=== PATIENT | female | born 1960 | race African-American/Black ===

== ENCOUNTER 2022-04-19 09:41 | Outpatient (CLI) | payer MEDICARE, SELFPAY ==
[2022-04-19 19:56] LABS: Basophils Absolute Auto 0.1 K/mm3 (0.0-0.1); Basophils Percent Auto 0.9 % (0.2-1.2); Eosinophils Absolute Auto 0.2 K/mm3 (0-0.3); Eosinophils Percent Auto 3.2 % (0-4.4); Hematocrit 41.5 % (37.0-47.0); Hemoglobin 13.9 g/dL (12.0-15.0); Immature Granulocyte Absolute 0.01 K/mm3 (0.00-0.031); Immature Granulocyte Percent A 0.2 % (0-0.5); Lymphocytes Absolute Auto 1.63 K/mm3 (0.9-3.2); Lymphocytes Percent Auto 30.7 % (18.3-44.2); Mean Corpuscular HGB Conc 33.5 g/dl (32-36); Mean Corpuscular Hemoglobin 30.3 pg (26-34); Mean Corpuscular Volume 90.6 fl (80-100); Mean Platelet Volume 10.7 fl (7.4-10.4); Monocytes Absolute Auto 0.4 K/mm3 (0.1-0.6); Monocytes Percent Auto 7.5 % (2.6-8.5); Neutrophils Absolute Auto 3.1 K/mm3 (1.3-6.7); Neutrophils Percent Auto 57.5 % (45.5-73.1); Platelet Count Result 276 k/mm3 (150-375); Red Blood Count 4.58 M/mm3 (4.2-5.4); White Blood Count 5.3 K/mm3 (4.5-10.0)
[2022-04-19 20:00] LABS: Alanine Aminotransferase 16 U/L (6-35); Albumin Level 4.5 g/dL (3.5-5.1); Alkaline Phosphatase 88 U/L (38-126); Anion Gap 8 mmol/L (8-16); Aspartate Amino Transferase 42 U/L (14-36); Bilirubin,Total 1.5 mg/dL (0.2-1.3); Blood Urea Nitrogen 18 mg/dL (7-17); Calcium 9.2 mg/dL (8.4-10.2); Carbon Dioxide 23 mmol/L (22-30); Chloride 105 mmol/L (98-107); Cholesterol 289 mg/dL (0-200); Estimated Glomerular Filt Rate > 60; Glucose 93 mg/dL (65-110); HDL Direct 93 mg/dL; Potassium 3.7 mmol/L (3.4-5.0); Sodium 136 mmol/L (137-145); Triglycerides 79 mg/dL (<150)
[2022-04-19 20:11] LABS: LDL Cholesterol Direct 108 mg/dL
[2022-04-29 07:49] LABS: Oxidant NEGATIVE mcg/mL (<200)
== END 2022-04-19 09:42 | disposition home or self-care (01) ==
PROVIDERS: PCP Family Medicine; Visit Provider Family Medicine
DX: E07.9 Disorder of thyroid, unspecified (principal); M32.9 Systemic lupus erythematosus, unspecified; E78.5 Hyperlipidemia, unspecified; F41.9 Anxiety disorder, unspecified; Z79.899 Other long term (current) drug therapy
CPT/HCPCS: 36415; 80053; 80061; 80299; 84443; 85025

== ENCOUNTER 2022-05-20 09:47 | Outpatient (CLI) | payer MEDICARE, SELFPAY ==
[2022-05-20 20:09] LABS: Add Urine Microscopic? YES; Appearance Urine Clear (Clear); Bilirubin Urine Negative (Negative); Blood Urine Trace-Intact (Negative); Color Urine Yellow (Yellow); Glucose Urine UA Negative (Negative); Ketones Urine Negative (Negative); Leukocyte Esterase Ur 2+ LEU/UL (NEGATIVE); Nitrate Urine Negative (Negative); Protein Urine Negative (Negative); Specific Grav Ur >= 1.030 (1.001-1.035); Urobilinogen Urine 0.2 mg/dL (<2.0); pH Urine 5.5 (5.0-9.0)
[2022-05-20 20:15] LABS: Alanine Aminotransferase 18 U/L (6-35); Albumin Level 4.7 g/dL (3.5-5.1); Alkaline Phosphatase 96 U/L (38-126); Anion Gap 4 mmol/L (8-16); Aspartate Amino Transferase 76 U/L (14-36); Bilirubin,Total 1.4 mg/dL (0.2-1.3); Blood Urea Nitrogen 14 mg/dL (7-17); Calcium 9.3 mg/dL (8.4-10.2); Carbon Dioxide 30 mmol/L (22-30); Chloride 106 mmol/L (98-107); Estimated Glomerular Filt Rate 56; Glucose 75 mg/dL (65-110); Potassium 4.1 mmol/L (3.4-5.0); Sodium 140 mmol/L (137-145)
[2022-05-20 20:17] LABS: Bacteria Urine Trace /hpf; Mucus Urine Rare /lpf; Squamous Epithelial Cell Urine Many /hpf (Few); WBC Urine 31-50 /hpf (0-3)
[2022-05-20 21:22] LABS: Hepatitis B Surface Antigen Negative (Negative)
[2022-05-20 21:27] LABS: HAV RESULT Negative (Negative); Hepatitis B Core IgM Result Negative (Negative)
[2022-05-20 21:39] LABS: Hepatitis C Virus Antibody Negative (Negative)
== END 2022-05-20 09:48 | disposition home or self-care (01) ==
PROVIDERS: PCP Family Medicine; Visit Provider Family Medicine
DX: N17.9 Acute kidney failure, unspecified (principal); R74.01 Elevation of levels of liver transaminase levels; F32.A Depression, unspecified; R35.0 Frequency of micturition
CPT/HCPCS: 36415; 80048; 80074; 80076; 81001; 84443; 87086; 87147; 87181; 87186

== ENCOUNTER 2022-06-03 09:29 | Outpatient (CLI) | payer MEDICARE, SELFPAY ==
--- NOTE | ~2022-06-03 | US_ITS ---
EXAMINATION: US abdomen limited DATE: 06/03/2022 09:50 INDICATION: Abnormal labs TECHNIQUE: Multiple grayscale and Doppler ultrasound images of the abdomen were obtained. COMPARISON: None available FINDINGS: The head and body of the pancreas are normal. The pancreatic tail is obscured by bowel gas. The liver is normal with normal echogenicity and echotexture. No surface nodularity. Normal hepatope yassine flow in the main portal vein. The gallbladder is normal with no abnormal wall thickening, pericho lecystic fluid or stones. The normal common bile duct measures 4 mm. There was no sonographic Gonzalez sign. IMPRESSION: 1. Normal sonographic study of the gallbladder. Reviewed, dictated and finalized at location L. NEERING DRAWINGS CHECKER
== END 2022-06-03 09:30 ==
LOC: GOSHIMG 09:31
PROVIDERS: PCP Family Medicine; Visit Provider Family Medicine
DX: R94.4 Abnormal results of kidney function studies (principal)
CPT/HCPCS: 76705

== ENCOUNTER 2022-07-05 12:45 | Outpatient (CLI) | payer MEDICARE, SELFPAY ==
--- NOTE | ~2022-07-05 | XR_ITS ---
Left foot Technique: AP and lateral standing views were obtained. Clinical History: Systemic lupus erythematosus Findings: No acute fracture or dislocation is seen. Osseous alignment is anatomic. Joint spaces are p reserved without erosive or degenerative change. Soft tissues are unremarkable. Impression: Unremarkable left foot radiographs. Reviewed, dictated and finalized at location . OMATIC OFFICER Impression: Unremarkable left foot radiographs.
--- NOTE | ~2022-07-05 | XR_ITS ---
Right foot Technique: AP and lateral standing views were obtained. Clinical History: Systemic lupus erythematosus Findings: No acute fracture or dislocation is seen. Osseous alignment is anatomic. Joint spaces are p reserved without erosive or degenerative change. Soft tissues are unremarkable. Impression: Unremarkable right foot radiographs. Reviewed, dictated and finalized at location . TARY CHEMIST Impression: Unremarkable right foot radiographs.
--- NOTE | ~2022-07-05 | XR_ITS ---
Lumbosacral Spine: AP and lateral views Clinical History: Pain Findings: The normal lordotic curve is maintained. The vertebral bodies and posterior elements are i ntact. The intervertebral disc spaces are preserved. Facet joint degenerative changes present from L 2 through S1. The sacroiliac joints are normally outlined. Impression: Facet joint degenerative changes, as above. Reviewed, dictated and finalized at location M. INTERPRETER Impression: Facet joint degenerative changes, as above.
--- NOTE | ~2022-07-05 | XR_ITS ---
EXAM: XR hand BI arthritis min 3V DATE: 07/05/2022 14:07 HISTORY: M19.90 - Unspecified osteoarthritis, unspecified site . COMPARISON: None available. FINDINGS: Normal mineralization. No fracture or dislocation. No lytic or blastic lesion. Mild bilate ral osteoarthritic changes in the DIP joints, metacarpal joints, several PIP joints, and several MCP joints. No erosion or periosteal change. Soft tissues within normal limits. IMPRESSION: Mild polyarticular osteoarthritis of the hands. Reviewed, dictated and finalized at location K. FORMER
[2022-07-05 13:35] LABS: Basophils Absolute Auto 0.1 K/mm3 (0.0-0.1); Eosinophils Absolute Auto 0.1 K/mm3 (0-0.3); Eosinophils Percent Auto 2.2 % (0-4.4); Hematocrit 40.1 % (37.0-47.0); Hemoglobin 13.7 g/dL (12.0-15.0); Immature Granulocyte Absolute 0.01 K/mm3 (0.00-0.031); Immature Granulocyte Percent A 0.2 % (0-0.5); Lymphocytes Absolute Auto 1.92 K/mm3 (0.9-3.2); Lymphocytes Percent Auto 38.6 % (18.3-44.2); Mean Corpuscular HGB Conc 34.2 g/dl (32-36); Mean Corpuscular Hemoglobin 30.6 pg (26-34); Mean Corpuscular Volume 89.5 fl (80-100); Mean Platelet Volume 10.2 fl (7.4-10.4); Monocytes Absolute Auto 0.4 K/mm3 (0.1-0.6); Monocytes Percent Auto 7.8 % (2.6-8.5); Neutrophils Absolute Auto 2.5 K/mm3 (1.3-6.7); Neutrophils Percent Auto 50.2 % (45.5-73.1); Platelet Count Result 281 k/mm3 (150-375); Red Blood Count 4.48 M/mm3 (4.2-5.4); Red Cell Distribution Width 11.5 % (11.5-14.5)
[2022-07-05 13:46] LABS: Anion Gap 9 mmol/L (8-16); Blood Urea Nitrogen 23 mg/dL (7-17); Calcium 9.3 mg/dL (8.4-10.2); Carbon Dioxide 26 mmol/L (22-30); Chloride 100 mmol/L (98-107); Estimated Glomerular Filt Rate 56; Glucose 74 mg/dL (65-110); Potassium 4.1 mmol/L (3.4-5.0); Sodium 135 mmol/L (137-145)
[2022-07-05 13:47] LABS: Alanine Aminotransferase 25 U/L (6-35); Albumin Level 4.7 g/dL (3.5-5.1); Alkaline Phosphatase 101 U/L (38-126); Anion Gap 5 mmol/L (8-16); Aspartate Amino Transferase 61 U/L (14-36); Bilirubin,Total 1.4 mg/dL (0.2-1.3); Blood Urea Nitrogen 22 mg/dL (7-17); CRP < 0.5 mg/dL (<1.0); Calcium 9.3 mg/dL (8.4-10.2); Carbon Dioxide 27 mmol/L (22-30); Chloride 101 mmol/L (98-107); Creatine Kinase 1152 U/L (30-135); Estimated Glomerular Filt Rate 51; Glucose 74 mg/dL (65-110); Potassium 4.1 mmol/L (3.4-5.0); Sodium 133 mmol/L (137-145); Uric Acid 4.9 mg/dL (2.5-7.5)
[2022-07-05 13:51] LABS: Complement C3 100 mg/dL (88-165)
[2022-07-08 06:11] LABS: Anti Nuclear Antibody Titer >=1:1280 (Negative)
[2022-07-08 13:54] LABS: Aldolase 5.9 U/L (<=8.1)
[2022-07-08 17:30] LABS: SM Antibody <1.0; SM/RNP Antibody <1.0
[2022-07-08 21:21] LABS: Anti Cyclic Citrullinated Pept <16 Units (<20)
[2022-07-09 21:37] LABS: Lupus dRVVT Screen 36 sec (<=45); PTT-LA Screen 22 sec (<=40)
== END 2022-07-05 12:46 | disposition home or self-care (01) ==
PROVIDERS: PCP Family Medicine; Visit Provider Internal Medicine
DX: M15.9 Polyosteoarthritis, unspecified (principal); M32.9 Systemic lupus erythematosus, unspecified; R53.83 Other fatigue; E03.9 Hypothyroidism, unspecified; Z71.89 Other specified counseling; R94.4 Abnormal results of kidney function studies; R74.8 Abnormal levels of other serum enzymes; F32.A Depression, unspecified
CPT/HCPCS: 36415; 72110; 73130; 73620; 80048; 80053; 82085; 82164; 82306; 82550; 84443; 84550; 85025; 85613; 85730; 86038; 86039; 86140; 86160; 86200; 86235

== ENCOUNTER 2022-07-13 14:26 | Outpatient (CLI) | payer MEDICARE, SELFPAY ==
--- NOTE | ~2022-07-13 | XR_ITS ---
XR lumbar spine 2-3V 07/13/2022 14:44 Indication: Low back pain Procedure: 3 views lumbar spine Comparison: 07/05/2022 Findings: There is loss of disc height at L4-5 and L5-S1. There are facet hypertrophic changes at L4- 5 and L5-S1 with grade 1 degenerative spondylolisthesis at L4-5. No acute fracture or traumatic malal ignment. There is fecal impaction of the colon. There is levoscoliosis centered at L2. Impression: 1: Moderate lumbar spondylosis with grade 1 degenerative spondylolisthesis at L4-5. Reviewed, dictated and finalized at location L. UCT SPECIALIST Impression: 1: Moderate lumbar spondylosis with grade 1 degenerative spondylolisthesis at L 4-5.
[2022-07-20 16:49] LABS: Alphahydroxymidazolam NEGATIVE ng/mL (<50); Alphahydroxytriazolam NEGATIVE ng/mL (<50); Amphetamines NEGATIVE ng/mL (<500); Barbiturates NEGATIVE ng/mL (<300); Benzodiazepines POSITIVE ng/mL (<100); Cocaine Metabolite NEGATIVE ng/mL (<100); Codeine NEGATIVE ng/mL (<50); Hydrocodone 2800 ng/mL (<50); Hydromorphone 540 ng/mL (<50); Hydroxyethylflurazepam NEGATIVE ng/mL (<50); Lorazepam NEGATIVE ng/mL (<50); Marijuana Metabolite NEGATIVE ng/mL (<20); Methadone Metabolite NEGATIVE ng/mL (<100); Morphine NEGATIVE ng/mL (<50); Norhydrocodone 3400 ng/mL (<50); Opiates POSITIVE ng/mL (<100); Oxidant NEGATIVE mcg/mL (<200); Temazepam NEGATIVE ng/mL (<50); pH 5.3 (4.5-9.0)
[2022-07-30 13:53] LABS: Creatinine Urine 179.7 mg/dL
== END 2022-07-13 14:27 | disposition home or self-care (01) ==
PROVIDERS: PCP Family Medicine; Visit Provider Family Medicine
DX: M47.816 Spondylosis without myelopathy or radiculopathy, lumbar region (principal); M43.16 Spondylolisthesis, lumbar region; M60.9 Myositis, unspecified
CPT/HCPCS: 72100; 80299

== ENCOUNTER 2022-09-03 10:03 | Outpatient (CLI) | payer MEDICARE, SELFPAY ==
[2022-09-03 10:58] LABS: Appearance Urine Turbid (Clear); Bacteria Urine 4+ /hpf; Bilirubin Urine Negative (Negative); Blood Urine Negative (Negative); Color Urine Yellow (Yellow); Glucose Urine UA Negative (Negative); Ketones Urine Negative (Negative); Leukocyte Esterase Ur 3+ LEU/UL (Negative); Nitrate Urine Negative (Negative); Protein Urine Negative (Negative); RBC Urine 0-2 /hpf (0-2); Specific Grav Ur 1.023 (1.001-1.035); Squamous Epithelial Cell Urine Many /hpf (Few); WBC Urine >100 /hpf
[2022-09-03 11:06] LABS: Creatinine Urine 162.5 mg/dL
[2022-09-03 11:07] LABS: Total Protein Urine Random < 5 mg/dL; Ur Ttl Prot Creatinine Ratio < 0.03 mg/mg (0-0.20)
[2022-09-03 11:08] LABS: Alanine Aminotransferase 18 U/L (6-35); Albumin Level 4.3 g/dL (3.5-5.1); Alkaline Phosphatase 93 U/L (38-126); Anion Gap 6 mmol/L (8-16); Aspartate Amino Transferase 28 U/L (14-36); Bilirubin,Total 1.3 mg/dL (0.2-1.3); Blood Urea Nitrogen 18 mg/dL (7-17); CRP < 0.5 mg/dL (<1.0); Calcium 9.3 mg/dL (8.4-10.2); Carbon Dioxide 27 mmol/L (22-30); Chloride 105 mmol/L (98-107); Creatine Kinase 108 U/L (30-135); Estimated Glomerular Filt Rate > 60; Glucose 85 mg/dL (65-110); Lactate Dehydrogenase 187 U/L (120-246); Potassium 4.5 mmol/L (3.4-5.0); Sodium 138 mmol/L (137-145)
[2022-09-03 11:19] LABS: Add Urine Microscopic? YES
[2022-09-03 11:46] LABS: Erythrocyte Sedimentation Rate 24 mm/hr (0-20)
[2022-09-09 05:40] LABS: Aldolase 7.2 U/L (<=8.1)
== END 2022-09-03 10:04 | disposition home or self-care (01) ==
PROVIDERS: PCP Family Medicine; Visit Provider Internal Medicine
DX: M32.9 Systemic lupus erythematosus, unspecified (principal); M19.90 Unspecified osteoarthritis, unspecified site
CPT/HCPCS: 36415; 80053; 81001; 82085; 82550; 82570; 83615; 84156; 85652; 86140; 87086; 87088

== ENCOUNTER 2022-10-27 10:08 | Outpatient (CLI) | payer MEDICARE, MEDICAID, SELFPAY ==
[2022-10-27 21:12] LABS: Iron 128 ug/dL (37-170)
[2022-10-27 21:25] LABS: Percent Iron Saturation 36 % (20-50)
== END 2022-10-27 10:09 | disposition home or self-care (01) ==
PROVIDERS: PCP Family Medicine; Visit Provider Family Medicine
DX: E03.9 Hypothyroidism, unspecified (principal); E07.9 Disorder of thyroid, unspecified; F41.9 Anxiety disorder, unspecified; I10 Essential (primary) hypertension; J45.909 Unspecified asthma, uncomplicated; M32.9 Systemic lupus erythematosus, unspecified; M54.50 Low back pain, unspecified; R53.83 Other fatigue; M25.50 Pain in unspecified joint
CPT/HCPCS: 36415; 82607; 83540; 83550; 84443

== ENCOUNTER 2023-02-07 11:28 | Outpatient (CLI) | payer MEDICARE, MEDICAID, SELFPAY ==
--- NOTE | ~2023-02-07 | XR_ITS ---
EXAMINATION: XR thoracic spine 3V DATE: 02/07/2023 11:42 INDICATION: Mid back pain TECHNIQUE: AP, lateral and lateral swimmer's views of the thoracic spine were obtained. COMPARISON: None. FINDINGS: Bone alignment is normal. There is no fracture. The vertebral body heights and intervertebr al disc spaces are maintained. Small degenerative osteophytes project from the anterior endplates of multiple vertebral bodies. IMPRESSION: 1. Mild thoracic spondylosis without acute findings. Reviewed, dictated and finalized at location B.
--- NOTE | ~2023-02-07 | XR_ITS ---
AP and lateral views of the left hip Clinical history: Pain Findings: No acute fracture or dislocation is seen. Osseous alignment is anatomic. Left hip joint and visualized left SI joint are preserved. Soft tissues are unremarkable. Impression: No significant abnormality is seen. Reviewed, dictated and finalized at [facility]. Impression: No significant abnormality is seen.
== END 2023-02-07 11:29 | disposition home or self-care (01) ==
PROVIDERS: PCP Family Medicine; Visit Provider Family Medicine
DX: M43.04 Spondylolysis, thoracic region (principal)
CPT/HCPCS: 72072; 73502

== ENCOUNTER 2023-05-30 11:07 | Outpatient (CLI) | payer MEDICARE, MEDICAID, SELFPAY ==
--- NOTE | ~2023-05-30 | XR_ITS ---
XR abdomen obstructive series DATE: 05/30/2023 11:30 INDICATION: Nausea and vomiting TECHNIQUE: Supine and upright AP views COMPARISON: 06/03/2022 limited abdominal ultrasound examination FINDINGS: There is a prominent amount of fecal material throughout the rectum and colon. No bowel obs truction is evident. The psoas shadows appear intact. No visceromegaly is noted. There is any abnorma l calcification is noted. No intraperitoneal free air is detected. The lung bases are clear. Heart size appears normal. Included skeletal structures are unremarkable. IMPRESSION: Prominent amount of fecal material throughout the rectum and colon; no bowel obstruction or free air is detected Reviewed, dictated and finalized at Location A. Reviewed, dictated and finalized at location B. TRICIAN APPRENTICE
[2023-05-30 18:45] LABS: Hematocrit 44.8 % (37.0-47.0); Hemoglobin 13.7 g/dL (12.0-15.0); Mean Corpuscular HGB Conc 30.6 g/dl (32-36); Mean Corpuscular Hemoglobin 30.2 pg (26-34); Mean Corpuscular Volume 98.7 fl (80-100); Mean Platelet Volume 11.1 fl (7.4-10.4); Platelet Count Result 302 k/mm3 (150-375); Red Blood Count 4.54 M/mm3 (4.2-5.4); Red Cell Distribution Width 12.2 % (11.5-14.5); White Blood Count 7.6 K/mm3 (4.5-10.0)
[2023-05-30 21:00] LABS: Alanine Aminotransferase 14 U/L (6-35); Albumin Level 4.3 g/dL (3.5-5.1); Alkaline Phosphatase 98 U/L (38-126); Anion Gap 8 mmol/L (8-16); Aspartate Amino Transferase 68 U/L (14-36); Bilirubin,Total 1.4 mg/dL (0.2-1.3); Blood Urea Nitrogen 19 mg/dL (7-17); Calcium 9.3 mg/dL (8.4-10.2); Carbon Dioxide 25 mmol/L (22-30); Chloride 103 mmol/L (98-107); Estimated Glomerular Filt Rate 55; Glucose 91 mg/dL (65-110); Potassium 4.1 mmol/L (3.4-5.0); Sodium 136 mmol/L (137-145)
[2023-05-30 21:28] LABS: Thyroid Stimulating Hormone 0.567 uIU/mL (0.465-4.680)
[2023-06-03 10:02] LABS: Alphahydroxymidazolam NEGATIVE ng/mL (<50); Alphahydroxytriazolam NEGATIVE ng/mL (<50); Amphetamines NEGATIVE ng/mL (<500); Barbiturates NEGATIVE ng/mL (<300); Benzodiazepines POSITIVE ng/mL (<100); Cocaine Metabolite NEGATIVE ng/mL (<100); Codeine NEGATIVE ng/mL (<50); Hydrocodone 3900 ng/mL (<50); Hydromorphone 670 ng/mL (<50); Hydroxyethylflurazepam NEGATIVE ng/mL (<50); Lorazepam NEGATIVE ng/mL (<50); Methadone Metabolite NEGATIVE ng/mL (<100); Morphine NEGATIVE ng/mL (<50); Norhydrocodone 5100 ng/mL (<50); Opiates POSITIVE ng/mL (<100); Oxidant NEGATIVE mcg/mL (<200); Temazepam NEGATIVE ng/mL (<50); pH 5.5 (4.5-9.0)
== END 2023-05-30 11:08 | disposition home or self-care (01) ==
LOC: ANHBWCLAB 11:10
PROVIDERS: PCP Family Medicine; Visit Provider Family Medicine
DX: Z86.73 Personal history of transient ischemic attack (TIA), and cerebral infarction without residual deficits (principal); R23.2 Flushing; M32.9 Systemic lupus erythematosus, unspecified; K76.0 Fatty (change of) liver, not elsewhere classified; J45.909 Unspecified asthma, uncomplicated; J30.9 Allergic rhinitis, unspecified; I10 Essential (primary) hypertension; G45.9 Transient cerebral ischemic attack, unspecified; F41.9 Anxiety disorder, unspecified; F32.A Depression, unspecified; E78.5 Hyperlipidemia, unspecified; E07.9 Disorder of thyroid, unspecified; E03.9 Hypothyroidism, unspecified; C25.9 Malignant neoplasm of pancreas, unspecified
CPT/HCPCS: 36415; 74019; 80053; 80299; 84443; 85027

== ENCOUNTER 2024-02-01 09:21 | Outpatient (CLI) | payer MEDICARE, MEDICAID, SELFPAY ==
--- NOTE | ~2024-02-01 | XR_ITS ---
EXAMINATION: XR chest 2V DATE: 02/01/2024 09:30 INDICATION: Shortness of breath, cough and chest pressure TECHNIQUE: PA and lateral views of the chest were obtained. COMPARISON: None FINDINGS: The lungs are clear with no focal airspace opacities, pulmonary edema, pleural effusion or pneumothor ax. The cardiomediastinal silhouette is normal. Visualized bones and soft tissues are unremarkable. IMPRESSION: 1. No acute cardiopulmonary disease. Reviewed, dictated and finalized at location B.
== END 2024-02-01 09:22 | disposition home or self-care (01) ==
PROVIDERS: PCP Family Medicine; Visit Provider Family Medicine
DX: R05.9 Cough, unspecified (principal); R06.02 Shortness of breath; R07.89 Other chest pain; R09.81 Nasal congestion
CPT/HCPCS: 71046

== ENCOUNTER 2024-07-26 12:44 | Outpatient (CLI) | payer MEDICARE, MEDICAID, SELFPAY ==
--- NOTE | ~2024-07-26 | XR_ITS ---
EXAMINATION: XR elbow RT min 3V DATE: 07/26/2024 12:56 INDICATION: Chronic right elbow pain and swelling. TECHNIQUE: 4 views of right elbow were obtained. COMPARISON: None. FINDINGS: Alignment is normal. No fracture. Joint spaces are normal. No elbow joint effusion. IMPRESSION: 1. No fracture. Reviewed, dictated and finalized at location A. NT MANAGEMENT MANAGER IMPRESSION: 1. No fracture.
--- OUTSIDE RECORDS SUMMARY | 2024-07-26 13:58 | XMS_ITS | Encounter Summary ---
Author Organization [facility] Address [address] [facility] [place] [address] Phone Care Team Providers Care Stained Glass Painter Name Role Phone Yashira Valencia APRN, CAR CLEANING SUPERVISOR Unavailable [phone] Julio Cesar Tracy MD Unavailable [phone] Robin Stratton MD Primary Care Provider [phone] Markel Underwood MD Primary Care Provider [phone] Catia Bolanos APRN, CAR CLEANING SUPERVISOR Unavailable Reason for Visit * Reason Comments Medication Refill Encounter Details Date Type Department Care Team (Late st Contact Info) Description 04/26/2022 Refill [facility] #2 [place] [address] Robin Stratton MD #[address] [address] Medication Refill Social History Tobacco Use Types Packs/Day Years Used Date Smoking Tobacco: Never Smokeless Tobacco: Never Alcohol Use Standard Drinks/Week Comments No 0 (1 standard drink = 0.6 oz pur e alcohol) PHQ-2 Answer Date Recorded Total Score - Questions 1-9 0 03/0 11/2021 Sexually Active Control Partners Comments Not Currently Comments No Sex and Gender Information Value Date Recorded Sex Assigned at Not on file Legal Sex Female 8:30 PM CDT Gender Identity Not on file Sexual Orientation Not on file 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 Requested Prescriptions Pending Prescriptions Disp Refills ondansetron (ZOFRAN-ODT) 4 MG TABLET DISPERSIBLE [Pharmacy Med Name: ONDANSETRON ODT 4MG TABLETS] 10 Tablet 1 Sig: DISSOLVE 1 TABLET ON THE TONGUE EVERY 8 HOURS NEEDED FOR NAUSEA Not Delegated - 5-HT3 Antagonists Protocol Failed - 04/26/2022 1:46 PM Failed - This refill cannot be delegated Passed - Visit with relevant provider in past 12 months or upcoming 90 days Recent Visits Date Type Provider Dept 02/04/22 Telemedicine Qamar Saab APRN, [facility] 11/19/21 Telemedicine Robin Stratton MD [facility] 11/16/21 Office Visit Qamar Saab APRN, [facility] 10/05/21 Telemedicine Qamar Saab APRN, [facility] 09/02/21 Telemedicine Qamar Saab APRN, [facility] 08/28/21 Office Visit Qamar Saab APRN, [facility] 07/27/21 Office Visit Qamar Saab APRN, [facility] 05/20/21 Office Visit Qamar Saab APRN, [facility] 05/05/21 Office Visit Qamar Saab APRN, [facility] 04/30/21 Telemedicine Qamar Saab APRN, CAR CLEANING SUPERVISOR [facility] Showing recent visits within past 365 days and meeting all other requirements Future Appointments No visits were found meeting these conditions. Showing future appointments within next 90 days and meeting all other requirements SMISSION TECHNICIAN documented in this encounter Plan of Treatment Upcoming Encounters Date Type Department Care Team (Late st Contact Info) Description 08/01/2024 9:00 AM CDT Appointment [facility] Mammography 1 [facility] [place] [address] Giovanny Omalley [address] [facility] [address] [place] [address] Discharge Disposition: Discharged to home or Selfcare documented as of this encounter Visit Diagnoses Diagnosis Nausea Nausea alone documented in this encounter Additional Health Concerns Infection Onset Date Last Indicated Resolved Time COVID - 19 06/13/2023 06/13/2023 06/14/2023 12:5 9 AM TRANSMISSION TECHNICIAN COVID - 19 Confirmed 06/13/2023 06/13/2023 024 12:16 AM TRANSMISSION TECHNICIAN Assessment Noted Time PHQ-9 Depression Total Score: 0 07/28/19 22 1:00 PM TRANSMISSION TECHNICIAN documented as of this encounter Care Teams Stained Glass Painter Relationship Specialty Start Date End Date Robin Stratton MD #2 [facility] [address] [place] [address] PCP - General Family Medicine 05/28/19 02/15/23 Markel Underwood MD [address] [place] [address] PCP - General Family Medicine 02/16/23 Yashira Valencia, LIBRARY SERIALS ASSISTANT, CAR CLEANING SUPERVISOR Nurse Practitioner Advanced Practice Nurse 04/03/15 Julio Cesar Tracy MD #2 [facility] [address] [place] [address] General Surgery 12/18/15 Catia Bolanos APRN, CAR CLEANING SUPERVISOR #2 [place] [address] Nurse Practitioner Advanced Practice Nurse 08/20/22 documented as of this encounter
--- OUTSIDE RECORDS SUMMARY | 2024-07-26 13:58 | XMS_ITS | Encounter Summary ---
Author Organization [facility] Address [address] [facility] [place] [address] Phone Care Team Providers Care Tank House Operator Name Role Phone Yashira Valencia APRN, SUPERVISOR TICKET SALES Unavailable Julio Cesar Tracy MD Unavailable [phone] Robin Stratton MD Primary Care Provider [phone] Markel Underwood MD Primary Care Provider [phone] Catia Bolanos APRN, SUPERVISOR TICKET SALES Unavailable Reason for Visit * Reason Onset Date Comments Medication Refill 08/31/2021 Encounter Details Date Type Department Care Team (Late st Contact Info) Description 08/31/2021 Refill [facility] #2 [place] [address] Robin Stratton MD #[address] [address] Medication Refill Social History Tobacco Use Types [...] 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 No / Unsure 08/28/2021 1:15 PM CDT documented as of this encounter Miscellaneous Notes * Telephone Encounter - Sayda Renteria RN - 09/01/2021 10:30 AM CDT Medication failed the protocol, provider to review and approve the medication order if appropriate. Requested Prescriptions Pending Prescriptions Disp Refills SUMAtriptan (IMITREX) 6 MG/0.5ML Solution Auto-injector 2 Cartridge 5 Sig: Inject 6mg at onset of headache. May repeat in one hour one time if no relief. No more than 2injections in one day! Not Delegated - Serotonin Agonists (Injectable) Protocol Failed - 09/01/2021 10:16 AM Failed - This refill cannot be delegated; check utilization no more than 9 doses per month Passed - Visit with relevant provider in past 24 months or upcoming 90 days Recent Visits Date Type Provider Dept 08/28/21 Office Visit Qamar Saab APRN, [facility] 07/27/21 Office Visit Qamar Saab APRN, [facility] 05/20/21 Office Visit Qamar Saab APRN, [facility] 05/05/21 Office Visit Qamar Saab APRN, [facility] 04/30/21 Telemedicine Qamar Saab APRN, [facility] 04/20/21 Telemedicine Qamar Saab APRN, [facility] 04/02/21 Telemedicine Qamar Saab APRN, [facility] 02/19/21 Office Visit Robin Stratton MD [facility] 02/04/21 Telemedicine Qamar Saab APRN, CNP [facility] 01/14/21 Office Visit Qamar Saab APRN, [facility] Showing recent visits within past 730 days and meeting all other requirements Future Appointments Date Type Provider Dept 09/02/21 Appointment Qamar Saab APRN, [facility] 10/05/21 Appointment [facility] Strat[facility] MD [facility] Showing future appointments within next 90 days and meeting all other requirements Passed - No documented Systolic BP > 200 within past 3 months Passed - Number of active Serotonergic medications less than 3 * Telephone Encounter - Aurea Maldonado - 09/01/2021 10:16 AM CDT Still waiting on rx of Sumatriptan. * Telephone Encounter - Tenisha Roach - 08/31/2021 8:36 AM CDT Received a faxed Rx request from pharmacy. Reordered refill medication(s) requested and pended for nurse and physician/VLAD review. Refill encounter routed to nurse Alexxrijhoana's pool for processing. documented in this encounter Plan of Treatment Upcoming Encounters Date Type Department Care Team (Late st Contact Info) Description 08/01/2024 9:00 AM CDT [facility]oint[facility] M[facility] 1 [place] [id number] Giovanny Omalley [address] [place] [address] [address] [facility] [place] [address] Discharge Disposition: Discharged to home or Selfcare documented as of this encounter Visit Diagnoses Not on filedocumented in this encounter Additional Health Concerns Infection Onset Date Last Indicated Resolved Time COVID - 19 11/16/2021 11/19/2021 11/29/2021 12:1 6 AM CDT COVID - 19 06/13/2023 06/13/2023 06/14/2023 12:5 9 AM ENDLESS TRACK VEHICLE MECHANIC COVID - 19 Confirmed 06/13/2023 06/13/2023 024 12:16 AM ENDLESS TRACK VEHICLE MECHANIC Assessment Noted Time PHQ-9 Depression Total Score: 0 07/28/19 1:00 PM ENDLESS TRACK VEHICLE MECHANIC documented as of this encounter Care Teams Tank House Operator Relationship Specialty Start Date End Date Robin Stratton MD #2 [facility] [address] [place] [address] PCP - General Family Medicine 05/28/19 02/15/23 Markel Underwood MD [address] [place] [id number] PCP - General Family Medicine 02/16/23 Yashira Valencia APRN, SUPERVISOR TICKET SALES Nurse Practitioner Advanced Practice Nurse 04/03/15 Julio Cesar Tracy MD #2 [facility] [address] [place] [address] General Surgery 12/18/15 Catia Bolanos APRN, SUPERVISOR TICKET SALES #2 [place] [address] Nurse Practitioner Advanced Practice Nurse 08/20/22 documented as of this encounter
--- OUTSIDE RECORDS SUMMARY | 2024-07-26 13:58 | XMS_ITS | Encounter Summary ---
Author Organization [facility] Address [address] [facility] [place] [address] Phone Care Team Providers Care Juice Packaging Machines Setter Name Role Phone Yashira Valencia APRN, ACCOUNT PLANNER Unavailable Julio Cesar Tracy MD Unavailable [phone] Robin Stratton MD Primary Care Provider [phone] Markel Underwood MD Primary Care Provider [phone] Catia Bolanos APRN, ACCOUNT PLANNER Unavailable Reason for Visit * Reason Comments Medication Refill Encounter Details Date Type Department Care Team (Late st Contact Info) Description 11/30/2021 Refill [facility] Family [facility] #2 [place] [address] Robin Stratton MD #[address] [address] Medication Refill Social History Tobacco Use Types [...] 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 No / Unsure 11/30/2021 9:55 AM CDT documented as of this encounter Miscellaneous Notes * Telephone Encounter - Beryl Loaiza RN - 12/01/2021 8:16 AM CDT Medication failed the protocol, provider to review and approve the medication order if appropriate. Requested Prescriptions Pending Prescriptions Disp Refills ondansetron (ZOFRAN-ODT) 4 MG TABLET DISPERSIBLE [Pharmacy Med Name: ONDANSETRON ODT 4MG TABLETS] 10 Tablet 1 Sig: DISSOLVE 1 TABLET ON THE TONGUE EVERY 8 HOURS NEEDED FOR NAUSEA Not Delegated - 5-HT3 Antagonists Protocol Failed - 11/30/2021 10:32 AM Failed - This refill cannot be delegated Passed - Visit with relevant provider in past 12 months or upcoming 90 days Recent Visits Date Type Provider Dept 11/19/21 Telemedicine Robin Stratton MD [facility] 11/16/21 Office Visit Qamar Saab APRN, [facility] 10/05/21 Telemedicine Qaamr Saab APRN, J[facility] 09/02/21 Telemedicine Qamar Saab APRN, [facility] 08/28/21 Office Visit Qamar Saab APRN, [facility] 07/27/21 Office Visit Qamar Saab APRN, [facility] 05/20/21 Office Visit Qamar Saab APRN, [facility] 05/05/21 Office Visit Qamar Saab APRN, [facility] 04/30/21 Telemedicine Qamar Saab APRN, [facility] 04/20/21 Telemedicine Qamar Saab APRN, [facility] Showing recent visits within past 365 days and meeting all other requirements Future Appointments No visits were found meeting these conditions. Showing future appointments within next 90 days and meeting all other requirements ondansetron (ZOFRAN-ODT) 4 MG TABLET DISPERSIBLE [Pharmacy Med Name: ONDANSETRON ODT 4MG TABLETS] 10 Tablet 1 Sig: DISSOLVE 1 TABLET ON THE TONGUE EVERY 8 HOURS NEEDED FOR NAUSEA Not Delegated - 5-HT3 Antagonists Protocol Failed - 11/30/2021 10:32 AM Failed - This refill cannot be delegated Passed - Visit with relevant provider in past 12 months or upcoming 90 days Recent Visits Date Type Provider Dept 11/19/21 Telemedicine Robin Stratton MD [facility] 11/16/21 Office Visit Qamar Saab APRN, [facility] 10/05/21 Telemedicine Qamar Saab APRN, [facility] 09/02/21 Telemedicine Qamar Saab APRN, [facility] 08/28/21 Office Visit Qamar Saab APRN, [facility] 07/27/21 Office Visit Qamar Saab APRN, [facility] 05/20/21 Office Visit Qamar Saab APRN, [facility] 05/05/21 Office Visit Qamar Saab APRN, [facility] 04/30/21 Telemedicine Qamar Saab APRN, [facility] 04/20/21 Telemedicine Qamar Saab APRN, ACCOUNT PLANNER [facility] Showing recent visits within past 365 days and meeting all other requirements Future Appointments No visits were found meeting these conditions. Showing future appointments within next 90 days and meeting all other requirements documented in this encounter Plan of Treatment Upcoming Encounters Date Type Department Care Team (Late st Contact Info) Description 08/01/2024 9:00 AM CDT [facility]ointment [facility] 1 [place] [address] Giovanny Omalley [address] [place] [address] [facility] [address] [place] [address] Discharge Disposition: Discharged to home or Selfcare documented as of this encounter Visit Diagnoses Diagnosis Nausea Nausea alone documented in this encounter Additional Health Concerns Infection Onset Date Last Indicated Resolved Time COVID - 19 06/13/2023 06/13/2023 06/14/2023 12:5 9 AM MACHINE BINDING FOLDER COVID - 19 Confirmed 06/13/2023 06/13/2023 024 12:16 AM MACHINE BINDING FOLDER Assessment Noted Time PHQ-9 Depression Total Score: 0 07/28/19 22 1:00 PM MACHINE BINDING FOLDER documented as of this encounter Care Teams Juice Packaging Machines Setter Relationship Specialty Start Date End Date Robin Stratton MD #2 [facility] [address] [place] [address] PCP - General Family Medicine 05/28/19 02/15/23 Markel Underwood MD [address] [place] [address] PCP - General Family Medicine 02/16/23 Yashira Valencia APRN, ACCOUNT PLANNER Nurse Practitioner Advanced Practice Nurse 04/03/15 Julio Cesar Tracy MD #2 [facility] [address] [place] [address] General Surgery 12/18/15 Catia Bolanos APRN, ACCOUNT PLANNER #2 [place] [address] Nurse Practitioner Advanced Practice Nurse 08/20/22 documented as of this encounter
--- OUTSIDE RECORDS SUMMARY | 2024-07-26 13:58 | XMS_ITS | Clinical Summary ---
Author Organization [facility] Address [address] [place] [address] Phone Care Team Providers Care Painter Foreman Name Role Phone Noe Stratton MD Primary Care Provider [phone] Allergies Active Allergy Reactions Criticality Noted Date Comments Dye Nausea and Vomiting Low 03/03/2018 Metrizamide Nausea and Vomiting Low 12/15/2015 Metronidazole Nausea and Vomiting Low Morphine Nausea and Vomiting Low 04/03/2015 Quinapril Swelling High 03/03/2018 lips Medications amLODIPine (NORVASC) 10 mg tablet Take 10 mg by mouth daily. Active spironolactone (ALDACTONE) 25 mg tablet Take 25 mg by mouth daily. Active hydroxychloroquin e (PLAQUENIL) 200 mg tablet Take 400 mg by mouth daily . Active omeprazole (PriLOSEC) 10 mg Capsule, Delayed Release(E.C.) Take 10 mg by mouth daily. Active budesonide/formot tarun fumarate (SYMBICORT INHALATION) Take by inhalation. Active ALPRAZolam (XANAX) 1 mg tablet Take 1 mg by mouth 3 times daily as needed for Anxiety. Active Clotrimazole (MYCELEX) 10 mg John Take 10 mg by mouth 5 times daily. Active estradiol (ESTRACE) 1 mg tablet Take 1 mg by mouth daily. Active fluticasone (FLONASE) 50 mcg/spray Edison, Suspension 2 Sprays daily. Active HYDROcodone-aceta minophen (NORCO) 10-325 mg Tablet Take 1 Tablet by mouth every 4 hours as needed for Pain, Moderate. Active minocycline (MINOCIN) 100 mg capsule Take 100 mg by mouth every 12 hours. Active albuterol (PROVENTIL,VENTOL IN) 2.5 mg /3 mL (0.083 %) Solution for Nebulization Take by inhalation 3 times daily as needed for Shortness of Breath. 5 Active ondansetron (ZOFRAN) 4 mg Tablet Take 1 Tablet (4 mg) by mouth every 8 hours as needed for Nausea/Emesis. 28 Tablet 1 03/14/2018 4:23 PM CDT 8 Active Active Problems Problem Noted Date Diagnosed Date Systemic lupus erythematosus 03/13/2018 Obesity (BMI 30.0-34.9) 03/13/2018 Benign hypertension 03/13/2018 Essential hypertension Depression with anxiety Immunizations Immunization Administration Dates Next Due INFLUENZA VACCINE QUADRIVALENT 3 YR UP PF IM Social History Tobacco Use Types Packs/Day Years Used Date Smoking Tobacco: Never Smokeless Tobacco: Never Alcohol Use Standard Drinks/Week Comments Yes 1 (1 standard drink = 0.6 oz pur e alcohol) rare Comments No Sex and Gender Information Value Date Recorded Sex Assigned at Not on file Legal Sex Female 1:02 PM CDT Gender Identity Not on file Sexual Orientation Not on file Last Filed Vital Signs Vital Sign Reading Time Taken Comments Blood Pressure 130/73 03/14/2018 10:00 AM CDT Pulse 95 03/14/2018 10:00 AM CDT Temperature 36.5 C (97.7 F) 03/14/2018 10:00 AM CDT Respiratory Rate 18 03/14/2018 10:00 AM CDT Oxygen Saturation 99% 03/14/2018 10:00 AM CDT Inhaled Oxygen Concentration - - Weight 99.3 kg (219 lb) 03/13/2018 8:03 AM CDT Height 171.5 cm (5' 7.5 ) 03/13/2018 8:03 AM CDT Body Mass Index 33.79 03/13/2018 8:03 AM CDT Plan of Treatment Health Maintenance Due Date Last Done Comments DTAP/TDAP/TD VACCINES (1 - Tdap) 1980 ZOSTER VACCINE (1 of 2) 1980 CERVICAL CANCER SCREENING 1991 BREAST CANCER SCREENING 2001 COLORECTAL SCREENING 2006 Colorectal Cancer Screening 2006 FIT-DNA Q 3 years 2006 FIT/FOBT Q 1 year 2006 Flex Sig/CT Colonography Q 5 years 2006 RSV VACCINE (60+ or ) (1 - Risk 60-74 years 1-dose series) 2021 INFLUENZA VACCINE (#1) 2023 03/14/2018, 2015 Medical Devices Implanted Type Area Insurance Healthcare Consultant Device Identifier Shelf Expiration Date Model / Serial / Lot Seamguard Endogia 60 Blck [id number] - [id number] Implanted:Qty : 2 on 03/13/2018 by Brown Lawrence MD at [facility] N/A: Abdomen [employer] 10/20/2020 [id number] / / [id number] Seamguard Endogia 60 Prpl [id number] - [id number] Implanted:Qty : 3 on 03/13/2018 by Brown Lawrence MD at [facility] N/A: Abdomen [employer] 10/20/2020 [id number] / / [id number] Insurance MEDICARE PART A AND B [place] [facility] Medicare Part D Advance Directives For more information, please contact: [phone] * Full Code (Latest Code Status on File) Date Activated Date Inactivated Comments 03/13/2018 4:51 PM 03/15/2018 12:43 AM Care Teams Painter Foreman Relationship Specialty Start Date End Date Noe Stratton MD [address] [place] [address] PCP - General Internal Medicine 02/28/18
--- OUTSIDE RECORDS SUMMARY | 2024-07-26 13:58 | XMS_ITS | Encounter Summary ---
Author Organization [facility] Address [address] [place] [place] [address] Phone Care Team Providers Care Professor Of Religious Studies Name Role Phone Yashira Valencia APRN, ROLL FORMING MACHINE OPERATOR Unavailable Julio Cesar Tracy MD Unavailable [phone] Robin Stratton MD Primary Care Provider [phone] Markel Underwood MD Primary Care Provider [phone] Catia Bolanos APRN, ROLL FORMING MACHINE OPERATOR Unavailable Reason for Visit * Reason Onset Date Comments Medication Refill 09/21/2021 Encounter Details Date Type Department Care Team (Late st Contact Info) Description 09/21/2021 Refill [facility] - Family Medicine [facility] [address] [place] [address] Robin Stratton MD [address] [address] Medication Refill Social History Tobacco Use Types [...] 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 No / Unsure 08/28/2021 1:15 PM CDT documented as of this encounter Miscellaneous Notes * Telephone Encounter - Beryl Loaiza RN - 09/22/2021 10:43 AM CDT Medication failed the protocol, provider to review and approve the medication order if appropriate. Requested Prescriptions Pending Prescriptions Disp Refills ondansetron (ZOFRAN-ODT) 4 MG TABLET DISPERSIBLE 10 Tablet 1 Not Delegated - 5-HT3 Antagonists Protocol Failed - 09/21/2021 11:18 AM Failed - This refill cannot be delegated Passed - Visit with relevant provider in past 12 months or upcoming 90 days Recent Visits Date Type Provider Dept 09/02/21 Telemedicine Qamar Saab APRN, [facility] 08/28/21 Office Visit Qamar Saab APRN, [facility] 07/27/21 Office Visit Qamar Saab APRN, [facility] 05/20/21 Office Visit Qamar Saab APRN, [facility] 05/05/21 Office Visit Qamar Saab APRN, [facility] 04/30/21 Telemedicine Qamar Saab APRN, [facility] 04/20/21 Telemedicine Qamar Saab APRN, [facility] 04/02/21 Telemedicine Qamar Saab APRN, [facility] 02/19/21 Office Visit Robin Stratton MD [facility] 02/04/21 Telemedicine Qamar Saab APRN, ROLL FORMING MACHINE OPERATOR [facility] Showing recent visits within past 365 days and meeting all other requirements Future Appointments Date Type Provider Dept 10/05/21 Appointment Robin Stratton MD [facility] Showing future appointments within next 90 days and meeting all other requirements * Telephone Encounter - Tenisha Roach - 09/21/2021 11:18 AM CDT Received a faxed Rx request from pharmacy. Reordered refill medication(s) requested and pended for nurse and physician/VLAD review. Refill encounter routed to nurse [facility] for processing. documented in this encounter Plan of Treatment Upcoming Encounters Date Type Department Care Team (Late st Contact Info) Description 08/01/2024 9:00 AM CDT Appointment [facility] Mammography [address] [place] [address] Giovanny Omalley [address] [facility] [address] [place] [address] Discharge Disposition: Discharged to home or Selfcare documented as of this encounter Visit Diagnoses Diagnosis Nausea Nausea alone documented in this encounter Additional Health Concerns Infection Onset Date Last Indicated Resolved Time COVID - 19 11/16/2021 11/19/2021 11/29/2021 12:1 6 AM CDT COVID - 19 06/13/2023 06/13/2023 06/14/2023 12:5 9 AM WELLNESS SPA MANAGER COVID - 19 Confirmed 06/13/2023 06/13/2023 024 12:16 AM WELLNESS SPA MANAGER Assessment Noted Time PHQ-9 Depression Total Score: 0 07/28/19 22 1:00 PM WELLNESS SPA MANAGER documented as of this encounter Care Teams Professor Of Religious Studies Relationship Specialty Start Date End Date Robin Stratton MD [address]2 [facility] [address] [place] [address] PCP - General Family Medicine 05/28/19 02/15/23 Markel Underwood MD [address] [place] [address] PCP - General Family Medicine 02/16/23 Yashira Valencia APRN, ROLL FORMING MACHINE OPERATOR Nurse Practitioner Advanced Practice Nurse 04/03/15 Julio Cesar Tracy MD #[address] [address] General Surgery 12/18/15 Catia Bolanos APRN, ROLL FORMING MACHINE OPERATOR [address] [place] [address] Nurse Practitioner Advanced Practice Nurse 08/20/22 documented as of this encounter
--- OUTSIDE RECORDS SUMMARY | 2024-07-26 13:59 | XMS_ITS | Encounter Summary ---
Author Organization [facility] Address [address] [facility] [place] [address] Phone Care Team Providers Care Finance Intern Name Role Phone Yashira Valencia APRN, SUBMARINE OPERATOR Unavailable [phone] Julio Cesar Tracy MD Unavailable [phone] Robin Stratton MD Primary Care Provider [phone] Markel Underwood MD Primary Care Provider [phone] Catia Bolanos APRN, SUBMARINE OPERATOR Unavailable Reason for Visit * Reason Comments Medication Refill Encounter Details Date Type Department Care Team (Late st Contact Info) Description 05/26/2021 Refill [facility] - Family Medicine [facility] [address] [place] [address] Robin Stratton MD [address] [address] Medication Refill Social History Tobacco Use Types Packs/Day Years Used Date Smoking Tobacco: Never Smokeless Tobacco: Never Alcohol Use Standard Drinks/Week Comments No 0 (1 standard drink = 0.6 oz pur e alcohol) PHQ-2 Answer Date Recorded Total Score - Questions 1-9 14 12/2020 Sexually Active Control Partners Comments Not Currently Comments No Sex and Gender Information Value Date Recorded Sex Assigned at Not on file Legal Sex Female 8:30 PM CDT Gender Identity Not on file Sexual Orientation Not on file 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 No / Unsure 05/20/2021 9:11 AM MANAGER FASHION documented as of this encounter Miscellaneous Notes * Telephone Encounter - Sayda Renteria RN - 05/27/2021 8:53 AM CST Medication failed the protocol, provider to review and approve the medication order if appropriate. Requested Prescriptions Pending Prescriptions Disp Refills ondansetron (ZOFRAN-ODT) 4 MG TABLET DISPERSIBLE [Pharmacy Med Name: ONDANSETRON ODT 4MG TABLETS] 10 Tablet 1 Sig: DISSOLVE 1 TABLET ON THE TONGUE EVERY 8 HOURS NEEDED FOR NAUSEA Not Delegated - 5-HT3 Antagonists Protocol Failed - 05/26/2021 1:54 PM Failed - This refill cannot be delegated Passed - Visit with relevant provider in past 12 months or upcoming 90 days Recent Visits Date Type Provider Dept 05/20/21 Office Visit Qamar Saab APRN, SUBMARINE OPERATOR [facility] 05/05/21 Office Visit Qamar Saab APRN, SUBMARINE OPERATOR [facility] 04/30/21 Telemedicine Qamar Saab APRN, SUBMARINE OPERATOR [facility] 04/20/21 Telemedicine Qamar Saab APRN, SUBMARINE OPERATOR [facility] 04/02/21 Telemedicine Qamar Saab APRN, SUBMARINE OPERATOR [facility] 02/19/21 Office Visit Robin Stratton MD [facility] [place] 02/04/21 Telemedicine Qamar Saab APRN, SUBMARINE OPERATOR [facility] 01/14/21 Office Visit Qamar Saba APRN, SUBMARINE OPERATOR [facility] 11/13/20 Office Visit Qamar Saab APRN, SUBMARINE OPERATOR [facility] 08/28/20 Office Visit Robin Stratton MD [facility] Showing recent visits within past 365 days and meeting all other requirements Future Appointments Date Type Provider Dept 07/15/21 Appointment Robin Stratton MD [facility] Showing future appointments within next 90 days and meeting all other requirements GER FASHION documented in this encounter Plan of Treatment Upcoming Encounters Date Type Department Care Team (Late st Contact Info) Description 08/01/2024 9:00 AM CDT Appointment [facility] Mammography [address] [facility] [place] [id number] [address] [place] [address] [facility] [address] [place] [address] Discharge Disposition: Discharged to home or Selfcare documented as of this encounter Visit Diagnoses Diagnosis Nausea Nausea alone documented in this encounter Additional Health Concerns Infection Onset Date Last Indicated Resolved Time Respiratory Rule-Out 08/14/2021 08/14/2021 022 3:15 PM CDT COVID - 19 11/16/2021 11/19/2021 11/29/2021 12:1 6 AM CDT COVID - 19 06/13/2023 06/13/2023 06/14/2023 12:5 9 AM MANAGER FASHION COVID - 19 Confirmed 06/13/2023 06/13/2023 024 12:16 AM MANAGER FASHION Assessment Noted Time PHQ-9 Depression Total Score: 14 021 8:50 AM CDT documented as of this encounter Care Teams Finance Intern Relationship Specialty Start Date End Date Robin Stratton MD [address]2 [facility] [address] [place] [address] PCP - General Family Medicine 05/28/19 02/15/23 Markel Underwood MD [address] [place] [id number] PCP - General Family Medicine 02/16/23 Yashira Valencia APRN, SUBMARINE OPERATOR Nurse Practitioner Advanced Practice Nurse 04/03/15 Julio Cesar Tracy MD #[address] [address] General Surgery 12/18/15 Catia Bolanos APRN, SUBMARINE OPERATOR [address] [place] [address] Nurse Practitioner Advanced Practice Nurse 08/20/22 documented as of this encounter
--- OUTSIDE RECORDS SUMMARY | 2024-07-26 13:59 | XMS_ITS | Clinical Summary ---
Author Organization [facility] Address [address] [address] Phone Care Team Providers Care Drop Wire Hanger Name Role Phone Yashira Valencia APRN, SUPERVISOR CHANNEL PROCESS Unavailable Julio Cesar Tracy MD Unavailable [phone] Markel Underwood MD Primary Care Provider [phone] Catia Bolanos APRN, SUPERVISOR CHANNEL PROCESS Unavailable Allergies Active Allergy Reactions Criticality Noted Date Comments Quinapril Hcl Swelling Metronidazole Nausea,Swelling Iodinated Contrast Media Vomiting 12/15/2015 IV CONTRAST CAUSES PROJECTIVE VOMITING IN THIS PATIENT Morphine Nausea 04/03/2015 Nausea and vomiting Benzonatate Nausea,Vomiting 08/27/2020 Ketorolac Tromethamine Nausea 03/21/2019 Medications carisoprodol (SOMA) 350 MG Tablet Take 350 mg by mouth Twice daily. 05/23/19 11 Active DULoxetine (CYMBALTA) [address] Adkins ons:Major Depressive Disorder Take 60 mg by mouth daily. Indications: Major Depressive Disorder 05/23/19 12 Active citalopram (CELEXA) 40 MG Tablet Take 40 mg by mouth daily. 0 03/05/20 15 Active gabapentin (NEURONTIN) 300 MG Capsule Take 300 mg by mouth 3 times daily. 0 03/18/20 15 Active estradiol (ESTRACE) 2 MG Tablet Take 2 mg by mouth daily. Hazardous: Medication requires special safe handling and disposal. Active polyethylene glycol (GLYCOLAX, MIRALAX) Pack Take 1 Packet by mouth 3 times daily. Dissolve in 4-8 oz of liquid. 90 Packet 3 06/06/19 19 Active Additional Information Patient taking differently:17 g Oral3 TIMES DAILY PRN, Dissolve in 4-8 oz of liquid., Reported on 10/14/2022 hydrocortisone (ANUSOL-HC) 2.5 % Cream Apply daily. Apply to rectum as directed. 1 Tube 06/06/19 Active CALCIUM-VITAMIN D PO Take 1 Tab by mouth daily. Active ferrous sulfate 325 (65 Fe) MG Tablet Take 325 mg by mouth daily. Active ALPRAZolam (XANAX) 1 MG Tablet Take 1 Tab by mouth 3 times daily as needed for Anxiety. 90 Tab 11/01/19 Active Misc. Devices (RAISED TOILET SEAT) Misc 1 Device by Does not apply route continuous. 1 Each 11/03/19 Active Incontinence Supply Disposable (DEPEND UNDERWEAR SM/MED) MiscIndications:U rge incontinence of urine 1 Device by Does not apply route continuous. 4 Each 6 11/03/19 19 Active HYDROcodone-aceta minophen (NORCO) 10-325 MG Tablet Take 1 Tab by mouth every 6 hours as needed. Active clotrimazole (MYCELEX) 10 MG John Take 1 John by mouth 3 times daily. 21 John 05/28/19 Active Additional Information Patient not taking.Reported on 08/13/2022 Probiotic Product (ALIGN) Capsule Take 1 Cap by mouth daily. 30 Cap 11 07/16/19 Active Additional Information Patient not taking.Reported on 08/13/2022 albuterol (PROVENTIL, VENTOLIN) (2.5 MG/3ML) 0.083% Nebulizer Soln 3 mL by Nebulization route every 4 hours as needed for Wheezing or Shortness of Breath. 540 Vial 1 08/28/19 Active cyanocobalamin (VITAMIN B-12) 1000 MCG/ML Solution every 30 days. 01/14/20 Active spironolactone (ALDACTONE) 25 MG Tablet TK 3 TS PO QHS 01/04/20 20 Active hydroxychloroquin e (PLAQUENIL) 200 MG TabletIndications :Systemic Lupus Erythematosus Take 200 mg by mouth daily. Patient takes 200 mg every other day, alternating with 400 mg dose Indications: Systemic Lupus Erythematosus Active hydroxychloroquin e (PLAQUENIL) 200 MG TabletIndications :Systemic Lupus Erythematosus Take 400 mg by mouth every 48 hours. Take 400 mg every other day, alternating with 200 mg dose. Indications: Systemic Lupus Erythematosus Active aluminum chloride (DRYSOL) 20 % Solution Apply nightly. Use as directed. 60 mL 3 03/27/20 Active potassium chloride CR (KLORCON) 10 MEQ Tablet Controlled Release Klor-Con 10 mEq tablet,extended release Active sodium chloride, irrigation, 0.9 % Solution sodium chloride 0.9 % irrigation solution Active aspirin EC 81 MG Tablet Delayed Response Take 1 Tablet by mouth daily. 100 Tablet 3 01/15/20 Active budesonide-formot tarun fumarate (SYMBICORT) 160-4.5 MCG/ACT Aerosol take 2 Puffs by inhalation 2 times daily. 10.2 g 11 01/15/20 Active loratadine (CLARITIN) 10 MG Tablet TAKE ONE TABLET BY MOUTH DAILY 90 Tablet 3 02/17/20 Active Additional Information Patient not taking.Reported on 02/16/2023 Multiple Vitamin (Multivitamin Adult) TabletIndications :Systemic lupus erythematosus (SLE) in adult (HCC) Take 1 Tablet by mouth daily (with breakfast). 100 Tablet 3 05/05/20 Active Additional Information Patient taking differently:1 Tablet Oral DAILY WITH BREAKFAST,Indications: verbal instruction to hold x 5 days prior to 02/16/23 colonoscopy., Reported on 01/25/2023 Respiratory Therapy Supplies (Nebulizer/Tubing /Mouthpiece) KitIndications:Mo derate persistent asthma without complication Use as directed. J45.40. 1 Each 05/05/20 Active cycloSPORINE (RESTASIS) 0.05 % Emulsion Place 1 Drop in affected eye(s). 05/07/20 Active Restasis 0.05 % Emulsion INSTILL 1 DROP IN BOTH EYES TWICE DAILY 05/07/20 Active levothyroxine (SYNTHROID) 112 MCG Tablet Take 112 mcg by mouth daily. 04/28/20 Active atorvastatin (LIPITOR) 10 MG Tablet Take 1 Tablet by mouth daily. 90 Tablet 3 05/27/19 Active albuterol (Ventolin HFA) 108 (90 Base) MCG/ACT Aerosol Solution take 2 Puffs by inhalation every 6 hours as needed for Wheezing or Cough. 18 g 3 05/27/19 Active Blood Pressure Monitoring (Blood Pressure Cuff) MiscIndications:H ypertension, essential Dispense battery-operated arm cuff. Dx: I10 1 Each 08/19/19 Active lactulose (CHRONULAC) 10 GM/15ML SolutionIndicatio ns:Chronic idiopathic constipation Take 30 mL by mouth 3 times daily as needed for Constipation - 1st line. 473 mL 08/29/19 Active Additional Information Patient not taking.Reported on 10/14/2022 promethazine-code ine (PHENERGAN with CODEINE) 6.25-10 MG/5ML SyrupIndications: Bronchitis Take 5 mL by mouth every 4 hours as needed for Cough. 120 mL 11/20/19 Active Additional Information Patient not taking.Reported on 08/13/2022 SUMAtriptan (IMITREX) 6 MG/0.5ML Solution Auto-injector 0.5 mL by Subcutaneous route once as needed for Migraine for up to 1 dose. 15 mL 1 12/01/19 Active ondansetron (ZOFRAN-ODT) 4 MG TABLET DISPERSIBLEIndica tions:Nausea DISSOLVE 1 TABLET ON THE TONGUE EVERY 8 HOURS NEEDED FOR NAUSEA 10 Tablet 1 12/02/19 Active Additional Information Patient not taking.Reported on 10/14/2022 Ergocalciferol 50 MCG (1999 UT) Capsule Take 1 Capsule by mouth daily. 30 Capsule 11 01/28/20 Active Rimegepant Sulfate (Nurtec) 75 MG TABLET DISPERSIBLEIndica tions:Chronic migraine without aura without status migrainosus, not intractable Take 1 Tablet by mouth daily as needed (migraine headache). 10 Tablet 1 02/05/20 Active atenolol (TENORMIN) 25 MG TabletIndications :Chronic migraine without aura without status migrainosus, not intractable Take 1 Tablet by mouth daily. 90 Tablet 1 02/05/20 Active Additional Information Patient not taking.Reported on 08/20/2022 fluticasone (FLONASE) 50 MCG/ACT SuspensionIndicat ions:Seasonal allergies SHAKE LIQUID AND USE 2 SPRAYS IN EACH NOSTRIL DAILY 48 g 1 03/02/20 Active ondansetron (ZOFRAN-ODT) 4 MG TABLET DISPERSIBLEIndica tions:Nausea DISSOLVE 1 TABLET ON THE TONGUE EVERY 8 HOURS NEEDED FOR NAUSEA 10 Tablet 1 04/27/20 Active omeprazole (PriLOSEC) 20 MG CAPSULE DELAYED RELEASEIndication s:GERD without esophagitis Take 1 Capsule by mouth daily. 90 Capsule 3 08/21/19 23 Active dicyclomine (BENTYL) 10 MG CapsuleIndication s:Irritable bowel syndrome with constipation Take 1 Capsule by mouth 3 times daily. 90 Capsule 3 08/21/19 23 Active Additional Information Patient not taking.Reported on 10/14/2022 hydrocortisone 2.5 % CreamIndications: Nausea Apply 2 times daily. Application Site: hemmorhoids (Description and Location) 30 g 1 02/16/20 Active Active Problems Problem Noted Date Diagnosed Date Asthma, moderate persistent 05/05/2021 Chronic cluster headache, not intractable 2020 Noncompliance 08/28/2020 Skin lesion of breast 04/10/2020 Pneumonia due to COVID-19 virus 02/09/2020 Hypokalemia 02/09/2020 Chest wall pain 02/04/2020 COVID-19 01/29/2020 Hypothyroidism 01/27/2020 Chronic pain syndrome 01/02/2020 Anxiety 01/02/2020 Serous cystadenocarcinoma of pancreas 11/09/2019 Pancreatic mass 11/02/[address] on [address] 11/01/2019 Chest pain 11/01/2019 SOB (shortness of breath) 11/01/2019 Seasonal allergies 09/25/2019 Intractable cluster headache syndrome 09/25/2019 Pancreatic lesion 08/07/2019 Right leg pain 01/09/2019 Hyperlipidemia 09/27/2018 Hypothyroidism due to acquired atrophy of thyroi d 09/27/2018 Depression with anxiety 09/27/2018 Hypertension, essential 09/27/2018 Arthritis 09/27/2018 Generalized weakness 09/14/2018 History of excision of pilonidal cyst 09/14/2018 Postoperative pain 09/14/2018 Bleeding from wound 09/14/2018 Obesity (BMI 30.0-34.9) 03/13/2018 Congenital pes cavus 12/23/2017 Intractable chronic migraine without aura and without status migrainosus 04/01/2016 Lupus (systemic lupus erythematosus) 04/01/2016 Diverticulosis large intesti ne w/o perforation or abscess w/o bleeding 12/15/2015 Lower abdominal pain 10/21/2015 Stricture of sigmoid colon 10/21/2015 Abdominal pain, bilateral lower quadrant 015 GERD without esophagitis 05/13/2015 Gastroparesis 05/13/2015 Obesity Overview (03/29/2015): Pilonidal cyst Asthma Resolved Problems Problem Noted Date Diagnosed Date Resolved Date Equinus contracture of left ankle 12/23/2017 09/27/2018 Equinus contracture of right ankle 12/23/2017 09/27/2018 Pain in both feet 12/23/2017 09/27/2018 Primary osteoarthritis of both feet 12/23/2017 09/27/2018 Immunizations Immunization Administration Dates Next Due Covid-19, Mrna, Lnp-s, Pf, 3 0 Mcg/0.3 Ml Dose ([email or web address]) 04/07/2021,08/16/2020,07/28/2020 Influenza Vaccine greater than 3 yrs ,04/07/2016,03/12/2011,2007 Influenza Vaccine, MDCK,quad rivalent, pres free 04/24/2020,04/06/2017 Influenza Vaccine, Quadrivalent, PF 04/19/2022,1 ,03/14/2018 Influenza, Seasonal, Injecta ble, Undefined 04/07/2016 Pneumococcal Vaccine - 13 Valent 04/24/2020 Family History Medical History Relation Name Comments Hypertension Father Diabetes Maternal Grandfather Hypertension Mother Relation Name Status Comments Father Alive Maternal Grandfather Mother Alive Social History Tobacco Use Types Packs/Day Years Used Date Smoking Tobacco: Never Smokeless Tobacco: Never Tobacco Cessation:Counseling Given: Not Answered Alcohol Use Standard Drinks/Week Comments No 0 (1 standard drink = 0.6 oz pur e alcohol) PHQ-2 Answer Date Recorded Total Score - Questions 1-9 0 11/2021 Sexually Active Control Partners Comments Not Currently Comments No Sex and Gender Information Value Date Recorded Sex Assigned at Not on file Legal Sex Female 8:30 PM CDT Gender Identity Not on file Sexual Orientation Not on file 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 Not on file Not on file No t on file Last Filed Vital Signs Vital Sign Reading Time Taken Comments Blood Pressure 129/68 09/21/2023 2:59 PM CDT Pulse 74 09/21/2023 2:57 PM CDT Temperature 36.7 C (98 F) 09/21/2023 2:57 PM CDT Respiratory Rate 16 09/21/2023 2:57 PM CDT Oxygen Saturation 100% 09/21/2023 2:57 PM CDT Inhaled Oxygen Concentration - - Weight 68.9 kg (152 lb) 09/21/2023 2:57 PM CDT Height 167.6 cm (5' 6 ) 09/21/2023 2:57 PM CDT Body Mass Index 24.53 09/21/2023 2:57 PM CDT Plan of Treatment Upcoming Encounters Date Type Department Care Team (Late st Contact Info) Description 08/01/2024 9:00 AM CDT Appointment [facility] [address] [place] [id number] Giovanny Omalley [address] [place] [address] [address] Discharge Disposition: Discharged to home or Selfcare Health Maintenance Due Date Last Done Comments Hepatitis C Virus (HCV) Screening 1961 TdaP Immunization 1961 Zoster Immunization (1 of 2) 1980 HPV/Cotest 1991 Cologuard 2011 Immunochemical Fecal Occult Blood 2011 Pneumococcal Immunization (50+ years) (2 of 2 - PPSV23) 06/19/2020 04/24/2020 Respiratory Syncytial Virus (RSV) Immunization (Adult) (1 - Risk 60-74 years 1-dose series) 2021 Mammogram 03/04/2023 03/04/2022, 02/20, 05/28/2020, Additional history exists SARS-COV-2 Immunization ( season) 2024 04/07/2021, 08/16/2020, 07/28/2020 Colonoscopy 02/16/2030 02/16/2023, 05/24, 10/01/2015, Additional history exists Colorectal Cancer Screening 02/16/2030 02/16/2023, 05/24, 10/01/2015, Additional history exists Pneumococcal Immunization Combined Discontinued 04/24/2020 Influenza Immunization Completed 4, 04/19/2022, 03/06/2021, Additional history exists Cervical Cancer Screening (CCS) Discontinued Hepatitis B Immunization Aged Out No longer eligible based on patient's age to complete this topic Meningococcal Immunization (ACWY) Aged Out No longer eligible based on patient's age to complete this topic Pap Smear Discontinued Rotavirus Immunization Aged Out No lo nger eligible based on patient's age to complete this topic Procedures Procedure Name Priority Date/Time Associated Diagnosis Comments MAMMOGRAM BILATERAL GENERIC 03/04/2022 12:00 AM CDT HM COLONOSCOPY Routine 07/20/2011 from Last 3 Months or Most Recently Relevant to Health Maintenance Results * MAMMOGRAM BILATERAL MISCELLANEOUS (03/04/2022 12:00 AM CDT) 03/04/2022 us Not On File Provider IMG MAMMO ORDERABLES Final Result SCAN * COLONOSCOPY (07/20/2011) us Noe Stratton MD PROCEDURE/MINOR SURGICAL ORDE RABLES Final Result from Last 3 Months or Most Recently Relevant to Health Maintenance Insurance MEDICARE MEDICAID [place] [employer] Advance Directives * Full Code (Latest Code Status on File) Date Activated Date Inactivated Comments 02/09/2020 12:52 AM 02/12/2020 4:22 PM CPR-Full Tr eatment: FULL ARREST: Attempt Resuscitation/CPR wit intubation and mechanical ventilation. PRE-ARREST: Use entire range of life support measures to stabilize the patient. * Full Code Date Activated Date Inactivated Comments 11/20/2018 12:09 PM 11/22/2018 4:10 PM * Full Code Date Activated Date Inactivated Comments 09/12/2018 5:43 AM 09/14/2018 8:00 PM CPR-Full [place] atment: FULL ARREST: Attempt Resuscitation/CPR wit intubation and mechanical ventilation. PRE-ARREST: Use entire range of life support measures to stabilize the patient. * Full Code Date Activated Date Inactivated Comments 04/19/2016 12:15 PM 04/21/2016 4:28 PM CPR-Full Treatment: FULL ARREST: Attempt Resuscitation/CPR wit intubation and mechanical ventilation. PRE-ARREST: Use entire range of life support measures to stabilize the patient. * Full Code Date Activated Date Inactivated Comments 03/17/2015 8:51 AM 04/19/2016 12:15 PM Care Teams Drop Wire Hanger Relationship Specialty Start Date End Date Markel Underwood MD [address] [place], [place] [id number] PCP - General Family Medicine 02/16/23 Yashira Valencia APRN, SUPERVISOR CHANNEL PROCESS Nurse Practitioner Advanced Practice Nurse 04/03/15 Julio Cesar Tracy MD [address] [address] General Surgery 12/18/15 Catia Bolanos APRN, SUPERVISOR CHANNEL PROCESS [address] [place] [address] Nurse Practitioner Advanced Practice Nurse 08/20/22
--- OUTSIDE RECORDS SUMMARY | 2024-07-26 13:59 | XMS_ITS | Patient Health Summary ---
Author Organization [facility] Address [address] [place] [address] Care Team Providers Care Doula Name Role Phone Unavailable Primary Care Provider Unavailabl e Note from [facility],non-owned Affiliates and Associated Physician Practices is amultiple site organization consisting of ambulatory clinics and hospital sitesin [place], [place], [place] and [place]. This disclosure is being madepursuant to the Care Everywhere program and may not contain all information available regarding this patient. Last updated 18.[facility] Allergies * Contrast-Iodinated Agents For Ct/Other(Vomiting) * Metronidazole(Swelling) * Morphine(Nausea and/or Vomiting) * Quinapril(Swelling) * Ketorolac(Unknown) Medications * Be aware that medications may not be up to date on this document. Alwaysverify current medications with the patient. * CALCIUM-VITAMIN D PO Take 1 tablet by mouth once daily * Budesonide-Formoterol Fumarate (SYMBICORT IN) * Polyethylene Glycol(Started 06/06/2018) polyethylene glycol 3350 17 gram/dose oral powder * omeprazole (PRILOSEC) 40 MG capsule(Started 06/14/2017) omeprazole 40 mg capsule,delayed release * linaCLOtide (LINZESS) 290 MCG capsule Linzess 290 mcg capsule * hydroxychloroquine (PLAQUENIL) 200 MG tablet(Started 05/23/2010) Take 200 mg by mouth 2 times daily * estradiol (ESTRACE) 2 MG tablet(Started 03/23/2017) estradiol 2 mg tablet * albuterol (PROVENTIL;VENTOLIN) (2.5 MG/3ML) 0.083% nebulizer solution(Started 02/03/2015) * ALPRAZolam (XANAX) 1 MG tablet(Started 10/31/2018) Take 1 mg by mouth 3 times daily as needed * amLODIPine (NORVASC) 10 MG tablet(Started 05/23/2011) amlodipine 10 mg tablet * carisoprodol (SOMA) 350 MG tablet(Started 05/23/2010) carisoprodol 350 mg tablet * citalopram (CELEXA) 40 MG tablet(Started 03/05/2015) citalopram 40 mg tablet * DULoxetine (CYMBALTA) 60 MG capsule(Started 05/23/2011) duloxetine 60 mg capsule,delayed release * gabapentin (NEURONTIN) 300 MG capsule(Started 03/18/2015) gabapentin 300 mg capsule Social History Tobacco Use Types Packs/Day Years Used Date Smoking Tobacco: Former Smokeless Tobacco: Never Alcohol Use Standard Drinks/Week Comments Not Currently 0 (1 standard drink = 0.6 oz pur e alcohol) Sex and Gender Information Value Date Recorded Sex Assigned at Not on file Gender Identity Not on file Sexual Orientation Not on file Last Filed Vital Signs Vital Sign Reading Time Taken Comments Blood Pressure 124/89 02/06/2019 12:40 PM CDT Pulse 73 02/06/2019 12:10 PM CDT Temperature 36.2 C (97.2 F) 02/06/2019 11:10 AM CDT Respiratory Rate 14 02/06/2019 12:10 PM CDT Oxygen Saturation 100% 02/06/2019 12:10 PM CDT Inhaled Oxygen Concentration - - Weight 61.2 kg (135 lb) 02/06/2019 10:12 AM CDT Height 152.4 cm (5') 02/06/2019 10:12 AM CDT Body Mass Index 26.37 02/06/2019 10:12 AM CDT Procedures * CYTOLOGY NON-BOTTOM IRONER PANEL (STL)(Performed 02/06/2019) Performed for Pancreatic cyst (HCC) * CEA FLUID(Performed 02/06/2019) Performed for Pancreatic cyst (HCC) * AMYLASE FLUID(Performed 02/06/2019) Performed for Pancreatic cyst (HCC) * ESOPHAGOGASTRODUODENOSCOPY (EGD) /ESOPHAGOSCOPY WITH ULTRASOUND (EUS) (Performed 02/06/2019) Performed for Pancreatic cyst (HCC) * ENDOSCOPIC ULTRASONOGRAPHY, GI(Performed 02/06/2019) Results * CYTOLOGY NON-BOTTOM IRONER PANEL (STL) (02/06/2019 11:13 AM CDT) Case Report Medical Cytology Report Case: [id number] Authorizing Provider: Adarsh Stockton MD Collected: 02/06/2019 11:13 AM Ordering Location: [facility] Received: 02/06/2019 12:33 PM Pathologist: Herrera Romero MD Specimen: Cyst Fluid, pancreatic tail cyst, 18 mm, FNA 02/07/2019 1:30 PM CDT [facility] Specimen Adequacy Adequate cellularity for evaluation. 02/07/2019 1:30 PM CDT [facility] Final Diagnosis Pancreas, cyst, FNA: - Acellular debris and rare fragments of calcium associated with chronic inflammation - see micro 02/07/2019 1:30 PM CDT [facility] Clinical History Pancreatic cyst 02/07/2019 1:30 PM CDT [facility] Gross Description 1 pap stained ThinPrep slide and 1 cell block from 10cc slightly cloudy fluid 02/07/2019 1:30 PM CDT [facility] Microscopic Description The thin prep and cell block show mostly histiocytes and fibrin. No significant epithelial component is seen. Some fragments of material consistent with calcium are seen on the cell block. The findings are consistent with a small pseudocyst. A neoplastic process is not favored. 02/07/2019 1:30 PM CDT [facility] Disclaimer The performance characteristics of all immunohistochemical and indirect immunofluorescence stains (if any) cited in this report were determined by the Histopathology Laboratory of [facility]. Some of these tests rely on the use of analyte-specific reagents and are subject to specific labeling requirements by the US Food and Drug Administration. Such tests were developed by the [facility]ology Laboratory of [facility] and have not been cleared or approved by the FDA. The FDA has determined that such clearance and approval is not necessary. These tests are used for clinical purposes and should not be regarded as investigational or for research. This laboratory is certified under the Clinical Laboratory Improvement Amendments (CLIA) as qualified to perform high complexity clinical laboratory testing. This case has been personally reviewed and interpreted by the attending (teaching) pathologist. 02/07/2019 1:30 PM CDT [facility] Embedded Images 02/07/2019 1:30 PM CDT [facility] Pathology/Cytolo gy CYST FLUID SPECIMEN / Unknown Collection / Unknown 02/06/2019 11:13 AM CDT 02/06/2019 12:33 PM CDT Adarsh Stockton MD LAB - PATHOLOGY/CYTO LOGY ORDERABLES Performing Organization Address [facility]/ZIP Co de Phone Number [facility] [address] [phone] * AMYLASE FLUID (02/06/2019 11:12 AM CDT) Amylase Fluid Source Pancreatic 02/08/2019 2:16 AM CDT [email or web address] ([facility]) Comment:Pancreatic tail. Amylase Fluid [id number] U/L 02/08/2019 2:16 AM CDT [email or web address] ([facility]) Comment: INTERPRETIVE INFORMATION: Amylase, Body Fluid For information on body fluid reference ranges and/or interpretive guidance visit [email or web address]/ Test developed and characteristics determined by [employer]. See Compliance Statement B: [employer]/CS Performed by [employer], [address] [place] [address] [email or web address], Kadeem Levi MD, Lab. Director Fluid CYST FLUID SPECIMEN / Unknown Collection / Unknown 02/06/2019 11:12 AM CDT 02/06/2019 12:58 PM CDT Adarsh Stockton MD LAB - BODY FLUID ORD ERABLES [email or web address] ([facility]) [address] * CEA FLUID (02/06/2019 11:12 AM CDT) CEA Fluid Source Pancreatic 02/09/20 1 9 2:16 AM CDT [email or web address] ([facility]) Comment:Pancreatic tail. CEA Fluid 6.8 ng/mL 9 2:16 AM CDT [email or web address] ([facility]) Comment: INTERPRETIVE INFORMATION: Carcinoembryonic Antigen, Fluid The [employer] CEA electrochemiluminescent immunoassay was used. Results obtained with different assay methods or kits cannot be used interchangeably. The CEA assay value, regardless of level, should not be interpreted as evidence for the presence or absence of malignant disease. For information on body fluid reference ranges and/or interpretive guidance visit [email or web address]/ Test developed and characteristics determined by [employer]. See Compliance Statement B: [employer]/ Performed by [facility], [address] [place] [id number] [email or web address], Kadeem Levi MD, Lab. Director Fluid PANCREATIC FLUID / Unknown Collection / Unknown 02/06/2019 11:12 AM CDT 02/06/2019 12:20 PM CDT Adarsh Stockton MD LAB - BODY FLUID ORD ERABLES [email or web address] ([facility]) [address] [place] [address], [facility] * ENDOSCOPIC ULTRASONOGRAPHY, GI (02/06/2019 10:28 AM CDT) Report Endoscopy POC Endoscopy Department Report _ Patient Name: Leticia Post Procedure Date: 02/06/2019 10:28 AM Date of : 1960 Classification: Outpatient Gender: Female Ethnicity: Not or Race: Black or _ Providers: Adarsh Stockton MD Referring MD: Angela Alfaro (Referring MD) Procedure: Upper EUS Indications: Pancreatic cyst on CT scan Medications: Monitored Anesthesia Care Description of Procedure: After obtaining informed consent, the endoscope was passed under direct vision. Throughout the procedure, the patient's blood pressure, pulse, and oxygen saturations were monitored continuously. The [id number] was introduced through the mouth, and advanced to the second part of duodenum. Findings: Endoscopic Finding : Evidence of a sleeve gastrectomy was found in the gastric fundus and in the gastric body. This was characterized by healthy appearing mucosa. Patchy mildly erythematous mucosa without bleeding was found in the gastric antrum. The area of the papilla was normal. Endosonographic Finding : The esophagus, stomach and duodenum were visualized endosonographicall y. There was no sign of significant endosonographic abnormality in the common bile duct and in the common hepatic duct. The maximum diameter of the ducts were 5 mm. No stones, no biliary sludge and ducts of normal caliber were identified. An anechoic, multicystic and septated lesion suggestive of a cyst was identified in the genu of the pancreas. It is not in obvious communication with the pancreatic duct. The lesion measured 8 mm by 7 mm in maximal cross-sectional diameter. There were a few compartments thinly septated. The outer wall of the lesion was not seen. There was no associated mass. There was internal debris within the fluid-filled cavity. ? serous cystadenoma An anechoic lesion suggestive of a cyst was identified in the pancreatic tail. It appears to communicate with the pancreatic duct. The lesion measured 18 mm by 15 mm in maximal cross-sectional diameter. There was a single compartment without septae. The outer wall of the lesion was not seen. There was no associated mass. There was internal debris within the fluid-filled cavity. Diagnostic needle aspiration for fluid was performed. Color Doppler imaging was utilized prior to needle puncture to confirm a lack of significant vascular structures within the needle path. One pass was made with the 22 gauge needle using a transgastric approach. A stylet was used. The amount of fluid collected was 3 mL. The fluid was clear, yellow and watery. Sample(s) were sent for amylase concentration, cytology and CEA. The cyst was aspirated to collapse but then refilled with fluid, ? partially hemorrhagic vs. proteinaceous component. No lymph nodes were seen during endosonographic examination in the celiac region (level 20) and in the peripancreatic region. There was no sign of significant endosonographic abnormality in the ampulla. No masses were identified. Estimated Blood Loss: Estimated blood loss was minimal. Complications: No immediate complications. Estimated blood loss: Minimal. Impression: 1) A sleeve gastrectomy was found, characterized by healthy appearing mucosa. 2) Erythematous mucosa in the antrum. 3) Normal area of the papilla. 4) There was no sign of significant pathology in the common bile duct and in the common hepatic duct. 5) An 8 mm x 7 mm cystic lesion was seen in the genu of the pancreas. Tissue has not been obtained. However, the endosonographic appearance is suspicious for a serous cystadenoma. 6) A 18 mm x 15 mm cystic lesion was seen in the pancreatic tail. Fluid was obtained from this exam, and results are pending. However, the endosonographic appearance is suspicious for a pancreatic pseudocyst. 7) There was no sign of significant pathology in the ampulla. Recommendation: - Discharge patient to home (ambulatory). - Cipro (ciprofloxacin) 500 mg PO BID for 5 days. - Await cytology results and await tumor markers. - Repeat the upper endoscopic ultrasound in 1 year for surveillance. Procedure Code(s): --- Professional --- 71453, Esophagogastroduod enoscopy, flexible, transoral; with transendoscopic ultrasound-guided intramural or transmural fine needle aspiration/biopsy (s) (includes endoscopic ultrasound examination of the esophagus, stomach, and either the duodenum or a surgically altered stomach where the jejunum is examined distal to the anastomosis) Diagnosis Code(s): --- Professional --- Z98.84, Bariatric surgery status K31.89, Other diseases of stomach and duodenum K86.2, Cyst of pancreas CPT copyright 2016 [employer]. All rights reserved. The codes documented in this report are preliminary and upon technology integration specialist review may be revised to meet current compliance requirements. Adarsh Stockton MD 02/06/2019 11:10:01 AM This report has been signed electronically. Note Initiated On: 02/06/2019 10:28 AM Number of Addenda: [address] [employer] 02/06/2019 10:2 8 AM CDT Adarsh Stockton MD GI PROCEDURE ORDERAB LES [facility] [employer]
--- OUTSIDE RECORDS SUMMARY | 2024-07-26 13:59 | XMS_ITS | Referral Summary ---
Author Organization [facility] Address [address] [place] [address] Care Team Providers Care Electric Drill Operator Name Role Phone Nito Jeffers Unavailable [phone] Lc Robb MD Unavailable [phone] Markel Underwood MD Unavailable [phone] Markel Underwood MD Primary Care Provider [phone] Allergies Active Allergy Reactions Criticality Noted Date Comments Dye Nausea And Vomiting 03/03/2018 Iodinated Contrast Media Other (See comments),Vomiting Low 12/15/2015 IV CONTRAST CAUSES PROJECTIVE VOMITING IN THIS PATIENT Ketorolac Nausea only,Unknown Low 02/02/2019 Metrizamide Other (See comments),Vomiting Low 12/15/2015 IV CONTRAST CAUSES PROJECTIVE VOMITING IN THIS PATIENT Metronidazole Swelling Medium Morphine Nausea & Vomiting Low 04/03/2015 Quinapril Rash,Swelling,Short ness of breath High 03/03/2018 lips Quinapril Hcl Swelling Medium Benzonatate Nausea only,Vomiting Low 08/27/[address] (CYMBALTA) 60 mg capsule Take 1 capsule (60 mg total) by mouth 05/23/19 12 Active citalopram (CeleXA) 40 mg tablet Take 1 tablet (40 mg total) by mouth nightly 09/15/19 18 Active fluticasone (FLONASE) 50 mcg/actuation nasal spray fluticasone 50 mcg/actuation nasal spray,suspensio n Active QUEtiapine (SEROquel) 300 mg tablet Take 1 tablet (300 mg total) by mouth nightly Active budesonide-formote rol (SYMBICORT) 160-4.5 mcg/actuation inhaler Inhale 2 puffs 2 (two) times a day Active albuterol HFA (PROVENTIL HFA,VENTOLIN HFA,PROAIR HFA) 90 mcg/actuation inhaler Inhale 2 puffs every 6 (six) hours as needed for shortness of breath Active ALPRAZolam (XANAX) 1 mg tablet Take 1 tablet (1 mg total) by mouth every 8 hours as needed Active aluminum chloride (DRYSOL) 20 % external solution Apply topically nightly 03/27/20 20 Active cyanocobalamin (Vitamin B-12) 1,000 mcg/mL injection INJECT 1ML IN THE MUSCLE EVERY 3 WEEKS 10/05/19 21 Active Linzess 290 mcg capsule TAKE 1 CAPSULE BY MOUTH EVERY MORNING BEFORE BREAKFAST 10/19/19 21 Active loratadine (CLARITIN) 10 mg tablet Take 1 tablet (10 mg total) by mouth nightly Active famotidine (PEPCID) 20 mg tablet Take 1 tablet (20 mg total) by mouth 2 (two) times a day 12/16/19 21 Active cholecalciferol (VITAMIN D-3) 2000 unit capsule Take 1 capsule (2,000 Units total) by mouth daily 30 capsule 01/20/20 21 Active senna-docusate (PERICOLACE) 8.6-50 mg 1-2 times daily as needed for constipation 30 tablet 1 02/05/20 21 Active aspirin 81 mg enteric coated tablet Take 1 tablet (81 mg total) by mouth daily 03/04/20 21 Active multivitamin tablet Take 1 tablet by mouth daily with breakfast 05/26/19 22 Active clobetasoL (TEMOVATE) 0.05 % cream Apply topically 2 (two) times a day 30 g 1 08/21/19 22 Active tacrolimus (PROTOPIC) 0.1 % ointment Apply topically 2 (two) times a day 100 g 11 10/07/19 22 Active lactulose solution 10 gram/15mL Take 30 mL (20 g total) by mouth 3 (three) times a day as needed 08/29/19 22 Active ondansetron ODT (ZOFRAN-ODT) 4 mg disintegrating tablet DISSOLVE 1 TABLET ON THE TONGUE EVERY 8 HOURS NEEDED FOR NAUSEA 02/24/20 22 Active Nurtec ODT tablet,disintegrat ing DISSOLVE 1 TABLET ON THE TONGUE DAILY NEEDED FOR MIGRAINE HEADACHE 03/01/20 22 Active levothyroxine (SYNTHROID) 112 mcg tabletIndications: Hypothyroidism, unspecified type Take 1 tablet (112 mcg total) by mouth daily 90 tablet 03/12/20 22 Active ketoconazole (NIZORAL) 2 % creamIndications:S eborrheic dermatitis Apply to face daily after cleansing. 60 g 5 10/06/19 23 Active dicyclomine (BENTYL) 10 mg capsule 11/18/19 23 Active al & mag hydroxide simethicone-diphen hydramine-lidocain e-nystatin (MAGIC MOUTHWASH) suspension 1-1-1-1 Swish and spit 20 mL every 4 (four) hours as needed (oral ulcers) 400 mL 07/14/19 24 Active atorvastatin (LIPITOR) 10 mg tablet Take 1 tablet (10 mg total) by mouth daily 06/14/19 24 Active fluocinonide (LIDEX) 0.05 % ointment APPLY SPARINGLY TO THE AFFECTED AREA 2-3 TIMES DAILY 05/04/20 23 Active spironolactone (ALDACTONE) 25 mg tabletIndications: Acne rosacea TAKE 3 TABLETS(75 MG) BY MOUTH EVERY NIGHT 270 tablet 11 09/05/19 24 Active omeprazole (PriLOSEC) 40 mg capsule Take 1 capsule (40 mg total) by mouth daily 11/28/19 24 Active SUMAtriptan (IMITREX) 6 mg/0.5 mL injection 10/16/19 24 Active ergocalciferol, vitamin D2, 50 mcg (2,000 unit) tablet Take 1 tablet by mouth daily Active naloxone (NARCAN) 4 mg/actuation spray,non-aerosol Ac tive Xiidra 5 % dropperette Administer 0.1 each (1 drop total) into both eyes 2 (two) times a day 100 each 11 12/22/19 24 Active hydroxychloroquine (PLAQUENIL) 200 mg tabletIndications: Systemic lupus erythematosus with other organ involvement, unspecified SLE type (HCC) TAKE 1 TABLET BY MOUTH EVERY OTHER DAY, ALTERNATING WITH 2 TABLETS EVERY OTHER DAY 45 tablet 5 02/23/20 24 Active carisoprodoL (SOMA) 350 mg tablet TAKE 1 TABLET(350 MG) BY MOUTH FOUR TIMES DAILY NEEDED FOR MUSCLE SPASMS 120 tablet 07/22/19 25 Active carisoprodoL (SOMA) 350 mg tablet TAKE 1 TABLET(350 MG) BY MOUTH FOUR TIMES DAILY NEEDED FOR MUSCLE SPASMS 120 tablet 06/21/19 25 025 Discontin ued(Reord er) Active Problems Problem Noted Date Diagnosed Date Excess skin 12/29/2023 Acute left-sided low back pain with left-sided s ciatica 12/28/2022 Spondylolisthesis at L4-L5 level 12/28/2022 Fibromyalgia 12/28/2022 History of stroke 12/28/2022 Asthma 12/28/2022 Chronic renal failure (CRF), stage 3a 12/28/2022 Pancreatic cyst 04/07/2022 Overview (04/07/2022): Added automatically from request for surgery [id number] Asthma, moderate persistent 05/05/2021 Keratitis sicca, bilateral 04/28/2021 Assessment & Plan (12/22/2023 2:55 PM CDT): No evidence of proptosis, does not appears Grave's related. Educated and will monitor, continue with Xiidra BID both eyes (OU) and can supplement with Systane ATs PRN High risk medication use 04/21/2021 Assessment & Plan (12/22/2023 2:55 PM CDT): No evidence of Plaquenil toxicity right eye (OD) or left eye (OS), stable exam. Monitor yearly with Avila visual field (HVF) 10-2 and OCT MAC Assessment & Plan (10/15/2022 7:56 AM CDT): 3.02 mg/kg/day without clinical signs of maculopathy. Normal Fundus exam and mac oct both eyes (OU) Pt has difficulty with Avila visual field (HVF) test Normal kidney function Pt in higher risk categort due to cum dose over 1000 mg, still ok to continue treatment FU 1 year Avila visual field (HVF) and mac oct with DFE Assessment & Plan (04/28/2021 10:01 AM OPEN HEARTH LABORER): 3.02 mg/kg/day without clinical signs of maculopathy. Pt ed. Eyelid dermatitis, allergic/contact 04/21/2021 Assessment & Plan (04/21/2021 5:22 PM OPEN HEARTH LABORER): Patient was educated to avoid using false eyelashes as this may be causing the eyelids to be irritated. Complex tear of lateral meniscus of right knee 0 11/26/2020 Overview (11/26/2020): Added automatically from request for surgery [id number] Fall involving ice skates 10/23/2020 Noncompliance 08/28/2020 Abnormal ECG 05/05/2020 Overview (05/05/2020): Added automatically from request for surgery [id number] Skin lesion of breast 04/10/2020 Hypokalemia 02/09/2020 Pneumonia due to COVID-19 virus 01/29/2020 Anxiety 01/02/2020 Chronic pain syndrome 01/02/2020 Painful scar 12/14/2019 Cryptogenic stroke 12/10/2019 Serous cystadenocarcinoma of pancreas 11/09/2019 SOB (shortness of breath) 11/01/[address] 11/01/2019 Seasonal allergies 09/25/2019 Intractable cluster headache syndrome 09/25/2019 Candidiasis of vagina 01/17/2019 Menopausal symptom 01/17/2019 Menopausal syndrome 01/17/2019 Pruritus of vagina 01/17/2019 Right leg pain 01/09/2019 Depression with anxiety 09/27/2018 Hyperlipidemia 09/27/2018 Hypothyroidism due to acquired atrophy of thyroi d 09/27/2018 Bleeding from wound 09/14/2018 Generalized weakness 09/14/2018 History of excision of pilonidal cyst 09/14/2018 Postoperative pain 09/14/2018 Obesity 03/13/2018 Overview (01/17/2019): Overview: Congenital pes cavus 12/23/2017 Vasculitis 07/27/2017 Rash 07/27/2017 Myofascial pain 11/08/2016 Pain in female pelvis 11/08/2016 Proctocele 11/08/2016 Intractable chronic migraine without aura and without status migrainosus 04/01/2016 Diverticulosis large intesti ne w/o perforation or abscess w/o bleeding 12/15/2015 Stricture of sigmoid colon 10/21/2015 Gastroparesis 05/13/2015 GERD without esophagitis 05/13/2015 Lower abdominal pain 05/13/2015 Pain in extremity 03/05/2014 Arthralgia of hip 07/30/2013 Degeneration of intervertebral disc of lumbar re gion 05/04/2013 Depressive disorder 05/04/2013 Osteoarthritis of lumbar spine 05/04/2013 Essential hypertension 05/03/2013 Other chest pain 05/03/2013 Lumbar radiculopathy 04/25/2013 Furuncle of buttock 09/21/2012 Overview (08/27/2016): Boil of buttock Cellulitis 06/12/2012 Overview (08/26/2016): CELLULITIS NOS Systemic lupus erythematosus 09/19/2010 Combined forms of age-related cataract, bilatera l Assessment & Plan (12/22/2023 2:55 PM CDT): Educated on mild changes, not visually significant. Monitor Resolved Problems Problem Noted Date Diagnosed Date Resolved Date Pilonidal cyst 01/17/2019 04/21/2020 Immunizations Immunization Administration Dates Next Due Influenza, Quadrivalent, Alma l Culture-based MDCK, Preservative Free, Antibiotic Free, Intramuscular 04/24/2020 Influenza, Trivalent, IM (MDV) 03/14/2018,2015 Influenza, Trivalent, Preservative Free, Intramu scular 03/12/2011,05/14/2008 Pfizer SARS-CoV-2 Monovalent Vaccination (12+ Yrs) PURPLE 07/28/2020 Pneumococcal Conjugate PCV 13 04/24/2020 Social History Tobacco Use Types Packs/Day Years Used Date Smoking Tobacco: Never Smokeless Tobacco: Never Tobacco Cessation:Counseling Given: Not Answered Alcohol Use Standard Drinks/Week Comments No 0 (1 standard drink = 0.6 oz pur e alcohol) Social Connection and Isolation Panel [NHANES] A nswer Date Recorded In a typical week, how many times do you talk on the phone with family, friends, or neighbors? Twice a week 12/28/2022 How often do you get together with friends or re latives? Never 12/28/2022 How often do you attend druze or adventism serv ices? Never 12/28/2022 Do you belong to any clubs o r organizations such as druze groups, unions, fraternal or athletic groups, or school groups? No 12/28/2022 How often do you attend meet ings of the clubs or organizations you belong to? Never 12/28/2022 Are you , , di vorced, , never , or living with a partner? 12/28/2022 AUDIT-C Answer Date Recorded Q1: How often do you have a drink containing alc ohol? Never 04/26/2022 Average Number of Drinks Not on file 022 Frequency of Binge Drinking Not on file 09/2021 Overall Financial Resource Strain (CARDIA) Answe r Date Recorded How hard is it for you to pa y for the very basics like food, housing, medical care, and heating? Not hard at all 12/28/2022 Hunger Vital Sign Answer Date Recorded Within the past 12 months, y ou worried that your food would run out before you got the money to buy more. Never true 12/29/19 23 Within the past 12 months, t he food you bought just didn't last and you didn't have money to get more. Never true 12/28/2022 PRAPARE - Transportation Answer Date Re corded In the past 12 months, has l ack of transportation kept you from medical appointments or from getting medications? No 12/2022 In the past 12 months, has l ack of transportation kept you from meetings, work, or from getting things needed for daily living? No 12/28/2022 Housing Stability Vital Sign Answer Kenny e Recorded In the last 12 months, was t here a time when you were not able to pay the mortgage or rent on time? No 12/28/2022 In the last 12 months, how many places have you lived? 1 12/28/2022 In the last 12 months, was t here a time when you did not have a steady place to sleep or slept in a long-term (including now)? No 12/28/2022 Personal Safety Answer Date Recorded Have you ever been in or are you currently in a harmful physical or emotional relationship or is someone making you feel afraid or unsafe? Denies 12/28/2022 Education Answer Date Recorded What is the highest level of school you have completed or the highest degree you have received? 12th grade 12/28/2022 Comments No Sex and Gender Information Value Date Recorded Sex Assigned at Not on file Legal Sex Female 7:01 PM OPEN HEARTH LABORER Gender Identity Not on file Sexual Orientation Not on file Last Filed Vital Signs Vital Sign Reading Time Taken Comments Blood Pressure 145/85 07/21/2023 3:26 PM OPEN HEARTH LABORER Pulse 88 07/21/2023 3:26 PM OPEN HEARTH LABORER Temperature 36.7 C (98.1 F) 07/21/2023 3:26 PM OPEN HEARTH LABORER Respiratory Rate 18 12/30/2022 7:58 AM CDT Oxygen Saturation 100% 12/30/2022 8:12 AM CDT Inhaled Oxygen Concentration - - Weight 70.9 kg (156 lb 6.4 oz) 07/21/2023 3:26 P M OPEN HEARTH LABORER Height 167.6 cm (5' 6 ) 07/21/2023 3:26 PM OPEN HEARTH LABORER Body Mass Index 25.24 07/21/2023 3:26 PM OPEN HEARTH LABORER Plan of Treatment Not on file Procedures Procedure Name Priority Date/Time Associated Diagnosis Comments SCREENING MAMMOGRAM BILATERAL W WESLEY Schedule Routine, Read Routine (OP Routine) 03/04/2022 10:41 AM CDT Encounter for screening mammogram for breast cancer HEPATITIS C ANTIBODY Routine Gen Lab 07/27/2017 10:54 AM OPEN HEARTH LABORER from Last 3 Months or Most Recently Relevant to Health Maintenance Results * Screening Mammogram Bilateral W Wesley (03/04/2022 10:41 AM CDT) Anatomical Region Laterality Modality Breast Bilateral Mammography 03/04/2022 3:56 PM CDT Impressions 03/04/2022 3:56 PM CDT There is no mammographic evidence of malignancy. A 1 year screening mammogram is recommended. BI-RADS: 1 - Negative. The patient has been or will be contacted. The patient will be entered into a reminder system with a target due date of 1 year for her next mammogram. Electronically signed by: Felix King M.D. Narrative 03/04/2022 3:56 PM CDT EXAMINATION: SCREENING MAMMOGRAM BILATERAL W WESLEY ORDERING HEALTHCARE PROVIDER: SELF SCREENING MAMMOGRAM HISTORY: Routine screening mammography. COMPARISON: 06/02/2018, 04/06/2016, 09/06/2014, 03/05/2013, 02/04/2012 TECHNIQUE: CC and MLO views of the bilateral breasts were obtained with digital technique using breast tomosynthesis with C view. Computer aided detection was utilized. FINDINGS: DENSITY: There are scattered fibroglandular elements in the bilateral breasts. BREASTS: There are no suspicious masses, suspicious calcifications, or other suspicious findings in either breast. There has been no suspicious interval change. Self Screening Mammogram IMG MAMMO PROCEDURES Fi nal Result * Hepatitis C antibody (07/27/2017 10:54 AM OPEN HEARTH LABORER) Hep C Ab Nonreactive Nonreactive [facility] Comment: Interpretive Data Positive and greyzone results should be confirmed by a molecular method. If positive or greyzone, a second separately collected sample should be submitted for Hepatitis C Virus RNA. Detection and Quantitation by Real-Time Reverse Contact Lens Blocker-PCR.Current Interpretive data was last revised on 2016. Blood specimen (specimen) 07/27/2017 10:54 AM OPEN HEARTH LABORER 07/27/2017 12:01 PM OPEN HEARTH LABORER Narrative [facility] - 07/27/2017 2:05 PM OPEN HEARTH LABORER Michelle Sharpe MD LAB MICROBIOLOGY - GENERAL ORDERABLES Edited Result - Final [facility] Department [place] [address] from Last 3 Months or Most Recently Relevant to Health Maintenance Insurance MEDICARE IDPA MEDICARE IDPA IDPA IDPA Advance Directives For more information, please contact: [phone] * Full Code (Latest Code Status on File) Date Activated Date Inactivated Comments 12/28/2022 11:05 AM 12/30/2022 7:15 PM * Full Code Date Activated Date Inactivated Comments 03/06/2020 3:34 PM 03/11/2020 10:31 PM Care Teams Electric Drill Operator Relationship Specialty Start Date End Date Markel Underwood MD [address] [address] PCP - General Family Practice 12/28/22 Nito Jeffers PA [address] [facility] [address] [place] [address] Physician Sales And Support Center Agent Orthopedic Surgery 12/11/20 Lc Robb MD [address] [facility] [address] [address] Referring Physician Gastroenterology 04/01/22 Markel Underwood MD [address] [facility] [address] [address] Referring Physician Family Practice 12/14/22
--- OUTSIDE RECORDS SUMMARY | 2024-07-26 13:59 | XMS_ITS | Referral Summary ---
Author Organization [facility] [employer] Address [address] [place] [address] Care Team Providers Care Ship Boss Name Role Phone Unavailable Primary Care Provider Unavailabl e Source Comments [facility],non-owned Affiliates and Associated Physician Practices is amultiple site organization consisting of ambulatory clinics and hospital sitesin [place], [place], [place] and [place]. This disclosure is being madepursuant to the Care Everywhere program and may not contain all information available regarding this patient. Last updated 18.[facility] [employer] Allergies Active Allergy Reactions Criticality Noted Date Comments Contrast-Iodinated Agents For Ct/Other Vomiting 12/15/2015 IV CONTRAST CAUSES PROJECTIVE VOMITING IN THIS PATIENT Metronidazole Swelling Morphine Nausea and/or Vomiting 04/03/2015 Nausea and vomiting Quinapril Swelling Ketorolac Unknown 02/02/2019 Medications * Be aware that medications may not be up to date on this document. Alwaysverify current medications with the patient. Medication Sig Dispensed Refills Start Date End Date Status CALCIUM-VITAMIN D PO Take 1 tablet by mouth once daily Active Budesonide-Formoter ol Fumarate (SYMBICORT IN) Active Polyethylene Glycol polyethylene glycol 3350 17 gram/dose oral powder 06/06/2018 Active omeprazole (PRILOSEC) 40 MG capsule omeprazole 40 mg capsule,delayed release 06/14/2017 Active linaCLOtide (LINZESS) 290 MCG capsule Linzess 290 mcg capsule Active hydroxychloroquine (PLAQUENIL) 200 MG tablet Take 200 mg by mouth 2 times daily 05/23/2010 Active estradiol (ESTRACE) 2 MG tablet estradiol 2 mg tablet 03/23/2017 Ac tive albuterol (PROVENTIL;VENTOLIN ) (2.5 MG/3ML) 0.083% nebulizer solution 02/03/2015 Active ALPRAZolam (XANAX) 1 MG tablet Take 1 mg by mouth 3 times daily as needed 10/31/2018 Active amLODIPine (NORVASC) 10 MG tablet amlodipine 10 mg tablet 05/23/2011 Active carisoprodol (SOMA) 350 MG tablet carisoprodol 350 mg tablet 05/23/2010 Active citalopram (CELEXA) 40 MG tablet citalopram 40 mg tablet 03/05/2015 Active DULoxetine (CYMBALTA) 60 MG capsule duloxetine 60 mg capsule,delayed release 05/23/2011 Active gabapentin (NEURONTIN) 300 MG capsule gabapentin 300 mg capsule 03/18/2015 Active Social History Tobacco Use Types Packs/Day Years [...] Mass Index 26.37 02/06/2019 10:12 AM CDT Plan of Treatment Not on file
--- OUTSIDE RECORDS SUMMARY | 2024-07-26 13:59 | XMS_ITS | Encounter Summary ---
Author Organization [facility] Address [address] [place] [address] Phone Care Team Providers Care Principal Data Architect Name Role Phone Yashira Valencia APRN, STRETCHER OPERATOR Unavailable [phone] Julio Cesar Tracy MD Unavailable [phone] Robin Stratton MD Primary Care Provider [phone] Markel Underwood MD Primary Care Provider [phone] Catia Bolanos APRN, STRETCHER OPERATOR Unavailable Reason for Visit * Reason Comments Medication Refill Encounter Details Date Type Department Care Team (Late st Contact Info) Description 12/13/2022 Refill [facility] - Family Medicine [facility] [address] [place] [id number] Qamar Saab APRN, STRETCHER OPERATOR [address] [address] Medication Refill Social History Tobacco Use Types [...] 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 Looks like she is seeing another PCP Markel Underwood MD documented in this encounter Plan of Treatment Upcoming Encounters Date Type Department Care Team (Late st Contact Info) Description 08/01/2024 9:00 AM CDT Appointment [facility] Mammography [address] [place] [address] Giovanny Omalley [address] [place] [address] Discharge Disposition: Discharged to home or Selfcare documented as of this encounter Visit Diagnoses Diagnosis Seasonal allergies Allergic rhinitis, cause unspecified documented in this encounter Additional Health Concerns Infection Onset Date Last Indicated Resolved Time COVID - 19 06/13/2023 06/13/2023 06/14/2023 12:5 9 AM AUTO CARRIER DRIVER COVID - 19 Confirmed 06/13/2023 06/13/2023 024 12:16 AM AUTO CARRIER DRIVER Assessment Noted Time PHQ-9 Depression Total Score: 0 07/28/19 22 1:00 PM AUTO CARRIER DRIVER documented as of this encounter Care Teams Principal Data Architect Relationship Specialty Start Date End Date Robin Stratton MD [address] [facility] [address] [place] [address] PCP - General Family Medicine 05/28/19 02/15/23 Markel Underwood MD [address] [place] [address] PCP - General Family Medicine 02/16/23 Yashira Valencia APRN, STRETCHER OPERATOR Nurse Practitioner Advanced Practice Nurse 04/03/15 Julio Cesar Tracy MD [address] [address] General Surgery 12/18/15 Catia Bolanos APRN, STRETCHER OPERATOR [address] [place] [address] Nurse Practitioner Advanced Practice Nurse 08/20/22 documented as of this encounter
--- OUTSIDE RECORDS SUMMARY | 2024-07-26 13:59 | XMS_ITS | Encounter Summary ---
Author Organization [facility] Address [address] [facility] [place] [address] Phone Care Team Providers Care Power Originator Name Role Phone Yashira Valencia APRN, TICKET COLLECTOR OR USHER Unavailable [phone] Julio Cesar Tracy MD Unavailable [phone] Robin Stratton MD Primary Care Provider [phone] Markel Underwood MD Primary Care Provider [phone] Catia Bolanos APRN, TICKET COLLECTOR OR USHER Unavailable Reason for Visit * Reason Comments Medication Refill Encounter Details Date Type Department Care Team (Late st Contact Info) Description 12/24/2020 [facility]ill [facility] #2 [place] [address] Qamar Saab APRN, TICKET COLLECTOR OR USHER #[address] [address] Medication Refill Social History Tobacco Use Types [...] 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 Requested Prescriptions Pending Prescriptions Disp Refills ondansetron (ZOFRAN-ODT) 4 MG TABLET DISPERSIBLE [Pharmacy Med Name: ONDANSETRON ODT 4MG TABLETS] 10 Tablet 1 Sig: DISSOLVE ONE TABLET BY MOUTH EVERY 8 HOURS NEEDED FOR NAUSEA Not Delegated - 5-HT3 Antagonists Protocol Failed - 12/24/2020 9:25 AM Failed - This refill cannot be delegated Passed - Visit with relevant provider in past 12 months or upcoming 90 days Recent Visits Date Type Provider Dept 11/13/20 Office Visit Qamar Saab APN, [facility] 08/28/20 Office Visit Robin Stratton MD [facility] 07/30/20 Telemedicine Robin Stratton MD [facility] 06/04/20 Telemedicine Robin Stratton MD [facility] 05/28/20 Office Visit Robin Stratton MD [facility] 05/21/20 Telemedicine Robin Stratton MD [facility] 05/05/20 Telemedicine Qamar Saab APN, TICKET COLLECTOR OR USHER [facility] 04/10/20 Office Visit Robin Stratton MD [facility] 04/09/20 Telemedicine Robin Stratton MD [facility] 03/26/20 Telemedicine Robin Stratton MD [facility] Showing recent visits within past 365 days and meeting all other requirements Future Appointments Date Type Provider Dept 02/16/21 Appointment Robin Stratton MD [facility] Showing future appointments within next 90 days and meeting all other requirements documented in this encounter Plan of Treatment Upcoming Encounters Date Type Department Care Team (Late st Contact Info) Description 08/01/2024 9:00 AM CDT Appointment [facility] [address] [place] [address] Giovanny Omalley 4 [facility] [address] [place] [address] Discharge Disposition: Discharged to home or Selfcare documented as of this encounter Visit Diagnoses Diagnosis Nausea Nausea alone documented in this encounter Additional Health Concerns Infection Onset Date Last Indicated Resolved Time COVID - 19 02/19/2021 02/19/2021 03/11/2021 12:1 6 AM CDT Respiratory Rule-Out 08/14/2021 08/14/2021 022 3:15 PM CDT COVID - 19 11/16/2021 11/19/2021 11/29/2021 12:1 6 AM CDT COVID - 19 06/13/2023 06/13/2023 06/14/2023 12:5 9 AM PRESCRIPTION BENEFIT SPECIALIST COVID - 19 Confirmed 06/13/2023 06/13/2023 024 12:16 AM PRESCRIPTION BENEFIT SPECIALIST Assessment Noted Time PHQ-9 Depression Total Score: 14 021 8:50 AM CDT documented as of this encounter Care Teams Power Originator Relationship Specialty Start Date End Date Robin Stratton MD [address] [facility] [address] [place] [address] PCP - General Family Medicine 05/28/19 02/15/23 Markel Underwood MD [address] [place] [address] PCP - General Family Medicine 02/16/23 Yashira Valencia, MARRIAGE AND FAMILY SOCIAL WORKER, TICKET COLLECTOR OR USHER Nurse Practitioner Advanced Practice Nurse 04/03/15 Julio Cesar Tracy MD #[address] [address] General Surgery 12/18/15 Catia Bolanos APRN, TICKET COLLECTOR OR USHER #2 [place] [address] Nurse Practitioner Advanced Practice Nurse 08/20/22 documented as of this encounter
--- OUTSIDE RECORDS SUMMARY | 2024-07-26 13:59 | XMS_ITS | Clinical Summary ---
Author Organization [facility] Address [address] [place] [address] Care Team Providers Care Diagnostic Cardiac Sonographer Name Role Phone Unavailable Primary Care Provider Unavailabl e Source Comments [facility],non-owned Affiliates and Associated Physician Practices is amultiple site organization consisting of ambulatory clinics and hospital sitesin [place], [place], [place] and [place]. This disclosure is being madepursuant to the Care Everywhere program and may not contain all information available regarding this patient. Last updated 18.[facility] Allergies Active Allergy Reactions Criticality Noted Date [...] 02/06/2019 10:12 AM CDT Plan of Treatment Health Maintenance Due Date Last Done Comments COLOGUARD (AGES 45-75) - COLON CA SCREENING 1961 COLON MONITORING 1961 COLONOSCOPY - COLON CA SCREENING 1961 CT COLONOGRAPHY - COLON CA SCREENING 1961 Colorectal Cancer Screening 1961 FIT - COLON CA SCREENING 1961 FLEX SIG - COLON CA SCREENING 1961 LIPID TESTING 1961 MEDICARE AWV 12 MONTHS 1961 PAP SMEAR 1961 HIV SCREENING 1976 HEPATITIS C SCREENING 07/02/1979 DTAP/TDAP/TD VACCINES (1 - Tdap) 1980 PNEUMOCOCCAL VACCINE 50+ (1 of 1 - PCV) 2011 ZOSTER VACCINE (1 of 2) 2011 MAMMOGRAM 06/02/2020 06/02/2018 COVID-19 VACCINE (1 - 2023- season) 2024 INFLUENZA VACCINE (#1) 2024 8, 04/07/2016, 03/12/2011, Additional history exists DEPRESSION SCREENING 05/23/2024 Respiratory Syncytial Virus (RSV) Vaccine Pt: or over 60 yrs (1 - 1-dose 75+ series) 2036 HEPATITIS B VACCINE Aged Out No longe r eligible based on patient's age to complete this topic HIB VACCINE Aged Out No longer eligi ble based on patient's age to complete this topic HPV VACCINE Aged Out No longer eligi ble based on patient's age to complete this topic MENINGOCOCCAL (Group B) VACCINE Aged Out No longer eligible based on patient's age to complete this topic MENINGOCOCCAL VACCINE Aged Out No geetha jenna eligible based on patient's age to complete this topic PNEUMOCOCCAL VACCINE Aged Out No long er eligible based on patient's age to complete this topic
--- OUTSIDE RECORDS SUMMARY | 2024-07-26 13:59 | XMS_ITS | Encounter Summary ---
Author Organization [facility] Address [address] [facility] [place] [address] Phone Care Team Providers Care Concrete Batch Plant Operator Name Role Phone Yashira Valencia APRN, ELECTRICIAN JOURNEYMAN WIREMAN Unavailable Julio Cesar Tracy MD Unavailable [phone] Robin Stratton MD Primary Care Provider [phone] Markel Underwood MD Primary Care Provider [phone] Catia Bolanos APRN, ELECTRICIAN JOURNEYMAN WIREMAN Unavailable Reason for Visit * Reason Comments Medication Refill Encounter Details Date Type Department Care Team (Late st Contact Info) Description 08/02/2021 Refill [facility] #2 [place] [address] Robin Stratton MD #[address] [address] Medication Refill Social History Tobacco Use Types [...] 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 No / Unsure 07/27/2021 1:01 PM COMPLIANCE EXAMINER documented as of this encounter Miscellaneous Notes * Telephone Encounter - Sayda Renteria RN - 08/03/2021 12:28 PM CDT Medication failed the protocol, provider to review and approve the medication order if appropriate. Requested Prescriptions Pending Prescriptions Disp Refills ondansetron (ZOFRAN-ODT) 4 MG TABLET DISPERSIBLE [Pharmacy Med Name: ONDANSETRON ODT 4MG TABLETS] 10 Tablet 1 Sig: DISSOLVE 1 TABLET ON THE TONGUE EVERY 8 HOURS NEEDED FOR NAUSEA Not Delegated - 5-HT3 Antagonists Protocol Failed - 08/02/2021 8:42 PM Failed - This refill cannot be delegated Passed - Visit with relevant provider in past 12 months or upcoming 90 days Recent Visits Date Type Provider Dept 07/27/21 Office Visit Qamar Saab APRN, JIL [facility] 05/20/21 Office Visit Qamar Saab APRN, JIL [facility] 05/05/21 Office Visit Qamar Saab APRN, ELECTRICIAN JOURNEYMAN WIREMAN [facility] 04/30/21 Telemedicine Qamar Saab APRN, ELECTRICIAN JOURNEYMAN WIREMAN [facility] 04/20/21 Telemedicine Qamar Saab APRN, JIL [facility] 04/02/21 Telemedicine Qamar Saab APRN, ELECTRICIAN JOURNEYMAN WIREMAN [facility] 02/19/21 Office Visit Robin [facility] MD [facility] 02/04/21 Telemedicine Qamar Saab APRN, ELECTRICIAN JOURNEYMAN WIREMAN [facility] 01/14/21 Office Visit Qamar Saab APRN, ELECTRICIAN JOURNEYMAN WIREMAN [facility] 11/13/20 Office Visit Qamar Saab, NITROCELLULOSE MAKER, ELECTRICIAN JOURNEYMAN WIREMAN [facility] Showing recent visits within past 365 days and meeting all other requirements Future Appointments Date Type Provider Dept 10/05/21 Appointment Robin Stratton MD [facility] Showing future appointments within next 90 days and meeting all other requirements documented in this encounter Plan of Treatment Upcoming Encounters Date Type Department Care Team (Late st Contact Info) Description 08/01/2024 9:00 AM CDT [facility]ointment [facility] 1 [place] [phone] [address]ovanny O[address] [place] [address] [facility] [address] [place] [address] Discharge Disposition: Discharged to home or Selfcare documented as of this encounter Visit Diagnoses Diagnosis Nausea Nausea alone documented in this encounter Additional Health Concerns Infection Onset Date Last Indicated Resolved Time Respiratory Rule-Out 08/14/2021 08/14/2021 022 3:15 PM CDT COVID - 19 11/16/2021 11/19/2021 11/29/2021 12:1 6 AM CDT COVID - 19 06/13/2023 06/13/2023 06/14/2023 12:5 9 AM COMPLIANCE EXAMINER COVID - 19 Confirmed 06/13/2023 06/13/2023 024 12:16 AM COMPLIANCE EXAMINER Assessment Noted Time PHQ-9 Depression Total Score: 0 07/28/19 22 1:00 PM COMPLIANCE EXAMINER documented as of this encounter Care Teams Concrete Batch Plant Operator Relationship Specialty Start Date End Date Robin Stratton MD #2 [facility] [address] [place] [address] PCP - General Family Medicine 05/28/19 02/15/23 Markel Underwood MD [address] [place] [address] PCP - General Family Medicine 02/16/23 Yashira Valencia APRN, ELECTRICIAN JOURNEYMAN WIREMAN Nurse Practitioner Advanced Practice Nurse 04/03/15 Julio Cesar Tracy MD #[address] [address] General Surgery 12/18/15 Catia Bolanos APRN, ELECTRICIAN JOURNEYMAN WIREMAN #2 [place] [address] Nurse Practitioner Advanced Practice Nurse 08/20/22 documented as of this encounter
--- OUTSIDE RECORDS SUMMARY | 2024-07-26 13:59 | XMS_ITS | Encounter Summary ---
Author Organization [facility] Address [address] [facility] [place] [address] Phone Care Team Providers Care Senior Software Engineer Name Role Phone Yashira Valencia APRN, SUBMARINE ELEMENT COORDINATOR Unavailable [phone] Julio Cesar Tracy MD Unavailable [phone] Robin Stratton MD Primary Care Provider Markel Underwood MD Primary Care Provider [phone] Catia Bolanos APRN, SUBMARINE ELEMENT COORDINATOR Unavailable Encounter Details Date Type Department Care Team (Late st Contact Info) Description 07/14/2022 Transcribe Orders [facility] Central Sched[facility] 1 [place] [address] José Manuel Zamarripa MD 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 Not on file No t on file documented as of this encounter Plan of Treatment Upcoming Encounters Date Type Department Care Team (Late st Contact Info) Description 08/01/2024 9:00 AM CDT Appointment [facility] 1 [facility] [place] [address] Giovanny Omalley 4 [facility] [address] [place] [address] Discharge Disposition: Discharged to home or Selfcare documented as of this encounter Visit Diagnoses Not on filedocumented in this encounter Additional Health Concerns Infection Onset Date Last Indicated Resolved Time COVID - 19 06/13/2023 06/13/2023 06/14/2023 12:5 9 AM FIRE TECHNICIAN COVID - 19 Confirmed 06/13/2023 06/13/2023 024 12:16 AM FIRE TECHNICIAN Assessment Noted Time PHQ-9 Depression Total Score: 0 07/28/19 22 1:00 PM FIRE TECHNICIAN documented as of this encounter Care Teams Senior Software Engineer Relationship Specialty Start Date End Date Robin Stratton MD #2 [facility] [address] [place] [address] PCP - General Family Medicine 05/28/19 02/15/23 Markel Underwood MD [address] [place] [address] PCP - General Family Medicine 02/16/23 Yashira Valencia, RN HEART, SUBMARINE ELEMENT COORDINATOR Nurse Practitioner Advanced Practice Nurse 04/03/15 Julio Cesar Tracy MD #2 [facility] [address] [place] [address] General Surgery 12/18/15 Catia Bolanos APRN, SUBMARINE ELEMENT COORDINATOR #2 [place] [address] Nurse Practitioner Advanced Practice Nurse 08/20/22 documented as of this encounter
--- OUTSIDE RECORDS SUMMARY | 2024-07-26 13:59 | XMS_ITS | Encounter Summary ---
Author Organization [facility] Address [address] [facility] [place] [address] Phone Care Team Providers Care Gleason Operator Name Role Phone Yashira Valencia APRN, WINDOW AIR CONDITIONER INSTALLER Unavailable [phone] Julio Cesar Tracy MD Unavailable [phone] Robin Stratton MD Primary Care Provider [phone] Markel Underwood MD Primary Care Provider [phone] Catia Bolanos APRN, WINDOW AIR CONDITIONER INSTALLER Unavailable Reason for Visit * Reason Comments Medication Refill Encounter Details Date Type Department Care Team (Late st Contact Info) Description 02/16/2021 Refill [facility] #2 [place] [address] Robin Stratton MD #[address] [address] Medication Refill Social History Tobacco Use Types [...] 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 No / Unsure 02/19/2021 10:22 AM CDT documented as of this encounter Miscellaneous Notes * Telephone Encounter - Sayda Renteria RN - 02/16/2021 11:01 AM CDT See MD note below * Telephone Encounter - Robin Stratton MD - 02/16/2021 10:36 AM CDT Reschedule her to see me since she no-showed today. Thanks! documented in this encounter Plan of Treatment Upcoming Encounters Date Type Department Care Team (Late st Contact Info) Description 08/01/2024 9:00 AM CDT Appointment [facility] 1 [place] [address] Giovanny Omalley [address] [place] [address] [address] Discharge Disposition: Discharged to home or Selfcare [...] 19 06/13/2023 06/13/2023 06/14/2023 12:5 9 AM VERTICAL PUNCH OPERATOR COVID - 19 Confirmed 06/13/2023 06/13/2023 024 12:16 AM VERTICAL PUNCH OPERATOR Assessment Noted Time PHQ-9 Depression Total Score: 14 021 8:50 AM CDT documented as of this encounter Care Teams Gleason Operator Relationship Specialty Start Date End Date Robin Stratton MD #2 [facility] [address] [place] [address] PCP - General Family Medicine 05/28/19 02/15/23 Markel Underwood MD [address] [place] [address] PCP - General Family Medicine 02/16/23 Yashira Valencia APRN, WINDOW AIR CONDITIONER INSTALLER Nurse Practitioner Advanced Practice Nurse 04/03/15 Julio Cesar Tracy MD #2 [facility] [address] [place] [address] General Surgery 12/18/15 Catia Bolanos APRN, WINDOW AIR CONDITIONER INSTALLER #2 [place] [address] Nurse Practitioner Advanced Practice Nurse 08/20/22 documented as of this encounter
--- OUTSIDE RECORDS SUMMARY | 2024-07-26 13:59 | XMS_ITS | Encounter Summary ---
Author Organization [facility] Address [address] [facility] [address] Phone Care Team Providers Care Blow Moulding Machine Operator Name Role Phone Yashira Valencia APRN, JACK SPOOLER TENDER Unavailable Julio Cesar Tracy MD Unavailable [phone] Robin Stratton MD Primary Care Provider [phone] Markel Underwood MD Primary Care Provider [phone] Catia Bolanos APRN, JACK SPOOLER TENDER Unavailable Reason for Visit * Reason Comments Medication Refill Encounter Details Date Type Department Care Team (Late st Contact Info) Description 04/08/2021 Refill [facility] #2 [place] [address] Robin Stratton MD #[address] [address] Medication Refill Social History Tobacco Use Types [...] 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 No / Unsure 04/07/2021 1:53 PM ELECTRIC MELT OPERATOR documented as of this encounter Miscellaneous Notes * Telephone Encounter - Sayda Renteria RN - 04/09/2021 8:08 AM CST Medication failed the protocol, provider to review and approve the medication order if appropriate. Requested Prescriptions Pending Prescriptions Disp Refills ondansetron (ZOFRAN-ODT) 4 MG TABLET DISPERSIBLE [Pharmacy Med Name: ONDANSETRON ODT 4MG TABLETS] 10 Tablet 1 Sig: DISSOLVE 1 TABLET ON THE TONGUE EVERY 8 HOURS NEEDED FOR NAUSEA Not Delegated - 5-HT3 Antagonists Protocol Failed - 04/08/2021 2:24 PM Failed - This refill cannot be delegated Passed - Visit with relevant provider in past 12 months or upcoming 90 days Recent Visits Date Type Provider Dept 04/02/21 Telemedicine Qamar Saab APRN, JIL [facility] 02/19/21 Office Visit Robin Stratton MD [facility] 02/04/21 Telemedicine Qamar Saab APRN, JACK SPOOLER TENDER [facility] 01/14/21 Office Visit Qamar Saab APRN, JACK SPOOLER TENDER [facility] 11/13/20 Office Visit Qamar Saab APRN, JACK SPOOLER TENDER [facility] 08/28/20 Office Visit Robin Stratton MD [facility] 07/30/20 Telemedicine Robin Stratton MD [facility] 06/04/20 Telemedicine Robin Stratton MD [facility] 05/28/20 Office Visit Robin Stratton MD [facility] 05/21/20 Telemedicine Robin Stratton MD [facility] Showing recent visits within past 365 days and meeting all other requirements Future Appointments Date Type Provider Dept 05/22/21 Appointment Robin Stratton MD [facility] Showing future appointments within next 90 days and meeting all other requirements TRIC MELT OPERATOR documented in this encounter Plan of Treatment Upcoming Encounters Date Type Department Care Team (Late st Contact Info) Description 08/01/2024 9:00 AM CDT Appointment [facility] Mammography 1 [facility] [place] [address] Giovanny Omalley [address] [place] [address] [facility] [address] [place] [address] Discharge Disposition: Discharged to home or Selfcare documented as of this encounter Visit Diagnoses Diagnosis Nausea Nausea alone documented in this encounter Additional Health Concerns Infection Onset Date Last Indicated Resolved Time Respiratory Rule-Out 08/14/2021 08/14/2021 022 3:15 PM CDT COVID - 19 11/16/2021 11/19/2021 11/29/2021 12:1 6 AM CDT COVID - 19 06/13/2023 06/13/2023 06/14/2023 12:5 9 AM ELECTRIC MELT OPERATOR COVID - 19 Confirmed 06/13/2023 06/13/2023 024 12:16 AM ELECTRIC MELT OPERATOR Assessment Noted Time PHQ-9 Depression Total Score: 14 021 8:50 AM CDT documented as of this encounter Care Teams Blow Moulding Machine Operator Relationship Specialty Start Date End Date Robin Stratton MD #2 [facility] [address] [place] [address] PCP - General Family Medicine 05/28/19 02/15/23 Markel Underwood MD [address] [place] [address] PCP - General Family Medicine 02/16/23 Yashira Valencia APRN, JACK SPOOLER TENDER Nurse Practitioner Advanced Practice Nurse 04/03/15 Julio Cesar Tracy MD #[address] [address] General Surgery 12/18/15 Catia Bolanos APRN, JACK SPOOLER TENDER #2 [place] [address] Nurse Practitioner Advanced Practice Nurse 08/20/22 documented as of this encounter
--- OUTSIDE RECORDS SUMMARY | 2024-07-26 13:59 | XMS_ITS | Clinical Summary ---
Author Organization [facility] Address [address] [place] [address] Care Team Providers Care Continuity Clerk Name Role Phone Nito Jeffers Unavailable [phone] Lc Robb MD Unavailable [phone] Markel Underwood MD Unavailable [phone] Markel Underwood MD Primary Care Provider [phone] Allergies Active Allergy Reactions Criticality Noted Date [...] (04/07/2022): Added automatically from request for surgery [id number] Asthma, moderate persistent 05/05/2021 Keratitis sicca, bilateral [...] DFE Assessment & Plan (04/28/2021 10:01 AM MEDICAL STAFF CREDENTIALING COORDINATOR): 3.02 mg/kg/day without clinical signs of maculopathy. Pt ed. Eyelid dermatitis, allergic/contact 04/21/2021 Assessment & Plan (04/21/2021 5:22 PM MEDICAL STAFF CREDENTIALING COORDINATOR): Patient was educated to avoid using false eyelashes as this may be causing the eyelids to be irritated. Complex tear of lateral meniscus of right knee 0 11/26/2020 Overview (11/26/2020): Added automatically from request for surgery [id number] Fall involving ice skates 10/23/2020 Noncompliance 08/28/2020 Abnormal ECG 05/05/2020 Overview (05/05/2020): Added automatically from request for surgery [id number] Skin lesion of breast 04/10/2020 Hypokalemia 02/09/2020 [...] PURPLE 07/28/2020 Pneumococcal Conjugate PCV 13 04/24/2020 Surgical History Surgery Date Site/Laterality Comments ROTATOR CUFF REPAIR right rotator cuff surgery HYSTERECTOMY Hysterectomy KNEE ARTHROSCOPY Left Arthroscopy knee EPIDURAL INJECTION LUMBOSACRAL 05/14/2014 N/A EPIDURAL INJECTION LUMBOSACRAL 04/02/2014 N/A Medical History Medical History Date Comments Hypertension Hypertension Asthma Asthma Hx Other Medical back pain; Comm ents: [facility] 01/29/2015 - Hx Other Medical migraine; Comme nts: [facility] 01/29/2015 - Depression Depression Disorder of thyroid Thyroid dise ase Hx Other Medical gastric reflux; Comments: S 01/29/2015 - Rash and other nonspecific s kin eruption Rash - (Added by TW Conv) Pilonidal cyst 01/17/2019 Chest pain Hyperlipidemia GERD (gastroesophageal reflux disease) Stroke (HCC) 2019 Lupus Sleep apnea Optic cupping, bilateral C/D rat io (OD 0.65, OS 0.6) Lattice degeneration, left eye Systemic lupus erythematosus (HCC) Long-term use of Plaquenil 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 Never 12/28/2022 Do you belong to any clubs o r organizations such as taoist groups, unions, fraternal or athletic groups, or [...] place to sleep or slept in a fpc (including now)? No 12/28/2022 Personal Safety Answer [...] on file Legal Sex Female 7:01 PM MEDICAL STAFF CREDENTIALING COORDINATOR Gender Identity Not on file Sexual Orientation Not on file Obstetrics History Last Filed Vital Signs Vital Sign Reading Time Taken Comments Blood Pressure 145/85 07/21/2023 3:26 PM MEDICAL STAFF CREDENTIALING COORDINATOR Pulse 88 07/21/2023 3:26 PM MEDICAL STAFF CREDENTIALING COORDINATOR Temperature 36.7 C (98.1 F) 07/21/2023 3:26 PM MEDICAL STAFF CREDENTIALING COORDINATOR Respiratory Rate 18 12/30/2022 7:58 AM CDT Oxygen Saturation 100% 12/30/2022 8:12 AM CDT Inhaled Oxygen Concentration - - Weight 70.9 kg (156 lb 6.4 oz) 07/21/2023 3:26 P M MEDICAL STAFF CREDENTIALING COORDINATOR Height 167.6 cm (5' 6 ) 07/21/2023 3:26 PM MEDICAL STAFF CREDENTIALING COORDINATOR Body Mass Index 25.24 07/21/2023 3:26 PM MEDICAL STAFF CREDENTIALING COORDINATOR Plan of Treatment Health Maintenance Due Date Last Done Comments Colon Cancer Screening-Colonoscopy 1961 Depression Screening 1961 Osteoporosis Screening-Bone Density Scan 1961 DTaP/Tdap/Td Vaccine (1 - Tdap) 1972 Hepatitis B Screening 1979 Regular Well Visit/Exam 18-64 1979 Zoster Vaccine (1 of 2) 1980 Pneumococcal vaccine <65 (2 of 2 - PPSV23) 06/19/2020 04/24/2020 Breast Cancer Screening-Mammogram 03/04/2023 03/04/2022, 05/28/2020, 05/28/2020, Additional history exists Covid-19 Vaccine (2023-2 5 season) 2024 04/07/2021, 08/16/2020, 07/28/2020 Influenza Vaccine (#1) 2024 , 03/06/2021, 04/24/2020, Additional history exists Hepatitis C Screening Completed 07/27/2017 Procedures Procedure Name Priority Date/Time Associated Diagnosis Comments SCREENING MAMMOGRAM BILATERAL W FAUSTINO Schedule Routine, Read Routine (OP Routine) 03/04/2022 10:41 AM CDT Encounter for screening mammogram for breast cancer HEPATITIS C ANTIBODY Routine Gen Lab 07/27/2017 10:54 AM MEDICAL STAFF CREDENTIALING COORDINATOR from Last 3 Months or Most Recently Relevant to Health Maintenance Results * Screening Mammogram Bilateral W Faustino (03/04/2022 10:41 AM CDT) Anatomical Region Laterality [...] PM CDT EXAMINATION: SCREENING MAMMOGRAM BILATERAL W FAUSTINO ORDERING HEALTHCARE PROVIDER: SELF SCREENING MAMMOGRAM HISTORY: [...] * Hepatitis C antibody (07/27/2017 10:54 AM MEDICAL STAFF CREDENTIALING COORDINATOR) Hep C Ab Nonreactive Nonreactive DYLAN FORBES Comment: Interpretive Data Positive and greyzone results should be confirmed by a molecular method. If positive or greyzone, a second separately collected sample should be submitted for Hepatitis C Virus RNA. Detection and Quantitation by Real-Time Reverse Construction Analyst-PCR.Current Interpretive data was last revised on 2016. Blood specimen (specimen) 07/27/2017 10:54 AM MEDICAL STAFF CREDENTIALING COORDINATOR 07/27/2017 12:01 PM MEDICAL STAFF CREDENTIALING COORDINATOR Narrative DYLAN [facility] - 07/27/2017 2:05 PM MEDICAL STAFF CREDENTIALING COORDINATOR Michelle Sharpe MD LAB MICROBIOLOGY - GENERAL ORDERABLES Edited Result - Final DYLAN FORBES [facility] Department [place] [address] from Last 3 Months or Most Recently Relevant to Health Maintenance Insurance MEDICARE [place] MEDICARE [place] MEDICARE [place] MEDICARE IDPA Advance Directives For more information, please contact: [phone] * Full Code (Latest Code Status on File) Date Activated Date Inactivated Comments 12/28/2022 11:05 AM 12/30/2022 7:15 PM * Full Code Date Activated Date Inactivated Comments 03/06/2020 3:34 PM 03/11/2020 10:31 PM Care Teams Continuity Clerk Relationship Specialty Start Date End Date Markel Underwood MD [address] [facility] [address] [place] [address] PCP - General Family Practice 12/28/22 Nito Jeffers PA 4 [facility] [address] [place] [address] Physician Dental Insurance [facility] 12/11/20 Lc Robb MD [address] [facility] [address] [address] Referring Physician Gastroenterology 04/01/22 Markel Underwood MD [address] [facility] [address] [address] Referring Physician Family Practice 12/14/22
--- OUTSIDE RECORDS SUMMARY | 2024-07-26 13:59 | XMS_ITS | Encounter Summary ---
Author Organization [facility] Address [address] [facility] [place] [address] Phone Care Team Providers Care Whirley Operator Name Role Phone Yashira Valencia APRN, FIREBRICK AND REFRACTORY TILE REPAIRER Unavailable Julio Cesar Tracy MD Unavailable [phone] Robin Stratton MD Primary Care Provider [phone] Markel Underwood MD Primary Care Provider [phone] Catia Bolanos APRN, FIREBRICK AND REFRACTORY TILE REPAIRER Unavailable Reason for Visit * Reason Comments Medication Refill Encounter Details Date Type Department Care Team (Late st Contact Info) Description 08/04/2021 Refill [facility] [address] [place] [address] Robin Stratton MD #[address] [address] Medication Refill Social History Tobacco Use Types [...] 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 No / Unsure 07/27/2021 1:01 PM TRAIN OPERATOR documented as of this encounter Miscellaneous Notes * Telephone Encounter - Sayda Renteria RN - 08/05/2021 8:01 AM CDT Name from pharmacy: ONDANSETRON ODT 4MG TABLETS Will file in chart as: ondansetron (ZOFRAN-ODT) 4 MG TABLET DISPERSIBLE The original prescription was reordered on 08/05/2021 by Robin Stratton MD. documented in this encounter Plan of Treatment Upcoming Encounters Date Type Department Care Team (Late st Contact Info) Description 08/01/2024 9:00 AM CDT Appointment [facility] [address] [place] [address] Giovanny Omalley [address] [place] [address], [address] [address] Discharge Disposition: Discharged to home or Selfcare documented as of this encounter Visit Diagnoses Diagnosis Nausea Nausea alone documented in this encounter Additional Health Concerns Infection Onset Date Last Indicated Resolved Time Respiratory Rule-Out 08/14/2021 08/14/2021 022 3:15 PM CDT COVID - 19 11/16/2021 11/19/2021 11/29/2021 12:1 6 AM CDT COVID - 19 06/13/2023 06/13/2023 06/14/2023 12:5 9 AM TRAIN OPERATOR COVID - 19 Confirmed 06/13/2023 06/13/2023 024 12:16 AM TRAIN OPERATOR Assessment Noted Time PHQ-9 Depression Total Score: 0 07/28/19 22 1:00 PM TRAIN OPERATOR documented as of this encounter Care Teams Whirley Operator Relationship Specialty Start Date End Date Robin Stratton MD #2 [facility] [address] [place] [address] PCP - General Family Medicine 05/28/19 02/15/23 Markel Underwood MD [address] [place] [address] PCP - General Family Medicine 02/16/23 Yashira Valencia APRN, FIREBRICK AND REFRACTORY TILE REPAIRER Nurse Practitioner Advanced Practice Nurse 04/03/15 Julio Cesar Tracy MD #2 [facility] [address] [place] [address] General Surgery 12/18/15 Catia Bolanos APRN, FIREBRICK AND REFRACTORY TILE REPAIRER [address] [place] [address] Nurse Practitioner Advanced Practice Nurse 08/20/22 documented as of this encounter
--- OUTSIDE RECORDS SUMMARY | 2024-07-26 14:00 | XMS_ITS | Encounter Summary ---
Author Organization [facility] Address [address] [facility] [place] [address] Phone Care Team Providers Care Elementary Art Teacher Name Role Phone Yashira Valencia APRN, UNIFORM DESIGNER Unavailable Julio Cesar Tracy MD Unavailable [phone] Robin Stratton MD Primary Care Provider [phone] Markel Underwood MD Primary Care Provider [phone] Catia Bolanos APRN, UNIFORM DESIGNER Unavailable Reason for Visit * Reason Comments Medication Refill Encounter Details Date Type Department Care Team (Late st Contact Info) Description 01/03/2020 Refill [facility] - Family Medicine [facility] [address] [place] [address] Qamar Saab APRN, UNIFORM DESIGNER #[address] [address] Medication Refill Social History Tobacco Use Types Packs/Day Years Used Date Smoking Tobacco: Never Smokeless Tobacco: Never Alcohol Use Standard Drinks/Week Comments No 0 (1 standard drink = 0.6 oz pur e alcohol) PHQ-2 Answer Date Recorded PHQ-2 Score 0 05/28/2019 Sexually Active Control Partners Comments Yes Comments No Sex and Gender Information Value Date Recorded Sex Assigned at Not on file Legal Sex Female 8:30 PM CDT Gender Identity Not on file Sexual Orientation Not on file 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 No / Unsure 01/02/2020 9:06 AM CDT documented as of this encounter Miscellaneous Notes * Telephone Encounter - Beryl Loaiza RN - 01/04/2020 12:45 PM CDT Refill pended documented in this encounter Plan of Treatment Upcoming Encounters Date Type Department Care Team (Late st Contact Info) Description 08/01/2024 9:00 AM CDT Appointment [facility] [address] [place] [address] Giovanny Omalley [address] [facility], [address] [address] Discharge Disposition: Discharged to home or Selfcare documented as of this encounter Visit Diagnoses Not on filedocumented in this encounter Additional Health Concerns Infection Onset Date Last Indicated Resolved Time Respiratory Rule Out - RPA 02/11/2020 02/11/2020 0 02/11/2020 9:32 PM CDT COVID - 19 Confirmed 02/11/2020 02/11/2020 020 12:18 AM CDT COVID - 19 02/19/2021 02/19/2021 03/11/2021 12:1 6 AM CDT Respiratory Rule-Out 08/14/2021 08/14/2021 022 3:15 PM CDT COVID - 19 11/16/2021 11/19/2021 11/29/2021 12:1 6 AM CDT COVID - 19 06/13/2023 06/13/2023 06/14/2023 12:5 9 AM FAMILY WELFARE SOCIAL WORK PROFESSOR COVID - 19 Confirmed 06/13/2023 06/13/2023 024 12:16 AM FAMILY WELFARE SOCIAL WORK PROFESSOR Assessment Noted Time PHQ-9 Depression Total Score: 0 05/28/19 20 9:27 AM FAMILY WELFARE SOCIAL WORK PROFESSOR documented as of this encounter Care Teams Elementary Art Teacher Relationship Specialty Start Date End Date Robin Stratton MD #2 [facility] [address] [place] [address] PCP - General Family Medicine 05/28/19 02/15/23 Markel Underwood MD [address] [place] [address] PCP - General Family Medicine 02/16/23 Yashira Valencia APRN, UNIFORM DESIGNER Nurse Practitioner Advanced Practice Nurse 04/03/15 Julio Cesar Tracy MD #2 [facility] [address] [place] [address] General Surgery 12/18/15 Catia Bolanos APRN, UNIFORM DESIGNER #[address] [place] [address] Nurse Practitioner Advanced Practice Nurse 08/20/22 documented as of this encounter
[2024-07-26 18:59] LABS: Hematocrit 42.5 % (37.0-47.0); Hemoglobin 13.6 g/dL (12.0-15.0); Mean Corpuscular Hemoglobin 30.4 pg (26-34); Mean Corpuscular Volume 94.9 fl (80-100); Mean Platelet Volume 11.2 fl (7.4-10.4); Platelet Count Result 243 k/mm3 (150-375); Red Blood Count 4.48 M/mm3 (4.2-5.4); Red Cell Distribution Width 11.9 % (11.5-14.5); White Blood Count 4.9 K/mm3 (4.5-10.0)
[2024-07-26 19:18] LABS: Alanine Aminotransferase 18 U/L (6-35); Albumin Level 4.3 g/dL (3.5-5.1); Alkaline Phosphatase 75 U/L (38-126); Anion Gap 10 mmol/L (4-12); Aspartate Amino Transferase 46 U/L (14-36); Bilirubin,Total 1.1 mg/dL (0.2-1.3); Blood Urea Nitrogen 22 mg/dL (7-17); Calcium 9.3 mg/dL (8.4-10.2); Carbon Dioxide 22 mmol/L (22-30); Chloride 105 mmol/L (98-107); Cholesterol 291 mg/dL (0-200); Estimated Glomerular Filt Rate 42; Glucose 114 mg/dL (65-110); HDL Direct 100 mg/dL; Potassium 4.3 mmol/L (3.4-5.0); Sodium 137 mmol/L (137-145); Triglycerides 82 mg/dL (<150)
[2024-07-26 19:30] LABS: LDL Cholesterol Direct 126 mg/dL
[2024-07-29 17:19] LABS: Alphahydroxymidazolam NEGATIVE ng/mL (<50); Alphahydroxytriazolam NEGATIVE ng/mL (<50); Amphetamines NEGATIVE ng/mL (<500); Barbiturates NEGATIVE ng/mL (<300); Benzodiazepines POSITIVE ng/mL (<100); Cocaine Metabolite NEGATIVE ng/mL (<150); Codeine NEGATIVE ng/mL (<50); Hydrocodone 2265 ng/mL (<50); Hydromorphone 125 ng/mL (<50); Hydroxyethylflurazepam NEGATIVE ng/mL (<50); Lorazepam NEGATIVE ng/mL (<50); Marijuana Metabolite NEGATIVE ng/mL (<20); Methadone Metabolite NEGATIVE ng/mL (<100); Morphine NEGATIVE ng/mL (<50); Norhydrocodone 2814 ng/mL (<50); Opiates POSITIVE ng/mL (<100); Oxidant NEGATIVE mcg/mL (<200); Temazepam NEGATIVE ng/mL (<50); pH 5.5 (4.5-9.0)
== END 2024-07-26 12:45 | disposition home or self-care (01) ==
LOC: ANHBWCLAB 12:47
PROVIDERS: PCP Family Medicine; Visit Provider Family Medicine
DX: R74.8 Abnormal levels of other serum enzymes (principal); I10 Essential (primary) hypertension; E03.9 Hypothyroidism, unspecified; G45.9 Transient cerebral ischemic attack, unspecified; K76.0 Fatty (change of) liver, not elsewhere classified; R94.4 Abnormal results of kidney function studies; F32.A Depression, unspecified; J45.909 Unspecified asthma, uncomplicated; K31.84 Gastroparesis; Z86.73 Personal history of transient ischemic attack (TIA), and cerebral infarction without residual deficits; M25.529 Pain in unspecified elbow; E78.5 Hyperlipidemia, unspecified; F41.9 Anxiety disorder, unspecified; M79.7 Fibromyalgia; M32.9 Systemic lupus erythematosus, unspecified
CPT/HCPCS: 36415; 73080; 80053; 80061; 80299; 84443; 85027

== ENCOUNTER 2024-11-13 09:24 | Outpatient (CLI) | payer MEDICARE, MEDICAID, SELFPAY ==
[2024-11-13 09:59] LABS: Add Urine Microscopic? YES; Appearance Urine Cloudy (Clear); Bacteria Urine 4+ /hpf; Bilirubin Urine Negative (Negative); Blood Urine Negative (Negative); Color Urine Yellow (Yellow); Glucose Urine UA Negative (Negative); Ketones Urine Trace mg/dL (Negative); Leukocyte Esterase Ur 1+ LEU/UL (Negative); Mucus Urine Present /lpf; Need Manual Microscopic Reviewed; Nitrate Urine Negative (Negative); Non Pathogenic Casts 0-2; Protein Urine Negative (Negative); Specific Grav Ur 1.029 (1.001-1.035); Squamous Epithelial Cell Urine Many /hpf (Few); pH Urine 5.5 (5.0-9.0)
== END 2024-11-13 09:25 | disposition home or self-care (01) ==
PROVIDERS: PCP Family Medicine; Visit Provider Family Medicine
DX: N39.0 Urinary tract infection, site not specified (principal)
CPT/HCPCS: 81001; 87086

== ENCOUNTER 2025-01-28 13:19 | Outpatient (CLI) | payer MEDICARE, MEDICAID, SELFPAY ==
--- NOTE | ~2025-01-28 | XR_ITS ---
XR hip LT 2V w AP pelvis 01/28/2025 13:36 INDICATION: Hip pain and bruising PROCEDURE: AP pelvis and 2 views left hip COMPARISON: 02/07/2023 FINDINGS: Fracture, dislocation or subluxation is not identified. The soft tissues appear within normal limits. No foreign bodies are identified. IMPRESSION: 1: NO ACUTE BONE OR JOINT ABNORMALITY IDENTIFIED. Reviewed, dictated and finalized at location O.
--- NOTE | ~2025-01-28 | XR_ITS ---
EXAM/ PROCEDURE: XR femur LT min 2V - 01/28/2025 13:21 CDT HISTORY: 64 years old Female with M25.559 - Pain in unspecified hip COMPARISON: None available TECHNIQUE: Four view(s) FINDINGS/ IMPRESSION: There are no fractures or dislocations.Joint space narrowing, subchondral sclerosis, subchondral cyst formation and osteophyte formation, compatible with mild osteoarthritis. Reviewed, dictated and finalized at location N.
--- OUTSIDE RECORDS SUMMARY | 2025-01-28 13:23 | XMS_ITS | Encounter Summary ---
Author Organization [facility] Address [address] [facility] [place] [address] Phone Care Team Providers Care Wire Bender Hand Name Role Phone Yashira Valencia APRN, MEDICAL PHYSIOLOGIST Unavailable Julio Cesar Tracy MD Unavailable [phone] Robin Stratton MD Primary Care Provider [phone] Markel Underwood MD Primary Care Provider Catia Bolanos APRN, MEDICAL PHYSIOLOGIST Unavailable Reason for Visit * Reason Onset Date Comments Medication Refill 08/31/2021 Encounter Details Date Type Department Care Team (Late st Contact Info) Description 08/31/2021 Refill [facility] - Family Medicine [facility] [address] [place] [address] Robin Stratton MD #[address] [address] Medication Refill Social History Tobacco Use Types [...] 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 No more than 2 injections in one day! Not Delegated - Serotonin [...] Office Visit Qamar Saab APRN, [place] [facility] 05/20/21 Office Visit Qamar Saab APRN, [place] [facility] 05/05/21 Office Visit Qamar Saab APRN, [place] [facility] 04/30/21 Telemedicine Qamar Saab APRN, [place] [facility] 04/20/21 Telemedicine Qamar Saab APRN, [place] [facility] 04/02/21 Telemedicine Qamar Saab APRN, [facility] [facility] 02/19/21 Office Visit Robin Stratton MD [facility] 02/04/21 Telemedicine Qamar Saab APRN, [facility] 01/14/21 Office Visit Qamar Saab APRN, [facility] Showing recent visits within past 730 days and meeting all other requirements Future Appointments Date Type Provider Dept 09/02/21 Appointment Qamar Saab APRN, [facility] 10/05/21 Appointment Robin Stratton MD [facility] [place] Showing future appointments within next 90 [...] documented in this encounter Plan of Treatment Not on file documented as of this encounter Visit Diagnoses Not on filedocumented in this encounter Additional Health Concerns Infection Onset Date Last Indicated Resolved Time COVID - 19 11/16/2021 11/19/2021 11/29/2021 12:1 6 AM CDT COVID - 19 06/13/2023 06/13/2023 06/14/2023 12:5 9 AM SENIOR VISUAL DESIGNER COVID - 19 Confirmed 06/13/2023 06/13/2023 024 12:16 AM SENIOR VISUAL DESIGNER Assessment Noted Time PHQ-9 Depression Total Score: 0 07/28/19 22 1:00 PM SENIOR VISUAL DESIGNER documented as of this encounter Care Teams Wire Bender Hand Relationship Specialty Start Date End Date Robin Stratton MD #2 [facility] [address] [place] [address] PCP - General Family Medicine 05/28/19 02/15/23 Markel Underwood MD #2 [facility] [address] [place] [address] PCP - General Family Medicine 02/16/23 Yashira Valencia APRN, MEDICAL PHYSIOLOGIST Nurse Practitioner Advanced Practice Nurse 04/03/15 Julio Cesar Tracy MD #2 [facility] [address] [place] [address] General Surgery 12/18/15 Catia Bolanos APRN, MEDICAL PHYSIOLOGIST #2 [place] [address] Nurse Practitioner Advanced Practice Nurse 08/20/22 documented as of this encounter
--- OUTSIDE RECORDS SUMMARY | 2025-01-28 13:23 | XMS_ITS | Clinical Summary ---
Author Organization [facility] Address [address] [place] [address] Care Team Providers Care Housing Director Name Role Phone Unavailable Primary Care Provider Unavailabl e Source Comments [facility],non-owned Affiliates and Associated Physician Practices is amultiple site organization consisting of ambulatory clinics and hospital sitesin [place], [place], [place] and [place]. This disclosure is being madepursuant to the Care Everywhere program and may not contain all information available regarding this patient. Last updated 18.[facility] Allergies Active Allergy Reactions Criticality Noted Date Comments Contrast-Iodinated Agents For Ct/Other Vomiting 12/15/2015 IV CONTRAST CAUSES PROJECTIVE VOMITING IN THIS PATIENT Metronidazole Swelling Morphine Nausea and/or Vomiting 04/03/2015 Nausea and vomiting Quinapril Swelling Ketorolac Unknown 02/02/2019 Medications * Be aware that medications may not be up to date on this document. Alwaysverify current medications with the patient. CALCIUM-VITAMIN D PO Take 1 tablet by mouth once daily Active Budesonide-Form oterol Fumarate (SYMBICORT IN) Activ e Polyethylene Glycol polyethylene glycol 3350 17 gram/dose oral powder 9 Active omeprazole (PRILOSEC) 40 MG capsule omeprazole 40 mg capsule,delayed release 8 Active linaCLOtide (LINZESS) 290 MCG capsule Linzess 290 mcg capsule Active hydroxychloroqu ine (PLAQUENIL) 200 MG tablet Take 200 mg by mouth 2 times daily 1 Active estradiol (ESTRACE) 2 MG tablet estradiol 2 mg tablet 7 Active albuterol (PROVENTIL;VENT ALEJANDRO) (2.5 MG/3ML) 0.083% nebulizer solution 5 Active ALPRAZolam (XANAX) 1 MG tablet Take 1 mg by mouth 3 times daily as needed 9 Active amLODIPine (NORVASC) 10 MG tablet amlodipine 10 mg tablet 2 Active carisoprodol (SOMA) 350 MG tablet carisoprodol 350 mg tablet 1 Active citalopram (CELEXA) 40 MG tablet citalopram 40 mg tablet 5 Active DULoxetine (CYMBALTA) 60 MG capsule duloxetine 60 mg capsule,delayed release 2 Active gabapentin (NEURONTIN) 300 MG capsule gabapentin 300 mg capsule 5 Active Social History Tobacco Use Types Packs/Day Years Used Date Smoking Tobacco: Former Smokeless Tobacco: Never Alcohol Use Standard Drinks/Week Comments Not Currently 0 (1 standard drink = 0.6 oz pur e alcohol) Comments Unknown Sex and Gender Information Value Date Recorded Sex Assigned at Not on file Legal Sex Female 8:55 AM CDT Gender Identity Not on file Sexual [...] COLON CA SCREENING 1961 LIPID TESTING 1961 HIV SCREENING 1976 HEPATITIS C SCREENING 07/02/1979 DTAP/TDAP/TD VACCINES (1 - Tdap) 1980 PNEUMOCOCCAL VACCINE 50+ (1 of 1 - PCV) 2011 ZOSTER VACCINE (1 of 2) 2011 MAMMOGRAM 06/02/2020 06/02/2018 DEPRESSION SCREENING 05/23/2024 COVID-19 VACCINE (1 - season) 2025 INFLUENZA VACCINE (#1) 2025 8, 04/07/2016, 03/12/2011, Additional history exists Respiratory Syncytial Virus (RSV) Vaccine Pt: or [...] complete this topic MENINGOCOCCAL (Group B) VACCINE SHARED DECISION-MAKING Aged Out No longer eligible based on patient's age to complete this topic MENINGOCOCCAL GROUPS A/C/Y/W VACCINE Aged Out No longer eligible based on patient's age to complete this topic Insurance MEDICARE MEDICAID - OUT OF STATE MEDICAID - [place] MEDICARE
--- OUTSIDE RECORDS SUMMARY | 2025-01-28 13:23 | XMS_ITS | Encounter Summary ---
Author Organization [facility] Address [address] [facility] [place] [address] Phone Care Team Providers Care Agriculture Consultant Name Role Phone Yashira Valencia APRN, MORTGAGE LOAN ASSISTANT Unavailable Julio Cesar Tracy MD Unavailable [phone] Robin Stratton MD Primary Care Provider [phone] Markel Underwood MD Primary Care Provider [phone] Catia Bolanos APRN, MORTGAGE LOAN ASSISTANT Unavailable Reason for Visit * Reason Comments Medication Refill Encounter Details Date Type Department Care Team (Late st Contact Info) Description 12/24/2020 Refill 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 Not on file Not on file No [...] [facility] [place] 05/05/20 Telemedicine Qamar Saab APN, MORTGAGE LOAN ASSISTANT [facility] [place] 04/10/20 Office Visit Robin Stratton MD [facility] 04/09/20 Telemedicine Robin Stratton MD [facility] 03/26/20 Telemedicine Robin Stratton MD [facility] [place] Showing recent visits within past 365 days and meeting all other requirements Future Appointments Date Type Provider Dept 02/16/21 Appointment Robin Stratton MD [facility] Showing future appointments within next 90 days [...] 19 06/13/2023 06/13/2023 06/14/2023 12:5 9 AM OUTDOOR ADVENTURE LEADER COVID - 19 Confirmed 06/13/2023 06/13/2023 024 12:16 AM OUTDOOR ADVENTURE LEADER Assessment Noted Time PHQ-9 Depression Total Score: 14 021 8:50 AM CDT documented as of this encounter Care Teams Agriculture Consultant Relationship Specialty Start Date End Date Robin Stratton MD #2 [facility] [address] [place] [address] PCP - General Family Medicine 05/28/19 02/15/23 Markel Underwood MD #2 [facility] [address] [place] [address] PCP - General Family Medicine 02/16/23 Yashira Valencia APRN, MORTGAGE LOAN ASSISTANT Nurse Practitioner Advanced Practice Nurse 04/03/15 Julio Cesar Tracy MD #2 [facility] [address] [place] [address] General Surgery 12/18/15 Catia Bolanos APRN, MORTGAGE LOAN ASSISTANT #2 [place] [address] Nurse Practitioner Advanced Practice Nurse 08/20/22 documented as of this encounter
--- OUTSIDE RECORDS SUMMARY | 2025-01-28 13:23 | XMS_ITS | Encounter Summary ---
Author Organization [facility] Address [address] [facility] [place] [address] Phone Care Team Providers Care Improvement Coordinator Name Role Phone Yashira Valencia APRN, FACILITY PLANNER Unavailable [phone] Julio Cesar Tracy MD Unavailable [phone] Robin Stratton MD Primary Care Provider [phone] Markel Underwood MD Primary Care Provider [phone] Catia Bolanos APRN, FACILITY PLANNER Unavailable Reason for Visit * Reason Comments Medication Refill Encounter Details Date Type Department Care Team (Late st Contact Info) Description 08/04/2021 Refill [facility] #2 [place] [id number] Robin Stratton MD #[address] [address] Medication Refill Social History Tobacco Use Types [...] 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 No / Unsure 07/27/2021 1:01 PM MANAGER SCIENTIFIC documented as of this encounter Miscellaneous Notes [...] 06/13/2023 06/13/2023 06/14/2023 12:5 9 AM MANAGER SCIENTIFIC COVID - 19 Confirmed 06/13/2023 06/13/2023 024 12:16 AM MANAGER SCIENTIFIC Assessment Noted Time PHQ-9 Depression Total Score: 0 07/28/19 22 1:00 PM MANAGER SCIENTIFIC documented as of this encounter Care Teams Improvement Coordinator Relationship Specialty Start Date End Date Robin Stratton MD #[address] [address] PCP - General Family Medicine 05/28/19 02/15/23 Markel Underwood MD #2 [facility] [address] [place] [address] PCP - General Family Medicine 02/16/23 Yashira Valencia APRN, FACILITY PLANNER Nurse Practitioner Advanced Practice Nurse 04/03/15 Julio Cesar Tracy MD #2 [facility] [address] [place] [address] General Surgery 12/18/15 Catia Bolanos APRN, FACILITY PLANNER #2 [place] [address] Nurse Practitioner Advanced Practice Nurse 08/20/22 documented as of this encounter
--- OUTSIDE RECORDS SUMMARY | 2025-01-28 13:23 | XMS_ITS | Clinical Summary ---
Author Organization [facility] Address [address] [place] [address] Care Team Providers Care Branch Examiner Name Role Phone Nito Jeffers Unavailable [phone] Lc Robb MD Unavailable [phone] Markel Underwood MD Unavailable [phone] Markel Underwood MD Primary Care Provider [phone] Allergies Active Allergy Reactions Criticality Noted Date [...] mcg/actuation nasal spray fluticasone 50 mcg/actuation nasal spray,suspension Active QUEtiapine (SEROquel) 300 mg tablet Take [...] AREA 2-3 TIMES DAILY 05/04/20 23 Active omeprazole (PriLOSEC) 40 mg capsule Take [...] day 100 each 11 12/22/19 24 Active carisoprodoL (SOMA) 350 mg tablet TAKE 1 TABLET(350 MG) BY MOUTH FOUR TIMES DAILY NEEDED FOR MUSCLE SPASMS 120 tablet 10/18/19 25 Active hydroxychloroquine (PLAQUENIL) 200 mg tabletIndications: Systemic lupus erythematosus with other organ involvement, unspecified SLE type (HCC) TAKE 1 TABLET BY MOUTH EVERY OTHER DAY, ALTERNATE WITH 2 TABLETS EVERY OTHER DAY 45 tablet 12/22/19 25 Active spironolactone (ALDACTONE) 25 mg tabletIndications: Acne rosacea TAKE 3 TABLETS(75 MG) BY MOUTH EVERY NIGHT 270 tablet 11 12/25/19 25 Active Active Problems Problem Noted Date Diagnosed Date Excess skin 12/29/2023 Acute left-sided low back pain with left-sided s ciatica 12/28/2022 Spondylolisthesis at L4-L5 level 12/28/2022 Fibromyalgia 12/28/2022 History of stroke 12/28/2022 Asthma 12/28/2022 Chronic renal failure (CRF), stage 3a 12/28/2022 Pancreatic cyst 04/07/2022 Overview (04/07/2022): Added automatically from request for surgery [id number] Asthma, moderate persistent 05/05/2021 Keratitis sicca, bilateral [...] DFE Assessment & Plan (04/28/2021 10:01 AM CHUTE TAPPER): 3.02 mg/kg/day without clinical signs of maculopathy. Pt ed. Eyelid dermatitis, allergic/contact 04/21/2021 Assessment & Plan (04/21/2021 5:22 PM CHUTE TAPPER): Patient was educated to avoid using false eyelashes as this may be causing the eyelids to be irritated. Complex tear of lateral meniscus of right knee 0 11/26/2020 Overview (11/26/2020): Added automatically from request for surgery [id number] Fall involving ice skates 10/23/2020 Noncompliance 08/28/2020 Abnormal ECG 05/05/2020 Overview (05/05/2020): Added automatically from request for surgery [id number] Skin lesion of breast 04/10/2020 Hypokalemia 02/09/2020 [...] Hx Other Medical back pain; Comm ents: [facility] 01/29/2015 - Hx Other Medical migraine; Comme nts: [facility] 01/29/2015 - Depression Depression Disorder of thyroid Thyroid dise ase Hx Other Medical gastric reflux; Comments: [facility] 01/29/2015 - Rash and other nonspecific s [...] e alcohol) Social Connection and Isolation Panel Answer Date Recorded In a typical week, how many times do you talk on the phone with family, friends, or neighbors? Twice a week 12/28/2022 How often do you get together with friends or re latives? Never 12/28/2022 How often do you attend roman catholic or yazidi serv ices? Never 12/28/2022 Do you belong to any clubs o r organizations such as roman catholic groups, unions, fraternal or athletic groups, or [...] place to sleep or slept in a assisted (including now)? No 12/28/2022 Personal Safety Answer [...] on file Legal Sex Female 7:01 PM CHUTE TAPPER Gender Identity Not on file Sexual Orientation Not on file Obstetrics History Last Filed Vital Signs Vital Sign Reading Time Taken Comments Blood Pressure 145/85 07/21/2023 3:26 PM CHUTE TAPPER Pulse 88 07/21/2023 3:26 PM CHUTE TAPPER Temperature 36.7 C (98.1 F) 07/21/2023 3:26 PM CHUTE TAPPER Respiratory Rate 18 12/30/2022 7:58 AM CDT Oxygen Saturation 100% 12/30/2022 8:12 AM CDT Inhaled Oxygen Concentration - - Weight 70.9 kg (156 lb 6.4 oz) 07/21/2023 3:26 P M CHUTE TAPPER Height 167.6 cm (5' 6) 07/21/2023 3:26 PM CHUTE TAPPER Body Mass Index 25.24 07/21/2023 3:26 PM CHUTE TAPPER Plan of Treatment Health Maintenance Due Date Last Done Comments Colon Cancer Screening-Colonoscopy 1961 Depression Screening 1961 Osteoporosis Screening-Bone Density Scan 1961 DTaP/Tdap/Td Vaccine (1 - Tdap) 1972 Hepatitis B Screening 1979 Regular Well Visit/Exam 18-64 1979 Zoster Vaccine (1 of 2) 1980 Pneumococcal vaccine <65 (2 of 2 - PPSV23, PCV20, or PCV21) 06/19/2020 04/24/2020 Covid-19 Vaccine (4 - 2023-2 5 season) 2024 04/07/2021, 08/16/2020, 07/28/2020 Influenza Vaccine (#1) 2025 , 03/06/2021, 04/24/2020, Additional history exists Breast Cancer Screening-Mammogram 08/01/2025 08/01/2024, 08/01/2024, 03/04/2022, Additional history exists Hepatitis C Screening Completed 07/27/2017 Procedures Procedure Name Priority Date/Time Associated Diagnosis Comments SCREENING MAMMOGRAM BILATERAL W [place] Schedule Routine, Read Routine (OP Routine) 03/04/2022 10:41 AM CDT Encounter for screening mammogram for breast cancer HEPATITIS C ANTIBODY Routine Gen Lab 07/27/2017 10:54 AM CHUTE TAPPER from Last 3 Months or Most Recently [...] There has been no suspicious interval change. us Self Screening Mammogram IMG MAMMO PROCEDURES Fi nal Result * Hepatitis C antibody (07/27/2017 10:54 AM CHUTE TAPPER) Hep C Ab Nonreactive Nonreactive [facility] Comment: Interpretive Data Positive and greyzone results should be confirmed by a molecular method. If positive or greyzone, a second separately collected sample should be submitted for Hepatitis C Virus RNA. Detection and Quantitation by Real-Time Reverse Manipulative Therapy Specialist-PCR.Current Interpretive data was last revised on 2016. Blood specimen (specimen) 07/27/2017 10:54 AM CHUTE TAPPER 07/27/2017 12:01 PM CHUTE TAPPER Narrative [facility] - 07/27/2017 2:05 PM CHUTE TAPPER Michelle Sharpe MD LAB MICROBIOLOGY - GENERAL ORDERABLES Edited Result - Final [facility] Department [place] [address] from Last 3 Months or Most Recently Relevant to Health Maintenance Insurance MEDICARE IDPA MEDICARE IDPA MEDICARE IDPA MEDICARE IDPA Advance Directives For more information, please contact: [phone] * Full Code (Latest Code Status on File) Date Activated Date Inactivated Comments 12/28/2022 11:05 AM 12/30/2022 7:15 PM * Full Code Date Activated Date Inactivated Comments 03/06/2020 3:34 PM 03/11/2020 10:31 PM Care Teams Branch Examiner Relationship Specialty Start Date End Date Markel Underwood MD [address] [facility] [address] [place] [address] PCP - General Family Practice 12/28/22 Nito Jeffers PA [address] [place] [address] Physician Travel Ticketing Reviewer Orthopedic Surgery 12/11/20 Lc Robb MD 2 [facility] [address] [place] [address] Referring Physician Gastroenterology 04/01/22 Markel Underwood MD 2 [facility] [address] [place] [address] Referring Physician Family Practice 12/14/22
--- OUTSIDE RECORDS SUMMARY | 2025-01-28 13:23 | XMS_ITS | Encounter Summary ---
Author Organization [facility] Address [address] [facility] [place] [address] Phone Care Team Providers Care Level Vial Inspector And Tester Name Role Phone Yashira Valencia APRN, CONTRACT NEGOTIATION SPECIALIST Unavailable [phone] Julio Cesar Tracy MD Unavailable [phone] Robin Stratton MD Primary Care Provider [phone] Markel Underwood MD Primary Care Provider [phone] Catia Bolanos APRN, CONTRACT NEGOTIATION SPECIALIST Unavailable Reason for Visit * Reason Comments Medication Refill Encounter Details Date Type Department Care Team (Late st Contact Info) Description 02/16/2021 Refill [facility] - Family Medicine [facility] #2 [place] [address] Robin Stratton MD #[address] [address] Medication Refill Social History Tobacco Use Types [...] 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 Not on file No [...] 19 06/13/2023 06/13/2023 06/14/2023 12:5 9 AM BONE CRUSHER COVID - 19 Confirmed 06/13/2023 06/13/2023 024 12:16 AM BONE CRUSHER Assessment Noted Time PHQ-9 Depression Total Score: 14 021 8:50 AM CDT documented as of this encounter Care Teams Level Vial Inspector And Tester Relationship Specialty Start Date End Date Robin Stratton MD #2 [facility] [address] [place] [address] PCP - General Family Medicine 05/28/19 02/15/23 Markel Underwood MD #2 [facility] [address] [place] [address] PCP - General Family Medicine 02/16/23 Yashira Valencia APRN, CONTRACT NEGOTIATION SPECIALIST Nurse Practitioner Advanced Practice Nurse 04/03/15 Julio Cesar Tracy MD #2 [facility] [address] [place] [address] General Surgery 12/18/15 Catia Bolanos APRN, CONTRACT NEGOTIATION SPECIALIST #2 [place] [address] Nurse Practitioner Advanced Practice Nurse 08/20/22 documented as of this encounter
--- OUTSIDE RECORDS SUMMARY | 2025-01-28 13:23 | XMS_ITS | Clinical Summary ---
Author Organization [facility] Address [address] [place] [address] Phone Care Team Providers Care Real Estate Analyst Name Role Phone Noe Stratton MD Primary Care Provider [phone] Allergies Active Allergy Reactions Criticality Noted Date [...] mouth daily. Active fluticasone (FLONASE) 50 mcg/spray [place], Suspension 2 Sprays daily. Active HYDROcodone-aceta minophen [...] 8:03 AM CDT Height 171.5 cm (5' 7.5) 03/13/2018 8:03 AM CDT Body Mass Index 33.79 03/13/2018 8:03 AM CDT Plan of Treatment Health Maintenance Due Date Last Done Comments DTAP/TDAP/TD VACCINES (1 - Tdap) 1980 ZOSTER VACCINE (1 of 2) 1980 HPV/Cotest (21-29) 1982 CERVICAL CANCER SCREENING 1991 HPV/Cotest (30-65) 1991 PAP SMEAR 1991 BREAST CANCER SCREENING 2001 COLORECTAL SCREENING 2006 Colorectal Cancer Screening 2006 FIT-DNA Q 3 years 2006 FIT/FOBT Q 1 year 2006 Flex Sig/CT Colonography Q 5 years 2006 RSV VACCINE (60+ or ) (1 - Risk 60-74 years 1-dose series) 2021 INFLUENZA VACCINE (#1) 2024 03/14/2018, 2015 Medical Devices Implanted Type Area Rod Puller And Coiler Device Identifier Shelf Expiration Date Model / Serial / Lot Seamguard Endogia 60 Blck [id number] - [id number] Implanted:Qty : 2 on 03/13/2018 by Brown Lawrence MD at [facility] N/A: Abdomen [employer] 10/20/2020 [id number] / / [id number] Seamguard Endogia 60 Prpl [id number] - [id number] Implanted:Qty : 3 on 03/13/2018 by Borwn Lawrence MD at [facility] N/A: Abdomen [employer] 10/20/2020 [id number] / / [id number] Insurance MEDICARE PART A AND B MEDICAID [place] RX [facility] Medicare Part D Advance Directives For more information, please contact: [phone] * Full Code (Latest Code Status on File) Date Activated Date Inactivated Comments 03/13/2018 4:51 PM 03/15/2018 12:43 AM Care Teams Real Estate Analyst Relationship Specialty Start Date End Date Noe Stratton MD [address] [facility] [place] [address] PCP - General Internal Medicine 02/28/18
--- OUTSIDE RECORDS SUMMARY | 2025-01-28 13:23 | XMS_ITS | Encounter Summary ---
Author Organization [facility] Address [address] [place] [place] [address] Phone Care Team Providers Care Housing Development Specialist Name Role Phone Yashira Valencia APRN, MEN'S AND BOYS' CLOTHING SALESPERSON Unavailable Julio Cesar Tracy MD Unavailable [phone] Robin Stratton MD Primary Care Provider [phone] Markel Underwood MD Primary Care Provider [phone] Catia Bolanos APRN, MEN'S AND BOYS' CLOTHING SALESPERSON Unavailable Reason for Visit * Reason Comments Medication Refill Encounter Details Date Type Department Care Team (Late st Contact Info) Description 12/13/2022 Refill [facility] - Family Medicine [facility] #2 [place] [id number] Qamar Saab APRN, MEN'S AND BOYS' CLOTHING SALESPERSON #[address] [address] Medication Refill Social History Tobacco Use Types [...] 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 Not on file No [...] 19 06/13/2023 06/13/2023 06/14/2023 12:5 9 AM MASTER LAY OUT SPECIALIST COVID - 19 Confirmed 06/13/2023 06/13/2023 024 12:16 AM MASTER LAY OUT SPECIALIST Assessment Noted Time PHQ-9 Depression Total Score: 0 07/28/19 22 1:00 PM MASTER LAY OUT SPECIALIST documented as of this encounter Care Teams Housing Development Specialist Relationship Specialty Start Date End Date Robin Stratton MD #2 [facility] [address] [place] [address] PCP - General Family Medicine 05/28/19 02/15/23 Markel Underwood MD #2 [facility] [address] [place] [address] PCP - General Family Medicine 02/16/23 Yashira Valencia APRN, MEN'S AND BOYS' CLOTHING SALESPERSON Nurse Practitioner Advanced Practice Nurse 04/03/15 Julio Cesar Tracy MD #2 [facility] [address] [place] [address] General Surgery 12/18/15 Catia Bolanos APRN, MEN'S AND BOYS' CLOTHING SALESPERSON #2 [place] [address] Nurse Practitioner Advanced Practice Nurse 08/20/22 documented as of this encounter
--- OUTSIDE RECORDS SUMMARY | 2025-01-28 13:23 | XMS_ITS | Encounter Summary ---
Author Organization [facility] Address [address] [facility] [place] [address] Phone Care Team Providers Care Automatic Machines Supervisor Name Role Phone Yashira Valencia APRN, PARKING WORKER Unavailable Julio Cesar Tracy MD Unavailable [phone] Robin Stratton MD Primary Care Provider [phone] Markel Underwood MD Primary Care Provider [phone] Catia Bolanos APRN, PARKING WORKER Unavailable Reason for Visit * Reason Comments Medication Refill Encounter Details Date Type Department Care Team (Late st Contact Info) Description 04/26/2022 Refill [facility] - Family Medicine [facility] #2 [place] [id number] Robin Stratton MD #[address] [address] Medication Refill Social History Tobacco Use Types [...] 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 Not on file No [...] 02/04/22 Telemedicine Qamar Saab APRN, [place] [facility] 11/19/21 Telemedicine Robin Stratton MD [facility] [place] 11/16/21 Office Visit Qamar Saab APRN, [place] [facility] 10/05/21 Telemedicine Qamar Saab APRN, [place] [facility] 09/02/21 Telemedicine Qamar Saab APRN, J[place] [facility] 08/28/21 Office Visit Qamar Saab APRN, [place] [facility] 07/27/21 Office Visit Qamar Saab APRN, [place] [facility] 05/20/21 Office Visit aQmar Saab APRN, [place] [facility] 05/05/21 Office Visit Qamar Saab APRN, [place] [facility] 04/30/21 Telemedicine Qamar Saab APRN, PARKING WORKER [facility] Showing recent visits within past 365 days and meeting all other requirements Future Appointments No visits were found meeting these conditions. Showing future appointments within next 90 days and meeting all other requirements MANAGER documented in this encounter Plan of Treatment Not on file documented as of this encounter Visit Diagnoses Diagnosis Nausea Nausea alone documented in this encounter Additional Health Concerns Infection Onset Date Last Indicated Resolved Time COVID - 19 06/13/2023 06/13/2023 06/14/2023 12:5 9 AM GIFT MANAGER COVID - 19 Confirmed 06/13/2023 06/13/2023 024 12:16 AM GIFT MANAGER Assessment Noted Time PHQ-9 Depression Total Score: 0 07/28/19 1:00 PM GIFT MANAGER documented as of this encounter Care Teams Automatic Machines Supervisor Relationship Specialty Start Date End Date Robin Stratton MD #[address] [address] PCP - General Family Medicine 05/28/19 02/15/23 Markel Underwood MD #[address] [address] PCP - General Family Medicine 02/16/23 Yashira Valencia APRN, PARKING WORKER Nurse Practitioner Advanced Practice Nurse 04/03/15 Julio Cesar Tracy MD #[address] [address] General Surgery 12/18/15 Catia Bolanos APRN, PARKING WORKER #2 [place] [address] Nurse Practitioner Advanced Practice Nurse 08/20/22 documented as of this encounter
--- OUTSIDE RECORDS SUMMARY | 2025-01-28 13:23 | XMS_ITS | Encounter Summary ---
Author Organization [facility] Address [address] [facility] [place] [address] Phone Care Team Providers Care Lean Specialist Name Role Phone Yashira Valencia APRN, SHORE MAN Unavailable [phone] Julio Cesar Tracy MD Unavailable [phone] Robin Stratton MD Primary Care Provider [phone] Markel Underwood MD Primary Care Provider [phone] Catia Bolanos APRN, SHORE MAN Unavailable Reason for Visit * Reason Comments Medication Refill Encounter Details Date Type Department Care Team (Late st Contact Info) Description 05/26/2021 Refill [facility] - Family Medicine [facility] #2 [place] [id number] Robin Stratton MD #[address] [address] Medication Refill Social History Tobacco Use Types [...] 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 No / Unsure 05/20/2021 9:11 AM WEB SEARCH EVALUATOR documented as of this encounter Miscellaneous Notes [...] Dept 05/20/21 Office Visit Qamar Saab APRN, SHORE MAN [facility] 05/05/21 Office Visit Qamar Saab APRN, SHORE MAN [facility] 04/30/21 Telemedicine Qamar Saab APRN, SHORE MAN [facility] 04/20/21 Telemedicine Qamar Saab APRN, SHORE MAN [facility] 04/02/21 Telemedicine Qamar Saab APRN, SHORE MAN [facility] 02/19/21 Office Visit Robin Stratton MD [facility] [place] 02/04/21 Telemedicine Qamar Saab APRN, SHORE MAN [facility] 01/14/21 Office Visit Qamar Saab APRN, SHORE MAN [facility] 11/13/20 Office Visit Qamar Saab APRN, SHORE MAN [facility] 08/28/20 Office Visit Robin Stratton MD [facility] Showing recent visits within past 365 days and meeting all other requirements Future Appointments Date Type Provider Dept 07/15/21 Appointment Robin Stratton MD [facility] Showing future appointments within next 90 days and meeting all other requirements SEARCH EVALUATOR documented in this encounter Plan of Treatment Not on file documented as of this encounter Visit Diagnoses Diagnosis Nausea Nausea alone documented in this encounter Additional Health Concerns Infection Onset Date Last Indicated Resolved Time Respiratory Rule-Out 08/14/2021 08/14/2021 022 3:15 PM CDT COVID - 19 11/16/2021 11/19/2021 11/29/2021 12:1 6 AM CDT COVID - 19 06/13/2023 06/13/2023 06/14/2023 12:5 9 AM WEB SEARCH EVALUATOR COVID - 19 Confirmed 06/13/2023 06/13/2023 024 12:16 AM WEB SEARCH EVALUATOR Assessment Noted Time PHQ-9 Depression Total Score: 14 021 8:50 AM CDT documented as of this encounter Care Teams Lean Specialist Relationship Specialty Start Date End Date Robin Stratton MD #[address] [address] PCP - General Family Medicine 05/28/19 02/15/23 Markel Underwood MD #[address] [address] PCP - General Family Medicine 02/16/23 Yashira Valencia APRN, SHORE MAN Nurse Practitioner Advanced Practice Nurse 04/03/15 Julio Cesar Tracy MD #[address] [address] General Surgery 12/18/15 Catia Bolanos APRN, SHORE MAN #2 [place] [address] Nurse Practitioner Advanced Practice Nurse 08/20/22 documented as of this encounter
--- OUTSIDE RECORDS SUMMARY | 2025-01-28 13:23 | XMS_ITS | Encounter Summary ---
Author Organization [facility] Address [address] [facility] [place] [address] Phone Care Team Providers Care Senior Living Advisor Name Role Phone Yashira Valencia APRN, HEAD CHEF Unavailable [phone] Julio Cesar Tracy MD Unavailable [phone] Robin Stratton MD Primary Care Provider [phone] Markel Underwood MD Primary Care Provider [phone] Catia Bolanos APRN, HEAD CHEF Unavailable Encounter Details Date Type Department Care Team (Late st Contact Info) Description 07/14/2022 Transcribe [facility] [address] [place] [address] José Manuel Zamarripa MD [address] [place] [address] [place]IO COKER [address] Social History Tobacco Use Types Packs/Day Years [...] 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 Not on file No t on file documented as of this encounter Plan of Treatment Not on file documented as of this encounter Visit Diagnoses Not on filedocumented in this encounter Additional Health Concerns Infection Onset Date Last Indicated Resolved Time COVID - 19 06/13/2023 06/13/2023 06/14/2023 12:5 9 AM CHEMICAL RADIATION TECHNICIAN COVID - 19 Confirmed 06/13/2023 06/13/2023 024 12:16 AM CHEMICAL RADIATION TECHNICIAN Assessment Noted Time PHQ-9 Depression Total Score: 0 07/28/19 22 1:00 PM CHEMICAL RADIATION TECHNICIAN documented as of this encounter Care Teams Senior Living Advisor Relationship Specialty Start Date End Date Robin Stratton MD #2 [facility] [address] [place] [address] PCP - General Family Medicine 05/28/19 02/15/23 Markel Underwood MD #2 [facility] [address] [place] [address] PCP - General Family Medicine 02/16/23 Yashira Valencia APRN, HEAD CHEF Nurse Practitioner Advanced Practice Nurse 04/03/15 Julio Cesar Tracy MD #2 [facility] [address] [place] [address] General Surgery 12/18/15 Catia Bolanos APRN, HEAD CHEF #2 [place] [address] Nurse Practitioner Advanced Practice Nurse 08/20/22 documented as of this encounter
--- OUTSIDE RECORDS SUMMARY | 2025-01-28 13:23 | XMS_ITS | Encounter Summary ---
Author Organization [facility] Address [address] [place] [address] Phone Care Team Providers Care Supervisor Road Administrator Name Role Phone Yashira Valencia APRN, GLASS CLEANER Unavailable Julio Cesar Tracy MD Unavailable [phone] Robin Stratton MD Primary Care Provider [phone] Markel Underwood MD Primary Care Provider Catia Bolanos APRN, GLASS CLEANER Unavailable Reason for Visit * Reason Onset Date Comments Medication Refill 07/03/2021 Encounter Details Date Type Department Care Team (Late st Contact Info) Description 07/03/2021 Refill [facility] - Family Medicine [facility] [address] [place] [address] Robin Stratton MD [address] [address] Medication Refill Social History Tobacco Use Types Packs/Day Years Used Date Smoking Tobacco: Never Smokeless Tobacco: Never Alcohol Use Standard Drinks/Week Comments No 0 (1 standard drink = 0.6 oz pur e alcohol) PHQ-2 Answer Date Recorded Total Score - Questions 1-9 14 04/12/2020 Sexually Active Control Partners Comments Not Currently Comments No Sex and Gender Information Value Date Recorded Sex Assigned at Not on file Legal Sex Female 8:30 PM CDT Gender Identity Not on file Sexual Orientation Not on file 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 - Nasal Sent to pharmacy as: Fluticasone Propionate 50 MCG/ACT Nasal Suspension (FLONASE) Class: E Prescribe E-Prescribing Status: Receipt confirmed by pharmacy (05/05/2021 ??8:30 AM EMBOSSING PRESS OPERATOR) Order Questions ?? fluticasone (FLONASE) 50 MCG/ACT Suspension [[id number]] 9 Status: Active Ordering user: Qamar Saab APRN, CNP 05/05/21829 Authorized by: Qamar Saab APRN, CNP Frequency: Daily 05/05/21 - Until Discontinued Diagnoses Chronic pansinusitis [J32.4] Associated Diagnoses Chronic pansinusitis Pharmacy [id number] SSING PRESS OPERATOR * Telephone Encounter - Tenisha Roach - 07/03/2021 2:19 PM CST Received a faxed Rx request from pharmacy. Reordered refill medication(s) requested and pended for nurse and physician/VLAD review. Refill encounter routed to nurse Jose L's pool for processing. SSING PRESS OPERATOR documented in this encounter Plan of Treatment Not on file documented as of this encounter Visit Diagnoses Diagnosis Chronic pansinusitis Other chronic sinusitis documented in this encounter Additional Health Concerns Infection Onset Date Last Indicated Resolved Time Respiratory Rule-Out 08/14/2021 08/14/2021 022 3:15 PM CDT COVID - 19 11/16/2021 11/19/2021 11/29/2021 12:1 6 AM CDT COVID - 19 06/13/2023 06/13/2023 06/14/2023 12:5 9 AM EMBOSSING PRESS OPERATOR COVID - 19 Confirmed 06/13/2023 06/13/2023 024 12:16 AM EMBOSSING PRESS OPERATOR Assessment Noted Time PHQ-9 Depression Total Score: 14 021 8:50 AM CDT documented as of this encounter Care Teams Supervisor Road Administrator Relationship Specialty Start Date End Date Robin Stratton MD #[address] [address] PCP - General Family Medicine 05/28/19 02/15/23 Markel Underwood MD #[address] [address] PCP - General Family Medicine 02/16/23 Yashira Valencia APRN, GLASS CLEANER Nurse Practitioner Advanced Practice Nurse 04/03/15 Julio Cesar Tracy MD #[address] [address] General Surgery 12/18/15 Catia Bolanos APRN, GLASS CLEANER [address] [place] [address] Nurse Practitioner Advanced Practice Nurse 08/20/22 documented as of this encounter
--- OUTSIDE RECORDS SUMMARY | 2025-01-28 13:23 | XMS_ITS | Encounter Summary ---
Author Organization [facility] Address [address] [place] [place] [address] Phone Care Team Providers Care Communications Attendant Name Role Phone Yashira Valencia APRN, LVN LPN Unavailable Julio Cesar Tracy MD Unavailable [phone] Robin Stratton MD Primary Care Provider [phone] Markel Underwood MD Primary Care Provider [phone] Catia Bolanos APRN, LVN LPN Unavailable Reason for Visit * Reason Comments Medication Refill Encounter Details Date Type Department Care Team (Late st Contact Info) Description 08/02/2021 Refill [facility] [address] [place] [id number] Robin Stratton MD #[address] [address] Medication Refill Social History Tobacco Use Types [...] 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 No / Unsure 07/27/2021 1:01 PM FOOD AND NUTRITION PROFESSOR documented as of this encounter Miscellaneous Notes [...] [place] 05/05/21 Office Visit Qamar Saab APRN, LVN LPN [facility] [place] 04/30/21 Telemedicine Qamar Saab APRN, LVN LPN [facility] [place] 04/20/21 Telemedicine Qamar Saab APRN, JIL [facility] [place] 04/02/21 Telemedicine Qamar Saab APRN, LVN LPN [facility] [place] 02/19/21 Office Visit Robin Stratton MD [facility] [place] 02/04/21 Telemedicine Qamar Saab APRN, LVN LPN [facility] [place] 01/14/21 Office Visit Qamar Saab APRN, LVN LPN [facility] [place] 11/13/20 Office Visit Qamar Saab APRN, LVN LPN [facility] Showing recent visits within past 365 days [...] 19 06/13/2023 06/13/2023 06/14/2023 12:5 9 AM FOOD AND NUTRITION PROFESSOR COVID - 19 Confirmed 06/13/2023 06/13/2023 024 12:16 AM FOOD AND NUTRITION PROFESSOR Assessment Noted Time PHQ-9 Depression Total Score: 0 07/28/19 22 1:00 PM FOOD AND NUTRITION PROFESSOR documented as of this encounter Care Teams Communications Attendant Relationship Specialty Start Date End Date Robin Stratton MD #[address] [address] PCP - General Family Medicine 05/28/19 02/15/23 Markel Underwood MD #[address] [address] PCP - General Family Medicine 02/16/23 Yashira Valencia APRN, LVN LPN Nurse Practitioner Advanced Practice Nurse 04/03/15 Julio Cesar Tracy MD #[address] [address] General Surgery 12/18/15 Catia Bolanos APRN, LVN LPN [address] [place] [address] Nurse Practitioner Advanced Practice Nurse 08/20/22 documented as of this encounter
--- OUTSIDE RECORDS SUMMARY | 2025-01-28 13:23 | XMS_ITS | Encounter Summary ---
Author Organization [facility] Address [address] [place] [address] Phone Care Team Providers Care Janitor Custodian Name Role Phone Yashira Valencia APRN, SUPERVISOR TAN ROOM Unavailable Julio Cesar Tracy MD Unavailable [phone] Robin Stratton MD Primary Care Provider [phone] Markel Underwood MD Primary Care Provider Catia Bolanos APRN, SUPERVISOR TAN ROOM Unavailable Reason for Visit * Reason Onset Date Comments Medication Refill 09/21/2021 Encounter Details Date Type Department Care Team (Late st Contact Info) Description 09/21/2021 Refill [facility] - Family Medicine [facility] [address] [place] [address] Robin Stratton MD #[address] [address] Medication Refill Social History Tobacco Use Types [...] 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 Not on file No [...] 09/02/21 Telemedicine Qamar Saab APRN, JIL [facility] [place] 08/28/21 Office Visit Qamar Saab APRN, JIL [facility] 07/27/21 Office Visit Qamar Saab APRN, JIL [facility] [place] 05/20/21 Office Visit Qamar Saab APRN, JIL [facility] [place] 05/05/21 Office Visit Qamar Saab APRN, JIL [facility] [place] 04/30/21 Telemedicine Qamar Saab APRN, JIL [facility] [place] 04/20/21 Telemedicine Qamar Saab APRN, JIL [facility] [place] 04/02/21 Telemedicine Qamar Saab APRN, JIL [facility] [place] 02/19/21 Office Visit Robin Srtatton MD [facility] 02/04/21 Telemedicine Qamar Saab APRN, SUPERVISOR TAN ROOM [facility] [place] Showing recent visits within past 365 days and meeting all other requirements Future Appointments Date Type Provider Dept 10/05/21 Appointment Robin Stratton MD [facility] Showing future appointments within next 90 days and meeting all other requirements * Telephone Encounter - Tenisha Roach - 09/21/2021 11:18 AM CDT Received a faxed Rx request from pharmacy. Reordered refill medication(s) requested and pended for nurse and physician/VLAD review. Refill encounter routed to [employer] for processing. documented in this encounter Plan of Treatment Not on file documented as of this encounter Visit Diagnoses Diagnosis Nausea Nausea alone documented in this encounter Additional Health Concerns Infection Onset Date Last Indicated Resolved Time COVID - 19 11/16/2021 11/19/2021 11/29/2021 12:1 6 AM CDT COVID - 19 06/13/2023 06/13/2023 06/14/2023 12:5 9 AM ASSAYER COVID - 19 Confirmed 06/13/2023 06/13/2023 024 12:16 AM ASSAYER Assessment Noted Time PHQ-9 Depression Total Score: 0 07/28/19 22 1:00 PM ASSAYER documented as of this encounter Care Teams Janitor Custodian Relationship Specialty Start Date End Date Robin Stratton MD #[address] [address] PCP - General Family Medicine 05/28/19 02/15/23 Markel Underwood MD #[address] [address] PCP - General Family Medicine 02/16/23 Yashira Valencia, WORKDAY CONSULTANT, SUPERVISOR TAN ROOM Nurse Practitioner Advanced Practice Nurse 04/03/15 Julio Cesar Tracy MD #[address] [address] General Surgery 12/18/15 Catia Bolanos APRN, SUPERVISOR TAN ROOM [address] [place] [address] Nurse Practitioner Advanced Practice Nurse 08/20/22 documented as of this encounter
--- OUTSIDE RECORDS SUMMARY | 2025-01-28 13:23 | XMS_ITS | Encounter Summary ---
Author Organization [facility] Address [address] [facility] [place] [address] Phone Care Team Providers Care Advertising Job Titles Name Role Phone Yashira Valencia APRN, DRY JANITOR Unavailable Julio Cesar Tracy MD Unavailable [phone] Robin Stratton MD Primary Care Provider [phone] Markel Underwood MD Primary Care Provider [phone] Catia Bolanos APRN, DRY JANITOR Unavailable Reason for Visit * Reason Comments Medication Refill Encounter Details Date Type Department Care Team (Late st Contact Info) Description 04/08/2021 Refill [facility] #2 [place] [address] Robin Stratton MD #[address] [address] Medication Refill Social History Tobacco Use Types [...] 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 No / Unsure 04/07/2021 1:53 PM HAND I CUTTER documented as of this encounter Miscellaneous Notes [...] [facility] 02/04/21 Telemedicine Qamar Saab APRN, DRY JANITOR [facility] 01/14/21 Office Visit Qamar Saab APRN, DRY JANITOR [facility] [place] 11/13/20 Office Visit Qamar Saab APRN, DRY JANITOR [facility] [place] 08/28/20 Office Visit Robin Stratton MD [facility] 07/30/20 Telemedicine Robin Stratton MD [facility] 06/04/20 Telemedicine Robin Stratton MD [facility] 05/28/20 Office Visit Robin Stratton MD [facility] [place] 05/21/20 Telemedicine Robin Stratton MD [facility] [place] Showing recent visits within past 365 days and meeting all other requirements Future Appointments Date Type Provider Dept 05/22/21 Appointment Robin Stratton MD [facility] [place] Showing future appointments within next 90 days and meeting all other requirements I CUTTER documented in this encounter Plan of Treatment Not on file documented as of this encounter Visit Diagnoses Diagnosis Nausea Nausea alone documented in this encounter Additional Health Concerns Infection Onset Date Last Indicated Resolved Time Respiratory Rule-Out 08/14/2021 08/14/2021 022 3:15 PM CDT COVID - 19 11/16/2021 11/19/2021 11/29/2021 12:1 6 AM CDT COVID - 19 06/13/2023 06/13/2023 06/14/2023 12:5 9 AM HAND I CUTTER COVID - 19 Confirmed 06/13/2023 06/13/2023 024 12:16 AM HAND I CUTTER Assessment Noted Time PHQ-9 Depression Total Score: 14 021 8:50 AM CDT documented as of this encounter Care Teams Advertising Job Titles Relationship Specialty Start Date End Date Robin Stratton MD #[address] [address] PCP - General Family Medicine 05/28/19 02/15/23 Markel Underwood MD #[address] [address] PCP - General Family Medicine 02/16/23 Yashira Valencia, GAS PROCESSING PLANT OPERATOR, DRY JANITOR Nurse Practitioner Advanced Practice Nurse 04/03/15 Julio Cesar Tracy MD #[address] [address] General Surgery 12/18/15 Catia Bolanos APRN, DRY JANITOR [address] [place] [address] Nurse Practitioner Advanced Practice Nurse 08/20/22 documented as of this encounter
--- OUTSIDE RECORDS SUMMARY | 2025-01-28 13:23 | XMS_ITS | Encounter Summary ---
Author Organization [facility] Address [address] [facility] [place] [address] Phone Care Team Providers Care Take Out Waiter/Waitress Name Role Phone Yashira Valencia APRN, LOCAL TELEPHONE OPERATOR Unavailable Julio Cesar Tracy MD Unavailable [phone] Robin Stratton MD Primary Care Provider [phone] Markel Underwood MD Primary Care Provider [phone] Catia Bolanos APRN, LOCAL TELEPHONE OPERATOR Unavailable Reason for Visit * Reason Comments Medication Refill Encounter Details Date Type Department Care Team (Late st Contact Info) Description 11/30/2021 Refill [facility] #2 [place] [id number] Robin Stratton MD #[address] [address] Medication Refill Social History Tobacco Use Types [...] 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 Not on file No [...] Provider Dept 11/19/21 Telemedicine Robin Stratton MD [facility] [place] 11/16/21 Office Visit Qamar Saab APRN, JIL [facility] [place] 10/05/21 Telemedicine Qamar Saab APRN, JIL [facility] 09/02/21 Telemedicine Qamar Saab APRN, JIL [facility] [place] 08/28/21 Office Visit Qamar Saab APRN, JIL [facility] [place] 07/27/21 Office Visit Qamar Saab APRN, JIL [facility] [place] 05/20/21 Office Visit Qamar Saab APRN, JIL [facility] [place] 05/05/21 Office Visit Qamar Saab APRN, JIL [facility] [place] 04/30/21 Telemedicine Qamar Saab APRN, JIL [facility] 04/20/21 Telemedicine Qamar Saab APRN, JIL [facility] Showing recent visits within past 365 [...] Provider Dept 11/19/21 Telemedicine Robin Stratton MD [facility] 11/16/21 Office Visit Qamar Saab APRN, JIL [facility] [place] 10/05/21 Telemedicine Qamar Saab APRN, JIL [facility] 09/02/21 Telemedicine Qamar Saab APRN, JIL [facility] 08/28/21 Office Visit Qamar Saab APRN, JIL [facility] 07/27/21 Office Visit Qamar Saab APRN, JIL [facility] 05/20/21 Office Visit Qamar Saab APRN, JIL [facility] [place] 05/05/21 Office Visit Qamar Saab APRN, JIL [facility] [place] 04/30/21 Telemedicine Qamar Saab APRN, JIL [facility] 04/20/21 Telemedicine Qamar Saab APRN, LOCAL TELEPHONE OPERATOR [facility] [place] Showing recent visits within past [...] 19 06/13/2023 06/13/2023 06/14/2023 12:5 9 AM DRILLER'S OFFSIDER COVID - 19 Confirmed 06/13/2023 06/13/2023 024 12:16 AM DRILLER'S OFFSIDER Assessment Noted Time PHQ-9 Depression Total Score: 0 07/28/19 1:00 PM DRILLER'S OFFSIDER documented as of this encounter Care Teams Take Out Waiter/Waitress Relationship Specialty Start Date End Date Robin Stratton MD #2 [facility] [address] [place] [address] PCP - General Family Medicine 05/28/19 02/15/23 Markel Underwood MD #[address] [address] PCP - General Family Medicine 02/16/23 Yashira Valencia APRN, LOCAL TELEPHONE OPERATOR Nurse Practitioner Advanced Practice Nurse 04/03/15 Julio Cesar Tracy MD #2 [facility] [address] [place] [address] General Surgery 12/18/15 Catia Bolanos APRN, LOCAL TELEPHONE OPERATOR [address] [place] [address] Nurse Practitioner Advanced Practice Nurse 08/20/22 documented as of this encounter
--- OUTSIDE RECORDS SUMMARY | 2025-01-28 13:24 | XMS_ITS | Clinical Summary ---
Author Organization [facility] Address [address] [address] Phone Care Team Providers Care Tap Dancer Name Role Phone Yashira Valencia APRN, CASH APPLICATIONS REPRESENTATIVE Unavailable Julio Cesar Tracy MD Unavailable Markel Underwood MD Primary Care Provider Catia Bolanos APRN, CASH APPLICATIONS REPRESENTATIVE Unavailable Allergies Active Allergy Reactions Criticality Noted [...] Primary osteoarthritis of both feet 12/23/2017 09/27/2018 Encounters Date Type Department Care Team Description 12/07/[address] [facility] #2 [place] [address] Steven Short MD 12/07/[address] 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 Not on file No [...] 2:57 PM CDT Height 167.6 cm (5' 6) 09/21/2023 2:57 PM CDT Body Mass Index 24.53 09/21/2023 2:57 PM CDT Plan of Treatment Health Maintenance Due Date Last Done Comments Hepatitis C Virus (HCV) Screening 1961 TdaP Immunization 1961 Zoster Immunization (1 of 2) 1980 Cologuard 2006 Immunochemical Fecal Occult Blood 2006 Pneumococcal Immunization (50+ years) (2 of 2 - PPSV23, PCV20, or PCV21) 06/19/2020 04/24/2020 Respiratory Syncytial Virus (RSV) Immunization (Adult) (1 - Risk 60-74 years 1-dose series) 2021 Influenza Immunization (#1) 2025 11/0 11/2023, 04/19/2022, 03/06/2021, Additional history exists SARS-COV-2 Immunization (2024- season) 2025 04/07/2021, 08/16/2020, 07/28/2020 Mammogram 08/01/2025 08/01/2024, 02/20, 03/04/2022, Additional history exists Colonoscopy 02/16/2030 02/16/2023, 05/24, 10/01/2015, Additional history exists Colorectal Cancer Screening 02/16/2030 Pneumococcal Immunization Combined Discontinued 04/24/2020 Hepatitis B Immunization Aged Out No longer eligible based on patient's age to complete this topic Human Papillomavirus (HPV) Immunization Aged Out No longer eligible based on patient's age to complete this topic Meningococcal Immunization (ACWY) Aged Out No longer eligible based on patient's age to complete this topic Rotavirus Immunization Aged Out No lo nger eligible based on patient's age to complete this topic Procedures Procedure Name Priority Date/Time Associated Diagnosis Comments TIM SCREENING BILATERAL DIGITAL W CAD W FAUSTINO Routine 08/01/2024 10:03 AM CDT Encounter for screening mammogram for malignant neoplasm of breast HM COLONOSCOPY Routine 07/20/2011 from Last 3 Months or Most Recently Relevant to Health Maintenance Results * TIM SCREENING BILATERAL DIGITAL W CAD W FAUSTINO (08/01/2024 10:03 AM CDT) Anatomical Region Laterality Modality breast Bilateral Mammography 08/01/2024 11:0 0 AM CDT Narrative 08/01/2024 3:56 PM CDT - TIM SCREENING BILATERAL DIGITAL W CAD W FAUSTINO BILATERAL DIGITAL SCREENING MAMMOGRAM 3D/2D WITH CAD WITH MEDIOLATERAL OBLIQUE CRANIOCAUDAL: 08/01/2024 The study was acquired using digital technology and interpreted from soft copy. Current study was also evaluated with ICAD version 7.2. 2D digital mammographic views, as well as 3D digital tomosynthesis were performed in the CC and MLO projections. CLINICAL: Routine screening. Patient has no complaints. Patient reports 10 pound weight increase since last mammogram. No personal history of cancer. No family history of breast cancer. COMPARISONS: Comparison is made to exams dated: 06/02/2018 [facility], 05/28/2020 [facility], and 04/06/2016 [facility]. BREAST TISSUE:There are scattered areas of fibroglandular density. FINDINGS: No significant masses, calcifications, or other findings are seen in either breast. There has been no significant interval change. IMPRESSION: NEGATIVE There is no mammographic evidence of malignancy. A 1 year screening mammogram is recommended. A letter will be sent to the patient with these results. The patient will be entered into a reminder system with a target due date of 1 year for her next screening exam. Electronically signed by: Mihir melendez/[email or web address]:08/01/2024 12:21:11 Airfreight Operations Agent(s): RT Bar[place](R)(M), [facility] letter sent: Normal Exam Reading location: [place] Mammogram BI-RADS: Category 1: Negative Procedure Note Mihir Palmer MD - 08/01/2024 - TIM SCREENING BILATERAL DIGITAL W CAD W FAUSTINO BILATERAL DIGITAL SCREENING MAMMOGRAM 3D/2D WITH CAD WITH MEDIOLATERAL OBLIQUE CRANIOCAUDAL: 08/01/2024 The study was acquired using digital technology and interpreted from soft copy. Current study was also evaluated with ICAD version 7.2. 2D digital mammographic views, as well as 3D digital tomosynthesis were performed in the CC and MLO projections. CLINICAL: Routine screening. Patient has no complaints. Patient reports 10 pound weight increase since last mammogram. No personal history of cancer. No family history of breast cancer. COMPARISONS: Comparison is made to exams dated: 06/02/2018 [facility], 05/28/2020 [facility], and 04/06/2016 [facility]. BREAST TISSUE:There are scattered areas of fibroglandular density. FINDINGS: No significant masses, calcifications, or other findings are seen in either breast. There has been no significant interval change. IMPRESSION: NEGATIVE There is no mammographic evidence of malignancy. A 1 year screening mammogram is recommended. A letter will be sent to the patient with these results. The patient will be entered into a reminder system with a target due date of 1 year for her next screening exam. Electronically signed by: Mihir melendez/ayleen:08/01/2024 12:21:11 Airfreight Operations Agent(s): RT [place](R)(M), [facility] letter sent: Normal Exam Reading location: [place] Mammogram BI-RADS: Category 1: Negative us Giovanny Omalley [facility] MAMMO ORDERABLES Final Resul t * HM COLONOSCOPY (07/20/2011) Noe Stratton MD PROCEDURE/MINOR SURGICAL NIKI WHITE Final Result from Last 3 Months or Most Recently Relevant to Health Maintenance Insurance MEDICARE MEDICAID [employer] GENERIC Advance Directives * Full Code [...] 8:51 AM 04/19/2016 12:15 PM Care Teams Tap Dancer Relationship Specialty Start Date End Date Markel Underwood MD #[address] [address] PCP - General Family Medicine 02/16/23 Yashira Valencia APRN, CASH APPLICATIONS REPRESENTATIVE Nurse Practitioner Advanced Practice Nurse 04/03/15 Julio Cesar Tracy MD #[address] [address] General Surgery 12/18/15 Catia Bolanos APRN, CASH APPLICATIONS REPRESENTATIVE [address] [place] [address] Nurse Practitioner Advanced Practice Nurse 08/20/22
== END 2025-01-28 13:20 | disposition home or self-care (01) ==
PROVIDERS: PCP Family Medicine; Visit Provider Family Medicine
DX: M25.552 Pain in left hip (principal)
CPT/HCPCS: 73502; 73552

== ENCOUNTER 2025-02-14 12:13 | Outpatient (CLI) | payer MEDICARE, MEDICAID, SELFPAY ==
[2025-02-14 18:51] LABS: Troponin I < 0.012 ng/mL (0.000-0.034)
== END 2025-02-14 12:14 | disposition home or self-care (01) ==
PROVIDERS: PCP Family Medicine; Visit Provider Family Medicine
DX: R07.9 Chest pain, unspecified (principal)
CPT/HCPCS: 36415; 84484

== ENCOUNTER 2025-03-04 14:49 | Outpatient (CLI) | payer MEDICARE, MEDICAID, SELFPAY ==
--- NOTE | ~2025-03-04 | XR_ITS ---
XR thoracic spine 2V CLINICAL HISTORY:hx of UTI, Mid back pain REFERENCE: none TECHNIQUE: Frontal, lateral and swimmer's view(s) of the thoracic spine were obtained. FINDINGS: The vertebral body height and alignment are maintained. No compression fracture or spondylolysis. Mild scoliosis is noted. IMPRESSION: No acute fracture or subluxation. Reviewed, dictated and finalized at location S.
--- OUTSIDE RECORDS SUMMARY | 2025-03-04 15:45 | XMS_ITS | Encounter Summary ---
Author Organization [facility] Address [address] [facility] [place] [address] Phone Care Team Providers Care Voting Machine Mechanic Name Role Phone Yashira Valencia APRN, RAIL SIGNAL DESIGNER Unavailable Julio Cesar Tracy MD Unavailable [phone] Robin Stratton MD Primary Care Provider [phone] Markel Underwood MD Primary Care Provider [phone] Catia Bolanos APRN, RAIL SIGNAL DESIGNER Unavailable Reason for Visit * Reason Comments Medication Refill Encounter Details Date Type Department Care Team (Late st Contact Info) Description 12/13/2022 Refill [facility] [place] [id number] Qamar Saab APRN, RAIL SIGNAL DESIGNER #[address] [address] Medication Refill Social History Tobacco Use Types [...] 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 Not on file No [...] 19 06/13/2023 06/13/2023 06/14/2023 12:5 9 AM FILTER ASSEMBLER COVID - 19 Confirmed 06/13/2023 06/13/2023 024 12:16 AM FILTER ASSEMBLER Assessment Noted Time PHQ-9 Depression Total Score: 0 07/28/19 22 1:00 PM FILTER ASSEMBLER documented as of this encounter Care Teams Voting Machine Mechanic Relationship Specialty Start Date End Date Robin Stratton MD [address] [address] PCP - General Family Medicine 05/28/19 02/15/23 Markel Underwood MD #[address] [address] PCP - General Family Medicine 02/16/23 Yashira Valencia APRN, RAIL SIGNAL DESIGNER Nurse Practitioner Advanced Practice Nurse 04/03/15 Julio Cesar Tracy MD General Surgery 12/18/15 Catia Bolanos APRN, RAIL SIGNAL DESIGNER [address] [place] [address] Nurse Practitioner Advanced Practice Nurse 08/20/22 documented as of this encounter
--- OUTSIDE RECORDS SUMMARY | 2025-03-04 15:45 | XMS_ITS | Encounter Summary ---
Author Organization [facility] Address [address] [facility] [place] [address] Phone Care Team Providers Care Delivery Route Driver Name Role Phone Yashira Valencia APRN, PAYROLL ACCOUNTING SPECIALIST Unavailable [phone] Julio Cesar Tracy MD Unavailable [phone] Robin Stratton MD Primary Care Provider [phone] Markel Underwood MD Primary Care Provider [phone] Catia oBlanos APRN, PAYROLL ACCOUNTING SPECIALIST Unavailable Reason for Visit * Reason Comments Medication Refill Encounter Details Date Type Department Care Team (Late st Contact Info) Description 12/24/2020 Refill [facility] [address]2 [place] [id number] Qamar Saab APRN, PAYROLL ACCOUNTING SPECIALIST #[address] [address] Medication Refill Social History Tobacco Use Types [...] 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 Not on file No [...] [facility] 05/05/20 Telemedicine Qamar Saab APN, PAYROLL ACCOUNTING SPECIALIST [facility] 04/10/20 Office Visit Robin Stratton MD [facility] 04/09/20 Telemedicine Robin Stratton MD [facility] 03/26/20 Telemedicine Robin Stratton MD [facility] Showing recent visits within past 365 days and meeting all other requirements Future Appointments Date Type Provider Dept 02/16/21 Appointment Robin Stratton MD [facility] Showing [...] 19 06/13/2023 06/13/2023 06/14/2023 12:5 9 AM CEO & BOARD DIRECTOR COVID - 19 Confirmed 06/13/2023 06/13/2023 024 12:16 AM CEO & BOARD DIRECTOR Assessment Noted Time PHQ-9 Depression Total Score: 14 021 8:50 AM CDT documented as of this encounter Care Teams Delivery Route Driver Relationship Specialty Start Date End Date Robin Stratton MD [address] [address] PCP - General Family Medicine 05/28/19 02/15/23 Markel Underwood MD #[address] [address] PCP - General Family Medicine 02/16/23 Yashira Valencia APRN, PAYROLL ACCOUNTING SPECIALIST Nurse Practitioner Advanced Practice Nurse 04/03/15 Julio Cesar Tracy MD General Surgery 12/18/15 Catia Bolanos APRN, PAYROLL ACCOUNTING SPECIALIST [address]2 [place] [address] Nurse Practitioner Advanced Practice Nurse 08/20/22 documented as of this encounter
--- OUTSIDE RECORDS SUMMARY | 2025-03-04 15:45 | XMS_ITS | Encounter Summary ---
Author Organization [facility] Address [address] [facility] [place] [address] Phone Care Team Providers Care Residential Real Estate Appraiser Name Role Phone Yashira Valencia APRN, [place] SEAMER Unavailable Julio Cesar Tracy MD Unavailable Robin Stratton MD Primary Care Provider [phone] Markel Underwood MD Primary Care Provider [phone] Catia Bolanos APRN, [place] SEAMER Unavailable Reason for Visit * Reason Onset Date Comments Medication Refill 08/31/2021 Encounter Details Date Type Department Care Team (Late st Contact Info) Description 08/31/2021 Refill [facility] - Family Medicine 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 Not on file No [...] Office Visit Qamar Saab APRN, J[place] [facility] 05/20/21 Office Visit Qamar Saab APRN, J[place] [facility] 05/05/21 Office Visit Qamar Saab APRN, J[place] [facility] 04/30/21 Telemedicine Qamar Saab APRN, J[place] [facility] 04/20/21 Telemedicine Qamar Saab APRN, J[place] [facility] [facility] 04/02/21 Telemedicine Qamar Saab APRN, J[place] [facility] 02/19/21 Office Visit Robin Stratton MD [facility] 02/04/21 Telemedicine Qamar Saab APRN, [place] [facility] 01/14/21 Office Visit Qamar Saab APRN, [facility] Showing recent visits within past 730 days and meeting all other requirements Future Appointments Date Type Provider Dept 09/02/21 Appointment Qamar Saab APRN, [facility] [place] 10/05/21 Appointment Robin Stratton MD [facility] [place] Showing future appointments within next 90 [...] physician/VLAD review. Refill encounter routed to nurse Alexxript's pool for processing. documented in this encounter Plan of Treatment Not on file documented as of this encounter Visit Diagnoses Not on filedocumented in this encounter Additional Health Concerns Infection Onset Date Last Indicated Resolved Time COVID - 19 11/16/2021 11/19/2021 11/29/2021 12:1 6 AM CDT COVID - 19 06/13/2023 06/13/2023 06/14/2023 12:5 9 AM DE IONIZER OPERATOR COVID - 19 Confirmed 06/13/2023 06/13/2023 024 12:16 AM DE IONIZER OPERATOR Assessment Noted Time PHQ-9 Depression Total Score: 0 07/28/19 22 1:00 PM DE IONIZER OPERATOR documented as of this encounter Care Teams Residential Real Estate Appraiser Relationship Specialty Start Date End Date Robin Stratton MD #[address] [address] PCP - General Family Medicine 05/28/19 02/15/23 Markel Underwood MD #[address] [address] PCP - General Family Medicine 02/16/23 Yasihra Valencia APRN, [place] SEAMER Nurse Practitioner Advanced Practice Nurse 04/03/15 Julio Cesar Tracy MD General Surgery 12/18/15 Catia Bolanos APRN, [place] SEAMER [address] [place] [address] Nurse Practitioner Advanced Practice Nurse 08/20/22 documented as of this encounter
--- OUTSIDE RECORDS SUMMARY | 2025-03-04 15:45 | XMS_ITS | Clinical Summary ---
Author Organization [facility] Address [address] [place] [address] Care Team Providers Care Latin Professor Name Role Phone Unavailable Primary Care Provider Unavailabl e Source Comments [facility],non-owned Affiliates and Associated Physician Practices is amultiple site organization consisting of ambulatory clinics and hospital sitesin [place], [place], [place] and [place]. This disclosure is being madepursuant to the Care Everywhere program and may not contain all information available regarding this patient. Last updated 18.[facility] Allergies Active Allergy Reactions Criticality Noted Date [...]
--- OUTSIDE RECORDS SUMMARY | 2025-03-04 15:45 | XMS_ITS | Encounter Summary ---
Author Organization [facility] Address [address] [facility] [address] Phone Care Team Providers Care Electronics Assembler And Tester Name Role Phone Yashira Valencia APRN, HEEL SORTER Unavailable Julio Cesar Tracy MD Unavailable Robin Stratton MD Primary Care Provider [phone] Markel Underwood MD Primary Care Provider [phone] Catia Bolanos APRN, HEEL SORTER Unavailable Reason for Visit * Reason Comments Medication Refill Encounter Details Date Type Department Care Team (Late st Contact Info) Description 08/04/2021 Refill [facility] - [facility] #2 [place] [id number] Robin Stratton MD #[address] [address] Medication Refill Social History Tobacco Use Types [...] 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 No / Unsure 07/27/2021 1:01 PM ROOMING HOUSE INSPECTOR documented as of this encounter Miscellaneous Notes [...] 19 06/13/2023 06/13/2023 06/14/2023 12:5 9 AM ROOMING HOUSE INSPECTOR COVID - 19 Confirmed 06/13/2023 06/13/2023 024 12:16 AM ROOMING HOUSE INSPECTOR Assessment Noted Time PHQ-9 Depression Total Score: 0 07/28/19 22 1:00 PM ROOMING HOUSE INSPECTOR documented as of this encounter Care Teams Electronics Assembler And Tester Relationship Specialty Start Date End Date Robin Stratton MD #[address] [address] PCP - General Family Medicine 05/28/19 02/15/23 Markel Underwood MD [address] [address] PCP - General Family Medicine 02/16/23 Yashira Valencia APRN, HEEL SORTER Nurse Practitioner Advanced Practice Nurse 04/03/15 Julio Cesar Tracy MD General Surgery 12/18/15 Catia Bolanos APRN, HEEL SORTER [address] [place] [address] Nurse Practitioner Advanced Practice Nurse 08/20/22 documented as of this encounter
--- OUTSIDE RECORDS SUMMARY | 2025-03-04 15:45 | XMS_ITS | Encounter Summary ---
Author Organization [facility] Address [address] [facility] [place] [address] Phone Care Team Providers Care Traffic Warehouse Supervisor Name Role Phone Yashira Valencia APRN, BLASTING ENTRY SPECIALIST Unavailable Julio Cesar Tracy MD Unavailable Robin Stratton MD Primary Care Provider [phone] Markel Underwood MD Primary Care Provider [phone] Catia Bolanos APRN, BLASTING ENTRY SPECIALIST Unavailable Reason for Visit * Reason Comments Medication Refill Encounter Details Date Type Department Care Team (Late st Contact Info) Description 02/16/2021 Refill [facility] - Family Medicine [facility] #2 [place] [address] Robin Stratton MD #[address] [address] Medication Refill Social History Tobacco Use Types [...] 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 Not on file [...] 19 06/13/2023 06/13/2023 06/14/2023 12:5 9 AM CARE MANAGEMENT COORDINATOR COVID - 19 Confirmed 06/13/2023 06/13/2023 024 12:16 AM CARE MANAGEMENT COORDINATOR Assessment Noted Time PHQ-9 Depression Total Score: 14 021 8:50 AM CDT documented as of this encounter Care Teams Traffic Warehouse Supervisor Relationship Specialty Start Date End Date Robin Stratton MD #[address] [address] PCP - General Family Medicine 05/28/19 02/15/23 Markel Underwood MD #[address] [address] PCP - General Family Medicine 02/16/23 Yashiar Valencia APRN, BLASTING ENTRY SPECIALIST Nurse Practitioner Advanced Practice Nurse 04/03/15 Julio Cesar Tracy MD General Surgery 12/18/15 Catia Bolanos APRN, BLASTING ENTRY SPECIALIST [address] [place] [address] Nurse Practitioner Advanced Practice Nurse 08/20/22 documented as of this encounter
--- OUTSIDE RECORDS SUMMARY | 2025-03-04 15:45 | XMS_ITS | Encounter Summary ---
Author Organization [facility] Address [address] [facility] [place] [address] Phone Care Team Providers Care Batch Trucker Name Role Phone Yashira Valencia APRN, DIRECTOR OF MUSIC Unavailable Julio Cesar Tracy MD Unavailable Robin Stratton MD Primary Care Provider [phone] Markel Underwood MD Primary Care Provider [phone] Catia Bolanos APRN, DIRECTOR OF MUSIC Unavailable Encounter Details Date Type Department Care Team (Late st Contact Info) Description 07/14/2022 Transcribe [facility] [address] [place] [address] José Manuel Zamarripa MD [address] [place] [address] [place] [address] Social History Tobacco Use Types Packs/Day [...] 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 Not on file No t on file documented as of this encounter Plan of Treatment Not on file documented as of this encounter Visit Diagnoses Not on filedocumented in this encounter Additional Health Concerns Infection Onset Date Last Indicated Resolved Time COVID - 19 06/13/2023 06/13/2023 06/14/2023 12:5 9 AM VENEER REPAIRER MACHINE COVID - 19 Confirmed 06/13/2023 06/13/2023 024 12:16 AM VENEER REPAIRER MACHINE Assessment Noted Time PHQ-9 Depression Total Score: 0 07/28/19 22 1:00 PM VENEER REPAIRER MACHINE documented as of this encounter Care Teams Batch Trucker Relationship Specialty Start Date End Date Robin Stratton MD #[address] [address] PCP - General Family Medicine 05/28/19 02/15/23 Markel Underwood MD #[address] [address] PCP - General Family Medicine 02/16/23 Yashira Valencia APRN, DIRECTOR OF MUSIC Nurse Practitioner Advanced Practice Nurse 04/03/15 Julio Cesar Tracy MD General Surgery 12/18/15 Catia Bolanos APRN, DIRECTOR OF MUSIC [address] [place] [address] Nurse Practitioner Advanced Practice Nurse 08/20/22 documented as of this encounter
--- OUTSIDE RECORDS SUMMARY | 2025-03-04 15:45 | XMS_ITS | Encounter Summary ---
Author Organization [facility] Address [address] [facility] [place] [address] Phone Care Team Providers Care Director Custom Name Role Phone Yashira Valencia APRN, REAL ESTATE SPECIALIST Unavailable Julio Cesar Tracy MD Unavailable Robin Stratton MD Primary Care Provider [phone] Markel Underwood MD Primary Care Provider [phone] Catia Bolanos APRN, REAL ESTATE SPECIALIST Unavailable Reason for Visit * Reason Comments Medication Refill Encounter Details Date Type Department Care Team (Late st Contact Info) Description 05/26/2021 Refill [facility] Family [facility] #2 [place] [id number] Robin Stratton MD #[address] [address] Medication Refill Social History Tobacco Use Types [...] 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 No / Unsure 05/20/2021 9:11 AM SPINDLE TESTER documented as of this encounter Miscellaneous Notes [...] Dept 05/20/21 Office Visit Qamar Saab APRN, J[place] [facility] 05/05/21 Office Visit Qamar Saab APRN, REAL ESTATE SPECIALIST [facility] 04/30/21 Telemedicine Qamar Saab APRN, REAL ESTATE SPECIALIST [facility] 04/20/21 Telemedicine Qamar Saab APRN, REAL ESTATE SPECIALIST [facility] 04/02/21 Telemedicine Qamar Saab APRN, REAL ESTATE SPECIALIST [facility] 02/19/21 Office Visit Robin Stratton MD [facility] [place] 02/04/21 Telemedicine Qamar Saab APRN, REAL ESTATE SPECIALIST [facility] 01/14/21 Office Visit Qamar Saab APRN, REAL ESTATE SPECIALIST [facility] 11/13/20 Office Visit Qamar Saab APRN, REAL ESTATE SPECIALIST [facility] 08/28/20 Office Visit Robin Stratton MD [facility] Showing recent visits within past 365 days and meeting all other requirements Future Appointments Date Type Provider Dept 07/15/21 Appointment Robin Stratton MD [facility] Showing future appointments within next 90 days and meeting all other requirements DLE TESTER documented in this encounter Plan of Treatment Not on file documented as of this encounter Visit Diagnoses Diagnosis Nausea Nausea alone documented in this encounter Additional Health Concerns Infection Onset Date Last Indicated Resolved Time Respiratory Rule-Out 08/14/2021 08/14/2021 022 3:15 PM CDT COVID - 19 11/16/2021 11/19/2021 11/29/2021 12:1 6 AM CDT COVID - 19 06/13/2023 06/13/2023 06/14/2023 12:5 9 AM SPINDLE TESTER COVID - 19 Confirmed 06/13/2023 06/13/2023 024 12:16 AM SPINDLE TESTER Assessment Noted Time PHQ-9 Depression Total Score: 14 021 8:50 AM CDT documented as of this encounter Care Teams Director Custom Relationship Specialty Start Date End Date Robin Stratton MD #[address] [address] PCP - General Family Medicine 05/28/19 02/15/23 Markel Underwood MD #[address] [address] PCP - General Family Medicine 02/16/23 Yashira Valencia APRN, REAL ESTATE SPECIALIST Nurse Practitioner Advanced Practice Nurse 04/03/15 Julio Cesar Tracy MD General Surgery 12/18/15 Catia Bolanos APRN, REAL ESTATE SPECIALIST #2 [place] [address] Nurse Practitioner Advanced Practice Nurse 08/20/22 documented as of this encounter
--- OUTSIDE RECORDS SUMMARY | 2025-03-04 15:45 | XMS_ITS | Encounter Summary ---
Author Organization [facility] Address [address] [facility] [place] [address] Phone Care Team Providers Care Bone Density Technician Name Role Phone Yashira Valencia APRN, PROFESSOR OF BIBLICAL STUDIES Unavailable Julio Cesar Tracy MD Unavailable Robin Stratton MD Primary Care Provider [phone] Markel Underwood MD Primary Care Provider [phone] Catia Bolanos APRN, PROFESSOR OF BIBLICAL STUDIES Unavailable Reason for Visit * Reason Comments Medication Refill Encounter Details Date Type Department Care Team (Late st Contact Info) Description 11/30/2021 Refill [facility] #2 [place] [id number] Robin Stratton MD #[address] [address] Medication Refill Social History Tobacco Use Types [...] 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 Not on file [...] Provider Dept 11/19/21 Telemedicine Robin Stratton MD [facility] [place] 11/16/21 Office Visit Qamar Saab APRN, [place] [facility] 10/05/21 Telemedicine Qamar Saab APRN, J[place] [facility] 09/02/21 Telemedicine Qamar Saab APRN, J[place] [facility] 08/28/21 Office Visit Qamar Saab APRN, J[place] [facility] 07/27/21 Office Visit Qamar Saab APRN, J[place] [facility] 05/20/21 Office Visit aQmar Saab APRN, J[place] [facility] 05/05/21 Office Visit Qamar Saab APRN, [place] [facility] 04/30/21 Telemedicine Qamar Saab APRN, PROFESSOR OF BIBLICAL STUDIES [facility] 04/20/21 Telemedicine Qamar Saab APRN, J[place] [facility] [place] Showing recent visits within past 365 days [...] Provider Dept 11/19/21 Telemedicine Robin Stratton MD [facility] [place] 11/16/21 Office Visit Qamar Saab APRN, J[place] [facility] 10/05/21 Telemedicine Qamar Saab APRN, J[place] [facility] [place] 09/02/21 Telemedicine Qamar Saab APRN, J[place] [facility] 08/28/21 Office Visit Qamar Saab APRN, J[place] [facility] [place] 07/27/21 Office Visit Qamar Saab APRN, J[place] [facility] 05/20/21 Office Visit Qamar Saab APRN, J[place] [facility] 05/05/21 Office Visit Qamar Saab APRN, J[place] [facility] 04/30/21 Telemedicine Qamar Saab APRN, [place] [facility] [place] 04/20/21 Telemedicine Qamar Saab APRN, PROFESSOR OF BIBLICAL STUDIES [facility] [place] Showing recent visits within past 365 days [...] 19 06/13/2023 06/13/2023 06/14/2023 12:5 9 AM MINERAL INDUSTRY TEACHER COVID - 19 Confirmed 06/13/2023 06/13/2023 024 12:16 AM MINERAL INDUSTRY TEACHER Assessment Noted Time PHQ-9 Depression Total Score: 0 07/28/19 1:00 PM MINERAL INDUSTRY TEACHER documented as of this encounter Care Teams Bone Density Technician Relationship Specialty Start Date End Date Robin Stratton MD #[address] [address] PCP - General Family Medicine 05/28/19 02/15/23 Markel Underwood MD #[address] [address] PCP - General Family Medicine 02/16/23 Yashira Valencia APRN, PROFESSOR OF BIBLICAL STUDIES Nurse Practitioner Advanced Practice Nurse 04/03/15 Julio Cesar Tracy MD General Surgery 12/18/15 Catia Bolanos APRN, PROFESSOR OF BIBLICAL STUDIES #2 [place] [address] Nurse Practitioner Advanced Practice Nurse 08/20/22 documented as of this encounter
--- OUTSIDE RECORDS SUMMARY | 2025-03-04 15:45 | XMS_ITS | Clinical Summary ---
Author Organization [facility] Address [address] [place] [address] Care Team Providers Care Sonar Watchstander Name Role Phone Nito Jeffers Unavailable [phone] Lc Robb MD Unavailable [phone] Markel Underwood MD Unavailable [phone] Markel Underwood MD Primary Care Provider [phone] Allergies Active Allergy Reactions Criticality Noted Date [...] (04/07/2022): Added automatically from request for surgery [id number] Asthma, moderate persistent 05/05/2021 Keratitis sicca, bilateral [...] DFE Assessment & Plan (04/28/2021 10:01 AM BURLAP BAG SEWER): 3.02 mg/kg/day without clinical signs of maculopathy. Pt ed. Eyelid dermatitis, allergic/contact 04/21/2021 Assessment & Plan (04/21/2021 5:22 PM BURLAP BAG SEWER): Patient was educated to avoid using false eyelashes as this may be causing the eyelids to be irritated. Complex tear of lateral meniscus of right knee 0 11/26/2020 Overview (11/26/2020): Added automatically from request for surgery [id number] Fall involving ice skates 10/23/2020 Noncompliance 08/28/2020 Abnormal ECG 05/05/2020 Overview (05/05/2020): Added automatically from request for surgery [id number] Skin lesion of breast 04/10/2020 Hypokalemia 02/09/2020 [...] Hx Other Medical back pain; Comm ents[place] [facility] [place] - Hx Other Medical migraine; Comme nts: [facility] [place] - Depression Depression Disorder of thyroid Thyroid dise ase Hx Other Medical gastric reflux; Comments: [facility] [place] - Rash and other nonspecific s [...] Never 12/28/2022 How often do you attend sabianism or alevism serv ices? Never 12/28/2022 Do you belong to any clubs o r organizations such as sabianism groups, unions, fraternal or athletic groups, or [...] place to sleep or slept in a jail (including now)? No 12/28/2022 Personal Safety Answer [...] on file Legal Sex Female 7:01 PM BURLAP BAG SEWER Gender Identity Not on file Sexual Orientation Not on file Obstetrics History Last Filed Vital Signs Vital Sign Reading Time Taken Comments Blood Pressure 145/85 07/21/2023 3:26 PM BURLAP BAG SEWER Pulse 88 07/21/2023 3:26 PM BURLAP BAG SEWER Temperature 36.7 C (98.1 F) 07/21/2023 3:26 PM BURLAP BAG SEWER Respiratory Rate 18 12/30/2022 7:58 AM CDT Oxygen Saturation 100% 12/30/2022 8:12 AM CDT Inhaled Oxygen Concentration - - Weight 70.9 kg (156 lb 6.4 oz) 07/21/2023 3:26 P M BURLAP BAG SEWER Height 167.6 cm (5' 6) 07/21/2023 3:26 PM BURLAP BAG SEWER Body Mass Index 25.24 07/21/2023 3:26 PM BURLAP BAG SEWER Plan of Treatment Health Maintenance Due Date Last Done Comments Colon Cancer Screening-Colonoscopy 1961 Depression Screening 1961 Osteoporosis Screening-Bone Density Scan 1961 DTaP/Tdap/Td Vaccine (1 - Tdap) 1972 Hepatitis B Screening 1979 Regular Well Visit/Exam 18-64 1979 Zoster Vaccine (1 of 2) 1980 Pneumococcal vaccine <65 (2 of 2 - PPSV23, PCV20, or PCV21) 06/19/2020 04/24/2020 Covid-19 Vaccine (4 - 2024-2 6 season) 2025 04/07/2021, 08/16/2020, 07/28/2020 Influenza Vaccine (#1) 2025 [...] ANTIBODY Routine Gen Lab 07/27/2017 10:54 AM BURLAP BAG SEWER from Last 3 Months or Most Recently [...] * Hepatitis C antibody (07/27/2017 10:54 AM BURLAP BAG SEWER) Hep C Ab Nonreactive Nonreactive [facility] Comment: Interpretive Data Positive and greyzone results should be confirmed by a molecular method. If positive or greyzone, a second separately collected sample should be submitted for Hepatitis C Virus RNA. Detection and Quantitation by Real-Time Reverse Vice President Of Software Engineering-PCR.Current Interpretive data was last revised on 2016. Blood specimen (specimen) 07/27/2017 10:54 AM BURLAP BAG SEWER 07/27/2017 12:01 PM BURLAP BAG SEWER Narrative [facility] - 07/27/2017 2:05 PM BURLAP BAG SEWER Michelle Sharpe MD LAB MICROBIOLOGY - GENERAL ORDERABLES Edited Result - Final [facility] Department [place] [address] from Last 3 Months or Most Recently Relevant to Health Maintenance Insurance MEDICARE IDPA MEDICARE IDPA MEDICARE IDPA MEDICARE IDPA Advance Directives For more information, please contact: [phone] * Full Code (Latest Code Status on File) Date Activated Date Inactivated Comments 12/28/2022 11:05 AM 12/30/2022 7:15 PM * Full Code Date Activated Date Inactivated Comments 03/06/2020 3:34 PM 03/11/2020 10:31 PM Care Teams Sonar Watchstander Relationship Specialty Start Date End Date Markel Underwood MD [address] [facility] [address] [place] [address] PCP - General Family Practice 12/28/22 Nito Jeffers PA [address] [place] [address] Physician Manual Training Teacher Orthopedic Surgery 12/11/20 Lc Robb MD [address] [facility] [address] [place] [address] Referring Physician Gastroenterology 04/01/22 Markel Underwood MD [address] [facility] [address] [place] [address] Referring Physician Family Practice 12/14/22
--- OUTSIDE RECORDS SUMMARY | 2025-03-04 15:45 | XMS_ITS | Encounter Summary ---
Author Organization [facility] Address [address] [facility] [place] [address] Phone Care Team Providers Care Laborer Poultry Hatchery Name Role Phone Yashira Valencia APRN, STILL WORKER HELPER Unavailable Julio Cesar Tracy MD Unavailable Robin Stratton MD Primary Care Provider [phone] Markel Underwood MD Primary Care Provider [phone] Catia Bolanos APRN, STILL WORKER HELPER Unavailable Reason for Visit * Reason Comments Medication Refill Encounter Details Date Type Department Care Team (Late st Contact Info) Description 04/26/2022 Refill [facility] - Family Medicine [facility] [address] [place] [id number] Robin Stratton MD [address] [address] Medication Refill Social History Tobacco Use Types [...] 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 Not on file Not on file No [...] [facility] 11/19/21 Telemedicine Robin Stratton MD [facility] [place] 11/16/21 Office Visit Qamar Saab APRN, JIL [facility] 10/05/21 Telemedicine Qamar Saab APRN, JIL [facility] 09/02/21 Telemedicine Qamar Saab APRN, JIL [facility] 08/28/21 Office Visit Qamar Saab APRN, JIL [facility] 07/27/21 Office Visit Qamar Saab APRN, JIL [facility] 05/20/21 Office Visit Qamar Saab APRN, JIL [facility] 05/05/21 Office Visit Qamar Saab APRN, JIL [facility] 04/30/21 Telemedicine Qamar Saab APRN, STILL WORKER HELPER [facility] Showing recent visits within past 365 days and meeting all other requirements Future Appointments No visits were found meeting these conditions. Showing future appointments within next 90 days and meeting all other requirements INAL ANALYST documented in this encounter Plan of Treatment Not on file documented as of this encounter Visit Diagnoses Diagnosis Nausea Nausea alone documented in this encounter Additional Health Concerns Infection Onset Date Last Indicated Resolved Time COVID - 19 06/13/2023 06/13/2023 06/14/2023 12:5 9 AM CRIMINAL ANALYST COVID - 19 Confirmed 06/13/2023 06/13/2023 024 12:16 AM CRIMINAL ANALYST Assessment Noted Time PHQ-9 Depression Total Score: 0 07/28/19 22 1:00 PM CRIMINAL ANALYST documented as of this encounter Care Teams Laborer Poultry Hatchery Relationship Specialty Start Date End Date Robin Stratton MD [address] [address] PCP - General Family Medicine 05/28/19 02/15/23 Markel Underwood MD [address] [address] PCP - General Family Medicine 02/16/23 Yashira Valencia APRN, STILL WORKER HELPER Nurse Practitioner Advanced Practice Nurse 04/03/15 Julio Cesar Tracy MD General Surgery 12/18/15 Catia Bolanos APRN, STILL WORKER HELPER [address] [place] [address] Nurse Practitioner Advanced Practice Nurse 08/20/22 documented as of this encounter
--- OUTSIDE RECORDS SUMMARY | 2025-03-04 15:45 | XMS_ITS | Encounter Summary ---
Author Organization [facility] Address [address] [facility] [place] [address] Phone Care Team Providers Care Certified Hyperbaric Technician Name Role Phone Yashira Valencia APRN, TEXTILE BROKER Unavailable Julio Cesar Tracy MD Unavailable Robin Stratton MD Primary Care Provider [phone] Markel Underwood MD Primary Care Provider [phone] Catia Bolanos APRN, TEXTILE BROKER Unavailable Reason for Visit * Reason Comments Medication Refill Encounter Details Date Type Department Care Team (Late st Contact Info) Description 04/08/2021 Refill [facility] - Family Medicine 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 No / Unsure 04/07/2021 1:53 PM EXPERIMENTAL PHYSICIST documented as of this encounter Miscellaneous Notes [...] Dept 04/02/21 Telemedicine Qamar Saab APRN, JIL [facility] 02/19/21 Office Visit Robin Stratton MD [facility] 02/04/21 Telemedicine Qamar Saab APRN, TEXTILE BROKER [facility] 01/14/21 Office Visit Qamar Saab APRN, TEXTILE BROKER [facility] 11/13/20 Office Visit Qamar Saab APRN, TEXTILE BROKER [facility] 08/28/20 Office Visit Robin Stratton [...] 90 days and meeting all other requirements RIMENTAL PHYSICIST documented in this encounter Plan of Treatment Not on file documented as of this encounter Visit Diagnoses Diagnosis Nausea Nausea alone documented in this encounter Additional Health Concerns Infection Onset Date Last Indicated Resolved Time Respiratory Rule-Out 08/14/2021 08/14/2021 022 3:15 PM CDT COVID - 19 11/16/2021 11/19/2021 11/29/2021 12:1 6 AM CDT COVID - 19 06/13/2023 06/13/2023 06/14/2023 12:5 9 AM EXPERIMENTAL PHYSICIST COVID - 19 Confirmed 06/13/2023 06/13/2023 024 12:16 AM EXPERIMENTAL PHYSICIST Assessment Noted Time PHQ-9 Depression Total Score: 14 021 8:50 AM CDT documented as of this encounter Care Teams Certified Hyperbaric Technician Relationship Specialty Start Date End Date Robin Stratton MD [address] [address] PCP - General Family Medicine 05/28/19 02/15/23 Markel Underwood MD [address] [address] PCP - General Family Medicine 02/16/23 Yashira Valencia APRN, TEXTILE BROKER Nurse Practitioner Advanced Practice Nurse 04/03/15 Julio Cesar Tracy MD General Surgery 12/18/15 Catia Bolanos APRN, TEXTILE BROKER [address] [place] [address] Nurse Practitioner Advanced Practice Nurse 08/20/22 documented as of this encounter
--- OUTSIDE RECORDS SUMMARY | 2025-03-04 15:45 | XMS_ITS | Clinical Summary ---
Author Organization [facility] Address [address] [address] Phone Care Team Providers Care Finished Garment Inspector Name Role Phone Yashira Valencia APRN, ACID CRANE OPERATOR Unavailable Julio Cesar Tracy MD Unavailable Markel Underwood MD Primary Care Provider [phone] Catia Bolanos APRN, ACID CRANE OPERATOR Unavailable Allergies Active Allergy Reactions Criticality Noted [...] apply route continuous. 4 Each 6 11/03/19 Active HYDROcodone-aceta minophen (NORCO) 10-325 MG Tablet [...] 1000 MCG/ML Solution every 30 days. 01/14/20 20 Active spironolactone (ALDACTONE) 25 MG Tablet TK [...] TabletIndications :Systemic lupus erythematosus (SLE) in adult Take 1 Tablet by mouth daily (with [...] by mouth daily. 90 Capsule 3 08/21/19 Active dicyclomine (BENTYL) 10 MG CapsuleIndication s:Irritable bowel syndrome with constipation Take 1 Capsule by mouth 3 times daily. 90 Capsule 3 08/21/19 Active Additional Information Patient not taking.Reported on 10/14/2022 hydrocortisone 2.5 % CreamIndications: Nausea Apply 2 times daily. Application Site: hemmorhoids (Description and Location) 30 g 1 02/16/20 23 Active zolpidem (Ambien) 5 MG TabletIndications :Stress Take 1 Tablet by mouth nightly as needed for Sleep for up to 7 doses. 7 Tablet 02/13/20 Active cephALEXin (KEFLEX) 500 MG Capsule Take 1 Capsule by mouth 4 times daily for 7 days. 28 Capsule 02/13/20 025 Active Problems Problem Noted Date Diagnosed Date [...] Encounters Date Type Department Care Team Description 02/12/2025 3:54 PM CDT - 02/12/2025 10:12 PM CDT Emergency [facility] [address] [place] [address] Markel Cornejo DO Siegel, Ethan De Santiago MD Cystitis Discharge Disposition: Discharged to home or Selfcare 02/12/2025 Travel 12/07/[address] [facility] [place] [address] Steven Shotr MD 12/07/[address] 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 Not on file Not on file No t on file Last Filed Vital Signs Vital Sign Reading Time Taken Comments Blood Pressure 136/69 02/12/2025 10:00 PM CDT Pulse 88 02/12/2025 10:00 PM CDT Temperature 36.1 C (97 F) 02/12/2025 4:00 PM CDT Respiratory Rate 12 02/12/2025 10:00 PM CDT Oxygen Saturation 96% 02/12/2025 10:00 PM CDT Inhaled Oxygen Concentration - - Weight 68 kg (150 lb) 02/12/2025 4:00 PM CDT Height 167.6 cm (5' 6) 02/12/2025 4:00 PM CDT Body Mass Index 24.21 02/12/2025 4:00 PM CDT Plan of Treatment Health Maintenance Due Date Last Done Comments Hepatitis C Virus (HCV) Screening 1961 TdaP Immunization 1961 Zoster Immunization (1 of 2) 1980 Medicare Initial AWV [id number] 06/23/2003 Cologuard 2006 Immunochemical Fecal Occult Blood 2006 Pneumococcal Immunization (50+ years) (2 of 2 - PPSV23, PCV20, or PCV21) 06/19/2020 04/24/2020 Respiratory Syncytial Virus (RSV) Immunization (Adult) (1 - Risk 60-74 years 1-dose series) 2021 Influenza Immunization (#1) 2025 11/0 11/2023, 04/19/2022, 03/06/2021, Additional history exists SARS-COV-2 Immunization ( season) 2025 04/07/2021, 08/16/2020, 07/28/2020 Mammogram 08/01/2025 [...] Procedure Name Priority Date/Time Associated Diagnosis Comments URINALYSIS REFLEX IF INDICATED BY ABNORMAL RESULTS STAT 02/12/2025 8:38 PM CDT URINE DRUG SCREEN STAT 02/12/2025 8:3 8 PM CDT TROPONIN I, HIGH SENSITIVITY (HSTRP) STAT 02/12/2025 8:27 PM CDT ETHYL ALCOHOL (ETHANOL) STAT 02/12/2025 6:07 PM CDT TROPONIN I, HIGH SENSITIVITY (HSTRP) STAT 02/12/2025 6:07 PM CDT CMP (COMPREHENSIVE METABOLIC PANEL) STAT 02/12/2025 6:07 PM CDT XR CHEST SINGLE VIEW PORTABLE STAT 02/12/2025 5:[address] HEAD OR BRAIN WO CONTRAST Stat with Interpretation 02/12/2025 5:33 PM CDT PROTIME (PT) (PROTHROMBIN TIME) STAT 02/12/2025 5:21 PM CDT CBC WITH AUTO DIFFERENTIAL STAT 02/12/2025 5:10 PM CDT COMPLETE BLOOD COUNT (CBC) WITH DIFF STAT 02/12/2025 5:10 PM CDT EKG 12 LEAD STAT 02/12/2025 4:14 PM CDT EKG SCAN 02/12/2025 12:[address] - HEAD/NECK 02/12/2025 12:00 AM CDT TIM SCREENING BILATERAL DIGITAL W CAD W FAUSTINO Routine 08/01/2024 10:03 AM CDT Encounter for screening mammogram for malignant neoplasm of breast HM COLONOSCOPY Routine 07/20/2011 from Last 3 Months or Most Recently Relevant to Health Maintenance Results * (ABNORMAL) Urinalysis Reflex if Indicated by Abnormal Results (02/12/2025 8:38 PM CDT) SPECIFIC GRAVITY 1.030 1.003 - 1.030 02/12/2025 9:36 PM CDT [facility] URINE PH 5.0 5.0 - 9.0 02/12/2025 9:36 PM CDT [facility] WBC ESTERASE Negative Negative 02/12/2025 9:36 PM CDT [facility] NITRITE Negative Negative 02/12/2025 9:36 PM CDT [facility] PROTEIN, RANDOM URINE 30 mg/dL(A) Negative 02/12/2025 9:36 PM CDT [facility] URINE GLUCOSE, QUAL Negative Negative 02/12/2025 9:36 PM CDT [facility] URINE KETONES 15 mg/dL(A) Negative 02/12/2025 9:36 PM CDT [facility] UROBILINOGEN 1 mg/dL(A) Normal mg/dL 02/12/2025 9:36 PM CDT [facility] URINE BLOOD 10 /uL(A) Negative george/ul 02/12/2025 9:36 PM CDT [facility] URINALYSIS COLOR Yellow 02/13/20 9:36 PM CDT [facility] URINALYSIS CLARITY Slightly Cloudy 02/12/2025 9:36 PM CDT [facility] WBC (Urine) 6-10(A) Negative, 0-5 /hpf 02/12/2025 9:36 PM CDT [facility] URINE RBC'S 3-5(A) Negative, 0-2 /hpf 02/12/2025 9:36 PM CDT [facility] EPITHELIAL CELLS Moderate amount /lpf 02/12/2025 9:36 PM CDT [facility] BACTERIA, URINE Many(A) Negative /hpf 02/12/2025 9:36 PM CDT [facility] URINE MUCOUS Few 02/12/2025 9:36 PM CDT [facility] Urine URINE SPECIMEN / Unknown Non-Phlebotomy Collection / Unknown 02/12/2025 8:38 PM CDT 02/12/2025 8:46 PM CDT Markel Cornejo DO URINE ORDERABLES Final Result [facility] [address] [place] [address] * (ABNORMAL) Urine Drug Screen (02/12/2025 8:38 PM CDT) UR AMPHETAMINE NON DETECTED NON DETECTED 02/12/2025 9:01 PM CDT [facility] Comment: FOR MEDICAL USE ONLY. CUTOFF CONCENTRATION FOR DETECTED RESULT: AMPHETAMINE: 500 NG/ML UR BENZODIAZEPINES DETECTED(A) NON DETECTED 02/12/2025 9:01 PM CDT [facility] Comment: FOR MEDICAL USE ONLY. CUTOFF CONCENTRATION FOR DETECTED RESULT: BENZODIAZAPINE: 200 NG/ML UR COCAINE METABOLITE NON DETECTED NON DETECTED 02/12/2025 9:01 PM CDT [facility] Comment: FOR MEDICAL USE ONLY. CUTOFF CONCENTRATION FOR DETECTED RESULT: COCAINE: 150 NG/ML UR OPIATES DETECTED(A) NON DETECTED 02/12/2025 9:01 PM CDT [facility] Comment: FOR MEDICAL USE ONLY. CUTOFF CONCENTRATION FOR DETECTED RESULT: OPIATES: 300 NG/ML UR PHENCYCLIDINE NON DETECTED NON DETECTED 02/12/2025 9:01 PM CDT [facility] Comment: FOR MEDICAL USE ONLY. CUTOFF CONCENTRATION FOR DETECTED RESULT: PCP: 25 NG/ML UR CANNABINOID NON DETECTED NON DETECTED 02/12/2025 9:01 PM CDT [facility] Comment: FOR MEDICAL USE ONLY. CUTOFF CONCENTRATION FOR DETECTED RESULT: THC (MARIJUANA): 50 NG/ML UR BARBITURATE NON DETECTED NON DETECTED 02/12/2025 9:01 PM CDT [facility] Comment: FOR MEDICAL USE ONLY. CUTOFF CONCENTRATION FOR DETECTED RESULT: BARBITUATES: 200 NG/ML UR FENTANYL NON DETECTED NON DETECTED 02/12/2025 9:01 PM CDT [facility] Comment: FOR MEDICAL USE ONLY. CUTOFF CONCENTRATION FOR DETECTED RESULT: FENTANYL: 1.0 NG/ML Urine Non-Phlebotomy Collection / Unknown 02/12/2025 8:38 PM CDT 02/12/2025 8:46 PM CDT us Markel Cornejo DO URINE ORDERABLES Final Result [facility] [address] [place] [address] * (ABNORMAL) TROPONIN I, HIGH SENSITIVITY (HSTRP) (02/12/2025 8:27 PM CDT) Only the most recent of2 resultswithin the time period is included. TROPONIN I, HIGH SENSITIVITY- SEXTON 68.5(H) <=14.0 ng/L 02/12/2025 9:25 PM CDT [facility] Comment: High-sensitivity troponin I results are reported in ng/L making the result appear to be 1,000 times higher than the contemporary troponin I value which is reported in ng/ml. Results from [place]. Blood Venipuncture / Unknown 02/12/2025 8:27 PM CDT 02/12/2025 8:42 PM CDT Markel Cornejo DO CHEMISTRY ORDERABLES Fi nal Result Performing Organization Address City/[facility]/ZIP Co de Phone Number [facility] [address] [place] [address] * Ethyl Alcohol (Ethanol) (02/12/2025 6:07 PM CDT) ETHANOL <10 <10 mg/dL 02/12/2025 6:3 7 PM CDT [facility] Blood Venipuncture / Unknown 02/12/2025 6:07 PM CDT 02/12/2025 6:17 PM CDT Markel Cornejo DO CHEMISTRY ORDERABLES Fi nal Result Performing Organization Address [facility]/ZIP Co de Phone Number [facility] [address] [place] [address] * (ABNORMAL) CMP (Comprehensive Metabolic Panel) (02/12/2025 6:07 PM CDT) SODIUM 134(L) 136 - 145 mmol/L 02/12/2025 6:37 PM CDT [facility] POTASSIUM 4.9 3.5 - 5.1 mmol/L 02/12/2025 6:37 PM CDT [facility] CHLORIDE 101 98 - 107 mmol/L 02/12/2025 6:37 PM CDT [facility] CO2, VENOUS 21(L) 22 - 30 mmol/L 02/12/2025 6:37 PM CDT [facility] ANION GAP 16.9 <18.0 mmol/L 02/12/2025 6:37 PM T [facility] GLUCOSE 94 70 - 99 mg/dL 02/12/2025 6:37 PM T [facility] BUN 18 10 - 20 mg/dL 02/12/2025 6:37 PM [facility] CREATININE, BLOOD 1.02(H) 0.60 - 1.00 mg/dL 02/12/2025 6:37 PM T [facility] BUN/CREATININE RATIO 18 12 - 20 ratio 02/12/2025 6:37 PM [facility] TOTAL PROTEIN 7.3 6.0 - 8.0 g/dL 02/12/2025 6:37 PM T [facility] ALBUMIN 4.4 3.5 - 5.0 g/dL 02/12/2025 6:37 PM [facility] A/G RATIO 1.5 1.0 - 2.2 02/12/2025 6:37 PM [facility] CALCIUM 9.2 8.7 - 10.5 mg/dL 02/12/2025 6:37 PM [facility] T BILI 0.9 0.2 - 1.2 mg/dL 02/12/2025 6:37 PM T [facility] SGOT (AST) 38 <43 U/L 02/12/2025 6:37 PM [facility] Comment: Specimen is hemolyzed. In vitro hemolysis could affect results. Clinical correlation advised. SGPT (ALT) 12 <56 U/L 02/12/2025 6:37 PM [facility] ALKALINE PHOSPHATASE 77 40 - 150 U/L 02/12/2025 6:37 PM [facility] GFR, ESTIMATED >60 >=60 02/12/2025 6:37 PM [facility] Comment: Creatinine Clearance is the preferred criteria for selecting drug dose adjustments in renally impaired patients. The GFR is provided as additional pertinent clinical information. GFR is reported in mL/min/1.73 sq m. Calculation based on the 2020 Chronic Kidney Disease Epidemiology Collaboration (CKD-EPI) equation refit without adjustment for race. GFR, EST. >60 >=60 025 6:37 PM CDT [facility] Comment: Creatinine Clearance is the preferred criteria for selecting drug dose adjustments in renally impaired patients. The GFR is provided as additional pertinent clinical information. GFR is reported in mL/min/1.73 sq m. Calculation based on the 2009 Chronic Kidney Disease Epidemiology Collaboration (CKD-EPI). GFR, EST. NONAFRICAN 55(L) >=60 02/12/2025 6:37 PM CDT [facility] Comment: Creatinine Clearance is the preferred criteria for selecting drug dose adjustments in renally impaired patients. The GFR is provided as additional pertinent clinical information. GFR is reported in mL/min/1.73 sq m. Calculation based on the 2009 Chronic Kidney Disease Epidemiology Collaboration (CKD-EPI). Blood Venipuncture / Unknown 02/12/2025 6:07 PM CDT 02/12/2025 6:17 PM CDT us Markel Cornejo DO CHEMISTRY ORDERABLES Fi nal Result [facility] [place] [address] * XR CHEST SINGLE VIEW PORTABLE (02/12/2025 5:43 PM CDT) Anatomical Region Laterality Modality Chest N/A Computed Radiogr aphy 02/12/2025 5:43 PM CDT Impressions 02/12/2025 10:01 PM CDT IMPRESSION: Shallow depth of inspiration with crowding of the bronchovascular markings but no overt heart failure or pneumonia acute cardiopulmonary abnormality. Narrative 02/12/2025 10:01 PM CDT DICTATING PHYSICIAN: Robson Oconnell M.D. EXAM DATE: 02/12/2025 5:43 PM EXAM: XR CHEST SINGLE VIEW PORTABLE HISTORY:Female patient, 64 years old. INDICATION: Hypertension. Chest pain. Weakness. Dyspnea. COMPARISON: 06/14/2023. FINDINGS: Portable AP upright chest was performed. Shallower depth inspiration was radiographed. Heart size is accentuated. There is crowding of the bronchovascular markings. Mediastinal and hilar contours are unremarkable. The lungs are clear of acute opacities, non-calcified nodules, or effusions. There is no pneumothorax. No acute bony abnormality is appreciated. Procedure Note Robson Oconnell MD - 02/12/2025 DICTATING PHYSICIAN: Robson Oconnell M.D. EXAM DATE: 02/12/2025 5:43 PM EXAM: XR CHEST SINGLE VIEW PORTABLE HISTORY:Female patient, 64 years old. INDICATION: Hypertension. Chest pain. Weakness. Dyspnea. COMPARISON: 06/14/2023. FINDINGS: Portable AP upright chest was performed. Shallower depthinspiration was radiographed. Heart size is accentuated. There is crowdingof the bronchovascular markings. Mediastinal and hilar contours areunremarkable. The lungs are clear of acute opacities, non-calcifiednodules, or effusions. There is no pneumothorax. No acute bony abnormalityis appreciated. IMPRESSION: Shallow depth of inspiration with crowding of thebronchovascular markings but no overt heart failure or pneumonia acutecardiopulmonary abnormality. us Markel Cornejo DO IMG DIAGNOSTIC ORDERABL ES Final Result * CT HEAD OR BRAIN WO CONTRAST (02/12/2025 5:33 PM CDT) Anatomical Region Laterality Modality Head N/A Computed Tomogra phy 02/12/2025 5:33 PM CDT Impressions 02/12/2025 9:16 PM CDT IMPRESSION: 1. No acute intracranial abnormality by CT criteria. Chronic findings as above. Narrative 02/12/2025 9:16 PM CDT DICTATING PHYSICIAN: Kit Cobian D.O. EXAM: CT HEAD OR BRAIN WO CONTRAST, 02/12/2025 5:33 PM COMPARISON: MRI 04/27/2019 HISTORY: Mental status change, unknown cause, Lethargy/AMS for a few weeks. Migraines and stress as well PROCEDURE: Utilizing 2.5 mm collimation in the posterior fossa and 2.5 mm collimation in the supratentorial compartment, contiguous axial tomographic images were obtained from the skullbase to the cranial vertex. Dose reduction technique(s) utilized. [id number] FINDINGS: No acute intracranial hemorrhage. There is no visualized mass, mass-effect, midline shift or abnormal extra-axial fluid collections. There is no CT evidence of acute infarct, although MRI has a higher sensitivity and specificity for acute and hyperacute ischemia. The franz-white matter differentiation is preserved. There is mild patchy, low attenuation in the periventricular, deep and subcortical white matter which is likely sequelae of chronic small vessel ischemic change. The visualized brainstem and cerebellum are normal. The ventricles are not enlarged. The basal cisterns are patent. There is atherosclerotic calcification of the intracranial right vertebral and bilateral paraclinoid internal carotid arteries. There are no destructive bone lesions or calvarial fracture. The visualized paranasal sinuses, middle ear cavities and mastoid air cells are well aerated. There is no abnormality in the visualized portions of the orbits and globes. Procedure Note Kit Cobian, DO - 02/12/2025 DICTATING PHYSICIAN: Kit Cobian D.O. EXAM: CT HEAD OR BRAIN WO CONTRAST, 02/12/2025 5:33 PM COMPARISON: MRI 04/27/2019 HISTORY: Mental status change, unknown cause, Lethargy/AMS for a fewweeks. Migraines and stress as well PROCEDURE: Utilizing 2.5 mm collimation in the posterior fossa and 2.5 mmcollimation in the supratentorial compartment, contiguous axialtomographic images were obtained from the skullbase to the cranial vertex.Dose reduction technique(s) utilized. [id number] FINDINGS: No acute intracranial hemorrhage. There is no visualized mass,mass-effect, midline shift or abnormal extra-axial fluid collections.There is no CT evidence of acute infarct, although MRI has a highersensitivity and specificity for acute and hyperacute ischemia. Thegray-white matter differentiation is preserved. There is mild patchy, lowattenuation in the periventricular, deep and subcortical white matterwhich is likely sequelae of chronic small vessel ischemic change. Thevisualized brainstem and cerebellum are normal. The ventricles are notenlarged. The basal cisterns are patent. There is atheroscleroticcalcification of the intracranial right vertebral and bilateralparaclinoid internal carotid arteries. There are no destructive bone lesions or calvarial fracture. Thevisualized paranasal sinuses, middle ear cavities and mastoid air cellsare well aerated. There is no abnormality in the visualized portions ofthe orbits and globes. IMPRESSION: 1. No acute intracranial abnormality by CT criteria. Chronic findings asabove. Markel Cornejo DO IMG CT ORDERABLES Final Result * Protime (PT or Prothrombin Time) [id number] (02/12/2025 5:21 PM CDT) PROTIME-PATIENT 12.8 11.6 - 14.8 sec 02/12/2025 5:59 PM CDT [facility] INR 1.0 0.9 - 1.2 02/12/2025 5:59 PM CDT [facility] Comment: Therapeutic Ranges INR = 2.0-3.0: Venous thromb, atrial fib, pul embolism, tissue heart valve, ami. INR = 2.5-3.5: Mechanical heart valve Critical value for INR is >/= 4.5 Blood Venipuncture / Unknown 02/12/2025 5:21 PM CDT 02/12/2025 5:32 PM CDT Markel Cornejo DO HEMATOLOGY ORDERABLES F inal Result [facility] [place] [address] * (ABNORMAL) CBC with Auto Differential (02/12/2025 5:10 PM CDT) WBC 8.78 4.00 - 12.00 10(3)/mcL 02/12/2025 5:35 PM CDT [facility] RBC 4.64 3.80 - 5.30 10(6)/mcL 02/12/2025 5:35 PM CDT [facility] HEMOGLOBIN (HGB) 14.3 12.0 - 15.8 g/dL 02/12/2025 5:35 PM CDT [facility] HEMATOCRIT (HCT) 44.1 36.0 - 47.0 % 02/12/2025 5:35 PM CDT [facility] MCV 95.0 82.0 - 96.0 fL 02/12/2025 5:35 PM CDT [facility] MCH 30.8 26.0 - 34.0 pg 02/12/2025 5:35 PM CDT [facility] MCHC 32.4 31.0 - 36.0 g/dL 02/12/2025 5:35 PM CDT [facility] PLATELET COUNT 232 140 - 440 10(3)/mcL 02/12/2025 5:35 PM CDT [facility] RDW 11.7(L) 11.8 - 15.5 % 02/12/2025 5:35 PM CDT [facility] MPV 10.3 9.7 - 12.4 fL 02/12/2025 5:35 PM CDT [facility] NEUTROPHILS 80.7(H) 47.0 - 73.0 % 02/12/2025 5:35 PM CDT [facility] LYMPHOCYTES 12.0(L) 18.0 - 42.0 % 02/12/2025 5:35 PM CDT [facility] MONOCYTES 6.5 4.0 - 12.0 % 02/12/2025 5:35 PM CDT [facility] EOSINOPHILS 0.2 0.0 - 5.0 % 02/12/2025 5:35 PM CDT [facility] BASOPHILS 0.3 0.0 - 1.0 % 02/12/2025 5:35 PM CDT [facility] IMMATURE GRANULOCYTE 0.3 0.0 - 0.4 % 02/12/2025 5:35 PM CDT [facility] ABSOLUTE NEUTROPHILS 7.08 1.60 - 7.70 10(3)/mcL 02/12/2025 5:35 PM CDT [facility] ABSOLUTE LYMPHOCYTES 1.05(L) 1.30 - 3.20 10(3)/mcL 02/12/2025 5:35 PM CDT [facility] ABSOLUTE MONOCYTES 0.57 0.20 - 1.00 10(3)/mcL 02/12/2025 5:35 PM CDT [facility] ABSOLUTE EOSINOPHIL 0.02 0.00 - 0.40 10(3)/mcL 02/12/2025 5:35 PM CDT [facility] ABSOLUTE BASOPHILS 0.03 0.00 - 0.10 10(3)/mcL 02/12/2025 5:35 PM CDT [facility] ABSOLUTE IMMATURE GRANULOCYTE 0.03 0.00 - 0.03 10 (3) mcL. 02/12/2025 5:35 PM CDT [facility] NRBC PER 100 WBC 0 02/13/20 5:35 PM CDT [facility] Blood Venipuncture / Unknown 02/12/2025 5:10 PM CDT 02/12/2025 5:32 PM CDT us Markel Cornejo DO HEMATOLOGY ORDERABLES F inal Result [facility] [place] [address] * EKG 12 LEAD (02/12/2025 4:14 PM CDT) Ventricular Rate 96 BPM EXTERNAL EKG Atrial Rate 96 BPM EXTERNAL EKG P-R Interval 134 ms EXTERNAL EKG QRS Duration 84 ms EXTERNAL EKG Q-T Duration 354 ms EXTERNAL EKG QTC CALCULATION 447 ms EXTERNAL EKG P Theodore 72 degrees EXTERNAL EKG R Theodore -4 degrees EXTERNAL EKG T Theodore 42 degrees EXTERNAL EKG 02/12/2025 4:14 PM CDT Impressions EXTERNAL EKG - 02/14/2025 12:47 PM CDT Normal sinus rhythm Normal ECG When compared with ECG of 23-PJ-2024 00:11, No significant change was found Confirmed by HAMMAD KIRKLAND ([id number]) on 02/14/2025 12:47:13 PM Narrative Procedure Note Hammad Kirkland MD - 02/14/2025 IMPRESSION: Normal sinus rhythm Normal ECG When compared with ECG of 14-JUN-2023 00:11, No significant change was found Confirmed by HAMMAD KIRKLAND ([id number]) on 02/14/2025 12:47:13 PM us Makrel Cornejo DO IMG ECG ORDERABLES Shelby l Result Performing Organization Address [facility] Co de Phone Number EXTERNAL EKG * EKG SCAN (02/12/2025 12:00 AM CDT) 02/12/2025 us Provider Scan IMG ECG ORDERABLES Final Result Performing Organization Address City/[facility] Co de Phone Number RESULTING AGENCY * CT - HEAD/NECK (02/12/2025 12:00 AM CDT) 02/12/2025 us Provider Scan IMG CT ORDERABLES Final Result Performing Organization Address [facility] de Phone Number SCAN * TIM SCREENING BILATERAL DIGITAL W CAD [...] Comparison is made to exams dated: 06/02/2018 [facility], 05/28/2020 [facility], and 04/06/2016 [facility]. BREAST TISSUE:There are scattered areas of [...] exam. Electronically signed by: Mihir melendez/ayleen:08/01/2024 12:21:11 Ceo And Founder(s): RT Barrie(R)(M), [facility] letter sent: Normal Exam Reading location: [...] Comparison is made to exams dated: 06/02/2018 [facility], 05/28/2020 [facility], and 04/06/2016 [facility]. BREAST TISSUE:There are scattered areas of [...] exam. Electronically signed by: Mihir melendez/ayleen:08/01/2024 12:21:11 Ceo And Founder(s): RT Barrie(R)(M), [facility] letter sent: Normal Exam Reading location: [place] Mammogram BI-RADS: Category 1: Negative us Giovanny Omalley IMG MAMMO ORDERABLES Final Resul t * HM COLONOSCOPY (07/20/2011) us Noe Stratton MD PROCEDURE/MINOR SURGICAL ORDE CINDY Final Result from Last 3 Months or Most Recently Relevant to Health Maintenance Insurance MEDICAID [place] MEDICARE [employer]CIAL GENERIC Member Subscriber Plan / Payer (Ef fective 2016-Present) Name:Leticia Post Relation to Subscriber:Self Name:Leticia Post Payer ID:[id number] Group ID:[id number] Type:Not on file Address: [facility] [address] [id number] Advance Directives * Full Code (Latest Code [...] 8:51 AM 04/19/2016 12:15 PM Care Teams Finished Garment Inspector Relationship Specialty Start Date End Date Markel Underwood MD PCP - General Family Medicine 02/16/23 Yashira Valencia APRN, ACID CRANE OPERATOR Nurse Practitioner Advanced Practice Nurse 04/03/15 Julio Cesar Tracy MD General Surgery 12/18/15 Catia Bolanos APRN, ACID CRANE OPERATOR [address] [place] [address] Nurse Practitioner Advanced Practice Nurse 08/20/22
--- OUTSIDE RECORDS SUMMARY | 2025-03-04 15:45 | XMS_ITS | Encounter Summary ---
Author Organization [facility] Address [address] [place] [address] Phone Care Team Providers Care Zipper Repairer Name Role Phone Yashira Valencia APRN, CHECKER LOADER Unavailable Julio Cesar Tracy MD Unavailable Robin Stratton MD Primary Care Provider [phone] Markel Underwood MD Primary Care Provider Catia Bolanos APRN, CHECKER LOADER Unavailable Reason for Visit * Reason Onset Date Comments Medication Refill 07/03/2021 Encounter Details Date Type Department Care Team (Late st Contact Info) Description 07/03/2021 Refill [facility] - Family Medicine [facility] [address] [place] [address] Robin Stratton MD [address] [address] Medication Refill Social History Tobacco Use Types [...] 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 fluticasone (FLONASE) 50 MCG/ACT Suspension [[id number]] 9 Status: Active Ordering user: Qamar Saab APRN, CNP 05/05/21829 Authorized by: Qamar Saab APRN, CNP Frequency: Daily 05/05/21 - Until Discontinued Diagnoses Chronic pansinusitis [J32.4] Associated Diagnoses Chronic pansinusitis Pharmacy [facility] [id number] [place] [address] L PLATE CAULKER * Telephone Encounter - Tenisha Roach - 07/03/2021 2:19 PM CST Received a faxed Rx request from pharmacy. Reordered refill medication(s) requested and pended for nurse and physician/VLAD review. Refill encounter routed to nurse Jose L's pool for processing. L PLATE CAULKER documented in this encounter Plan of Treatment [...] 19 06/13/2023 06/13/2023 06/14/2023 12:5 9 AM STEEL PLATE CAULKER COVID - 19 Confirmed 06/13/2023 06/13/2023 024 12:16 AM STEEL PLATE CAULKER Assessment Noted Time PHQ-9 Depression Total Score: 14 021 8:50 AM CDT documented as of this encounter Care Teams Zipper Repairer Relationship Specialty Start Date End Date Robin Stratton MD [address] [address] PCP - General Family Medicine 05/28/19 02/15/23 Markel Underwood MD [address] [address] PCP - General Family Medicine 02/16/23 Yashira Valencia APRN, CHECKER LOADER Nurse Practitioner Advanced Practice Nurse 04/03/15 Julio Cesar Tracy MD General Surgery 12/18/15 Catia Bolanos APRN, CHECKER LOADER [address] [place] [address] Nurse Practitioner Advanced Practice Nurse 08/20/22 documented as of this encounter
--- OUTSIDE RECORDS SUMMARY | 2025-03-04 15:45 | XMS_ITS | Clinical Summary ---
Author Organization [facility] Address [address] [place] [address] Phone Care Team Providers Care Facility Manager Histology Name Role Phone Noe Stratton MD Primary Care Provider [phone] Allergies Active Allergy Reactions Criticality Noted Date [...] mouth daily. Active fluticasone (FLONASE) 50 mcg/spray [place], Suspension 2 Sprays daily. Active HYDROcodone-aceta minophen [...] 03/14/2018, 2015 Medical Devices Implanted Type Area Rn Plastics Device Identifier Shelf Expiration Date Model / Serial / Lot Seamguard Endogia 60 Blck [id number] - [id number] Implanted:Qty : 2 on 03/13/2018 by Brown Lawrence MD at [facility] N/A: Abdomen [employer] 10/20/2020 [id number] / / [id number] Seamguard Endogia 60 Prpl [id number] - [id number] Implanted:Qty : 3 on 03/13/2018 by Brown Lawrence MD at [facility] N/A: Abdomen [employer] 10/20/2020 [id number] / / [id number] Insurance MEDICARE PART A AND B MED[place] RX [id number] Medicare Part D Advance Directives For more information, please contact: [phone] * Full Code (Latest Code Status on File) Date Activated Date Inactivated Comments 03/13/2018 4:51 PM 03/15/2018 12:43 AM Care Teams Facility Manager Histology Relationship Specialty Start Date End Date Noe Stratton MD [address] [facility] [place] [phone] PCP - General Internal Medicine 02/28/18
--- OUTSIDE RECORDS SUMMARY | 2025-03-04 15:45 | XMS_ITS | Encounter Summary ---
Author Organization [facility] Address [address] [place] [address] Phone Care Team Providers Care Maintenance Shop Technician Name Role Phone Yashira Valencia APRN, DATAPOWER DEVELOPER Unavailable Julio Cesar Tracy MD Unavailable Robin Stratton MD Primary Care Provider [phone] Markel Underwood MD Primary Care Provider Catia Bolanos APRN, DATAPOWER DEVELOPER Unavailable Reason for Visit * Reason Onset Date Comments Medication Refill 09/21/2021 Encounter Details Date Type Department Care Team (Late st Contact Info) Description 09/21/[address] 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 Not on file Not on file No [...] Dept 09/02/21 Telemedicine Qamar Saab APRN, [place] [facility] 08/28/21 Office Visit Qamar Saab APRN, [place] [facility] 07/27/21 Office Visit Qamar Saab APRN, [place] [facility] 05/20/21 Office Visit Qamar Saab APRN, [place] [facility] 05/05/21 Office Visit Qamar Saab APRN, [facility] [facility] 04/30/21 Telemedicine Qamar Saab APRN, [facility] [facility] 04/20/21 Telemedicine Qamar Saab APRN, [place] [facility] 04/02/21 Telemedicine Qamar Saab APRN, [place] [facility] 02/19/21 Office Visit Robin Stratton MD [facility] 02/04/21 Telemedicine Qamar Saab APRN, DATAPOWER DEVELOPER [facility] Showing recent visits within past 365 days [...] and physician/VLAD review. Refill encounter routed to [facility] for processing. documented in this encounter Plan of Treatment Not on file documented as of this encounter Visit Diagnoses Diagnosis Nausea Nausea alone documented in this encounter Additional Health Concerns Infection Onset Date Last Indicated Resolved Time COVID - 19 11/16/2021 11/19/2021 11/29/2021 12:1 6 AM CDT COVID - 19 06/13/2023 06/13/2023 06/14/2023 12:5 9 AM CONSOLIDATOR COVID - 19 Confirmed 06/13/2023 06/13/2023 024 12:16 AM CONSOLIDATOR Assessment Noted Time PHQ-9 Depression Total Score: 0 07/28/19 22 1:00 PM CONSOLIDATOR documented as of this encounter Care Teams Maintenance Shop Technician Relationship Specialty Start Date End Date Robin Stratton MD [address] [address] PCP - General Family Medicine 05/28/19 02/15/23 Markel Underwood MD #[address] [address] PCP - General Family Medicine 02/16/23 Yashira Valencia, DRY DIP WORKER, DATAPOWER DEVELOPER Nurse Practitioner Advanced Practice Nurse 04/03/15 Julio Cesar Trayc MD General Surgery 12/18/15 Catia Bolanos APRN, DATAPOWER DEVELOPER [address] [place] [address] Nurse Practitioner Advanced Practice Nurse 08/20/22 documented as of this encounter
--- OUTSIDE RECORDS SUMMARY | 2025-03-04 15:45 | XMS_ITS | Encounter Summary ---
Author Organization [facility] Address [address] [facility] [place] [address] Phone Care Team Providers Care Supervisor Special Effects Name Role Phone Yashira Valencia APRN, FREIGHT CAR CLEANER DELTA SYSTEM Unavailable Julio Cesar Tracy MD Unavailable Robin Stratton MD Primary Care Provider [phone] Markel Underwood MD Primary Care Provider Catia Bolanos APRN, FREIGHT CAR CLEANER DELTA SYSTEM Unavailable Reason for Visit * Reason Comments Medication Refill Encounter Details Date Type Department Care Team (Late st Contact Info) Description 08/02/2021 Refill [facility] [address] [place] [id number] Robin Stratton MD [address] [address] Medication Refill Social History Tobacco Use Types [...] 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 No / Unsure 07/27/2021 1:01 PM BUCKLE GLUER documented as of this encounter Miscellaneous Notes [...] Dept 07/27/21 Office Visit Qamar Saab APRN, FREIGHT CAR CLEANER DELTA SYSTEM [facility] 05/20/21 Office Visit Qamar Saab APRN, FREIGHT CAR CLEANER DELTA SYSTEM [facility] 05/05/21 Office Visit Qamar Saab APRN, FREIGHT CAR CLEANER DELTA SYSTEM [facility] 04/30/21 Telemedicine Qamar Saab APRN, FREIGHT CAR CLEANER DELTA SYSTEM [facility] 04/20/21 Telemedicine Qamar Saab APRN, FREIGHT CAR CLEANER DELTA SYSTEM [facility] 04/02/21 Telemedicine Qamar Saab APRN, FREIGHT CAR CLEANER DELTA SYSTEM [facility] 02/19/21 Office Visit Robin Strat[facility] 02/04/21 Telemedicine Qamar Saab APRN, FREIGHT CAR CLEANER DELTA SYSTEM [facility] 01/14/21 Office Visit Qamar Saab APRN, FREIGHT CAR CLEANER DELTA SYSTEM [facility] 11/13/20 Office Visit Qamar Saab APRN, FREIGHT CAR CLEANER DELTA SYSTEM [facility] Showing recent visits within past 365 [...] 19 06/13/2023 06/13/2023 06/14/2023 12:5 9 AM BUCKLE GLUER COVID - 19 Confirmed 06/13/2023 06/13/2023 024 12:16 AM BUCKLE GLUER Assessment Noted Time PHQ-9 Depression Total Score: 0 07/28/19 22 1:00 PM BUCKLE GLUER documented as of this encounter Care Teams Supervisor Special Effects Relationship Specialty Start Date End Date Robin Stratton MD [address] [address] PCP - General Family Medicine 05/28/19 02/15/23 Markel Underwood MD #[address] [address] PCP - General Family Medicine 02/16/23 Yashira Valencia APRN, FREIGHT CAR CLEANER DELTA SYSTEM Nurse Practitioner Advanced Practice Nurse 04/03/15 Julio Cesar Tracy MD General Surgery 12/18/15 SchCatia alcantara APRN, FREIGHT CAR CLEANER DELTA SYSTEM [address] [place] [address] Nurse Practitioner Advanced Practice Nurse 08/20/22 documented as of this encounter
--- OUTSIDE RECORDS SUMMARY | 2025-03-04 15:46 | XMS_ITS | Data Portability ---
Author Organization [facility] Address [address] [place] [address] Assessment No assessment recorded. Plan of Treatment Reminders Order Date Submit Date Provider Last Modified By Organization Details Last Modified Time Details Appointments None record ed. Lab SARS CoV 2 RNA (COVID -19), QL, hog raiser-PC R, respir atory specim en - sore throat , expose d to pos COVID person , modesto d tested pos woodri gosia 130 2019 020 [facility] (Lab), [address] [place], [address], 0 22:32:15 Referral None record ed. Procedures None record ed. Surgeries None record ed. Imaging MAMMO, screen ing, digita l, bilate ral 2023 024 [facility] (Scheduling), [address] [facility] [place], [address], 5 13:33:08 MAMMO, screen ing, digita l, bilate ral 2017 018 [facility] Scheduling, [address] [place], [address], 9 10:02:49 Medication Orders flucon azole 150 mg tablet 2020 021 [id number], [address] [facility] [place], [place], [id number], 4 15:30:54 Patient TargetsNo targets recorded. Patient Instructions Encounter Date Encounter Id Patient Instructions Last Modified By Organization Details Last Modified Time 01/21/2020 [id number] Reviewed the following recommendations: -Stay home and separate from others as much as possible. -Monitor your symptoms and seek medical attention for trouble breathing, persistent chest pain, confusion, or bluish lips or face. -Wear a mask if you must be around other people. -Wash your hands often for 20 seconds with soap and water and clean high-touch surfaces daily -You may discontinue home isolation if your symptoms are improving and it has been 10 days since symptoms started. [email or web address] Not available 01/21/2020 13:53:01 07/29/2020 [id number] hot flashes during menopause: care instructions [email or web address] Not available 07/29/2020 11:24:23 vaginal [facility] infection: [facility] Not available 07/29/2020 11:24:22 12/21/2023 [id number] mammogram: about this test [facility] Not available 12/21/2023 17:17:49 A healthy lifestyle: care instructions [place] [id number] Not available 12/21/2023 17:17:49 Reason for Referral None Reported. Results Created Date Observation Date Name Description Value Unit Range Abnormal Flag Note LastModifiedBy Organization Detail LastModifiedTime 01/21/20 20 01/21/2020 SARS CoV 2 RNA (COVI D-19) , QL, hog raiser-P CR, respi rator y speci men sars - cov - 2 PCR POSITI VE* mL critical abnormal Not Available [facility] (Lab) [address] [place], [address], 01/22/2020 22:32:15 01/21/20 20 01/21/2020 SARS CoV 2 RNA (COVI D-19) , QL, hog raiser-P CR, respi rator y speci men covidcom1 COMME NTS: This assay is desig esteban to detec t the RdRp and N genes of SARS- CoV-2 using nucle ic acid ampli ficat ion. A negat wilfred resul t does not precl ude the possi bilit y of 2019- nCoV infec tion since the adequ acy of sampl e colle ction and/o r low viral burde n may resul t in the prese nce of viral nucle ic acids level s below the cindy tical sensi tivit y of this test metho d. Not Available [facility] (Lab) [address] [place], [address], 01/22/2020 22:32:15 01/21/20 20 01/21/2020 SARS CoV 2 RNA (COVI D-19) , QL, hog raiser-P CR, respi rator y speci men covidcom2 Posit wilfred resul ts are indic ative of the prese nce of SARS- CoV-2 RNA and do not rule out bacte rial infec tion or co-in fecti on with other virus es. Not Available [facility] (Lab) [address] [facility], [place], [address], 01/22/2020 22:32:15 01/21/20 20 01/21/2020 SARS CoV 2 RNA (COVI D-19) , QL, hog raiser-P CR, respi rator y speci men covidcom3 Test resul ts shoul d be used along with other clini elbert obser vatio ns, patie nt histo ry, epide miolo gical infor matio n and labor atory data in cris g the diagn osis. Not Available [facility] (Lab) [address] [place], [address], 01/22/2020 22:32:15 01/21/20 20 01/21/2020 SARS CoV 2 RNA (COVI D-19) , QL, hog raiser-P CR, respi rator y speci men covidcom4 This test has recei yas FDA Emerg ency Use Autho rizat ion and has been verif ied by [facility] . This test is only autho rized for the durat ion of the decla ratio n and the circu mstan kathy that exist to justi fy the autho rizat ion of the emerg ency use of in vitro diagn ostic tests for the detec tion of SARS- CoV-2 virus and/o r diagn osis of COVID -19 infec tion under secti on 564 (b) (1) of the Act. 11 U.S.C . 360bb b-3 (b) (1), unles s the autho irena ellis is termi nated or revok ed soonzac estrada. Not Available [facility] (Lab) [address] [place], [address], 01/22/2020 22:32:15 01/21/20 20 01/21/2020 SARS CoV 2 RNA (COVI D-19) , QL, hog raiser-P CR, respi rator y speci men covidcom5 [facility] is certi fied under CLIA- 88 as quali fied to perfo rm high compl exity testi ng. This testi ng was perfo rmed in the [facility] [place] [address] (CLIA Licen se #[id number], CAP #[id number], AU-ID #[id number]). Not Available [facility] (Lab) [address] [place], [address], 01/22/2020 22:32:15 01/21/20 20 01/21/2020 SARS CoV 2 RNA (COVI D-19) , QL, hog raiser-P CR, respi rator y speci men covidcom6 Facts heet for healt hcare provi ders: https ://ww w.fda .gov/ media /1362 56/do wnloa d Facts heet for patie nts: https ://ww w.fda .gov/ media /1362 57/do wnloa d Not Available [facility] (Lab) [address] [place], [address], 01/22/2020 22:32:15 05/07/20 22 05/12/2022 PATHO LOGY REPOR T . Commen t Mater ial submi tted: . juanitaiu m majus - RIGHT LABIA . Modif iers: right Not Available [facility] [address] [facility], [place], [address], 05/12/2022 16:12:01 05/07/20 22 05/12/2022 PATHO LOGY REPOR T . Commen t Diagn osis: RIGHT LABIA : DAMARIS NT OF EPIDE RMAL INCLU SANDIE CYST. BDN 05/12 1318 Local Not Available [facility] [address] [facility], [place], [address], 05/12/2022 16:12:01 05/07/20 22 05/12/2022 PATHO LOGY REPOR T . Commen t Flory faustin d: . Aiyana olivares ([facility]) MD Julieta, Patho logis t Not Available [facility] [address] [facility], [place], [address], 05/12/2022 16:12:01 05/07/20 22 05/12/2022 PATHO LOGY REPOR T . Commen t Gross descr iptio n: . 1 Conta iner, forma aliyah-f illed , label ed with patie nt ident ifica tion. RIGHT LABIA : RECEI YAS IS 1 FRAGM ENT OF CHÁVEZ SOFT TISSU E MEASU RING 1.0 X 0.5 X 0.1 CM. IT IS SECTI ONED AND SUBMI TTED IN TOTO IN CASSE TTE A1. /Jackson RA 05/09 1745 Local Not Available [facility] [address] [facility], [address], 05/12/2022 16:12:01 05/07/20 22 05/12/2022 PATHO LOGY REPOR T . Commen t Patho logis t provi ded ICD-1 0: L72.0 Not Available [facility] [address] [facility], [place], [address], 05/12/2022 16:12:01 05/07/20 22 05/12/2022 PATHO LOGY REPOR T . Commilana t CPT . 21169 1 Not Available [facility] [address] [facility], [place], [address], 05/12/2022 16:12:01 06/02/19 19 06/02/2018 MAMMO , scree parmjit, digit al, bilat eral No observ ation record ed. [facility] [address] [place], [address], 06/02/2018 14:24:24 03/04/20 22 03/04/2022 MAMMO , scree parmjit, digit al, bilat eral No observ ation record ed. [address] [facility] [address], [place], [address], 03/10/2022 11:25:03 08/02/19 25 08/01/2024 MAMMO , scree parmjit, tomos ynthe sis, bilat eral No observ ation record ed. [email or web address] [facility] (Radiology) [address] [facility], [place], [address], 08/02/2024 12:49:22 Result Notes None recorded. Problems Name Problem SNOMED Code Status Onset Date Resolution Date Notes Provider Name and Address Organization Details Recorded Time Disorder of thyroid gland 72055552 Active JACINTO Garcia [facility] 5 14:43:35 Lupus erythematosus 452604344 Active JACINTO Garcia [facility] 5 14:43:35 Hypertensive disorder 58496657 Active Alexus Chakraborty [place], [place] [facility] 5 14:43:35 Depressive disorder 38046549 Active Alexus Chak[place] [facility] 5 14:43:35 Hyperlipidemia 78245831 Active Alexus Chak[place] [facility] 5 14:43:35 Arthritis 4024641 Active Alexus Chak[place] [facility] 5 14:43:35 Headache 37655673 Active Alexus Chakrab[place] [facility] 5 14:43:35 Obesity 640715190 Active Herber Eagle MD Attn: Michelle mullen,[address] [place], [address], [place] [facility] 6 12:53:10 Menopausal symptom 51568902 Active Paola Lawrence [facility] Attn: Michelle mullen,[address] [facility], [place], [address], [place] [facility] 5 15:47:19 Candidiasis of vagina 40441257 Active Brissa Al [place] [facility] 5 16:15:18 Pruritus of vagina 13855493 Active Nathalie Rao [place] [facility] 6 09:43:26 Menopausal syndrome 906008177 Active Paola Lawrence [facility] Attn: Michelle mullen,[address] [place], [address], [place] [facility] 5 15:02:48 Problem Notes None recorded. Procedures Surgical History Date Name Laterality Status Provider Name and Address Organization Details Recorded Time 08/02/19 25 Most Recent Mammogram completed Nereida Gil RN [place] [facility] 08/02/2024 11:09:24 05/07/20 22 Generic Procedure completed Giovanny Omalley MD Attn: Accounting,[address] [place], [address], [place] [facility] 05/07/2022 13:58:19 12/20/19 15 Date of Last Pap Smear completed Ivelisse Anthony MA [facility] 07/29/2020 10:52:17 Orthopedic Surgery completed Ivelisse Anthony MA [facility] 05/07/2022 11:17:13 excision of ganglion cyst completed Ivelisse Anthony MA [facility] 05/07/2022 11:18:17 Hysterectomy completed Brissa Al [facility] 14:16:50 Imaging Results None recorded. Procedure Notes None recorded. Medical Equipment None Reported. Allergies Allergen ID Allergen Name Allergen Category Reaction Reaction Severity Criticality Documentation Date Start Date Code Code System Note Provider Name and Address Organization Details Recorded Time 39384 Flagyl medicatio n nausea severe Not available 09/07/201644068 6 RxNorm Nathalie Gutierrezodilia cartagena [facility] 7 10:46:12 42099 Accupril medicatio n respirato ry distress severe Not available 09/07/2016 81261 RxNorm Nathalie Gutierrezodilia cartagena [facility] 7 10:46:32 Medications Name Sig Start Date Stop Date Status Note LastModified by Organization Details LastModified Time antacid/di phen/lido 111 mouthwas SWISH AND SPIT WITH 20 ML BY MOUTH EVERY 6 HOURS NEEDED FOR ORAL ULCER active Not Available Not Available No t Available Prescripti on - New 12/20 completed adipex pt picker tender helper Not Available Not Available Not Available antac/diph en/lido/ny st 1111susp SWISH AND SPIT 20 ML BY MOUTH EVERY 4 HOURS NEEDED FOR ORAL ULCERS active Not Available Not Available No t Available multivitam in tablet TAKE 1 TABLET BY MOUTH DAILY active Not Available Not Available No t Available carisoprod ol 350 mg tablet TAKE 1 TABLET BY MOUTH FOUR TIMES DAILY NEEDED FOR MUSCLE SPASMS active Not Available Not Available No t Available amoxicilli n 500 mg capsule 07/29 completed Not Available Not Available Not Available atorvastat in 40 mg tablet 07/29 completed Not Available Not Available Not Available BD SafetyGlid e Shielding Regular Bevel 1 mL 25 gauge x 5/8 syringe USE WITH VITAMIN B12 INJECTIO N active Not Available Not Available No t Available clotrimazo le 10 mg jessie active Not Available Not Available Not Available silver sulfadiazi ne 1 % topical cream 12/20 completed Not Available Not Available Not Available albuterol sulfate 0.63 mg/3 mL solution for nebulizati on USE 1 VIAL VIA NEBULIZE R EVERY 4 TO 6 HOURS NEEDED FOR SHORTNES S OF BREATH OR WHEEZING active Not Available Not Available No t Available promethazi ne-DM 6.25 mg-15 mg/5 mL oral syrup TAKE 5 ML BY MOUTH EVERY 4 HOURS NEEDED FOR COUGH active Not Available Not Available No t Available neomycin-p olymyxin-h ydrocort 3.5 mg/mL-10,0 00 unit/mL-1 % ear solution 07/29 completed Not Available Not Available Not Available nystatin 100,000 unit/mL oral suspension active Not Available Not Available N ot Available prednisone 10 mg tablet 05/07 completed Not Available Not Available Not Available gabapentin 600 mg tablet 12/20 completed Not Available Not Available Not Available doxycyclin e hyclate 100 mg capsule active Not Available Not Available Not Available quetiapine 300 mg tablet TAKE 2 TABLETS BY MOUTH AT NIGHT active Not Available Not Available No t Available Klor-Con 10 mEq tablet,ext ended release active Not Available Not Available Not Available albuterol sulfate 2.5 mg/3 mL (0.083 %) solution for nebulizati on USE 1 VIAL VIA NEBULIZE R EVERY 4 HOURS NEEDED FOR WHEEZING OR SHORTNES S OF BREATH active Not Available Not Available No t Available citalopram 40 mg tablet TAKE 1 TABLET BY MOUTH EVERY MORNING active Not Available Not Available No t Available loperamide 2 mg capsule active Not Available Not Available Not Available atorvastat in 10 mg tablet TAKE 1 TABLET BY MOUTH DAILY active Not Available Not Available No t Available azithromyc in 250 mg tablet TAKE 2 TABLETS BY MOUTH FOR 1 DAY THEN TAKE 1 TABLET BY MOUTH DAILY FOR 4 DAYS 12/20 completed Not Available Not Available Not Available alprazolam 1 mg tablet TAKE 1 TABLET BY MOUTH THREE TIMES DAILY AND 2 TABLETS EVERY NIGHT AT BEDTIME active Not Available Not Available No t Available Lidocaine Viscous 2 % mucosal solution active Not Available Not Available Not Available fluconazol e 150 mg tablet TAKE 1 TABLET BY MOUTH 1 TIME 12/20 completed Not Available Not Available Not Available sulfametho xazole 400 mg-trimeth oprim 80 mg tablet 07/29 completed Not Available Not Available Not Available sumatripta n 100 mg tablet 12/20 completed Not Available Not Available Not Available cephalexin 250 mg capsule 12/20 completed Not Available Not Available Not Available hydrocodon e 5 mg-acetami nophen 325 mg tablet active Not Available Not Available No t Available promethazi ne 6.25 mg/5 mL oral syrup 07/29 completed Not Available Not Available Not Available minocyclin e 100 mg capsule active Not Available Not Available Not Available meloxicam 15 mg tablet 07/29 completed Not Available Not Available Not Available ondansetro n HCl 4 mg tablet TAKE 1 TABLET BY MOUTH EVERY 8 HOURS NEEDED FOR NAUSEA active Not Available Not Available No t Available prednisone 20 mg tablet TAKE 2 TABLETS BY MOUTH DAILY FOR 5 DAYS active Not Available Not Available No t Available dexamethas one 6 mg tablet 07/29 completed Not Available Not Available Not Available spironolac tone 100 mg tablet 12/20 completed Not Available Not Available Not Available prednisone 5 mg tablet 12/20 completed Not Available Not Available Not Available sumatripta n 5 mg/actuati on nasal spray SPRAY ENTIRE CONTENTS OF ONE SPRAYER INTO NOSTRIL AT ONSET OF MIGRAINE . MAY REPEAT IN OTHER NOSTRIL 2 HOURS AFTER IS HEADACHE PERSISTS active Not Available Not Available No t Available methylpred nisolone 4 mg tablet active Not Available Not Available No t Available hydroxyzin e pamoate 50 mg capsule 12/20 completed Not Available Not Available Not Available promethazi ne 6.25 mg-codeine 10 mg/5 mL syrup TAKE 5 ML BY MOUTH EVERY 4 HOURS NEEDED FOR COUGH active Not Available Not Available No t Available penicillin V potassium 500 mg tablet 07/29 completed Not Available Not Available Not Available topiramate 25 mg tablet 12/20 completed Not Available Not Available Not Available metronidaz ole 500 mg tablet 05/07 completed Not Available Not Available Not Available azathiopri ne 50 mg tablet active Not Available Not Available Not Available fluocinoni de 0.05 % topical ointment APPLY SPARINGL Y TO THE AFFECTED AREA 2-3 TIMES DAILY active Not Available Not Available No t Available ciprofloxa chantelle 250 mg tablet TAKE 1 TABLET BY MOUTH EVERY 12 HOURS FOR 3 DAYS 12/20 completed Not Available Not Available Not Available Vitamin C 500 mg chewable tablet CHEW AND SWALLOW 1 TABLET BY MOUTH TWICE DAILY active Not Available Not Available No t Available amlodipine 5 mg tablet TAKE 1 TABLET BY MOUTH DAILY active Not Available Not Available No t Available prochlorpe razine maleate 10 mg tablet active Not Available Not Available No t Available ciprofloxa chantelle 500 mg tablet TAKE 1 TABLET BY MOUTH TWICE DAILY FOR 7 DAYS 12/20 completed Not Available Not Available Not Available sulfametho xazole 800 mg-trimeth oprim 160 mg tablet TAKE 1 TABLET BY MOUTH TWICE DAILY FOR 7 DAYS 05/07 completed Not Available Not Available Not Available hydrocodon e 10 mg-acetami nophen 325 mg tablet TAKE 1 TABLET BY MOUTH EVERY 6 HOURS NEEDED FOR PAIN active Not Available Not Available No t Available omeprazole 40 mg capsule,de layed release TAKE 1 CAPSULE BY MOUTH DAILY active Not Available Not Available No t Available aspirin 81 mg tablet,del ayed release TAKE 1 TABLET BY MOUTH ONCE DAILY active Not Available Not Available No t Available triamcinol one acetonide 0.1 % topical cream 12/20 completed Not Available Not Available Not Available spironolac tone 25 mg tablet TAKE 3 TABLETS BY MOUTH EVERY NIGHT AT BEDTIME active Not Available Not Available No t Available amoxicilli n 500 mg tablet 07/29 completed Not Available Not Available Not Available lamotrigin e 25 mg tablet active Not Available Not Available Not Available mycophenol ate mofetil 500 mg tablet active Not Available Not Available Not Available cyprohepta dine 4 mg tablet active Not Available Not Available Not Available levothyrox ine 100 mcg tablet active Not Available Not Available N ot Available sodium chloride 0.9 % irrigation solution active Not Available Not Available Not Available oxycodone- acetaminop hen 5 mg-325 mg tablet 05/07 completed Not Available Not Available Not Available hydrocorti sone 2.5 % topical cream with perineal applicator APPLY TO HEMMORHO IDS TWICE DAILY active Not Available Not Available No t Available amoxicilli n 875 mg tablet 07/29 completed Not Available Not Available Not Available famotidine 20 mg tablet TAKE 1 TABLET BY MOUTH TWICE DAILY active Not Available Not Available No t Available amitriptyl ine 25 mg tablet 07/29 completed Not Available Not Available Not Available ondansetro n HCl 4 mg/5 mL oral solution 07/29 completed Not Available Not Available Not Available estradiol 1 mg tablet TAKE 1 TABLET BY MOUTH EVERY DAY 02/28 completed Not Available Not Available Not Available oxycodone- acetaminop hen 10 mg-325 mg tablet TAKE 1 TABLET BY MOUTH EVERY 6 HOURS FOR UP TO 5 DAYS NEEDED FOR PAIN active Not Available Not Available No t Available dicyclomin e 20 mg tablet active Not Available Not Available Not Available amlodipine 10 mg tablet 12/20 completed Not Available Not Available Not Available rizatripta n 10 mg disintegra ting tablet DISSOLVE ONE TABLET BY MOUTH ONCE NEEDED FOR MIGRAINE FOR UP TO 1 DOSE. MAY REPEAT ONE TIME IN 2 HOURS. MAXIMUM OF 2 TABLETS IN 24 HOURS active Not Available Not Available No t Available doxycyclin e monohydrat e 100 mg capsule 12/20 completed Not Available Not Available Not Available levothyrox ine 50 mcg tablet TAKE 1 TABLET BY MOUTH DAILY 12/20 completed Not Available Not Available Not Available cephalexin 500 mg capsule TAKE 1 CAPSULE BY MOUTH FOUR TIMES DAILY FOR 7 DAYS 12/20 completed Not Available Not Available Not Available simvastati n 20 mg tablet 12/20 completed Not Available Not Available Not Available acyclovir 5 % topical ointment 12/20 completed Not Available Not Available Not Available cyanocobal hemphill (vit B-12) 1,000 mcg/mL injection solution INJECT 1ML INTO THE MUSCLE EVERY 3 WEEKS active Not Available Not Available No t Available tacrolimus 0.1 % topical ointment APPLY TOPICALL Y TO THE AFFECTED AREA TWICE DAILY active Not Available Not Available No t Available esomeprazo le magnesium 40 mg capsule,de layed release 07/29 completed Not Available Not Available Not Available triamcinol one acetonide 0.1 % topical ointment 12/20 completed Not Available Not Available Not Available ranitidine 150 mg tablet active Not Available Not Available Not Available prednisone 50 mg tablet 05/07 completed Not Available Not Available Not Available promethazi ne 25 mg tablet active Not Available Not Available Not Available tacrolimus 0.03 % topical ointment APPLY TOPICALL Y TO THE AFFECTED AREA DAILY active Not Available Not Available No t Available dapsone 25 mg tablet active Not Available Not Available No t Available gabapentin 300 mg capsule active Not Available Not Available Not Available Adipex-P 37.5 mg capsule Take 1 capsule every day by oral route. 07/29 completed Not Available Not Available Not Available triamteren e 37.5 mg-hydroch lorothiazi de 25 mg tablet active Not Available Not Available Not Available omeprazole 20 mg capsule,de layed release TAKE 1 CAPSULE BY MOUTH DAILY active Not Available Not Available No t Available Banophen 25 mg capsule TAKE 2 CAPSULES BY MOUTH AT BEDTIME NIGHT BEFORE PROCEDUR E AND 2 CAPSULES MORNING OF PROCEDUR E 07/29 completed Not Available Not Available Not Available Drysol Dab-O-Hakan c 20 % topical solution APPLY EXTERNAL LY TO THE AFFECTED AREA EVERY NIGHT DIRECTED active Not Available Not Available No t Available estradiol 2 mg tablet TAKE 1 TABLET BY MOUTH EVERY DAY DIRECTED active Not Available Not Available No t Available hydrocorti sone 2.5 % topical cream APPLY TOPICALL Y TO THE AFFECTED AREA TWICE DAILY ON WEEKENDS FOR ONE MONTH active Not Available Not Available No t Available montelukas t 10 mg tablet 07/29 completed Not Available Not Available Not Available hydroxyzin e HCl 25 mg tablet active Not Available Not Available No t Available codeine 10 mg-guaifen esin 100 mg/5 mL oral liquid TAKE 10 ML BY MOUTH EVERY 6 HOURS active Not Available Not Available No t Available mupirocin 2 % topical ointment 12/20 completed Not Available Not Available Not Available alprazolam 2 mg tablet 07/29 completed Not Available Not Available Not Available estradiol 0.5 mg tablet Take 1 tablet every day by oral route. 02/28 completed Not Available Not Available Not Available hydroxychl oroquine 200 mg tablet TAKE 1 TABLET BY MOUTH ALTERNAT ING WITH 2 EVERY OTHER DAY active Not Available Not Available No t Available polyethyle ne glycol 3350 17 gram/dose oral powder MIX 17GRAMS IN 4-8 OUNCES OF LIQUID AND DRINK BY MOUTH DAILY active Not Available Not Available No t Available levofloxac in 500 mg tablet 07/29 completed Not Available Not Available Not Available methylpred nisolone 4 mg tablets in a dose pack 12/20 completed Not Available Not Available Not Available albuterol sulfate HFA 90 mcg/actuat ion aerosol inhaler INHALE ONE PUFF BY MOUTH EVERY 4 HOURS NEEDED FOR SHORTNES S OF BREATH OR WHEEZING active Not Available Not Available No t Available propranolo l 20 mg tablet active Not Available Not Available Not Available ondansetro n 4 mg disintegra ting tablet DISSOLVE 1 TABLET ON THE TONGUE EVERY 8 HOURS NEEDED FOR NAUSEA OR VOMITING active Not Available Not Available No t Available topiramate 100 mg tablet active Not Available Not Available Not Available fluticason e propionate 50 mcg/actuat ion nasal spray,susp ension SHAKE LIQUID AND USE 2 SPRAYS IN EACH NOSTRIL DAILY active Not Available Not Available No t Available loratadine 10 mg tablet TAKE ONE TABLET BY MOUTH DAILY active Not Available Not Available No t Available naproxen 500 mg tablet 12/20 completed Not Available Not Available Not Available spironolac tone 50 mg tablet 07/29 completed Not Available Not Available Not Available metoclopra mide 10 mg tablet active Not Available Not Available Not Available levothyrox ine 112 mcg tablet TAKE 1 TABLET BY MOUTH DAILY 12/20 completed Not Available Not Available Not Available amoxicilli n 875 mg-potassi um clavulanat e 125 mg tablet TAKE 1 TABLET BY MOUTH TWICE DAILY WITH FOOD FOR 7 DAYS 12/20 completed Not Available Not Available Not Available amoxicilli n 500 mg-potassi um clavulanat e 125 mg tablet TAKE 1 TABLET BY MOUTH THREE TIMES DAILY FOR 10 DAYS 07/29 completed Not Available Not Available Not Available neomycin 3.5 mg/g-polym yxin B 10,000 unit/g-dex ameth 0.1 % eye oint APPLY THIN LAYER TO BOTH EYELIDS TWICE DAILY active Not Available Not Available No t Available clindamyci n 1 % lotion 05/07 completed Not Available Not Available Not Available sumatripta n 6 mg/0.5 mL subcutaneo us pen injector INJECT 0.5 ML UNDER THE SKIN ONCE DIRECTED NEEDED FOR MIGRAINE FOR UP TO 1 DOSE active Not Available Not Available No t Available neomycin-b acitracin- poly-HC 3.5 mg-400-10, 000 unit/g-1 % eye ointment 12/20 completed Not Available Not Available Not Available azithromyc in 500 mg tablet 07/29 completed Not Available Not Available Not Available Restasis 0.05 % eye drops in a dropperett e INSTILL 1 DROP IN BOTH EYES TWICE DAILY active Not Available Not Available No t Available DOK Plus 8.6 mg-50 mg tablet TAKE ONE TO TWO TABLETS BY MOUTH DAILY NEEDED FOR CONSTIPA TION active Not Available Not Available No t Available nitrofuran toin monohydrat e/macrocry stals 100 mg capsule TAKE 1 CAPSULE BY MOUTH TWICE DAILY FOR 7 DAYS 05/07 completed Not Available Not Available Not Available duloxetine 60 mg capsule,de layed release TAKE 1 CAPSULE BY MOUTH DAILY active Not Available Not Available No t Available cefdinir 250 mg/5 mL oral suspension active Not Available Not Available N ot Available lactulose 10 gram/15 mL oral solution active Not Available Not Available Not Available Amitiza 24 mcg capsule active Not Available Not Available Not Available budesonide -formotero l HFA 160 mcg-4.5 mcg/actuat ion aerosol inhaler INHALE 2 PUFFS BY MOUTH EVERY 12 HOURS active Not Available Not Available No t Available quetiapine ER 300 mg tablet,ext ended release 24 hr active Not Available Not Available Not Available oxycodone 10 mg tablet 07/29 completed Not Available Not Available Not Available GaviLyte-G 236 gram-22.74 gram-6.74 gram-5.86 gram oral solution MIX AND DRINK ONCE DIRECTED active Not Available Not Available No t Available ergocalcif tarun (vitamin D2) 50 mcg (2,000 unit) tablet TAKE 1 TABLET BY MOUTH DAILY active Not Available Not Available No t Available Linzess 145 mcg capsule TAKE 1 CAPSULE BY MOUTH EVERY MORNING BEFORE BREAKFAS T 12/20 completed Not Available Not Available Not Available Linzess 290 mcg capsule TAKE 1 CAPSULE BY MOUTH EVERY MORNING active Not Available Not Available No t Available naloxone 4 mg/actuati on nasal spray active Not Available Not Available Not Available Xiidra 5 % eye drops in a dropperett e active Not Available Not Available Not Available Ubrelvy 100 mg tablet active Not Available Not Available Not Available [facility] ODT 75 mg disintegra ting tablet DISSOLVE 1 TABLET ON THE TONGUE 1 TIME NEEDED FOR MIGRAINE HEADACHE active Not Available Not Available No t Available Paxlovid 300 mg (150 mg x 2)-100 mg tablets in a dose pack TK 2 NIRMATRE LVIR TS AND 1 RITONAVI R T TOGETHER PO BID FOR 5 DAYS active Not Available Not Available No t Available Vitals Date Recorded Body weight Body mass index (BMI) Body height Systolic And Diastolic Provider Name and Address Organization Details Last Updated DateTime 07/29/2020 31654.79 g 23.1 kg/m2 167.64 cm 122/80 mm[Hg] Ivelisse Anthony MA [facility] 07/29/2020 10:48:00 Date Recorded Body height Body mass index (BMI) Body weight Systolic And Diastolic Provider Name and Address Organization Details Last Updated DateTime 12/21/2023 167.64 cm 25.4 kg/m2 10982.44 g 125/86 mm[Hg] Ivelisse Anthony MA [facility] 12/21/2023 15:27:37 Date Recorded Body weight Systolic And Diastolic Provider Name and Address Organization Details Last Updated DateTime 03/24/2018 25711.58 g 110/72 mm[Hg] Stephanie Sanchez MA [facility] 03/24/2018 10:00:49 Date Recorded Body height Body mass index (BMI) Body weight Systolic And Diastolic Provider Name and Address Organization Details Last Updated DateTime 05/07/2022 167.64 cm 24.2 kg/m2 00099.86 g 120/74 mm[Hg] Ivelisse Anthony MA [facility] 05/07/2022 11:12:05 Social History Question Answer Notes LastModified by Organizat ion Details LastModified Time Tobacco Smoking Status Never [facility] 06/25/2014 14:43:35 Do You Have An Advance Directive? No Information n ot available 05/07/2022 How Many Years Have You Consumed Alcohol? 20 Information not available 05/07/2022 Is Blood Transfusion Acceptable In An Emergency? Yes Information not available 05/07/2022 What Is Your Level Of Caffeine Consumption? Occasional Information not available 05/07/2022 In The 14 Days Before Symptom Onset, Have You Had Close Contact With A Laboratory-confirm ed COVID-19 While That Case Was Ill? No Information n ot available 05/07/2022 In The 14 Days Before Symptom Onset, Have You Had Close Contact With A Person Who Is Under Investigation For COVID-19 While That Person Was Ill? No Information not available 05/07/2022 Have You Been To An Area Known To Be High Risk For COVID-19? No Information not available 05/07/2022 What Type Of Diet Are You Following? REGULAR Information n ot available 05/07/2022 What Is The Highest Grade Or Level Of School You Have Completed Or The Highest Degree You Have Received? [id number] Information not available 05/07/2022 Have There Been Any Changes To Your Family Or Social Situation? No Information no t available 05/07/2022 What Was The Date Of Your Most Recent Tobacco Screening? 12/21/2023 Information not available 12/21/2023 How Many Children Do You Have? 3 [email or web address] Information not available 06/25/2014 Do You Have Any Pets? No Information not available 05/07/2022 What Is Your Relationship Status? Information not available 05/07/2022 Do You Use Your Seat Belt Or Car Seat Routinely? Yes Information not available 05/07/2022 Are You Sexually Active? Yes Information not available 05/07/2022 Do You Have Smoke And Carbon Monoxide Detectors In Your Home? Yes Information not available 05/07/2022 Are You Passively Exposed To Smoke? No Information no t available 05/07/2022 Do You Use Sunscreen Routinely? No Information not available 05/07/2022 Sex: Female Functional Status Question Answer Note LastModified by Organizat ion Details LastModified Time Do you use any illicit or recreational drugs? No Information not available 05/07/2022 What is your level of alcohol consumption? Occasional Information not available 05/07/2022 Are you currently employed? No Information not available 05/07/2022 What is your exercise level? Occasional Information not available 05/07/2022 Mental Status Question Answer Note LastModified by Organization D etails LastModified Time Do you feel stressed (tense, restless, nervous, or anxious, or unable to sleep at night)? [id number] Information not available 05/07/2022 Family History Relationship Description Onset Age of this Age Resolved Age Notes LastModified by Organization Details LastModified Time Father Hypertensive disorder [email or web address] Not available 2014 14:16:50 Father Hyperlipidem yesika ayalaichert Not available 2014 14:16:50 Medical History Condition Response Obesity Y Other Y Thyroid Disease Y High Blood Pressure Y Arthritis Y High Cholesterol Y Headaches Y Asthma Y Gynecological History Statement/Question Response Abnormal Pap Y Flow Heavy STIs/STDs Y Duration of Flow (days) 7 Most Recent Mammogram 08/01/2024 Age at Menarche 15 Current Control Method Hysterectom y Age at First Child 17 Sexually Active? N Menses Monthly No Date of Last Pap Smear 12/19/2014 Sexual Problems? N LMP Unknown Obstetrics History GPAL:G 3 P 3 0 0 3 Type Value Multiple Births 0 Full Term 3 Induced 0 Spontaneous 0 Premature 0 Living 3 Ectopics 0 Total 3 Past Encounters Encounter ID Performer Location Encounter Start Date Encounter Closed Date Diagnosis/Indication Diagnosis SNOMED-CT Code Diagnosis ICD10 Code Diagnosis IMO Codes Diagnosis Note [id number] Paola Lawrence [facility] Samantha Nair ([place] [address]) [address] [facility] [place] [address] 12/19/2014 14:08:18 12/19/2014 16:00:01 Gynecologic examination 69897393 Pruritus of vagina 47866352 Menopausal syndrome 666021713 [id number] Paola Lawrence [facility] Samantha Nair ([place] [address]) [address] [place] [address] 09/07/2016 10:17:57 09/08/2016 09:26:29 Gynecologic examination 45566969 Z01.419 Menopausal syndrome 1237 96130 N95.9 Candidiasis of vagina 72 538449 B37.3 [id number] MD Samantha Hunter ([place] [address]) [address] [place] [address] 09/14/2016 14:13:15 09/15/2016 09:11:07 Herniation of rectum into vagina 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 N81.6 Urinary incontinence 165 286542 R32 Urogynecol ogy referral [id number] Herebr Eagle MD [facility] [address] [place] [address] 12/20/2016 10:34:08 12/21/2016 09:33:08 Hypothyroidism 41919300 E03.9 Obesity 339264214 E66.9 [id number] MD Samantha Hunter [address] [place] [address] [place] [address] 03/24/2018 09:45:50 03/27/2018 11:19:15 Gynecologic examination 78129875 Z01.419 CBE and pelvic exam performed Screening mammography 24 132210 Z12.31 [id number] GERTRUDE Quiñones celestine [address] [place] [address] 01/21/2020 13:25:30 01/22/2020 08:17:33 Suspected COVID-19 236524664 Z03.818 D/w pt the current pandemic of COVID-19 and call for social isolation in order to blunt the curve and minimize risk and spread. Encouraged patient and family to take restrictio ns seriously. They have verbalized understand ing of such. Viral syndrome 871469434 B34.9 [id number] MD Samantha Hunter [address] [place] [address] [place] [address] 07/29/2020 10:21:25 07/30/2020 11:54:51 Gynecologic examination 05167704 Z01.419 CBE and pelvic exam performed Menopausal flushing 1984 55806 N95.1 Estradiol discontinu ed, patient had a stroke one year ago.Bird bartholomew will call the office after she she sees her psychiatri st and will consider venlafaxin e for treatment. Candidiasis of vagina 72 458832 B37.3 [id number] MD Samantha Hunter [address] [place] [address] [place] [address] 05/07/2022 10:56:41 05/11/2022 09:20:23 Gynecologic examination 22203509 Z01.419 CBE and pelvic exam performed Menopausal symptom 38429 002 E89.41 --Pt has a history of stroke and cannot take hormone replacemen t therapy--P t is currently taking many medication s that interact with venlafaxin e. She is also taking xanax multiple times a day. Open comedone 122505430 L70.0 --Removed from right labia--Sen d to pathology [id number] MD Samantha Hunter [address] [place] [address] [place] [address] 12/21/2023 15:08:16 12/22/2023 09:39:32 Gynecologic examination 52036252 Z01.419 CBE and pelvic exam performed Screening mammography 24 541213 Z12.31 [facility] 466798150 E66 .3 Health Concerns Section Related Observation LastModified by Organization Detai ls LastModified Time None Recorded Concern Status LastModified by Organization Details LastModified Time None Recorded Advance Directives Directive N: Payers Insurance Date Sequence Insurance Name Policy Number Policy Sotelo Covered Member ID Sotelo Member ID Guarantor Name 07/11/2024 2 [employer] [place] - [place] ON OR AFTER 2020 (MEDICAID REPLACEMENT - HMO) Leticia Post [id number] Leticia Post 07/11/2024 [facility] (MEDICAID HMO) Leticia Post [id number] Leticia Post 07/11/2024 [place] - [facility] - FQ Leticia Post [id number] Leticia Post 07/11/2024 2 [place] WHEN MEDICARE OR MEDICARE REPLACEMENT PRIMARY) Leticia Post [id number] Leticia Post 07/11/2024 [place] Leticia Post [id number] Leticia Post 07/11/2024 1 [place] Leticia Post [id number] Leticia Post 07/11/2024 2 [place] OR MEDICARE REPLACEMENT PRIMARY) Leticia Post [id number] Leitcia Post 07/11/2024 [place] Leticia Post [id number] Leticia Post 07/11/2024 [place] OR MEDICARE REPLACEMENT PRIMARY) Leticia Post [id number] Leticia Post Notes Date Note Type Note Provider Name and Address Organization Details Recorded Time 8 text/html Annual Vending Machine Collector Post-MenopausalReported by PatientGenitourinary symptomsFor menopausal symptoms, patient reportsno menopausal symptomsandnormal vaginal lubrication. For vaginal bleeding, patient reportshistory of menopause having occurredandno history of post menopausal bleeding. For urinary symptoms, patient reportsno hematuria,no incontinence,no nocturia, andno urinary frequency. For vulva, patient reportsno genital lesionandno vulvar atrophy. For vagina, patient reportsnormal vaginal dischargeandno vaginal atrophy.Breast symptomsFor breast, patient reportsno breast lump,no nipple discharge, andno breast pain.Psychological symptomsFor sexual complaints, patient reportsno sexual complaints. For psychological symptoms, patient reportsno depressionandno anxiety.Preventative measuresFor preventive measures, patient reportsneeds to schedule mammogram.ROS as noted in the HPI Giovanny Omalley MD Attn: Accounting,[address] [place], [address], [facility] [employer] 03/24/2018 10:34:47 0 text/html COVID-19 Symptoms September 2019Reported by PatientUpper Respiratory SymptomsFor covid-19 signs and symptoms, patient reportscough resolved,fever resolved,shortness of breath resolved,chills resolved,repeated shaking with chills resolved,muscle pain resolved,headache resolved,sore throat resolved,loss of taste or smell resolved,vomiting or diarrhea resolved,fatigue resolved,anorexia resolved, andsore throat same. For contacts and exposure, patient reportsclose proximity with person with covid-19andlives in the same household as a person with covid-19. For associated symptoms, patient reportsno sputum production,no wheezing,no runny nose,no vomiting,no diarrhea,no body aches,no nausea,no change in mental status,no hypotension, andno tachycardia. COVID ScreeningReported by PatientHPIFor onset/duration of fever, patient reportsno fever. For associated symptoms, patient reportsno coughandno shortness of breath. For comorbidities, (lupus).ROS as noted in the HPI 59 yo female ,spoke via phone with C/O, sore throat, exposed to pos COVID person, tested pos LAURA Coles NP Attn: Accounting,[address] [facility], [place], [address], [facility] 01/21/2020 13:53:28 1 text/html Annual Vending Machine Collector Post-MenopausalReported by PatientGenitourinary symptomsFor menopausal symptoms, patient reportshot flashesbut reportsnormal vaginal lubrication. For vaginal bleeding, patient reportshistory of menopause having occurredandno history of post menopausal bleeding. For urinary symptoms, patient reportsno hematuria,no incontinence,no nocturia, andno urinary frequency. For vulva, patient reportsno genital lesionandno vulvar atrophy. For vagina, patient reportsnormal vaginal dischargeandno vaginal atrophy.Breast symptomsFor breast, patient reportsno breast lump,no nipple discharge, andno breast pain.Psychological symptomsFor sexual complaints, patient reportsno sexual complaints. For psychological symptoms, patient reportsno depressionandno anxiety.Patient would like a prescription for fluconazole in case she develops a yeast infection.ROS as noted in the [facility] Giovanny Omalley MD Attn: Accounting,[address] [place], [address], [facility] [employer] 07/29/2020 13:22:39 2 text/html Annual Vending Machine Collector Post-MenopausalReported by PatientGenitourinary symptomsFor menopausal symptoms, patient reportshot flashesbut reportsnormal vaginal lubrication. For vaginal bleeding, patient reportshistory of menopause having occurredandno history of post menopausal bleeding. For urinary symptoms, patient reportsno hematuria,no incontinence,no nocturia, andno urinary frequency. For vulva, patient reportsno genital lesionandno vulvar atrophy. For vagina, patient reportsnormal vaginal dischargeandno vaginal atrophy.Breast symptomsFor breast, patient reportsno breast lump,no nipple discharge, andno breast pain.Psychological symptomsFor sexual complaints, patient reportsno sexual complaints. For psychological symptoms, patient reportsno depressionandno anxiety.ROS as noted in the [facility] Giovanny Omalley MD Attn: Accounting,[address] [place], [address], [facility] 05/07/2022 14:24:49 4 text/html Annual Vending Machine Collector Post-MenopausalReported by PatientGenitourinary symptomsFor menopausal symptoms, patient reportsno menopausal symptomsandnormal vaginal lubrication. For vaginal bleeding, patient reportshistory of menopause having occurredandno history of post menopausal bleeding. For urinary symptoms, patient reportsno hematuria,no incontinence,no nocturia, andno urinary frequency. For vulva, patient reportsno genital lesionandno vulvar atrophy. For vagina, patient reportsnormal vaginal dischargeandno vaginal atrophy.Breast symptomsFor breast, patient reportsno breast lump,no nipple discharge, andno breast pain.Psychological symptomsFor sexual complaints, patient reportsno sexual complaints. For psychological symptoms, patient reportsno depressionandno anxiety.ROS as noted in the HPI Giovanny Omalley MD Attn: Accounting,[address] [place], [address], [facility] 12/21/2023 17:18:48 OBGyn Episode No OBEpisode recorded.
[2025-03-04 19:41] LABS: Add Urine Microscopic? YES; Appearance Urine Cloudy (Clear); Glucose Urine UA Negative (Negative); Leukocyte Esterase Ur 1+ LEU/UL (Negative); Nitrate Urine Negative (Negative); Non Pathogenic Casts 0-2; Specific Grav Ur 1.028 (1.001-1.035)
== END 2025-03-04 14:50 | disposition home or self-care (01) ==
PROVIDERS: PCP Family Medicine; Visit Provider Family Medicine
DX: M54.6 Pain in thoracic spine (principal); N39.0 Urinary tract infection, site not specified
CPT/HCPCS: 72070; 81001; 87086; 87147; 87186

== ENCOUNTER 2025-05-20 10:13 | Outpatient (CLI) | payer MEDICARE, MEDICAID, SELFPAY ==
--- OUTSIDE RECORDS SUMMARY | 2025-05-20 10:19 | XMS_ITS | Encounter Summary ---
Author Organization [facility] Address [address] [place] [address] Phone Care Team Providers Care Automation Design Engineer Name Role Phone Yashira Valencia APRN, NANOTECHNOLOGY ENGINEERING TECHNOLOGIST Unavailable [phone] Julio Cesar Tracy MD Unavailable Robin Stratton MD Primary Care Provider [phone] Markel Underwood MD Primary Care Provider Catia Bolanos APRN, NANOTECHNOLOGY ENGINEERING TECHNOLOGIST Unavailable Reason for Visit * Reason Onset Date Comments Medication Refill 07/03/2021 Encounter Details Date Type Department Care Team (Late st Contact Info) Description 07/03/2021 Refill [facility] - [facility] [address] [place] [address] Robin Stratton MD [address] [address] Medication Refill Social History Tobacco Use Types [...] 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 fluticasone (FLONASE) 50 MCG/ACT Suspension [[id number]] 9 Status: Active Ordering user: Qamar Saab APRN, CNP 05/05/21829 Authorized by: Qamar Saab APRN, CNP Frequency: Daily 05/05/21 - Until Discontinued Diagnoses Chronic pansinusitis [J32.4] Associated Diagnoses Chronic pansinusitis Pharmacy [id number] OM FILLER * Telephone Encounter - Tenisha Roach - 07/03/2021 2:19 PM CST Received a faxed Rx request from pharmacy. Reordered refill medication(s) requested and pended for nurse and physician/VLAD review. Refill encounter routed to nurse Jose L's pool for processing. OM FILLER documented in this encounter Plan of Treatment [...] 19 06/13/2023 06/13/2023 06/14/2023 12:5 9 AM BOTTOM FILLER COVID - 19 Confirmed 06/13/2023 06/13/2023 024 12:16 AM BOTTOM FILLER Assessment Noted Time PHQ-9 Depression Total Score: 14 021 8:50 AM CDT documented as of this encounter Care Teams Automation Design Engineer Relationship Specialty Start Date End Date Robin Stratton MD [address] [address] PCP - General Family Medicine 05/28/19 02/15/23 Markel Underwood MD [address] [address] PCP - General Family Medicine 02/16/23 Yashira Valencia APRN, NANOTECHNOLOGY ENGINEERING TECHNOLOGIST Nurse Practitioner Advanced Practice Nurse 04/03/15 Julio Cesar Tracy MD General Surgery 12/18/15 Catia Bolanos APRN, NANOTECHNOLOGY ENGINEERING TECHNOLOGIST [address] [place] [address] Nurse Practitioner Advanced Practice Nurse 08/20/22 documented as of this encounter
--- OUTSIDE RECORDS SUMMARY | 2025-05-20 10:19 | XMS_ITS | Encounter Summary ---
Author Organization [facility] Address [address] [place] [address] Phone Care Team Providers Care Shipper/Receiver Name Role Phone Yashira Valencia APRN, DBAS Unavailable [phone] Julio Cesar Tracy MD Unavailable Robin Stratton MD Primary Care Provider [phone] Markel Underwood MD Primary Care Provider [phone] Catia Bolanos APRN, DBAS Unavailable Reason for Visit * Reason Comments Medication Refill Encounter Details Date Type Department Care Team (Late st Contact Info) Description 08/04/2021 Refill [facility] - [facility] [address] [place] [address] Robin Stratton MD [address] [address] Medication Refill Social History Tobacco Use Types [...] 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 No / Unsure 07/27/2021 1:01 PM TEMPERATURE REGULATOR PYROMETER documented as of this encounter Miscellaneous Notes [...] 19 06/13/2023 06/13/2023 06/14/2023 12:5 9 AM TEMPERATURE REGULATOR PYROMETER COVID - 19 Confirmed 06/13/2023 06/13/2023 024 12:16 AM TEMPERATURE REGULATOR PYROMETER Assessment Noted Time PHQ-9 Depression Total Score: 0 07/28/19 22 1:00 PM TEMPERATURE REGULATOR PYROMETER documented as of this encounter Care Teams Shipper/Receiver Relationship Specialty Start Date End Date Robin Stratton MD [address] [address] PCP - General Family Medicine 05/28/19 02/15/23 Markel Underwood MD [address] [place] [address] [address] PCP - General Family Medicine 02/16/23 Yashira Valencia APRN, DBAS Nurse Practitioner Advanced Practice Nurse 04/03/15 Julio Cesar Tracy MD General Surgery 12/18/15 Catia Bolanos APRN, DBAS [address] [place] [address] Nurse Practitioner Advanced Practice Nurse 08/20/22 documented as of this encounter
--- OUTSIDE RECORDS SUMMARY | 2025-05-20 10:19 | XMS_ITS | Clinical Summary ---
Author Organization [facility] Address [address] [place] [address] Phone Care Team Providers Care Manager Utilization Review Name Role Phone Noe Stratton MD Primary Care Provider [phone] Allergies Active Allergy Reactions Criticality Noted Date [...] mouth daily. Active fluticasone (FLONASE) 50 mcg/spray Gepp, Suspension 2 Sprays daily. Active HYDROcodone-aceta minophen [...] VACCINE (60+ or ) (1 - Risk 50-74 years 1-dose series) 2011 INFLUENZA VACCINE (#1) 2024 03/14/2018, 2015 Medical Devices Implanted Type Area Nail Tech Device Identifier Shelf Expiration Date Model / Serial / Lot Seamguard Endogia 60 Blck [id number] - [id number] Implanted:Qty : 2 on 03/13/2018 by Brown Lawrence MD at [facility] N/A: Abdomen [employer] 10/20/2020 [id number] / / [id number] Seamguard Endogia 60 Prpl [id number] - [id number] Implanted:Qty : 3 on 03/13/2018 by Brown Lawrence MD at [facility] N/A: Abdomen [employer] 10/20/2020 [id number] / / [id number] Insurance MEDICARE PART A AND B [place] RX [facility] Medicare Part D Advance Directives For more information, please contact: [phone] * Full Code (Latest Code Status on File) Date Activated Date Inactivated Comments 03/13/2018 4:51 PM 03/15/2018 12:43 AM Care Teams Manager Utilization Review Relationship Specialty Start Date End Date Noe Stratton MD [address] [place] [address] PCP - General Internal Medicine 02/28/18
--- OUTSIDE RECORDS SUMMARY | 2025-05-20 10:20 | XMS_ITS | Clinical Summary ---
Author Organization [facility] Address [address] [place] [address] Care Team Providers Care Assessment Technician Name Role Phone Unavailable Primary Care Provider Unavailabl e Source Comments [facility],non-owned Affiliates and Associated Physician Practices is amultiple site organization consisting of ambulatory clinics and hospital sitesin [place], [place], [place] and [place]. This disclosure is being madepursuant to the Care Everywhere program and may not contain all information available regarding this patient. Last updated 18.[facility] Allergies Active Allergy Reactions Criticality Noted Date [...] DEPRESSION SCREENING 05/23/2024 COVID-19 VACCINE (1 - 2024- season) 2025 INFLUENZA VACCINE (#1) 2025 8, [...]
--- OUTSIDE RECORDS SUMMARY | 2025-05-20 10:20 | XMS_ITS | Encounter Summary ---
Author Organization [facility] Address [address] [place] [address] Phone Care Team Providers Care Airborne Weapons Technical Manager Name Role Phone Yashira Valencia APRN, BRUSH WORKER Unavailable Julio Cesar Tracy MD Unavailable [phone] Robin Stratton MD Primary Care Provider [phone] Markel Underwood MD Primary Care Provider Catia Bolanos APRN, BRUSH WORKER Unavailable Reason for Visit * Reason Comments Medication Refill Encounter Details Date Type Department Care Team (Late st Contact Info) Description 12/24/2020 Refill [facility] - [place] [address] [place] [id number] Qamar Saab APRN, BRUSH WORKER #[address] [address] Medication Refill Social History Tobacco Use Types [...] 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 Not on file No t on file documented as of this encounter Miscellaneous Notes * Telephone Encounter - DexterDestineyrosette Miller RN - 12/24/2020 12:25 PM CDT Medication [...] [facility] 05/05/20 Telemedicine Qamar Saab APN, BRUSH WORKER [facility] [place] 04/10/20 Office Visit Robin Stratton MD [...] 19 06/13/2023 06/13/2023 06/14/2023 12:5 9 AM REGIONAL FORESTER COVID - 19 Confirmed 06/13/2023 06/13/2023 024 12:16 AM REGIONAL FORESTER Assessment Noted Time PHQ-9 Depression Total Score: 14 021 8:50 AM CDT documented as of this encounter Care Teams Airborne Weapons Technical Manager Relationship Specialty Start Date End Date Robin Stratton MD #[address] [address] PCP - General Family Medicine 05/28/19 02/15/23 Markel Underwood MD #2 [place] [address] PCP - General Family Medicine 02/16/23 Yashira Valencia APRN, BRUSH WORKER Nurse Practitioner Advanced Practice Nurse 04/03/15 Julio Cesar Tracy MD General Surgery 12/18/15 Catia Bolanos APRN, BRUSH WORKER [address] [place] [address] Nurse Practitioner Advanced Practice Nurse 08/20/22 documented as of this encounter
--- OUTSIDE RECORDS SUMMARY | 2025-05-20 10:20 | XMS_ITS | Encounter Summary ---
Author Organization [facility] Address [address] [place] [address] Phone Care Team Providers Care Dog Warden Name Role Phone Yashira Valencia APRN, SUPERINTENDENT QUARRY Unavailable Julio Cesar Tracy MD Unavailable Robin Stratton MD Primary Care Provider [phone] Markel Underwood MD Primary Care Provider Catia Bolanos APRN, SUPERINTENDENT QUARRY Unavailable Reason for Visit * Reason Comments Medication Refill Encounter Details Date Type Department Care Team (Late st Contact Info) Description 04/26/2022 Refill [facility] #2 [place] [address] Robin Stratton MD #[address] [address] Medication Refill Social History Tobacco Use Types [...] 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 Not on file No [...] 02/04/22 Telemedicine Qamar Saab APRN, JIL [facility] 11/19/21 Telemedicine Robin Stratton MD [facility] [place] 11/16/21 Office Visit Qamar Saab APRN, JIL [facility] 10/05/21 Telemedicine Qamar Saab APRN, JIL [facility] 09/02/21 Telemedicine Qamar Saab APRN, JIL [facility] 08/28/21 Office Visit Qamar Saab APRN, JIL [facility] 07/27/21 Office Visit Qamar Saab APRN, JIL [facility] 05/20/21 Office Visit Qamar Saab APRN, JIL [facility] 05/05/21 Office Visit Qamar Saab APRN, JIL [facility] 04/30/21 Telemedicine Qamar Saab APRN, SUPERINTENDENT QUARRY [facility] Showing recent visits within past 365 days and meeting all other requirements Future Appointments No visits were found meeting these conditions. Showing future appointments within next 90 days and meeting all other requirements TIVE SERVICES INTERN documented in this encounter Plan of Treatment Not on file documented as of this encounter Visit Diagnoses Diagnosis Nausea Nausea alone documented in this encounter Additional Health Concerns Infection Onset Date Last Indicated Resolved Time COVID - 19 06/13/2023 06/13/2023 06/14/2023 12:5 9 AM CREATIVE SERVICES INTERN COVID - 19 Confirmed 06/13/2023 06/13/2023 024 12:16 AM CREATIVE SERVICES INTERN Assessment Noted Time PHQ-9 Depression Total Score: 0 07/28/19 1:00 PM CREATIVE SERVICES INTERN documented as of this encounter Care Teams Dog Warden Relationship Specialty Start Date End Date Robin Stratton MD [address] [address] PCP - General Family Medicine 05/28/19 02/15/23 Markel Underwood MD #[address] [address] PCP - General Family Medicine 02/16/23 Yashira Valencia APRN, SUPERINTENDENT QUARRY Nurse Practitioner Advanced Practice Nurse 04/03/15 Julio Cesar Tracy MD General Surgery 12/18/15 Catia Bolanos APRN, SUPERINTENDENT QUARRY [address] [place] [address] Nurse Practitioner Advanced Practice Nurse 08/20/22 documented as of this encounter
--- OUTSIDE RECORDS SUMMARY | 2025-05-20 10:20 | XMS_ITS | Encounter Summary ---
Author Organization [facility] Address [address] [place] [address] Phone Care Team Providers Care Remote Sensing Surveyor Name Role Phone Yashira Valencia APRN, CNA HOSPICE Unavailable Julio Cesar Tracy MD Unavailable Robin Stratton MD Primary Care Provider [phone] Markel Underwood MD Primary Care Provider Catia Bolanos APRN, CNA HOSPICE Unavailable Reason for Visit * Reason Comments Medication Refill Encounter Details Date Type Department Care Team (Late st Contact Info) Description 04/08/2021 Refill [facility] #2 [place] [address] Robin Stratton MD [address] [address] Medication Refill Social History Tobacco Use Types Packs/Day Years Used Date Smoking Tobacco: Never Smokeless Tobacco: Never Alcohol Use Standard Drinks/Week Comments No 0 (1 standard drink = 0.6 oz pur e alcohol) PHQ-2 Answer Date Recorded Total Score - Questions 1-9 14 /12/2020 Sexually Active Control Partners Comments Not Currently Comments No Sex and Gender Information Value Date Recorded Sex Assigned at Not on file Legal Sex Female 8:30 PM CDT Gender Identity Not on file Sexual Orientation Not on file 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 No / Unsure 04/07/2021 1:53 PM LOOM CLEANER documented as of this encounter Miscellaneous Notes [...] Dept 04/02/21 Telemedicine Qamar Saab APRN, JIL [facility] [place] 02/19/21 Office Visit Robin Stratton MD [facility] 02/04/21 Telemedicine Qamar Saab APRN, JIL [facility] 01/14/21 Office Visit Qamar Saab APRN, JIL [facility] 11/13/20 Office Visit Qamar Saab APRN, JIL [facility] 08/28/20 Office Visit Robin Stratton MD [facility] 07/30/20 Telemedicine Robin Stratton MD [facility] 06/04/20 Telemedicine Robin Stratton MD [facility] 05/28/20 Office Visit Robin Stratton MD [facility] 12/30/20 Telemedicine Robin Stratton MD [facility] Showing recent visits within past 365 days and meeting all other requirements Future Appointments Date Type Provider Dept 05/22/21 Appointment Robin Stratton MD [facility] Showing future appointments within next 90 days and meeting all other requirements CLEANER documented in this encounter Plan of Treatment Not on file documented as of this encounter Visit Diagnoses Diagnosis Nausea Nausea alone documented in this encounter Additional Health Concerns Infection Onset Date Last Indicated Resolved Time Respiratory Rule-Out 08/14/2021 08/14/2021 022 3:15 PM CDT COVID - 19 11/16/2021 11/19/2021 11/29/2021 12:1 6 AM CDT COVID - 19 06/13/2023 06/13/2023 06/14/2023 12:5 9 AM LOOM CLEANER COVID - 19 Confirmed 06/13/2023 06/13/2023 024 12:16 AM LOOM CLEANER Assessment Noted Time PHQ-9 Depression Total Score: 14 021 8:50 AM CDT documented as of this encounter Care Teams Remote Sensing Surveyor Relationship Specialty Start Date End Date Robin Stratton MD #[address] [address] PCP - General Family Medicine 05/28/19 02/15/23 Markel Underwood MD #[address] [address] PCP - General Family Medicine 02/16/23 Yashira Valencia APRN, CNA HOSPICE Nurse Practitioner Advanced Practice Nurse 04/03/15 Julio Cesar Tracy MD General Surgery 12/18/15 Catia Bolanos APRN, CNA HOSPICE [address] [place] [address] Nurse Practitioner Advanced Practice Nurse 08/20/22 documented as of this encounter
--- OUTSIDE RECORDS SUMMARY | 2025-05-20 10:20 | XMS_ITS | Encounter Summary ---
Author Organization [facility] Address [address] [place] [address] Phone Care Team Providers Care Student Ministries Director Name Role Phone Yashira Valencia APRN, PRE CERTIFICATION SPECIALIST Unavailable Julio Cesar Tracy MD Unavailable Robin Stratton MD Primary Care Provider [phone] Markel Underwood MD Primary Care Provider Catia Bolanos APRN, PRE CERTIFICATION SPECIALIST Unavailable Encounter Details Date Type Department Care Team (Late st Contact Info) Description 07/14/2022 [facility] Scheduling [address] [place] [address] José Manuel Zamarripa MD [address] [place] [address] ANTONIO COKER [address] Social History Tobacco Use [...] 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 Not on file No t on file documented as of this encounter Plan of Treatment Not on file documented as of this encounter Visit Diagnoses Not on filedocumented in this encounter Additional Health Concerns Infection Onset Date Last Indicated Resolved Time COVID - 19 06/13/2023 06/13/2023 06/14/2023 12:5 9 AM MILITARY PAY CLERK COVID - 19 Confirmed 06/13/2023 06/13/2023 024 12:16 AM MILITARY PAY CLERK Assessment Noted Time PHQ-9 Depression Total Score: 0 07/28/19 22 1:00 PM MILITARY PAY CLERK documented as of this encounter Care Teams Student Ministries Director Relationship Specialty Start Date End Date Robin Stratton MD #[address] [address] PCP - General Family Medicine 05/28/19 02/15/23 Markel Underwood MD #[address] [address] PCP - General Family Medicine 02/16/23 Yashira Valencia APRN, PRE CERTIFICATION SPECIALIST Nurse Practitioner Advanced Practice Nurse 04/03/15 Julio Cesar Tracy MD General Surgery 12/18/15 Catia Bolanos APRN, PRE CERTIFICATION SPECIALIST [address] [place] [address] Nurse Practitioner Advanced Practice Nurse 08/20/22 documented as of this encounter
--- OUTSIDE RECORDS SUMMARY | 2025-05-20 10:20 | XMS_ITS | Encounter Summary ---
Author Organization [facility] Address [address] [place] [address] Phone Care Team Providers Care Welding Robot Operator Name Role Phone Yashira Valencia APRN, TECHNOLOGY SALES SPECIALIST Unavailable Julio Cesar Tracy MD Unavailable [phone] Robin Stratton MD Primary Care Provider [phone] Markel Underwood MD Primary Care Provider [phone] Catia Bolanos APRN, TECHNOLOGY SALES SPECIALIST Unavailable Reason for Visit * Reason Comments Medication Refill Encounter Details Date Type Department Care Team (Late st Contact Info) Description 08/02/2021 Refill [facility] #2 [place] [address] Robin Stratton MD #[address] [address] Medication Refill Social History Tobacco Use Types [...] 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 No / Unsure 07/27/2021 1:01 PM TABLE CUT OFF SAW OPERATOR documented as of this encounter Miscellaneous [...] Office Visit Qamar Saab APRN, JIL [facility] 05/20/21 Office Visit Qamar Saab APRN, JIL [facility] 05/05/21 Office Visit Qamar Saab APRN, TECHNOLOGY SALES SPECIALIST [facility] 04/30/21 Telemedicine Qamar Saab APRN, TECHNOLOGY SALES SPECIALIST [facility] 04/20/21 Telemedicine Qamar Saab APRN, TECHNOLOGY SALES SPECIALIST [facility] 04/02/21 Telemedicine Qamar Saab APRN, TECHNOLOGY SALES SPECIALIST [facility] 02/19/21 Office Visit Robin Stratton MD [facility] [place] 02/04/21 Telemedicine Qamar Saab APRN, JIL [facility] [place] 01/14/21 Office Visit Qamar Saab APRN, TECHNOLOGY SALES SPECIALIST [facility] [place] 11/13/20 Office Visit Qamar Saab APRN, JIL [facility] [place] Showing recent visits within past 365 [...] 19 06/13/2023 06/13/2023 06/14/2023 12:5 9 AM TABLE CUT OFF SAW OPERATOR COVID - 19 Confirmed 06/13/2023 06/13/2023 024 12:16 AM TABLE CUT OFF SAW OPERATOR Assessment Noted Time PHQ-9 Depression Total Score: 0 07/28/19 1:00 PM TABLE CUT OFF SAW OPERATOR documented as of this encounter Care Teams Welding Robot Operator Relationship Specialty Start Date End Date Robin Stratton MD [address] [address] PCP - General Family Medicine 05/28/19 02/15/23 Markel Underwood MD #[address] [address] PCP - General Family Medicine 02/16/23 Yashira Valencia APRN, TECHNOLOGY SALES SPECIALIST Nurse Practitioner Advanced Practice Nurse 04/03/15 Julio Cesar Tracy MD General Surgery 12/18/15 Catia Bolanos APRN, TECHNOLOGY SALES SPECIALIST [address] [place] [address] Nurse Practitioner Advanced Practice Nurse 08/20/22 documented as of this encounter
--- OUTSIDE RECORDS SUMMARY | 2025-05-20 10:20 | XMS_ITS | Encounter Summary ---
Author Organization [facility] Address [address] [place] [address] Phone Care Team Providers Care Musical Instrument Maker Name Role Phone Yashira Valencia APRN, PHOTOGRAPHIC LITHOGRAPHER Unavailable [phone] Julio Cesar Tracy MD Unavailable [phone] Robin Stratton MD Primary Care Provider [phone] Markel Underwood MD Primary Care Provider Catia Bolanos APRN, PHOTOGRAPHIC LITHOGRAPHER Unavailable Reason for Visit * Reason Comments Medication Refill Encounter Details Date Type Department Care Team (Late st Contact Info) Description 12/13/2022 Refill [facility] - [facility] Medicine - [place] [address] [place] [id number] Qamar Saab APRN, PHOTOGRAPHIC LITHOGRAPHER #[address] [address] Medication Refill Social History Tobacco Use Types [...] 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 Not on file No [...] 19 06/13/2023 06/13/2023 06/14/2023 12:5 9 AM BRIDAL SERVICE SALES AND MANAGEMENT COVID - 19 Confirmed 06/13/2023 06/13/2023 024 12:16 AM BRIDAL SERVICE SALES AND MANAGEMENT Assessment Noted Time PHQ-9 Depression Total Score: 0 07/28/19 22 1:00 PM BRIDAL SERVICE SALES AND MANAGEMENT documented as of this encounter Care Teams Musical Instrument Maker Relationship Specialty Start Date End Date Robin Stratton MD [address] [address] PCP - General Family Medicine 05/28/19 02/15/23 Markel Underwood MD #[address] [address] PCP - General Family Medicine 02/16/23 Yashira Valencia APRN, PHOTOGRAPHIC LITHOGRAPHER Nurse Practitioner Advanced Practice Nurse 04/03/15 Julio Cesar Tracy MD General Surgery 12/18/15 Catia Bolanos APRN, PHOTOGRAPHIC LITHOGRAPHER [address] [place] [address] Nurse Practitioner Advanced Practice Nurse 08/20/22 documented as of this encounter
--- OUTSIDE RECORDS SUMMARY | 2025-05-20 10:20 | XMS_ITS | Encounter Summary ---
Author Organization [facility] Address [address] [place] [address] Phone Care Team Providers Care Substation Design Draftsperson Name Role Phone Nito Jeffers Unavailable [phone] Lc Robb MD Unavailable [phone] Markel Underwood MD Unavailable [phone] Markel Underwood MD Primary Care Provider [phone] Encounter Details Date Type Department Care Team (Late st Contact Info) Description 04/17/2025 Results Follow-Up [facility] Medicine Rheumatology [address] [place] [address] Luanne Villegas MD [address] [place] [address] Protein / creatinine ratio, urine, random, C4 complement, Urinalysis reflex to microscopic and culture Urine, Additional followed-up results: 9 Social History Tobacco Use Types Packs/Day Years [...] Never 12/28/2022 How often do you attend evangelical or yarsani serv ices? Never 12/28/2022 Do you belong to any clubs o r organizations such as evangelical groups, unions, fraternal or athletic groups, or school groups? No 12/28/2022 How often do you attend meet ings of the clubs or organizations you belong to? Never 12/28/2022 Are you , , di vorced, , never , or living with a partner? 12/28/2022 Overall Financial Resource Strain (CARDIA) Answe r [...] place to sleep or slept in a penitentiary (including now)? No 12/28/2022 AUDIT-C Answer Date Recorded Frequency of Alcohol Consumption Not on file 04/16/2025 Q2: How many drinks containi ng alcohol do you have on a typical day when you are drinking? Patient does not drink Frequency of Binge Drinking Not on file 03/24 Personal Safety Answer Date Recorded Have you [...] on file Legal Sex Female 7:01 PM DEVELOPMENT MGR Gender Identity Not on file Sexual Orientation Not on file documented as of this encounter Plan of Treatment Not on file documented as of this encounter Visit Diagnoses Not on filedocumented in this encounter Care Teams Substation Design Draftsperson Relationship Specialty Start Date End Date Markel Underwood MD [address] [place] [address] [address] PCP - General Family Practice 12/28/22 Nito Jeffers PA [address] [place] [address] [facility] [address] [place] [address] Physician Parking Control Officer Orthopedic Surgery 12/11/20 Lc Robb MD [address] [place] [address] [address] Referring Physician Gastroenterology 04/01/22 Markel Underwood MD [address] [place] [address] [address] Referring Physician Family Practice 12/14/22 documented as of this encounter
--- OUTSIDE RECORDS SUMMARY | 2025-05-20 10:20 | XMS_ITS | Encounter Summary ---
Author Organization [facility] Address [address] [place] [address] Phone Care Team Providers Care Solderer Assembly Repair Name Role Phone Yashira Valencia APRN, ENTRY ANALYST Unavailable Julio Cesar Tracy MD Unavailable Robin Stratton MD Primary Care Provider [phone] Markel Underwood MD Primary Care Provider Catia Bolanos APRN, ENTRY ANALYST Unavailable Reason for Visit * Reason Onset Date Comments Medication Refill 09/21/2021 Encounter Details Date Type Department Care Team (Late st Contact Info) Description 09/21/2021 Refill [facility] [address] [place] [address] Robin Stratton MD [address] [address] Medication Refill Social History Tobacco Use Types [...] 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 Not on [...] 09/02/21 Telemedicine Qamar Saab APRN, JIL [facility] 08/28/21 Office Visit Qamar Saab APRN, JIL [facility] 07/27/21 Office Visit Qamar Saab APRN, JIL [facility] 05/20/21 Office Visit Qamar Saab APRN, JIL [facility] 05/05/21 Office Visit Qamar Saab APRN, JIL [facility] 04/30/21 Telemedicine Qamar Saab APRN, JIL [facility] 04/20/21 Telemedicine Qamar Saab APRN, JIL [facility] 04/02/21 Telemedicine Qamar Saab APRN, JIL [facility] 02/19/21 Office Visit Robin Stratton MD [facility] [place] 02/04/21 Telemedicine Qamar Saab APRN, ENTRY ANALYST [facility] Showing recent visits within past 365 days and meeting all other requirements Future Appointments Date Type Provider Dept 10/05/21 Appointment Robin Stratton MD [facility] [place] Showing future appointments within next 90 days and meeting all other requirements * Telephone Encounter - RoachTenisha - 09/21/2021 11:18 AM CDT Received a faxed Rx request from pharmacy. Reordered refill medication(s) requested and pended for nurse and physician/VLAD review. Refill encounter routed to nurse [employer] for processing. documented in this encounter Plan of Treatment Not on file documented as of this encounter Visit Diagnoses Diagnosis Nausea Nausea alone documented in this encounter Additional Health Concerns Infection Onset Date Last Indicated Resolved Time COVID - 19 11/16/2021 11/19/2021 11/29/2021 12:1 6 AM CDT COVID - 19 06/13/2023 06/13/2023 06/14/2023 12:5 9 AM ARTILLERY OR NAVAL GUNFIRE OBSERVER COVID - 19 Confirmed 06/13/2023 06/13/2023 024 12:16 AM ARTILLERY OR NAVAL GUNFIRE OBSERVER Assessment Noted Time PHQ-9 Depression Total Score: 0 07/28/19 22 1:00 PM ARTILLERY OR NAVAL GUNFIRE OBSERVER documented as of this encounter Care Teams Solderer Assembly Repair Relationship Specialty Start Date End Date Robin Stratton MD [address] [address] PCP - General Family Medicine 05/28/19 02/15/23 Markel Underwood MD #[address] [address] PCP - General Family Medicine 02/16/23 Yashira Valencia APRN, ENTRY ANALYST Nurse Practitioner Advanced Practice Nurse 04/03/15 Julio Cesar Tracy MD General Surgery 12/18/15 Catia Bolanos APRN, ENTRY ANALYST [address] [place] [address] Nurse Practitioner Advanced Practice Nurse 08/20/22 documented as of this encounter
--- OUTSIDE RECORDS SUMMARY | 2025-05-20 10:20 | XMS_ITS | Encounter Summary ---
Author Organization [facility] Address [address] [place] [address] Phone Care Team Providers Care Spark Tester Name Role Phone Yashira Valencia APRN, PASTRY COOK APPRENTICE Unavailable Julio Cesar Tracy MD Unavailable Robin Stratton MD Primary Care Provider [phone] Markel Underwood MD Primary Care Provider Catia Bolanos APRN, PASTRY COOK APPRENTICE Unavailable Reason for Visit * Reason Comments Medication Refill Encounter Details Date Type Department Care Team (Late st Contact Info) Description 05/26/2021 Refill [facility] [address] [place] [address] Robin Stratton MD [address] [address] Medication Refill Social History Tobacco Use Types [...] 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 No / Unsure 05/20/2021 9:11 AM WAFER SLICER documented as of this encounter Miscellaneous Notes [...] Office Visit Qamar Saab APRN, JIL [facility] 05/05/21 Office Visit Qamar Saab APRN, PASTRY COOK APPRENTICE [facility] 04/30/21 Telemedicine Qamar Saab APRN, PASTRY COOK APPRENTICE [facility] 04/20/21 Telemedicine Qamar Saab APRN, PASTRY COOK APPRENTICE [facility] 04/02/21 Telemedicine Qamar Saab APRN, PASTRY COOK APPRENTICE [facility] 02/19/21 Office Visit Robin Stratton MD [facility] [place] 02/04/21 Telemedicine Qamar Saab APRN, JIL [facility] 01/14/21 Office Visit Qamar Saab APRN, JIL [facility] 11/13/20 Office Visit Qamar Saab APRN, JIL [facility] 04/08/21 Office Visit Robin Stratton MD [facility] Showing recent visits within past 365 days and meeting all other requirements Future Appointments Date Type Provider Dept 07/15/21 Appointment Robin Stratton MD [facility] Showing future appointments within next 90 days and meeting all other requirements R SLICER documented in this encounter Plan of Treatment Not on file documented as of this encounter Visit Diagnoses Diagnosis Nausea Nausea alone documented in this encounter Additional Health Concerns Infection Onset Date Last Indicated Resolved Time Respiratory Rule-Out 08/14/2021 08/14/2021 022 3:15 PM CDT COVID - 19 11/16/2021 11/19/2021 11/29/2021 12:1 6 AM CDT COVID - 19 06/13/2023 06/13/2023 06/14/2023 12:5 9 AM WAFER SLICER COVID - 19 Confirmed 06/13/2023 06/13/2023 024 12:16 AM WAFER SLICER Assessment Noted Time PHQ-9 Depression Total Score: 14 021 8:50 AM CDT documented as of this encounter Care Teams Spark Tester Relationship Specialty Start Date End Date Robin Stratton MD [address] [address] PCP - General Family Medicine 05/28/19 02/15/23 Markel Underwood MD [address] [address] PCP - General Family Medicine 02/16/23 Yashira Valencia APRN, PASTRY COOK APPRENTICE Nurse Practitioner Advanced Practice Nurse 04/03/15 Julio Cesar Tracy MD General Surgery 12/18/15 Catia Bolanos APRN, PASTRY COOK APPRENTICE [address] [place] [address] Nurse Practitioner Advanced Practice Nurse 08/20/22 documented as of this encounter
--- OUTSIDE RECORDS SUMMARY | 2025-05-20 10:20 | XMS_ITS | Clinical Summary ---
Author Organization [facility] Address [address] [address] Phone Care Team Providers Care Computer Game Tester Name Role Phone Yashira Valencia APRN, STRUCTURED CABLING TECHNICIAN Unavailable Julio Cesar Tracy MD Unavailable Markel Underwood MD Primary Care Provider Catia Bolanos APRN, STRUCTURED CABLING TECHNICIAN Unavailable Allergies Active Allergy Reactions Criticality Noted [...] and Location) 30 g 1 02/16/20 Active zolpidem (Ambien) 5 MG TabletIndications :Stress Take 1 Tablet by mouth nightly as needed for Sleep for up to 7 doses. 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 Not on file No [...] Cologuard 2006 Immunochemical Fecal Occult Blood 2006 Respiratory Syncytial Virus (RSV) Immunization (Adult) (1 - Risk 50-74 years 1-dose series) 2011 Pneumococcal Immunization (50+ years) (2 of 2 - PPSV23, PCV20, or PCV21) 06/19/2020 04/24/2020 Influenza Immunization (#1) 01/21/20250 11/2023, 04/19/2022, 03/06/2021, Additional history exists SARS-COV-2 Immunization ( season) 2025 04/07/2021, 08/16/2020, 07/28/2020 Mammogram 08/01/2025 08/01/2024, 02/20, 03/04/2022, Additional history exists Colonoscopy 02/16/2030 02/16/2023, 01/22, 06/14/2017, Additional history exists Colorectal Cancer Screening 02/16/2030 Pneumococcal Immunization Combined Discontinued 04/24/2020 Hepatitis B Immunization Aged Out No longer eligible based on patient's age to complete this topic Human Papillomavirus (HPV) Immunization (No Doses Required) Completed Meningococcal Immunization (ACWY) Aged Out No longer eligible based on patient's age to complete this topic Rotavirus Immunization Aged Out No lo nger eligible based on patient's age to complete this topic Procedures Procedure Name Priority Date/Time Associated Diagnosis Comments TIM SCREENING BILATERAL DIGITAL W CAD W FAUSTINO Routine 08/01/2024 10:03 AM CDT Encounter for screening mammogram for malignant neoplasm of breast GI IMAGING - COLONOSCOPY Routine 02/16/2023 8:51 AM CDT from Last 3 Months or Most Recently [...] Comparison is made to exams dated: 06/02/2018 [facility], 05/28/2020 [facility], and 04/06/2016 [facility]. BREAST TISSUE:There are scattered areas of [...] exam. Electronically signed by: Mihir melendez/ayleen:08/01/2024 12:21:11 Corporate Recruiter(s): RT Barrie(R)(M), [facility] letter sent: Normal Exam Reading location: [...] Comparison is made to exams dated: 06/02/2018 [facility], 05/28/2020 [facility], and 04/06/2016 [facility]. BREAST TISSUE:There are scattered areas of [...] exam. Electronically signed by: Mihir melendez/ayleen:08/01/2024 12:21:11 Corporate Recruiter(s): RT Barrie(R)(M), [facility] letter sent: Normal Exam Reading location: [place] Mammogram BI-RADS: Category 1: Negative Giovanny Omalley [facility] MAMMO ORDERABLES Final Resul t * GI IMAGING - COLONOSCOPY (02/16/2023 8:51 AM CDT) Lc Robb MD [facility] DIAGNOSTIC ORDERABLES Final Result from Last 3 Months or Most Recently Relevant to Health Maintenance Insurance [place] Member Subscriber Plan / Payer (Ef fective 2025-Present) Name:Leticia Liriano Relation to Subscriber:Self Name:Leticia Liriano Payer ID:[id number] Group ID:NONE Type:Not on file Address: [address] [id number] MEDICARE COMMERCIAL GENERIC Advance Directives * Full Code [...] 8:51 AM 04/19/2016 12:15 PM Care Teams Computer Game Tester Relationship Specialty Start Date End Date Markel Underwood MD PCP - General Family Medicine 02/16/23 Yashira Valencia APRN, STRUCTURED CABLING TECHNICIAN Nurse Practitioner Advanced Practice Nurse 04/03/15 Julio Cesar Tracy MD General Surgery 12/18/15 Catia oBlanos APRN, STRUCTURED CABLING TECHNICIAN [address] [place] [address] Nurse Practitioner Advanced Practice Nurse 08/20/22
--- OUTSIDE RECORDS SUMMARY | 2025-05-20 10:20 | XMS_ITS | Encounter Summary ---
Author Organization [facility] Address [address] [place] [address] Phone Care Team Providers Care Sales Team Manager Name Role Phone Yashira Valencia APRN, LAST TURNER Unavailable [phone] Julio Cesar Tracy MD Unavailable Robin Stratton MD Primary Care Provider [phone] Markel Udnerwood MD Primary Care Provider [phone] Catia Bolanos APRN, LAST TURNER Unavailable Reason for Visit * Reason Comments Medication Refill Encounter Details Date Type Department Care Team (Late st Contact Info) Description 02/16/2021 Refill [facility] - Family Medicine [facility] [address] [place] [address] Robin Stratton MD [address] [address] Medication Refill Social History Tobacco Use Types [...] 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 Not on file [...] 19 06/13/2023 06/13/2023 06/14/2023 12:5 9 AM HARD METALS HAND ENGRAVER COVID - 19 Confirmed 06/13/2023 06/13/2023 024 12:16 AM HARD METALS HAND ENGRAVER Assessment Noted Time PHQ-9 Depression Total Score: 14 021 8:50 AM CDT documented as of this encounter Care Teams Sales Team Manager Relationship Specialty Start Date End Date Robin Stratton MD [address] [address] PCP - General Family Medicine 05/28/19 02/15/23 Markel Underwood MD #[address] [address] PCP - General Family Medicine 02/16/23 Yashira Valencia APRN, LAST TURNER Nurse Practitioner Advanced Practice Nurse 04/03/15 Julio Cesar Tracy MD General Surgery 12/18/15 Catia Bolanos APRN, LAST TURNER [address] [place] [address] Nurse Practitioner Advanced Practice Nurse 08/20/22 documented as of this encounter
--- OUTSIDE RECORDS SUMMARY | 2025-05-20 10:20 | XMS_ITS | Encounter Summary ---
Author Organization [facility] Address [address] [place] [address] Phone Care Team Providers Care Brazing Machine Operator Automatic Name Role Phone Yashira Valencia APRN, GUARD CHIEF Unavailable [phone] Julio Cesar Tracy MD Unavailable Robin Stratton MD Primary Care Provider [phone] Markel Underwood MD Primary Care Provider Catia Bolanos APRN, GUARD CHIEF Unavailable Reason for Visit * Reason Comments Medication Refill Encounter Details Date Type Department Care Team (Late st Contact Info) Description 11/30/2021 Refill [facility] - Family Medicine [facility] [address] [place] [address] Robin Stratton MD [address] [address] Medication Refill Social History Tobacco Use Types [...] 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 Not on file [...] Provider Dept 11/19/21 Telemedicine Robin Stratton MD [facility] [place] 11/16/21 Office Visit Qamar Saab APRN, JIL [facility] 10/05/21 Telemedicine Qamar Saab APRN, GUARD CHIEF [facility] [place] 09/02/21 Telemedicine Qamar Saab APRN, GUARD CHIEF [facility] 08/28/21 Office Visit Qamar Saab APRN, GUARD CHIEF [facility] 07/27/21 Office Visit Qamar Saab APRN, GUARD CHIEF [facility] 05/20/21 Office Visit Qamar Saab APRN, GUARD CHIEF [facility] 05/05/21 Office Visit Qamar Saab APRN, JIL [facility] 04/30/21 Telemedicine Qamar Saab APRN, GUARD CHIEF [facility] [place] 04/20/21 Telemedicine Qamar Saab APRN, [facility] [...] Provider Dept 11/19/21 Telemedicine Robin Stratton MD [facility] [place] 11/16/21 Office Visit Qamar Saab APRN, JIL [facility] 10/05/21 Telemedicine Qamar Saab APRN, JIL [facility] 09/02/21 Telemedicine Qamar Saab APRN, JIL [facility] 08/28/21 Office Visit Qamar Saab APRN, JIL [facility] 07/27/21 Office Visit Qamar Saab APRN, JIL [facility] [place] 05/20/21 Office Visit Qamar Saab APRN, J[facility] 05/05/21 Office Visit Qamar Saab APRN, JIL [facility] 04/30/21 Telemedicine Qamar Saab APRN, JIL [facility] 04/20/21 Telemedicine Qamar Saab APRN, GUARD CHIEF [facility] [place] Showing recent visits within past 365 days [...] 19 06/13/2023 06/13/2023 06/14/2023 12:5 9 AM REFERRAL NURSE COVID - 19 Confirmed 06/13/2023 06/13/2023 024 12:16 AM REFERRAL NURSE Assessment Noted Time PHQ-9 Depression Total Score: 0 07/28/19 22 1:00 PM REFERRAL NURSE documented as of this encounter Care Teams Brazing Machine Operator Automatic Relationship Specialty Start Date End Date Robin Stratton MD [address] [address] PCP - General Family Medicine 05/28/19 02/15/23 Markel Underwood MD #[address] [address] PCP - General Family Medicine 02/16/23 Yashira Valencia APRN, GUARD CHIEF Nurse Practitioner Advanced Practice Nurse 04/03/15 Julio Cesar Tracy MD General Surgery 12/18/15 Catia Bolanos APRN, GUARD CHIEF [address] [place] [address] Nurse Practitioner Advanced Practice Nurse 08/20/22 documented as of this encounter
--- OUTSIDE RECORDS SUMMARY | 2025-05-20 10:20 | XMS_ITS | Encounter Summary ---
Author Organization [facility] Address [address] [place] [address] Phone Care Team Providers Care Brick Sorter Name Role Phone Yashira Valencia APRN, SCREEN PRINTING PASTER Unavailable [phone] Julio Cesar Tracy MD Unavailable Robin Stratton MD Primary Care Provider [phone] Markel Underwood MD Primary Care Provider Catia Bolanos APRN, SCREEN PRINTING PASTER Unavailable Reason for Visit * Reason Onset Date Comments Medication Refill 08/31/2021 Encounter Details Date Type Department Care Team (Late st Contact Info) Description 08/31/2021 Refill [facility] - Family Medicine [facility] [address] [place] [address] Robin Stratton MD [address] [address] Medication Refill Social History Tobacco Use Types [...] 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 Not on file No [...] [place] 07/27/21 Office Visit Qamar Saab APRN, SCREEN PRINTING PASTER [facility] 05/20/21 Office Visit Qamar Saab APRN, SCREEN PRINTING PASTER [facility] 05/05/21 Office Visit Qamar Saab APRN, J[place] [facility] 04/30/21 Telemedicine Qamar Saab APRN, SCREEN PRINTING PASTER [facility] 04/20/21 Telemedicine Qamar Saab APRN, SCREEN PRINTING PASTER [facility] 04/02/21 Telemedicine Qamar Saab APRN, SCREEN PRINTING PASTER [facility] 02/19/21 Office Visit [facility] [place] 02/04/21 Telemedicine Qamar Saab APRN, CNP [facility] 01/14/21 Office Visit Qamar Saab APRN, JIL [facility] Showing recent visits within past 730 days and meeting all other requirements Future Appointments Date Type Provider Dept 09/02/21 Appointment Qamar Saab APRN, CNP [facility] 10/05/21 Appointment Robin Stratton MD [facility] [place] Showing future appointments within next 90 [...] 19 06/13/2023 06/13/2023 06/14/2023 12:5 9 AM DRAFTER HEATING AND VENTILATING COVID - 19 Confirmed 06/13/2023 06/13/2023 024 12:16 AM DRAFTER HEATING AND VENTILATING Assessment Noted Time PHQ-9 Depression Total Score: 0 07/28/19 22 1:00 PM DRAFTER HEATING AND VENTILATING documented as of this encounter Care Teams Brick Sorter Relationship Specialty Start Date End Date Robin Stratton MD [address] [address] PCP - General Family Medicine 05/28/19 02/15/23 Markel Underwood MD #[address] [address] PCP - General Family Medicine 02/16/23 Yashira Valencia APRN, SCREEN PRINTING PASTER Nurse Practitioner Advanced Practice Nurse 04/03/15 Julio Cesar Tracy MD General Surgery 12/18/15 Catia Bolanos APRN, SCREEN PRINTING PASTER [address] [place] [address] Nurse Practitioner Advanced Practice Nurse 08/20/22 documented as of this encounter
--- OUTSIDE RECORDS SUMMARY | 2025-05-20 10:20 | XMS_ITS | Clinical Summary ---
Author Organization [facility] Address [address] [place] [address] Care Team Providers Care Issuing Operator Name Role Phone Nito Jeffers Unavailable [phone] Lc Robb MD Unavailable [phone] Markel Underwood MD Unavailable [phone] Markel Underwood MD Primary Care Provider [phone] Allergies Active Allergy Reactions Criticality Noted Date [...] % external solution Apply topically nightly 03/27/20 Active cyanocobalamin (Vitamin B-12) 1,000 mcg/mL injection [...] mouth daily 30 capsule 01/20/20 21 Active Additional Information Patient not taking.Reported on 04/16/2025 senna-docusate (PERICOLACE) 8.6-50 mg 1-2 times daily as needed for constipation 30 tablet 1 02/05/20 21 Active Additional Information Patient not taking.Reported on 04/16/2025 aspirin 81 mg enteric coated tablet Take [...] NIGHT 270 tablet 11 12/25/19 25 Active albuterol 0.63 mg/3 mL nebulizer solution as needed 01/20/20 25 Active nitrofurantoin monohydrate (MACROBID) 100 mg capsule TAKE 1 CAPSULE BY MOUTH EVERY 12 HOURS FOR 5 DAYS WITH FOOD 03/05/20 25 Active Active Problems Problem Noted Date Diagnosed Date Excess skin 12/29/2023 Acute left-sided low back pain with left-sided s ciatica 12/28/2022 Spondylolisthesis at L4-L5 level 12/28/2022 Fibromyalgia 12/28/2022 History of stroke 12/28/2022 Asthma 12/28/2022 Chronic renal failure (CRF), stage 3a 12/28/2022 Pancreatic cyst 04/07/2022 Overview (04/07/2022): Added automatically from request for surgery [id number] Asthma, moderate persistent 05/05/2021 Keratitis sicca, bilateral [...] DFE Assessment & Plan (04/28/2021 10:01 AM NUCLEAR CARDIOLOGY TECHNOLOGIST): 3.02 mg/kg/day without clinical signs of maculopathy. Pt ed. Eyelid dermatitis, allergic/contact 04/21/2021 Assessment & Plan (04/21/2021 5:22 PM NUCLEAR CARDIOLOGY TECHNOLOGIST): Patient was educated to avoid using false eyelashes as this may be causing the eyelids to be irritated. Complex tear of lateral meniscus of right knee 0 11/26/2020 Overview (11/26/2020): Added automatically from request for surgery [id number] Fall involving ice skates 10/23/2020 Noncompliance 08/28/2020 Abnormal ECG 05/05/2020 Overview (05/05/2020): Added automatically from request for surgery [id number] Skin lesion of breast 04/10/2020 Hypokalemia 02/09/2020 [...] Date Resolved Date Pilonidal cyst 01/17/2019 04/21/2020 Encounters Date Type Department Care Team Description 04/17/2025 Results Follow-Up [facility] Medicine Rheumatology [address] [place] [phone] Luanne Villegas MD Protein / creatinine ratio, urine, random, C4 complement, Urinalysis reflex to microscopic and culture Urine, Additional followed-up results: 9 04/16/2025 3:45 PM NUCLEAR CARDIOLOGY TECHNOLOGIST Lab [facility] at [address] [place] [phone] Other systemic lupus erythematosus with other organ involvement 04/16/2025 3:00 PM NUCLEAR CARDIOLOGY TECHNOLOGIST Office Visit [facility] Medicine Rheumatology [address] [place] [address] Luanne Villegas MD Other systemic lupus erythematosus with other organ involvement (Primary Dx) from Last 3 Months Immunizations Immunization Administration Dates Next Due Influenza, [...] Hx Other Medical back pain; Comm ents: [facility] [place] [facility] 01/29/2015 - Hx Other Medical migraine; Comme nts: [facility] [place] 01/29/2015 - Depression Depression Disorder of thyroid Thyroid dise ase Hx Other Medical gastric reflux; Comments: [facility] 01/29/2015 - Rash and other nonspecific [...] Never 12/28/2022 How often do you attend temple or advent serv ices? Never 12/28/2022 Do you belong to any clubs o r organizations such as temple groups, unions, fraternal or athletic groups, or [...] place to sleep or slept in a senior living (including now)? No 12/28/2022 AUDIT-C Answer Date [...] on file Legal Sex Female 7:01 PM NUCLEAR CARDIOLOGY TECHNOLOGIST Gender Identity Not on file Sexual Orientation Not on file Last Filed Vital Signs Vital Sign Reading Time Taken Comments Blood Pressure 106/66 04/16/2025 2:38 PM NUCLEAR CARDIOLOGY TECHNOLOGIST Pulse 84 04/16/2025 2:38 PM NUCLEAR CARDIOLOGY TECHNOLOGIST Temperature 36.8 C (98.3 F) 04/16/2025 2:38 PM NUCLEAR CARDIOLOGY TECHNOLOGIST Respiratory Rate 18 12/30/2022 7:58 AM CDT Oxygen Saturation 99% 04/16/2025 2:38 PM NUCLEAR CARDIOLOGY TECHNOLOGIST Inhaled Oxygen Concentration - - Weight 64.4 kg (142 lb) 04/16/2025 2:38 PM NUCLEAR CARDIOLOGY TECHNOLOGIST Height 167.6 cm (5' 6) 04/16/2025 2:38 PM NUCLEAR CARDIOLOGY TECHNOLOGIST Body Mass Index 22.92 04/16/2025 2:38 PM NUCLEAR CARDIOLOGY TECHNOLOGIST Plan of Treatment Health Maintenance Due Date [...] 04/07/2021, 08/16/2020, 07/28/2020 Influenza Vaccine (#1) 2025 2, 03/06/2021, 04/24/2020, Additional history exists Breast Cancer Screening-Mammogram 08/01/2025 08/01/2024, 08/01/2024, 03/04/2022, Additional history exists Hepatitis C Screening Completed 07/27/2017 Procedures Procedure Name Priority Date/Time Associated Diagnosis Comments PROTEIN / CREATININE RATIO, URINE, RANDOM Routine 04/16/2025 3:57 PM NUCLEAR CARDIOLOGY TECHNOLOGIST Other systemic lupus erythematosus with other organ involvement URINALYSIS, MICROSCOPIC ONLY Routine 04/16/2025 3:57 PM NUCLEAR CARDIOLOGY TECHNOLOGIST Other systemic lupus erythematosus with other organ involvement URINALYSIS AND REFLEX TO MICROSCOPIC AND CULTURE Routine 04/16/2025 3:57 PM NUCLEAR CARDIOLOGY TECHNOLOGIST Other systemic lupus erythematosus with other organ involvement EGFR Routine 04/16/2025 3:50 PM NUCLEAR CARDIOLOGY TECHNOLOGIST Other systemic lupus erythematosus with other organ involvement DIFFERENTIAL AUTO Routine 04/16/2025 3:5 0 PM NUCLEAR CARDIOLOGY TECHNOLOGIST Other systemic lupus erythematosus with other organ involvement CBC WITH AUTO DIFFERENTIAL Routine 04/16/2025 3:50 PM NUCLEAR CARDIOLOGY TECHNOLOGIST Other systemic lupus erythematosus with other organ involvement COMPREHENSIVE METABOLIC PANEL Routine 04/16/2025 3:50 PM NUCLEAR CARDIOLOGY TECHNOLOGIST Other systemic lupus erythematosus with other organ involvement C3 COMPLEMENT Routine 04/16/2025 3:50 PM NUCLEAR CARDIOLOGY TECHNOLOGIST Other systemic lupus erythematosus with other organ involvement CRP (ACUTE PHASE) Routine 04/16/2025 3:5 0 PM NUCLEAR CARDIOLOGY TECHNOLOGIST Other systemic lupus erythematosus with other organ involvement ANTI-DOUBLE STRANDED DNA ANTIBODIES Routine 04/16/2025 3:50 PM NUCLEAR CARDIOLOGY TECHNOLOGIST Other systemic lupus erythematosus with other organ involvement ERYTHROCYTE SEDIMENTATION RATE Routine 04/16/2025 3:50 PM NUCLEAR CARDIOLOGY TECHNOLOGIST Other systemic lupus erythematosus with other organ involvement C4 COMPLEMENT Routine 04/16/2025 3:50 PM NUCLEAR CARDIOLOGY TECHNOLOGIST Other systemic lupus erythematosus with other organ involvement SCREENING MAMMOGRAM BILATERAL W WESLEY Schedule Routine, Read Routine (OP Routine) 03/04/2022 10:41 AM CDT Encounter for screening mammogram for breast cancer HEPATITIS C ANTIBODY Routine Gen Lab 07/27/2017 10:54 AM NUCLEAR CARDIOLOGY TECHNOLOGIST from Last 3 Months or Most Recently Relevant to Health Maintenance Results * Protein / creatinine ratio, urine, random (04/16/2025 3:57 PM NUCLEAR CARDIOLOGY TECHNOLOGIST) Protein, ur, quant 9.0 mg/dL Comment: Interpretive Data No reference range established. Current interpretive data was last revised 2018. Testing performed by: [facility], [address] [place] [address] Creatinine Ur 203.0 mg/dL DYLAN SORIANO Comment: Interpretive Data No reference range established. Current interpretive data was last revised 2018. Testing performed by: [facility], [address] [place] [address] Protein/creatinin e ratio 44.3 0.0 - 180.0 mg/g CR DYLAN SORIANO Comment:Testing performed by : [facility], [address] [place] [address] Urine 04/16/2025 3:57 PM NUCLEAR CARDIOLOGY TECHNOLOGIST 04/16/2025 4:40 PM NUCLEAR CARDIOLOGY TECHNOLOGIST Luanne Villegas MD LAB URINE ORDERABLES Final Result DYLAN CRUZ [id number] [place] [address] * (ABNORMAL) Urinalysis reflex to microscopic and culture Urine (04/16/2025 3:57 PM NUCLEAR CARDIOLOGY TECHNOLOGIST) Color, ur Straw Yellow Comment:Testing performed by : [facility], [address] [place] [address] Clarity, ur Turbid(A) Clear DYLAN SORIANO Comment:Testing performed by : [facility], [address], [place] [address] Specific gravity, ur 1.027 1.003 - 1.030 CERNER BJWCH Comment:Testing performed by : [facility], [address], [place] [address] pH, urine 5.5 CERNER BJWCH Comment: Interpretive Data U rine pH is affected by diet, medications, systemic acid-base disturbances, and renal tubular function. pH may affect urinary stone formation. For example, urine pH below 6.0 may help reduce the tendency for calcium phosphate stones and pH greater than 6.0 may reduce the tendency for uric acid stone formation. Source: [facility] [employer] Current Interpretive Data was last revised on 2017 Testing performed by: [facility], [address], [place] [address] Protein, ur ql Negative Negative CERNER BJWCH Comment:Testing performed by : [facility], [address], [place] [address] Glucose, ur ql Negative Negative CERNER BJWCH Comment:Testing performed by : [facility], [address], [place] [address] Ketones, ur Negative Negative CERNER BJWCH Comment:Testing performed by : [facility], [address], [place] [address] Bilirubin, ur Negative Negative CERNER BJWCH Comment:Testing performed by : [facility], [address], [place] [address] Blood, ur Negative Negative CERNER BJWCH Comment:Testing performed by : [facility], [address], [place] [address] Urobilinogen, ur 2.0(A) <2.0 mg/dL CERNER BJWCH Comment:Testing performed by : [facility], [address], [place] [address] Nitrite, ur Negative Negative CERNER BJWCH Comment:Testing performed by : [facility], [address], [place] [address] Leukocyte esterase, ur 2+(A) Negative CERNER BJWCH Comment:Testing performed by : [facility], [address], [place] [address] UA reflex comment Reflex to microscopic UA will be performed. DYLAN BJLiliCH Comment:Testing performed by : [facility], [address], [place] [address] Urine 04/16/2025 3:57 PM NUCLEAR CARDIOLOGY TECHNOLOGIST 04/16/2025 4:40 PM NUCLEAR CARDIOLOGY TECHNOLOGIST Luanne Villegas MD LAB MICROBIOLOGY - GENERAL ORDERABLES Final Result Performing Organization Address [facility] Co de Phone Number DYLAN FORBESWCH [address] [place] [address] * (ABNORMAL) Urinalysis, microscopic only (04/16/2025 3:57 PM NUCLEAR CARDIOLOGY TECHNOLOGIST) WBC, ur 0-5 0 - 5 /HPF Comment:Testing performed by : [facility], [address], [place] [address] RBC, ur 0-2 0 - 2 /HPF CERTY BJWCH Comment:Testing performed by : [facility], [address], [place] [address] Epithelial cells, squamous, ur 21-50(A) 0 - 5 /HPF DYLAN BJWCH Comment:Testing performed by : [facility], [address], [place] [address] Mucous, ur Present(A) DYLAN BJWCH Comment:Testing performed by : [facility], [address], [place] [address] Culture Reflex Comment Reflex conditions for urine culture (WBC >10) not met. DYLAN BJWCH Comment:Testing performed by : [facility], [address], [place] [address] Urine 04/16/2025 3:57 PM NUCLEAR CARDIOLOGY TECHNOLOGIST 04/16/2025 4:40 PM NUCLEAR CARDIOLOGY TECHNOLOGIST Luanne Villegas MD LAB URINE ORDERABLES Final Result Performing Organization Address [facility]/ZIP Co de Phone Number DYLAN BJWCH [phone] [place] [address] * Anti-double stranded DNA abs (04/16/2025 3:50 PM NUCLEAR CARDIOLOGY TECHNOLOGIST) Pathologist [facility] dsDNA Ab <1.0 <=4.0 IUnits/mL Comment: Interpretive Data Negative: < or = 4 IUnits/mL Indeterminate: 5 - 9 IUnits/mL Positive: > or = 10 IUnits/mL Current interpretive data was last revised on 2016. Testing performed by: [facility], [address] [place]., [address] Blood 04/16/2025 3:50 PM NUCLEAR CARDIOLOGY TECHNOLOGIST 04/16/2025 7:20 PM NUCLEAR CARDIOLOGY TECHNOLOGIST Luanne Villegas MD LAB BLOOD ORDERABLES Final Result Performing Organization Address City/State/ZIP Co tn Phone Number DYLAN BJWCH [phone] [place] [address] * (ABNORMAL) eGFR (04/16/2025 3:50 PM NUCLEAR CARDIOLOGY TECHNOLOGIST) Pathologist [facility] eGFR 49(L) >=60 mL/min/1. 73 m2 Comment: Interpretive Data Reference Interval Normal >/= 90 mL/min/1.73m2 Mildly decreased* 60 - 89 mL/min/1.73m2 Mildly to moderately decreased 45 - 59 mL/min/1.73m2 Moderately to severely decreased 30 - 44 mL/min/1.73m2 Severely decreased 15 - 29 mL/min/1.73m2 Kidney Failure < 15 mL/min/1.73m2 *Relative to young adult level Estimated glomerular filtration rate is determined by the 2020 CKD-EPI equation recommended by the National Kidney Foundation (A Unifying Approach to GFR Estimation: Recommendations of the NKF-ASK Task Force on Reassessing the Inclusion of Race in Diagnosing Kidney Disease, JASN 2020). The CKD-EPI equation should not be used for patients with unstable renal function and has not been validated in children and those over 70. Current interpretive data was last reviewed 2021. Testing performed by: [facility], [address] [place] [address] Blood 04/16/2025 3:50 PM NUCLEAR CARDIOLOGY TECHNOLOGIST 04/16/2025 4:07 PM NUCLEAR CARDIOLOGY TECHNOLOGIST Luanne Villegas MD LAB BLOOD ORDERABLES Final Result [facility] [address] [place] [address] * Differential, auto (04/16/2025 3:50 PM NUCLEAR CARDIOLOGY TECHNOLOGIST) Neutrophil abs 2.72 1.50 - 6.50 K/cumm Comment:Testing performed by : [facility], [facility], [address] [place] [address] Imm gran abs 0.01 0.00 - 0.10 K/cumm CERNER BJWCH Comment:Testing performed by : [facility], [facility], [address] [place] [address] Lymphocyte abs 1.48 0.80 - 3.30 K/cumm CERNER BJWCH Comment:Testing performed by : [facility], [address] [place] [address] Monocyte abs 0.44 0.20 - 0.80 K/cumm CERNER BJWCH Comment:Testing performed by : [facility], [facility], [address] [place] [address] Eosinophil abs 0.16 0.00 - 0.50 K/cumm CERNER BJWCH Comment:Testing performed by : [facility], [address] [place] [address] Basophil abs 0.04 0.00 - 0.10 K/cumm CERNER BJWCH Comment:Testing performed by : [facility], [facility], [address] [place] [address] Neutrophil pct 56.1 % CERNER BJWCH Comment: Interpretive Data Percent cell count reference ranges are not reported, since discordance with absolute values may lead to misinterpretation of CBC data. Current Interpretive Data was last revised on 2017. Testing performed by: [facility], [facility], [address] [place] [address] Imm gran pct 0.2 % CERNER BJWCH Comment: Interpretive Data Percent cell count reference ranges are not reported, since discordance with absolute values may lead to misinterpretation of CBC data. Current Interpretive Data was last revised on 2017. Testing performed by: [facility], [facility], [address] [place] [address] Lymphocyte pct 30.5 % CERNER BJWCH Comment: Interpretive Data Percent cell count reference ranges are not reported, since discordance with absolute values may lead to misinterpretation of CBC data. Current Interpretive Data was last revised on 2017. Testing performed by: [facility], [facility], [address] [place] [address] Monocyte pct 9.1 % CERNER BJWCH Comment: Interpretive Data Percent cell count reference ranges are not reported, since discordance with absolute values may lead to misinterpretation of CBC data. Current Interpretive Data was last revised on 2017. Testing performed by: [facility], [facility], [address] [place] [address] Eosinophil pct 3.3 % CERNER BJWCH Comment: Interpretive Data Percent cell count reference ranges are not reported, since discordance with absolute values may lead to misinterpretation of CBC data. Current Interpretive Data was last revised on 2017. Testing performed by: [facility], [facility], [address] [place] [address] Basophil pct 0.8 % CERNER BJWCH Comment: Interpretive Data Percent cell count reference ranges are not reported, since discordance with absolute values may lead to misinterpretation of CBC data. Current Interpretive Data was last revised on 2017. Testing performed by: [facility], [facility], [address] [place] [address] Blood 04/16/2025 3:50 PM NUCLEAR CARDIOLOGY TECHNOLOGIST 04/16/2025 3:50 PM NUCLEAR CARDIOLOGY TECHNOLOGIST Luanne Villegas MD LAB BLOOD ORDERABLES Final Result Performing Organization Address City/[facility]/ZIP Co de Phone Number [facility] [address] [facility] [place] [address] * C4 complement (04/16/2025 3:50 PM NUCLEAR CARDIOLOGY TECHNOLOGIST) Pathologist [facility] Complement C4 19 10 - 40 mg/dL Comment:Testing performed by : [facility], [facility] [facility], [place]., [address] Blood 04/16/2025 3:50 PM NUCLEAR CARDIOLOGY TECHNOLOGIST 04/16/2025 6:36 PM NUCLEAR CARDIOLOGY TECHNOLOGIST Luanne Villegas MD LAB BLOOD ORDERABLES Final Result Performing Organization Address [facility] de Phone Number DYLAN [facility] [address] [facility] [place] [address] * CBC with auto differential (04/16/2025 3:50 PM NUCLEAR CARDIOLOGY TECHNOLOGIST) Pathologist [facility] WBC 4.85 3.80 - 9.90 K/cumm Comment:Testing performed by : [facility], [facility], [address] [place] [address] Hgb 13.6 11.9 - 15.5 g/dL DYLAN FORBESWCH Comment:Testing performed by : [facility], [facility], [address] [place] [address] Hct 40.3 35.6 - 45.5 % DYLAN FORBESWCH Comment:Testing performed by : [facility], [facility], [address] [place] [address] Plt 240 150 - 400 K/cumm DYLAN FORBESWCH Comment:Testing performed by : [facility], [facility], [address] [place] [address] MPV 10.0 9.1 - 12.3 fL DYLAN FORBESWCH Comment:Testing performed by : [facility], [facility], [address] [place] [address] RBC 4.42 3.90 - 5.20 M/cumm CERNER BJWCH Comment:Testing performed by : [facility], [facility], [address] [place] [address] MCV 91.2 81.3 - 96.4 fL CERNER BJWCH Comment:Testing performed by : [facility], [facility], [address], [place] [address] MCH 30.8 27.1 - 33.3 pg CERNER BJWCH Comment:Testing performed by : [facility], [facility], [address] [place] [address] MCHC 33.7 32.3 - 35.7 g/dL CERNER BJWCH Comment:Testing performed by : [facility], [address] [place] [address] RDW CV 11.6 11.1 - 14.9 % CERNER BJWCH Comment:Testing performed by : [facility], [facility], [address] [place] [address] RDW SD 38.9 35.7 - 48.1 fL CERNER BJWCH Comment:Testing performed by : [facility], [facility], [address] [place] [address] ANC Prelim 2.72 1.50 - 6.50 K/cumm CERNER BJWCH Comment: Interpretive Data The rapid ANC is a preliminary automated count and may vary from the final ANC (Neut Abs) reported in the WBC differential that follows. Current interpretive data was last revised 2024. Testing performed by: [facility], [address] [place] [address] Blood 04/16/2025 3:50 PM NUCLEAR CARDIOLOGY TECHNOLOGIST 04/16/2025 3:50 PM NUCLEAR CARDIOLOGY TECHNOLOGIST Luanne Villegas MD LAB BLOOD ORDERABLES Final Result Performing Organization Address City/State/[facility] Co de Phone Number DYLAN FORBESCH [address] [facility] [place] [address] * Erythrocyte sedimentation rate (04/16/2025 3:50 PM NUCLEAR CARDIOLOGY TECHNOLOGIST) Erythrocyte sedimentation rate 13 1 - 30 mm/hr Comment:Testing performed by : [facility], [address] [place] [address] Blood 04/16/2025 3:50 PM NUCLEAR CARDIOLOGY TECHNOLOGIST 04/16/2025 4:07 PM NUCLEAR CARDIOLOGY TECHNOLOGIST Luanne Villegas MD LAB BLOOD ORDERABLES Final Result Performing Organization Address [facility] Co de Phone Number DYLAN FORBESCH [phone] [place] [address] * C3 complement (04/16/2025 3:50 PM NUCLEAR CARDIOLOGY TECHNOLOGIST) Pathologist [facility] Complement C3 111 90 - 180 mg/dL Comment:Testing performed by : [facility], [address] [place] [address], [place]., [address] Blood 04/16/2025 3:50 PM NUCLEAR CARDIOLOGY TECHNOLOGIST 04/16/2025 6:36 PM NUCLEAR CARDIOLOGY TECHNOLOGIST Luanne Villegas MD LAB BLOOD ORDERABLES Final Result Performing Organization Address City/[facility] Co de Phone Number DYLAN FORBESCH [phone] [place] [address] * CRP (acute phase) (04/16/2025 3:50 PM NUCLEAR CARDIOLOGY TECHNOLOGIST) CRP <3.0 <=10.0 mg/L Comment:Testing performed by : [facility], [address] [place] [address] Blood 04/16/2025 3:50 PM NUCLEAR CARDIOLOGY TECHNOLOGIST 04/16/2025 4:07 PM NUCLEAR CARDIOLOGY TECHNOLOGIST Luanne Villegas MD LAB BLOOD ORDERABLES Final Result [facility] [address] [place] [address] * (ABNORMAL) Comprehensive metabolic panel (04/16/2025 3:50 PM NUCLEAR CARDIOLOGY TECHNOLOGIST) Sodium 141 135 - 145 mmol/L Comment:Testing performed by : [facility], [address], [place] [address] Potassium, pl 4.4 3.3 - 4.9 mmol/L CERNER BJWCH Comment:Testing performed by : [facility], [address], [place] [address] Chloride 106 97 - 110 mmol/L CERNER BJWCH Comment:Testing performed by : [facility], [address], [place] [address] CO2 27 22 - 32 mmol/L CERNER BJWCH Comment:Testing performed by : [facility], [address], [place] [address] Anion gap 8 2 - 15 mmol/L CERNER BJWCH Comment:Testing performed by : [facility], [address], [place] [address] BUN 17 6 - 25 mg/dL CERNER BJWCH Comment:Testing performed by : [facility], [address], [place] [address] Creatinine 1.24(H) 0.60 - 1.10 mg/dL CERNER BJWCH Comment:Testing performed by : [facility], [address], [place] [address] Glucose 60(L) 70 - 199 mg/dL CERNER BJWCH Comment: Interpretive Data Fasting glucose >/= 126 mg/dl is diagnostic for diabetes. Fasting is defined as no caloric intake for at least 8 hours. Fasting glucose between 100 mg/dl to 125 mg/dl is diagnostic of prediabetes. In a patient with classic symptoms of hyperglycemia or hyperglycemic crisis, a random glucose >/= 200 mg/dl is diagnostic for diabetes. In the absence of unequivocal hyperglycemia, results should be confirmed by repeat testing. The classification and Diagnosis of Diabetes Diabetes Care 2021; 46: S19-S40. Testing performed by: [facility], [address], [place] [address] Calcium 9.4 8.5 - 10.3 mg/dL CERNER BJWCH Comment:Testing performed by : [facility], [address], [place] [address] Bilirubin, total 0.8 0.1 - 1.2 mg/dL CERNER BJWCH Comment:Testing performed by : [facility], [address], [place] [address] Protein, pl 6.8 6.5 - 8.5 g/dL CERNER BJWCH Comment:Testing performed by : [facility], [address], [place] [address] Albumin 4.3 3.5 - 5.0 g/dL CERNER BJWCH Comment:Testing performed by : [facility], [address], [place] [address] Alk phos 84 40 - 130 Units/L CERNER BJWCH Comment:Testing performed by : [facility], [address], [place] [address] ALT 10 7 - 45 Units/L CERNER BJWCH Comment:Testing performed by : [facility], [address], [place] [address] AST 21 10 - 45 Units/L CERNER BJWCH Comment:Testing performed by : [facility], [address], [place] [address] Blood 04/16/2025 3:50 PM NUCLEAR CARDIOLOGY TECHNOLOGIST 04/16/2025 4:07 PM NUCLEAR CARDIOLOGY TECHNOLOGIST Luanne Villegas MD LAB BLOOD ORDERABLES Final Result DYLAN FORBESCH [address] Department [place] [address] * Screening Mammogram Bilateral W Wesley (03/04/2022 [...] * Hepatitis C antibody (07/27/2017 10:54 AM NUCLEAR CARDIOLOGY TECHNOLOGIST) Hep C Ab Nonreactive Nonreactive DYLAN FORBES Comment: Interpretive Data Positive and greyzone results should be confirmed by a molecular method. If positive or greyzone, a second separately collected sample should be submitted for Hepatitis C Virus RNA. Detection and Quantitation by Real-Time Reverse Mat Machine Operator-PCR.Current Interpretive data was last revised on 2016. Blood specimen (specimen) 07/27/2017 10:54 AM NUCLEAR CARDIOLOGY TECHNOLOGIST 07/27/2017 12:01 PM NUCLEAR CARDIOLOGY TECHNOLOGIST Narrative DYLAN FORBES - 07/27/2017 2:05 PM NUCLEAR CARDIOLOGY TECHNOLOGIST Michelle Sharpe MD LAB MICROBIOLOGY - GENERAL ORDERABLES Edited Result - Final DYLAN FORBES [facility] [place] [address] from Last 3 Months or Most Recently Relevant to Health Maintenance Insurance MEDICARE IDUT MEDICARE IDPA MEDICARE [facility] MEDICARE IDUT Advance Directives For more information, please contact: [phone] * Full Code (Latest Code Status on File) Date Activated Date Inactivated Comments 12/28/2022 11:05 AM 12/30/2022 7:15 PM * Full Code Date Activated Date Inactivated Comments 03/06/2020 3:34 PM 03/11/2020 10:31 PM Care Teams Issuing Operator Relationship Specialty Start Date End Date Markel Underwood MD [address] [facility] [address] [address] PCP - General Family Practice 12/28/22 Nito Jeffers PA [address] [facility] [address] [place] [address] Physician Engine Repairer Orthopedic Surgery 12/11/20 Lc Robb MD 2 [facility] [address] [address] Referring Physician Gastroenterology 04/01/22 Markel Underwood MD [address] [facility] [address] [address] Referring Physician Family Practice 12/14/22
--- OUTSIDE RECORDS SUMMARY | 2025-05-20 10:30 | XMS_ITS | Data Portability ---
[facility] Address [address] [place] [address] Assessment No assessment recorded. Plan of Treatment Reminders Order Date Submit Date Provider Last Modified By Organization Details Last Modified Time Details Appointments ANY 15 2025 03:30P Reed Omalley MD Not available Not available Not available Lab SARS CoV 2 RNA (COVID -19), QL, security tester-PC R, respir atory specim en - sore throat , expose d to pos COVID person modesto d tested pos woodri gosia 130 2019 020 [facility] (Lab), [address] [place], [address], 01/22/2020 22:32:15 Referral None record ed. Procedures None record ed. Surgeries None record ed. Imaging MAMMO, screen ing, digita l, bilate ral [address] [facility] (Scheduling), [address] [place], [address], 06/28/2024 13:33:08 MAMMO, screen ing, digita l, bilate ral 2017 018 MASON Collins [facility] Scheduling, 1 [facility] [place], [address], 06/02/2018 10:02:49 Medication Orders flucon azole 150 mg tablet 2020 021 [id number], [address] [facility] [place], [place], [id number], 12/21/2023 15:30:54 Patient TargetsNo targets recorded. Patient Instructions Encounter Date Encounter Id Patient Instructions Last Modified By Organization Details Last Modified Time 01/21/2020 [id number] Reviewed the following recommendations: -Stay home and [...] started. [email or web address] Not available 01/21/2020 13:53:01 07/29/2020 [id number] hot flashes during menopause: care instructions [place] [id number] Not available 07/29/2020 11:24:23 vaginal yeast infection: care instructions [facility] Not available 07/29/2020 11:24:22 12/21/2023 [id number] mammogram: about this test erica Not available 12/21/2023 17:17:49 A healthy lifestyle: care instructions [place] [address] Not available 12/21/2023 17:17:49 Reason for Referral None Reported. Results Created Date Observation Date Name Description Value Unit Range Abnormal Flag Note LastModifiedBy Organization Detail LastModifiedTime 01/21/20 20 01/21/2020 SARS CoV 2 RNA (COVI D-19) , QL, security tester-P CR, respi rator y speci men sars - cov - 2 PCR POSITI VE* mL critical abnormal Not Available [facility] (Lab) [address] [place], [address], 01/22/2020 22:32:15 01/21/20 20 01/21/2020 SARS CoV 2 RNA (COVI D-19) , QL, security tester-P CR, respi rator y speci men covidcom1 [...] of this test metho d. Not Available [facility] (Lab) [address] [place], [address], 01/22/2020 22:32:15 01/21/20 20 01/21/2020 SARS CoV 2 RNA (COVI D-19) , QL, security tester-P CR, respi rator y speci men covidcom2 Posit wilfred resul ts are indic ative of the prese nce of SARS- CoV-2 RNA and do not rule out bacte rial infec tion or co-in fecti on with other virus es. Not Available [facility] (Lab) [address] [facility], [place], [address], 01/22/2020 22:32:15 01/21/20 20 01/21/2020 SARS CoV 2 RNA (COVI D-19) , QL, security tester-P CR, respi rator y speci men covidcom3 Test resul ts shoul d be used along with other clini elbert obser vatio ns, patie nt histo ry, epide miolo gical infor matio n and labor atory data [facility] diagn osis. Not Available [facility] (Lab) [address] [place], [address], 01/22/2020 22:32:15 01/21/20 20 01/21/2020 SARS CoV 2 RNA (COVI D-19) , QL, security tester-P CR, respi rator y speci men covidcom4 [...] ellis is termi nated or revok ed soone r. Not Available [facility] (Lab) [address] [place], [address], 01/22/2020 22:32:15 01/21/20 20 01/21/2020 SARS CoV 2 RNA (COVI D-19) , QL, security tester-P CR, respi rator y speci men covidcom5 [facility] is certi fied under CLIA- 88 as quali fied to perfo rm high compl exity testi ng. This testi ng was perfo rmed in the [facility] [place] [address] (CLIA Licen se #[id number] 60004 5, CAP #[id number], AU-ID #[id number]). Not Available [facility] (Lab) [address] [place], [address], 01/22/2020 22:32:15 01/21/20 20 01/21/2020 SARS CoV 2 RNA (COVI D-19) , QL, security tester-P CR, respi rator y speci men covidcom6 Facts heet for healt hcare provi ders: https ://ww w.fda .gov/ media /1362 56/do wnloa d Facts heet for patie nts: https ://ww w.fda .gov/ media /1362 57/do wnloa d Not Available [facility] (Lab) [address] [place], [address], 01/22/2020 22:32:15 05/07/20 22 05/12/2022 PATHO LOGY REPOR T . Commen t Mater ial submi tted: . zach fan - RIGHT LABIA . Modif iers: right Not Available [facility] ([facility]) [address] [facility], [place], [address], 05/12/2022 16:12:01 05/07/20 22 05/12/2022 PATHO LOGY REPOR T . Commen t Diagn osis: RIGHT LABIA : DAMARIS NT OF EPIDE RMAL INCLU SANDIE CYST. BDN 05/12 1318 Local Not Available [facility] ([facility]) [address] [facility], [place], [address], 05/12/2022 16:12:01 05/07/20 22 05/12/2022 PATHO LOGY REPOR T . Commen t Flory faustin d: . Aiyana olivares ([facility]) MD Julieta, Patho logis t Not Available [facility] ([facility]) [address] [place], [address], 05/12/2022 16:12:01 05/07/20 22 05/12/2022 PATHO LOGY [...] RA 05/09 1745 Local Not Available [facility] ([facility]) [address] [facility], [place], [address], 05/12/2022 16:12:01 05/07/20 22 05/12/2022 PATHO LOGY REPOR T . Commen t Patho logis t provi ded ICD-1 0: L72.0 Not Available [facility] ([facility]) [address] [facility], [place], [address], 05/12/2022 16:12:01 05/07/20 22 05/12/2022 PATHO LOGY REPOR T . Commen t CPT . 65704 1 Not Available [facility] ([facility]) [address] [facility], [place], [address], 05/12/2022 16:12:01 06/02/19 19 06/02/2018 MAMMO , scree parmjit, digit al, bilat eral No observ ation record ed. [facility] [address] [facility] [place], [address], 06/02/2018 14:24:24 03/04/20 22 03/04/2022 MAMMO , scree parmjit, digit al, bilat eral No observ ation record ed. [address] [place], [address], 03/10/2022 11:25:03 08/02/19 25 08/01/2024 MAMMO , scree parmjit, tomos ynthe sis, bilat eral No observ ation record ed. [email or web address] [facility] (Radiology) [address] [place], [address], 08/02/2024 12:49:22 Result Notes None recorded. Problems Name Problem SNOMED Code Status Onset Date Resolution Date Notes Provider Name and Address Organization Details Recorded Time Disorder of thyroid gland 43681608 Active JACINTO Garcia [facility] 5 14:43:35 Lupus erythematosus 683132393 Active Alexus Castilloanagan null, [place] - [facility] 5 14:43:35 Hypertensive disorder 78716578 Active Alexus Chakrab[place]y [place] [facility] 5 14:43:35 Depressive disorder 40878284 Active [place] Chak[place] [facility] 5 14:43:35 Hyperlipidemia 44098628 Active Alex[place] Chak[place] [facility] 5 14:43:35 Arthritis 8618232 Active Alex[place] Ch[place] [facility] 5 14:43:35 Headache 28954981 Active Alex[place] Ch[place] [facility] 5 14:43:35 Obesity 802305287 Active Herber Eagle MD Attn: Michelle mullen,[address] [place], [address], [place] - [facility] 6 12:53:10 Menopausal symptom 91036923 Active Paola Lawrence [facility] Attn: Michelle mullen,[address] [place], [address], [place] - [facility] 5 15:47:19 Candidiasis of vagina 03298394 Active Brissa Al [place] [facility] 5 16:15:18 Pruritus of vagina 75690823 Active aNthalie Rao [place] [facility] 6 09:43:26 Menopausal syndrome 299024406 Active Paola Lawrence [facility] Attn: Michelle g,[address] [place], [address], [place] - [facility] 5 15:02:48 Problem Notes None recorded. Procedures Surgical History Date Name Laterality Status Provider Name and Address Organization Details Recorded Time 08/02/19 25 Most Recent Mammogram completed Nereida Gil RN [place] - [facility] 08/02/2024 11:09:24 05/07/20 22 Generic Procedure completed Giovanny Omalley MD Attn: Accounting[address] [place], [address], [facility] 05/07/2022 13:58:19 12/20/19 15 Date of Last Pap Smear completed Ivelisse Anthony [facility] 07/29/2020 10:52:17 Orthopedic Surgery completed Ivelisse Anthony MA [facility] 05/07/2022 11:17:13 excision of ganglion cyst completed Ivelisse Anthony [facility] 05/07/2022 11:18:17 Hysterectomy completed Brissa Al [facility] 14:16:50 Imaging Results None recorded. Procedure Notes None recorded. Medical Equipment None Reported. Allergies Allergen ID Allergen Name Allergen Category Reaction Reaction Severity Criticality Documentation Date Start Date Code Code System Note Provider Name and Address Organization Details Recorded Time 84794 Flagyl medicatio n nausea severe Not available 09/07/2016 54855 6 [facility] 7 10:46:12 97898 Accupril medicatio n respirato ry distress severe Not available 09/07/2016 26240 RxNorm [facility] 7 10:46:32 Medications Name Sig Start Date Stop Date Status Note LastModified by Organization Details LastModified Time antacid/di phen/lido 111 mouthwas SWISH AND SPIT WITH 20 ML BY MOUTH EVERY 6 HOURS NEEDED FOR ORAL ULCER active Not Available Not Available No t Available Prescripti on - New 12/20 completed adipex pt picker and sorter load and unload Not Available Not Available Not Available antac/diph [...] active Not Available Not Available Not Available Nurtec ODT 75 mg disintegra ting tablet DISSOLVE [...] Address Organization Details Last Updated DateTime 07/29/2020 74005.79 g 23.1 kg/m2 167.64 cm 122/80 mm[Hg] Ivelisse ASIM Anthony [facility] 07/29/2020 10:48:00 Date Recorded Body height Body mass index (BMI) Body weight Systolic And Diastolic Provider Name and Address Organization Details Last Updated DateTime 12/21/2023 167.64 cm 25.4 kg/m2 38804.44 g 125/86 mm[Hg] Ivelisse ASIM Anthony [facility] 12/21/2023 15:27:37 Date Recorded Body weight Systolic And Diastolic Provider Name and Address Organization Details Last Updated DateTime 03/24/2018 61330.58 g 110/72 mm[Hg] Stephanie Sanchez MA [facility] 03/24/2018 10:00:49 Date Recorded Body height Body mass index (BMI) Body weight Systolic And Diastolic Provider Name and Address Organization Details Last Updated DateTime 05/07/2022 167.64 cm 24.2 kg/m2 23340.86 g 120/74 mm[Hg] Ivelisse ASIM Anthony [facility] 05/07/2022 11:12:05 Social History Question Answer Notes LastModified by Organizat ion Details LastModified Time Tobacco Smoking Status Never Smoker [facility] 06/25/2014 14:43:35 Do You Have An Advance [...] Or The Highest Degree You Have Received? EC78028-9 Information not available 05/07/2022 Have There Been [...] anxious, or unable to sleep at night)? [id number] Information not available 05/07/2022 Family History Relationship Description Onset Age of this Age Resolved Age Notes LastModified by Organization Details LastModified Time Father Hypertensive disorder rachna Not available 2014 14:16:50 Father Hyperlipidem ia jamieichert Not available 2014 14:16:50 Medical History Condition [...] ICD10 Code Diagnosis IMO Codes Diagnosis Note [id number] Paola Lawrence [facility] Samantha Nair ([place] [address]) 2 [facility] [place] [address] 12/19/2014 14:08:18 12/19/2014 16:00:01 Gynecologic examination 57721372 Pruritus of vagina 05590588 Menopausal syndrome 543510876 [id number] Paola Lawrence TAIWO Nair ([place] [address]) 2 [facility] [place] [address] 09/07/2016 10:17:57 09/08/2016 09:26:29 Gynecologic examination 71493155 Z01.419 Menopausal syndrome 1237 39105 N95.9 Candidiasis of vagina 72 996012 B37.3 [id number] MD Samantha Hunter ([place] [address]) 2 [facility] [place] [address] 09/14/2016 14:13:15 09/15/2016 09:11:07 Herniation of rectum into vagina 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 N81.6 Urinary incontinence 165 141675 R32 Urogynecol ogy referral [id number] Herber Eagle MD [facility] [address] [place] [address] 12/20/2016 10:34:08 12/21/2016 09:33:08 Hypothyroidism 47162340 E03.9 Obesity 785163439 E66.9 [id number] MD Samantha Hunter [address] [place] [address] [place] [address] 03/24/2018 09:45:50 03/27/2018 11:19:15 Gynecologic examination 81488990 Z01.419 CBE and pelvic exam performed Screening mammography 24 451510 Z12.31 [id number] GERTRUDE Quiñones [address] [place] [address] 01/21/2020 13:25:30 01/22/2020 08:17:33 Suspected COVID-19 861905964 Z03.818 D/w pt the current pandemic of COVID-19 and call for social isolation in order to blunt the curve and minimize risk and spread. Encouraged patient and family to take restrictio ns seriously. They have verbalized understand ing of such. Viral syndrome 770459639 B34.9 [id number] MD Samantha Hunter [address] [place] [address] Dr Garcia [address] [place] [address] 07/29/2020 10:21:25 07/30/2020 11:54:51 Gynecologic examination 43025966 Z01.419 CBE and pelvic exam performed Menopausal flushing 1983 62670 N95.1 Estradiol discontinu ed, patient had a stroke one year ago.Bird bartholomew will call the office after she she sees her psychiatri st and will consider venlafaxin e for treatment. Candidiasis of vagina 72 145803 B37.3 [id number] MD Samantha Hunter [address] [place] [address] Dr Garcia [address] [place] [address] 05/07/2022 10:56:41 05/11/2022 09:20:23 Gynecologic examination 26991225 Z01.419 CBE and pelvic exam performed Menopausal symptom 14054 002 E89.41 --Pt has a history of stroke and cannot take hormone replacemen t therapy--P t is currently taking many medication s that interact with venlafaxin e. She is also taking xanax multiple times a day. Open comedone 982975824 L70.0 --Removed from right labia--Sen d to pathology [id number] MD Samantha Hunter 14 OB [address] [facility] [place] [address] 12/21/2023 15:08:16 12/22/2023 09:39:32 Gynecologic examination 59203653 Z01.419 CBE and pelvic exam performed Screening mammography 24 490219 Z12.31 [facility] 310280190 E66 .3 Health Concerns Section Related Observation [...] 2020 (MEDICAID REPLACEMENT - HMO) Leticia Post [id number] Leticia Post 07/11/2024 [facility] (MEDICAID HMO) Leticia Post [id number] Leticia [facility] 07/11/2024 [place] - [facility] Leticia Post [id number] [facility]icia Post 07/11/2024 2 [place] WHEN [place]ICARE OR MEDICARE REPLACEMENT PRIMARY) Leticia Post [id number] Leticia Post 07/11/2024 [place] [facility] [id number] [facility] 05/17/2025 1 [place] [facility]icia [facility] [id number] [facility]icia [facility] 05/17/2025 2 [place] WHEN [place]ARE OR MEDICARE REPLACEMENT PRIMARY) Leticia Post [id number] Leticia [facility] 07/11/2024 [place] [facility] [id number] [facility] 07/11/2024 [place] WHEN [place] OR MEDICARE REPLACEMENT PRIMARY) [facility]icia Post [id number] Leticia Post Notes Date Note Type Note Provider Name and Address Organization Details Recorded Time 8 text/html Annual Patient Relations Liaison Post-MenopausalReported by PatientGenitourinary symptomsFor menopausal symptoms, patient [...] HPI Giovanny Omalley MD Attn: Accounting,[address] [place], [address], [facility] 03/24/2018 10:34:47 0 text/html COVID-19 Symptoms September [...] pos LAURA Coles NP Attn: Accounting,[address] [facility], [place], [address], [facility] 01/21/2020 13:53:28 1 text/html Annual Patient Relations Liaison Post-MenopausalReported by PatientGenitourinary symptomsFor menopausal symptoms, patient [...] a yeast infection.ROS as noted in the [facility] Giovanny Omalley MD Attn: Accounting,[address] [place], [address], [facility] 07/29/2020 13:22:39 2 text/html Annual Patient Relations Liaison Post-MenopausalReported by PatientGenitourinary symptomsFor menopausal symptoms, patient [...] reportsno depressionandno anxiety.ROS as noted in the [facility] Giovanny Omalley MD Attn: Accounting,[address] [place], [address], [facility] 05/07/2022 14:24:49 4 text/html Annual Patient Relations Liaison Post-MenopausalReported by PatientGenitourinary symptomsFor menopausal symptoms, patient [...] HPI Giovanny Omalley MD Attn: Accounting,[address] [place], [address], [facility] 12/21/2023 17:18:48 OBGyn Episode No OBEpisode recorded.
[2025-05-20 19:06] LABS: Hematocrit 44.3 % (37.0-47.0); Hemoglobin 14.1 g/dL (12.0-15.0); Immature Granulocyte Percent A 0.4 % (0-0.5); Lymphocytes Absolute Auto 2.11 K/mm3 (0.9-3.2); Mean Corpuscular HGB Conc 31.8 g/dl (32-36); Mean Corpuscular Hemoglobin 29.9 pg (26-34); Mean Corpuscular Volume 94.1 fl (80-100); Nucleated Red Blood Cells Absolute Auto 0.000 K/mm3 (0.0-0.012); Nucleated Red Blood Cells Perc 0.0 % (0.0-0.2); Platelet Count Result 276 k/mm3 (150-375); Red Blood Count 4.71 M/mm3 (4.2-5.4); White Blood Count 5.2 K/mm3 (4.5-10.0)
[2025-05-20 19:23] LABS: Alanine Aminotransferase 13 U/L (6-35); Albumin Level 4.3 g/dL (3.5-5.1); Alkaline Phosphatase 89 U/L (38-126); Anion Gap 5 mmol/L (4-12); Aspartate Amino Transferase 59 U/L (14-36); Bilirubin,Total 1.1 mg/dL (0.2-1.3); Blood Urea Nitrogen 21 mg/dL (7-17); Calcium 9.4 mg/dL (8.4-10.2); Carbon Dioxide 26 mmol/L (22-30); Chloride 107 mmol/L (98-107); Cholesterol 289 mg/dL (0-200); Estimated Glomerular Filt Rate 42; Glucose 87 mg/dL (65-110); HDL Direct 103 mg/dL; Magnesium 2.1 mg/dL (1.6-2.3); Potassium 4.4 mmol/L (3.4-5.0); Sodium 138 mmol/L (137-145); Total Protein 7.5 g/dL (6.3-8.2); Triglycerides 52 mg/dL (<150)
[2025-05-20 19:59] LABS: Thyroid Stimulating Hormone 7.440 uIU/mL (0.465-4.680)
[2025-05-20 20:36] LABS: Vitamin B12 > 1000.0 pg/mL (239-931)
[2025-05-22 21:07] LABS: Estrogens, Total 42 pg/mL (40-244)
[2025-05-22 22:07] LABS: Free Testosterone (Direct) 1.2 pg/mL (0.0-4.2)
== END 2025-05-20 10:14 | disposition home or self-care (01) ==
PROVIDERS: PCP Family Medicine; Visit Provider Family Medicine
DX: K76.0 Fatty (change of) liver, not elsewhere classified (principal); K21.9 Gastro-esophageal reflux disease without esophagitis; F41.9 Anxiety disorder, unspecified; F32.A Depression, unspecified; J45.909 Unspecified asthma, uncomplicated; I10 Essential (primary) hypertension; E78.5 Hyperlipidemia, unspecified; E03.9 Hypothyroidism, unspecified; E55.9 Vitamin D deficiency, unspecified; Z86.73 Personal history of transient ischemic attack (TIA), and cerebral infarction without residual deficits
CPT/HCPCS: 36415; 80053; 80061; 82306; 82607; 82672; 82746; 83735; 84144; 84402; 84403; 84443; 85025